=== PATIENT | female | born 1930 | race Caucasian/White ===

== ENCOUNTER → 2017-12-27 | Outpatient (CLI) | payer MEDICARE ==
--- NOTE | 2017-12-27 14:41 | BD ---
EXAMINATION TYPE: Axial Bone Density DATE OF EXAM: 12/27/2017 COMPARISON: NONE CLINICAL HISTORY: 87 YR OLD FEMALE.....ICD-10 CODE: N95.1 POST MENOPAUSAL STATE Height: 60 Weight: 156 FRAX RISK QUESTIONS: NOTHING TO NOTE HERE RISK FACTORS HISTORY OF: Postmenopausal woman: YES, IN HER 50'S Lost more than 2 inches in height since high school: YES Frequent falls: ELDERLY MEDICATIONS: Additional Medications: STATINS FOR CHOLESTEROL, REFLUX MEDS IN PAST ONLY Additional History: NOTHING ADDITIONAL TO NOTE HERE EXAM MEASUREMENTS: Bone mineral densitometry was performed using the [employer] System. Bone mineral density as measured about the Lumbar spine is: ----- L1-L4(G/cm2): 1.353 T Score Values are as follows: ----- L1: 1.6 ----- L2: 1.1 ----- L3: 1.2 ----- L4: 1.8 ----- L1-L4: 1.4 Bone mineral density has: Increased 0.2% since study of: 01.23.2009 Bone mineral density about the R hip (g/cm2): 0.904 Bone mineral density about the L hip (g/cm2): 0.874 T Score values are as follows: -----R Neck: -1.1 -----L Neck: -2.0 -----R Total: -0.8 -----L Total: -1.1 Bone mineral density has: Decreased -6.5% since study of: 01.23.2009 FRAX%s: THERE IS A 15.1% CHANCE FOR A MAJOR OSTEOPOROTIC FX AND A 4.6% FOR HIP FX....PROBABILITY O F FX IN 10 YRS TIME IMPRESSION: Osteopenia left proximal femur. NOTE: T-SCORE=SD OF THE YOUNG ADULT MEAN.
== END | disposition home or self-care (01) ==
LOC: RADBDWWP 13:08
PROVIDERS: ATTEND Internal Medicine
DX: M85.852 Other specified disorders of bone density and structure, left thigh (principal); N95.1 Menopausal and female climacteric states
CPT/HCPCS: 77080

== ENCOUNTER → 2018-03-08 | Outpatient (CLI) | payer MEDICARE | END | disposition home or self-care (01) | LOC: LABPAT 14:26 | PROVIDERS: ATTEND Orthopaedic Surgery | DX: Z01.812 Encounter for preprocedural laboratory examination (principal) | CPT/HCPCS: 87070 ==

== ENCOUNTER 2018-03-29 11:55 | Inpatient (IN) | payer MEDICARE ==
[~2018-03-29 11:55] MED LIST: ACETAMINOPHEN TAB 500 MG TAB PO ONE; LIDOCAINE 1% 20 ML VIAL (10MG/ML) FOR IV START INTRADERMA PRN; MELOXICAM 7.5 MG TAB PO ONE; MIDAZOLAM (PF) 2 MG/2 ML VIAL IV PRN; TRANEXAMIC ACID 1,000 MG in SODIUM CHLORIDE 0.9% 50 ML IVPB ONE; ceFAZolin IN SWFI 2 GM/20 ML SYRINGE IVP ONE; fentaNYL (PF) 50 MCG/ML 2 ML AMP IV PRN; fentaNYL (PF) 50 MCG/ML 20 ML VIAL IVP PRN
[2018-03-29] MEDS: LACTATED RINGERS 1,000 ML IV SCH ×2 (14:52→23:06)
[2018-03-29] MEDS ORDERED: ROPIVACAINE 1,100 MG, SODIUM CHLORIDE 0.9% 500 ML 330 ML MISCELLANE PRN ×2 (15:12)
--- NOTE | 2018-03-29 15:12 | P.ONQ ---
Anesthesiology Proc Note - PNB - Peripheral Nerve Block Performed Left Adductor Canal Infusion Time Out Performed: Yes (3409) Procedure Start Time: 14:53 Procedure Stop Time: 15:09 Indication: Acute Post-Operative Pain, Requested by physician (Lorrie) Sedation Type: Sedate with meaningful contact maintained Preparation: Sterile Dressing Position: Supine Catheter: Indwelling Needle Types: On-Q Needle Size: 100mm (4") Needle Gauge: 20 Technique: Ultrasound Injectate: 0.5% Ropivacaine (see comment for volume) (30 mls) Blood Aspirated: No Pain Paresthesia on Injection Noted: No Resistance on Injection: Normal Events: Uneventful and Well Tolerated
[2018-03-29] MEDS ORDERED: PROPOFOL 10 MG/ML 20 ML VIAL IV ONE (15:21)
[2018-03-29] MEDS ORDERED: fentaNYL (PF) 50 MCG/ML 2 ML AMP ONE (15:21)
[2018-03-29] MEDS ORDERED: MIDAZOLAM 2 MG/2 ML VIAL ONE (15:21)
[2018-03-29] MEDS ORDERED: ceFAZolin 3,000 MG in SODIUM CHLORIDE 0.9% IRRIGATIO 3,000 ML IRRIGATION ONE ×4 (15:28)
[2018-03-29] MEDS ORDERED: hydrOXYzine PAMOATE 25 MG CAP PO PRN (15:41)
[2018-03-29] MEDS ORDERED: ONDANSETRON 4 MG/2 ML VIAL IVP PRN (15:41)
[2018-03-29] MEDS ORDERED: MAGNESIUM HYDROXIDE 2,400 MG/10 ML CUP PO PRN (15:41)
[2018-03-29] MEDS ORDERED: BISACODYL 10 MG SUPP RECTAL PRN (15:41)
[2018-03-29] MEDS ORDERED: DIAZEPAM 5 MG TAB PO PRN (15:41)
[2018-03-29] MEDS ORDERED: NALOXONE 0.4 MG/ML 1 ML VIAL IV PRN (15:41)
[2018-03-29] MEDS ORDERED: NA PHOS,M-B/NA PHOS,DI-BA 133 ML ENEMA RECTAL PRN (15:41)
[2018-03-29] MEDS ORDERED: HYDROcodone/APAP 5-325MG 1 EACH TAB PO PRN ×2 (15:41)
[2018-03-29] MEDS ORDERED: HYDROmorphone 0.5 MG/0.5 ML SYRINGE IVP PRN ×3 (15:41)
[2018-03-29] MEDS: ROPIVACAINE 246.25 MG, EPINEPHrine 0.5 MG, KETOROLAC 30 MG, cloNIDine HCL/PF 80 MCG, WA... MISCELLANE ONE ×10 (16:10→16:26)
--- NOTE | 2018-03-29 16:51 | P.OP ---
Date of Procedure: 03/29/18 Preoperative Diagnosis: Severe osteoarthritis left knee Postoperative Diagnosis: Severe osteoarthritis left knee Procedure(s) Performed: Left total knee arthroplasty Implants: Odom and Nephew Journey II CR Oxinium cruciate retaining femoral component size 5, left Odom & Nephew Journey left nonporous tibial baseplate size 4 Odom & Nephew Journey II, XLPE Deep Dished articular insert, size 13 mm, Size 3 -4 left Odom & Nephew Journey BCS resurfacing oval patellar component, 32 mm All components were cemented using Palacos R bone cement.. The articulation is Oxinium on polyethylene. Anesthesia: spinal Surgeon: Constantin Andrew Cloth Bolt Bander #1: Kacie Chung Estimated Blood Loss (ml): 25 Pathology: other (Bone and cartilage) Condition: stable Disposition: PACU Indications for Procedure: After failure of conservative treatment we discussed the surgical and nonsurgical treatment options at length. Patient wishes to proceed with a total knee arthroplasty. Complications specific to this procedure were discussed at length, including but not limited to infection, bleeding, stiffness , and nerve injury. Patient is aware of all these complications and informed consent was obtained Operative Findings: The operative findings are consistent with severe osteoarthritis of the left knee Description of Procedure: Patient was seen in the preoperative area consent was reviewed and operative site was marked with a skin marker. An adductor canal pain catheter was placed by anesthesia in the preoperative area. Patient was then brought to the operating room and given preoperative antibiotics intravenously. A spinal anesthetic was administered by the anesthesia department. A tourniquet was placed on the upper thigh and the lower extremity was prepped and draped in usual sterile fashion. A gram of transexamic acid was given. A universal timeout was then performed which confirmed the patient's name, surgical site, ALLERGIES, and consent. The lower extremity was then exsanguinated and tourniquet was inflated to 250 mmHg. A standard and anterior midline approach to the knee was performed. The skin and subcutaneous tissue was dissected down to the patellar tendon. A medial parapatellar arthrotomy was then performed. The knee was then extended, the patellar was everted, and the knee was again flexed. Anterior horns of both menisci were excised, and a release was performed to the posterior medial aspect of the knee. On gross visual inspection, there was complete loss of articular cartilage in the medial and patellofemoral joint spaces. There was also significant cartilage damage in the lateral compartment. There were multiple periarticular osteophytes which were then removed with a Ronguer. The femoral canal was then opened with the appropriate drill, and the intramedullary femoral cutting guide was then placed and set for 5 of valgus. The distal femoral cutting block was then pinned in place, and the distal femur was then cut. The cutting block was then removed and the cut was checked for flatness. Next, the sizing guide was then placed and set for 3 external rotation based off of the epicondylar axis and Whitesides line. After the femur was sized, the appropriate 4-in-1 cutting block was then pinned in place. The anterior condyles were cut without notching. The posterior and chamfer cuts were performed while protecting the collateral ligaments. The cutting block was then removed, and the femoral canal was plugged with autologous bone. Attention was then directed to the tibia. The remaining ACL was removed with a Ronguer, and the tibia was then gently subluxed forward with a large bent knee retractor. Any remaining menisci was excised. The posterior lateral corner was cauterized in order to cauterize the lateral geniculate artery. The extra medullary tibial cutting guide was then placed, set for the appropriate rotation , slope, and depth of resection. The proximal tibia cutting guide was then pinned in place. Proximal tibia was then cut and sized. Next trials were then placed with the appropriate-sized insert. The knee was able to fully extend and flex to 130 and was stable throughout all range of motion. The knee was then extended, patella everted. Patella was then measured, and then using an osteotomy guide, the patella was cut at the appropriate level. The patella was then measured and drilled and the patella trial was then placed. The knee was then taken through range of motion with the patella trial and the patella tracked normally. The knee was then extended patella trial was then removed and the patella was everted. Knee was then flexed and lug holes were drilled through the femoral trial and the femoral trial was then removed. The tibial was then exposed, and the tibial broach guide was then pinned in place after it was set for the appropriate rotation to allow for the most coverage without overhang. The tibia was then reamed and broached. The cut surfaces of bone were then irrigated with pulsatile lavage. The posterior structures were injected with the ropivacaine solution. The knee was also irrigated with Irrisept solution. The components were then opened, the cement was mixed, and the components were then cemented in place. The cement was allowed to harden with the knee in full extension. While the cement was hardening, the remaining soft tissues were then injected with a ropivacaine solution, which consisted of 246.25 mg of ropivacaine, 0.5 mg of epinephrine, 30 mg of Toradol, 80 g of clonidine, and 48.45 mL of sterile water, for a total of 100 mL of fluid injected. After the cemented hardened. The tourniquet was released, and hemostasis was obtained. A second gram of transexamic acid was given. The knee was again irrigated. The knee was again taken through range of motion and found to be stable throughout all range of motion of 0-130 , and the patella tracked normally. The fascia was then closed with #2 strata fix suture. The subcutaneous tissue was closed with 3-0 Vicryl and 3-0 strata fix. Dermabond glue was used for the skin and placed with the knee in flexion. The patient was placed in a sterile silver dressing. Patient was then transferred to recovery room in stable condition. The assistant customer service manager JASIEL Sidhu was required due the complexity surgery and the need for a skilled blood and plasma laboratory assistant. She assisted in positioning, draping, retraction, and closure of the wound.
[2018-03-29] MEDS ORDERED: LACTATED RINGERS 1,000 ML IV ONE ×2 (17:45)
--- NOTE | 2018-03-29 19:27 | XR ---
PROCEDURE: XR knee limited LT - 2 views DATE AND TIME: 03/29/2018 5:49 PM CLINICAL INDICATION: PHH; Evaluation for Postop abnormality and alignment TECHNIQUE: AP and crosstable lateral views COMPARISON: None FINDINGS: TKR is in place, with anatomic positioning alignment. Postoperative changes are noted, but no unexpected findings. IMPRESSION: Postoperative left knee 2 views.
[2018-03-29 19:52] VITALS: BMI 30.1
[2018-03-29] MEDS ORDERED: ATORVASTATIN 20 MG TAB PO SCH (21:00)
[2018-03-29] MEDS ORDERED: OXYBUTYNIN XL 5 MG TAB.ER.24 PO SCH (21:00)
[2018-03-29] MEDS ORDERED: SENNOSIDES-DOCUSATE SODIUM 1 EACH TAB PO SCH (21:00)
[2018-03-29] MEDS: ASPIRIN 325 MG TAB PO SCH (21:29)
[2018-03-29] MEDS: ceFAZolin IN SWFI 2 GM/20 ML SYRINGE IVP SCH (22:09)
[2018-03-29] MEDS: SODIUM CHLORIDE 0.9% 1,000 ML IV SCH (23:07)
[2018-03-30] MEDS: ceFAZolin IN SWFI 2 GM/20 ML SYRINGE IVP SCH (04:19)
--- NOTE | 2018-03-30 07:17 | P.PN ---
Progress Note - Text Progress Note Date: 03/30/18 Postoperative day # 1 status post left total knee arthroplasty, under spinal anesthesia, and adductor canal catheter placed for postoperative analgesia, currently at ropivacaine 0.2% 8 mL per hour and continuous infusion, visual analogue scale is 3-4 /10, patient using oral pain medication for breakthrough pain. Assessment and plan= Acute postoperative pain, adductor canal catheter for pain control, pain is well controlled we'll continue the same management.
[2018-03-30 07:42] LABS: Basophils % (A) 0 %; Eosinophils # (A) 0.1 k/uL (0-0.7); Eosinophils % (A) 2 %; HGB 11.3 gm/dL (11.4-16.0); Lymphocytes # (A) 0.6 k/uL (1.0-4.8); Lymphocytes % (A) 8 %; MCH 30.2 pg (25.0-35.0); MCHC 33.1 g/dL (31.0-37.0); MCV 91.3 fL (80.0-100.0); Mean Platelet Volume 6.9; Monocytes # (A) 0.5 k/uL (0-1.0); Monocytes % (A) 7 %; Neutrophils # (A) 5.7 k/uL (1.3-7.7); Neutrophils % (A) 82 %; Platelet Count 184 k/uL (150-450); RBC 3.72 m/uL (3.80-5.40); RDW 13.9 % (11.5-15.5)
[2018-03-30] MEDS: SODIUM CHLORIDE 0.9% 1,000 ML IV SCH (08:13)
[2018-03-30] MEDS: LACTATED RINGERS 1,000 ML IV SCH (08:13)
[2018-03-30 08:18] VITALS: RESP 16
[2018-03-30] MEDS: ASPIRIN 325 MG TAB PO SCH (08:21)
[2018-03-30] MEDS ORDERED: MELOXICAM 7.5 MG TAB PO SCH (09:00)
--- NOTE | 2018-03-30 09:14 | P.DS ---
Providers Date of admission: 03/29/18 14:18 Expected date of discharge: 03/30/18 Attending physician: Constantin Andrew Consults: 03/29/18 15:41 Consult Physician Routine Consulting Provider: Gracie Fields Consult Reason/Comments: medical management Do you want consulting provider notified?: Yes Primary care physician: Gracie Fields - Discharge Diagnosis(es) (1) Osteoarthritis of left knee Current Visit: Yes Status: Acute (2) Status post total left knee replacement Current Visit: Yes Status: Acute Hospital Course: This is a 87-year-old female with known history of degenerative arthritis of the left knee. The patient presents for evaluation. After discussion and consideration patient elects to proceed with total knee arthroplasty. The patient is seen preoperatively by Dr. Andrew and medically cleared for surgery by their primary care physician. Patient is admitted to [facility] on 03/29/2018 for total knee arthroplasty. The procedures performed without complication or sequelae. The patient is doing well postoperatively. Labs and vital signs are stable on day of discharge. On day of discharge patient's knee incision is healing well. There is minimal erythema. There is no drainage noted at this time. There is minimal soft tissue swelling to the knee. Patient has full foot and ankle motion without difficulty or pain. Neurovascular status to the left lower extremity is intact. Patient is discharged home in good condition. Please see med rec for accurate list of home medications. Plan - Discharge Summary Discharge Rx Participant: No New Discharge Prescriptions: New Aspirin 325 mg PO BID #60 tab HYDROcodone/APAP 5-325MG [Luning 5-325] 1 - 2 tab PO Q6HR PRN #56 tab PRN Reason: Pain Sennosides [Senokot] 1 tab PO BID #60 tablet No Action Simvastatin [Zocor] 40 mg PO DAILY Multivitamins, Thera [Multivitamin] 1 tab PO DAILY Acetaminophen Tab [Tylenol] 325 mg PO Q6HR PRN PRN Reason: PAIN/FEVER Tolterodine Tartrate [Detrol] 2 mg PO DAILY Ciprofloxacin HCl [Cipro] 250 mg PO Q12HR Discharge Medication List Acetaminophen Tab [Tylenol] 325 mg PO Q6HR PRN 08/16/14 [History] Multivitamins, Thera [Multivitamin] 1 tab PO DAILY 08/16/14 [History] Simvastatin [Zocor] 40 mg PO DAILY 08/16/14 [History] Tolterodine Tartrate [Detrol] 2 mg PO DAILY 03/23/18 [History] Ciprofloxacin HCl [Cipro] 250 mg PO Q12HR 03/29/18 [History] Aspirin 325 mg PO BID #60 tab 03/30/18 [Rx] HYDROcodone/APAP 5-325MG [Luning 5-325] 1 - 2 tab PO Q6HR PRN #56 tab 03/30/18 [ Rx] Sennosides [Senokot] 1 tab PO BID #60 tablet 03/30/18 [Rx] Follow up Appointment(s)/Referral(s): Constantin Andrew DO [Doctor of Osteopathic Medicine] - 2 Weeks Ambulatory/Diagnostic Orders: Continuous Passive Motion (CPM) Machine [DME.AMB1] Time Frame: 3 Weeks, Location : None Selected Walker w/ Wheels [DME.AMB1] Time Frame: 3 Months, Location: None Selected Activity/Diet/Wound Care/Special Instructions: Weightbearing as tolerated with a walker. CPM 5-6h daily. Leave dressing intact. May be removed by home care nurse in 10 days. May shower with dressing on. Please follow up with [facility] and call with any questions or concerns, . Discharge Disposition: HOME WITH HOME HEALTH SERVICES
[2018-03-30 10:09] LABS: Albumin 3.3 g/dL (3.5-5.0); Calcium 8.5 mg/dL (8.4-10.2); Potassium 4.6 mmol/L (3.5-5.1); Total Bilirubin 0.7 mg/dL (0.2-1.3); Total Protein 5.6 g/dL (6.3-8.2)
--- NOTE | 2018-03-30 11:32 | P.CONS ---
History of Present Illness - Reason for Consult Consult date: 03/30/18 Medical Management Requesting physician: Constantin Andrew - History of Present Illness This 87-year-old female patient who presented to the hospital for an elective total left knee osteoplasty with Dr. Andrew on 03/29/2018. Patient is a known past medical history of severe osteophyte is to left knee, hyperlipidemia , bowel resection, overactive bladder and rotator cuff repair surgery. Patient also reports that she has recently completed treatment for urinary tract infection. At this time patient is currently postop day 1 resting comfortably in bed. Patient does reports she has been up ambulating through halls. Patient requesting we recheck UA to rule out UTI. At this time patient denies chest pain or shortness of breath. Patient denies nausea vomiting or diarrhea. Patient denies any urinary burning or frequency. Review of Systems please refer to HPI otherwise unremarkable Past Medical History Past Medical History: Hyperlipidemia, Osteoarthritis (OA) Additional Past Medical History / Comment(s): Other HX: BLADDER PROBLEMS, bowel perforation with sx., right knee replacement History of Any Multi-Drug Resistant Organisms: None Reported Past Surgical History: Bowel Resection, Hernia Repair, Hysterectomy, Orthopedic Surgery Additional Past Surgical History / Comment(s): 08/21/14 Acromioplasty excision distal clavicle, rotator cuff repair R shoulder. HX PERFORATED BOWEL, ELIE CATARACT SX, incisional hernia repair. Past Anesthesia/Blood Transfusion Reactions: Previous Problems w/ Anesthesia Additional Past Anesthesia/Blood Transfusion Reaction / Comm: STATES "TOOK A LONG TIME WAKING UP AFTER SURGERY" Past Psychological History: No Psychological Hx Reported Additional Psychological History / Comment(s): Pt lives with her . She is independent. She uses no assistive device or home care. She drives. Smoking Status: Never smoker Past Alcohol Use History: Occasional Past Drug Use History: None Reported - Past Family History Father Family Medical History: Cancer Additional Family Medical History / Comment(s): PROSTATE Mother Family Medical History: Chest Pain / Angina Medications and Allergies Home Medications Medication Instructions Recorded Confirmed Type Acetaminophen Tab [Tylenol] 325 mg PO Q6HR PRN 08/16/14 03/29/18 History Multivitamins, Thera [Multivitamin] 1 tab PO DAILY 08/16/14 03/29/18 History Simvastatin [Zocor] 40 mg PO DAILY 08/16/14 03/29/18 History Tolterodine Tartrate [Detrol] 2 mg PO DAILY 03/23/18 03/29/18 History Ciprofloxacin HCl [Cipro] 250 mg PO Q12HR 03/29/18 03/29/18 History Aspirin 325 mg PO BID #60 tab 03/30/18 Rx HYDROcodone/APAP 5-325MG [Walden 1 - 2 tab PO Q6HR PRN #56 tab 03/30/18 Rx 5-325] Sennosides [Senokot] 1 tab PO BID #60 tablet 03/30/18 Rx Allergies Allergy/AdvReac Type Severity Reaction Status Date / Time No Known Allergies Allergy Verified 03/29/18 18:15 Physical Exam Vitals: Vital Signs Temp Pulse Pulse Resp BP BP Pulse Ox 03/30/18 08:06 98.5 F 95 16 153/80 93 L 03/29/18 23:15 98.1 F 89 17 135/82 94 L 03/29/18 21:44 94 120/74 96 03/29/18 21:40 75 102/61 96 03/29/18 21:35 73 107/54 95 03/29/18 21:25 80 149/89 96 03/29/18 20:25 94 136/67 94 L 03/29/18 20:10 94 132/73 95 03/29/18 19:10 81 184/94 95 03/29/18 18:40 82 135/67 94 L 03/29/18 18:31 97.5 F L 72 18 150/78 97 03/29/18 18:10 80 16 142/71 94 L 03/29/18 17:55 79 16 146/72 95 03/29/18 17:40 80 16 142/77 99 03/29/18 17:25 97.4 F L 82 16 133/62 98 03/29/18 14:38 98.7 F 100 16 128/65 98 Intake and Output 03/29/18 03/30/18 03/30/18 22:59 06:59 14:59 Intake Total 981 650 Output Total 25 Balance 956 650 Intake: IV 851 Intake, IV Titration 130 650 Amount Sodium Chloride 0.9% 1, 130 650 000 ml @ 65 mls/hr IV . [id number] [facility] Rx#:[id number] Output: Estimated Blood Loss 25 Other: Voiding Method Toilet # Voids 1 2 Head normocephalic Neck supple Lungs clear to auscultation bilaterally no wheezing or crackles Heart regular rate and rhythm S1-S2, no rub or gallop Abdomen is soft nontender nondistended positive bowel sounds no hepatosplenomegaly Extremities no edema. Left knee clean dry and intact Neuro alert and orientated to 3 Results CBC & Chem 7: 03/30/18 06:43 03/30/18 06:43 Labs: Abnormal Lab Results - Last 24 Hours (Table) 03/30/18 03/30/18 Range/Units 06:43 06:43 RBC 3.72 L (3.80-5.40) m/uL Hgb 11.3 L (11.4-16.0) gm/dL Lymphocytes # 0.6 L (1.0-4.8) k/uL Chloride 110 H (98-107) mmol/L BUN 23 H (7-17) mg/dL Glucose 110 H (74-99) mg/dL Total Protein 5.6 L (6.3-8.2) g/dL Albumin 3.3 L (3.5-5.0) g/dL Assessment and Plan Assessment: 1. Status post total left knee arthroplasty with Dr. Andrew. Patient is currently postop day 1. She currently on aspirin 325 twice a day for DVT prophylactic 2. Recent UTI. Patient has completed treatment with Cipro. Urinary analysis has been ordered. 3. Osteoarthritis 4. Overactive bladder 5. History of rotator cuff repair 6. History of bowel resection 7. History of hyperlipidemia Time with Patient: Greater than 30 (Greater than 60% of the total time spent in counseling and coordination of care. I performed an examination of the patient and discussed their management with the Nurse Practitioner. I have reviewed the Nurse Practitioner's notes and agree with the documented findings and plan of care)
[2018-03-30 12:29] LABS: Appearance,Urine Clear (Clear); Bacteria,Urine Rare /hpf; Bilirubin,Urine Negative (Negative); Blood,Urine Negative (Negative); Color,Urine Yellow; Glucose,Urine (UA) Negative (Negative); Ketones,Urine Negative (Negative); Leukocyte Esterase,Urine Small (Negative); Mucus,Urine Rare /hpf; Nitrite,Urine Negative (Negative); PH, Urine 5.5 (5.0-8.0); Protein,Urine Negative (Negative); RBC,Urine 1 /hpf (0-5); Specific Gravity,Urine 1.011 (1.001-1.035); Squamous Epithelial Cell,Urine 1 /hpf (0-4); Urobilinogen,Urine <2.0 mg/dL (<2.0); WBC,Urine 9 /hpf (0-5)
[2018-03-30 16:12] VITALS: BP 105/66; PULSE 96; TEMP 98.1
== END 2018-03-30 16:35 | disposition home health service (06) | DRG 470 ==
LOC: 2ORMAIN 14:18 → 4SSUR 17:38
PROVIDERS: ADMIT Orthopaedic Surgery; ATTEND Orthopaedic Surgery
PROC: 0SRD069 Replacement of Left Knee Joint with Oxidized Zirconium on Polyethylene Synthetic Substitute, Cemented, Open Approach (ICD-10-PCS; principal; 2018-03-29 16:05)
DX: M17.12 Unilateral primary osteoarthritis, left knee (principal); E78.5 Hyperlipidemia, unspecified; G89.18 Other acute postprocedural pain; N32.81 Overactive bladder; M85.80 Other specified disorders of bone density and structure, unspecified site; R32 Unspecified urinary incontinence; M16.11 Unilateral primary osteoarthritis, right hip; Z79.82 Long term (current) use of aspirin; Z79.899 Other long term (current) drug therapy; Z90.49 Acquired absence of other specified parts of digestive tract; Z90.710 Acquired absence of both cervix and uterus; Z96.651 Presence of right artificial knee joint; Z87.440 Personal history of urinary (tract) infections; Z98.42 Cataract extraction status, left eye; Z98.41 Cataract extraction status, right eye; Z96.1 Presence of intraocular lens; Z80.42 Family history of malignant neoplasm of prostate
CPT/HCPCS: 80053; 81001; 85025; 88300

== ENCOUNTER → 2018-09-05 | Outpatient (CLI) | payer MEDICARE ==
[2018-09-05 15:24] LABS: HCT 40.6 % (34.0-46.0); HGB 13.6 gm/dL (11.4-16.0); MCH 30.2 pg (25.0-35.0); MCHC 33.5 g/dL (31.0-37.0); Platelet Count 201 k/uL (150-450); RBC 4.51 m/uL (3.80-5.40); RDW 14.4 % (11.5-15.5); WBC 7.4 k/uL (3.8-10.6)
[2018-09-05 15:30] LABS: Appearance,Urine Clear (Clear); Bacteria,Urine Rare /hpf; Bilirubin,Urine Negative (Negative); Blood,Urine Negative (Negative); Color,Urine Yellow; Glucose,Urine (UA) Negative (Negative); Ketones,Urine Negative (Negative); Leukocyte Esterase,Urine Moderate (Negative); Mucus,Urine Rare /hpf; Nitrite,Urine Negative (Negative); PH, Urine 5.5 (5.0-8.0); Protein,Urine Negative (Negative); RBC,Urine 1 /hpf (0-5); Specific Gravity,Urine 1.012 (1.001-1.035); Urobilinogen,Urine <2.0 mg/dL (<2.0); WBC,Urine 4 /hpf (0-5)
[2018-09-05 15:37] LABS: INR 0.9 (<1.2); Partial Thromboplastin Time 22.8 sec (22.0-30.0)
[2018-09-05 18:23] LABS: African American GFR (CKD) 77.4 (60.0-200.0); Albumin 4.2 g/dL (3.80-4.90); Albumin/Globulin Ratio 2.63 (1.60-3.17); Anion Gap 5.9 mmol/L (4.00-12.00); BUN/Creat Ratio 27.5 Ratio (12.00-20.00); Calcium 9.5 mg/dL (8.7-10.3); Carbon Dioxide 28.1 mmol/L (21.6-31.8); Globulin 1.6 g/dL (1.6-3.3); Total Bilirubin 0.5 mg/dL (0.2-1.2); Total Protein 5.8 g/dL (6.2-8.2)
== END | disposition home or self-care (01) ==
LOC: LABWHC1 14:20
PROVIDERS: ATTEND Orthopaedic Surgery
DX: Z01.812 Encounter for preprocedural laboratory examination (principal)
CPT/HCPCS: 36415; 80053; 81001; 85027; 85610; 85730; 87070

== ENCOUNTER 2019-09-26 15:50 | Inpatient (IN) | payer MEDICARE ==
[2019-09-26] MEDS ORDERED: ASPIRIN 81 MG PO STA (16:17)
--- NOTE | 2019-09-26 16:34 | ED ---
General Adult HPI - General Source: patient, RN notes reviewed Mode of arrival: ambulatory Limitations: no limitations <Constantin Garcia - Last Filed: 09/26/19 18:29> <Rasheed Dolan - Last Filed: 09/26/19 18:40> - General Chief complaint: Recheck/Abnormal Lab/Rx Stated complaint: Abdnormal EKG Time Seen by Provider: 09/26/19 16:05 - History of Present Illness Initial comments: 89-year-old female presents emergency Department with chief complaint of shortness breath, abnormal EKG. Patient states that she's been having on and off increasing shortness of breath the last month or so. Patient saw PCP who to ld her head and normal EKG and sounded congested. Patient denies any symptoms occur medication no prior pulmonary disease. Patient states that she's been having exertional dyspnea she states she has dyspnea with any minimal exertion. She denies any leg swelling, Pain no history DVT or PE. Patient takes myebrtiq and a statin. Patient denies any fevers or chills no cough cold like symptoms. (Constantin Garcia) - Related Data Home Medications Medication Instructions Recorded Confirmed Multivitamins, Thera [Multivitamin 1 tab PO DAILY 08/16/14 09/26/19 (formulary)] Simvastatin [Zocor] 40 mg PO HS 08/16/14 09/26/19 Mirabegron [Myrbetriq] 50 mg PO DAILY 09/08/18 09/26/19 Acetaminophen Tab [Tylenol] 500 mg PO ONCE PRN 09/26/19 09/26/19 Allergies Allergy/AdvReac Type Severity Reaction Status Date / Time No Known Allergies Allergy Verified 09/26/19 17:08 Review of Systems ROS Other: All systems not noted in ROS Statement are negative. <Constantin Garcia - Last Filed: 09/26/19 18:29> ROS Other: All systems not noted in ROS Statement are negative. <Rasheed Dolan - Last Filed: 09/26/19 18:40> ROS Statement: Those systems with pertinent positive or pertinent negative responses have been documented in the HPI. Past Medical History Past Medical History: Hyperlipidemia, Osteoarthritis (OA) Additional Past Medical History / Comment(s): Other HX: BLADDER PROBLEMS, bowel perforation with sx., right knee replacement History of Any Multi-Drug Resistant Organisms: None Reported Past Surgical History: Bowel Resection, Hernia Repair, Hysterectomy, Orthopedic Surgery Additional Past Surgical History / Comment(s): 08/21/14 Acromioplasty excision distal clavicle, rotator cuff repair R shoulder. HX PERFORATED BOWEL, ELIE CA TARACT SX, incisional hernia repair. Past Anesthesia/Blood Transfusion Reactions: Previous Problems w/ Anesthesia Additional Past Anesthesia/Blood Transfusion Reaction / Comment(s): STATES "TOOK A LONG TIME WAKING UP AFTER SURGERY" Past Psychological History: No Psychological Hx Reported Smoking Status: Never smoker Past Alcohol Use History: Occasional Past Drug Use History: None Reported - Past Family History Father Family Medical History: Cancer Additional Family Medical History / Comment(s): PROSTATE Mother Family Medical History: Chest Pain / Angina <Constantin Garcia - Last Filed: 09/26/19 18:29> General Exam Limitations: no limitations General appearance: alert, in no apparent distress Head exam: Present: atraumatic, normocephalic, normal inspection Eye exam: Present: normal appearance, PERRL, EOMI. Absent: scleral icterus, conjunctival injection, periorbital swelling ENT exam: Present: normal exam, normal oropharynx, mucous membranes moist, TM's normal bilaterally Neck exam: Present: normal inspection, full ROM. Absent: tenderness, meningismus, lymphadenopathy Respiratory exam: Present: rales, decreased breath sounds (Left). Absent: normal lung sounds bilaterally, respiratory distress, wheezes, rhonchi, stridor Cardiovascular Exam: Present: regular rate, normal rhythm, normal heart sounds. Absent: systolic murmur, diastolic murmur, rubs, gallop, clicks GI/Abdominal exam: Present: soft, normal bowel sounds. Absent: distended, tenderness, guarding, rebound, rigid Neurological exam: Present: alert, oriented X3 Skin exam: Present: warm, dry, intact, normal color. Absent: rash <Constantin Garcia - Last Filed: 09/26/19 18:29> Course Vital Signs 09/26/19 15:54 Temperature 98.0 F Pulse Rate 84 Respiratory 19 Rate Blood Pressure 154/71 O2 Sat by Pulse 95 Oximetry EKG Findings - EKG Comments: EKG Findings:: EKG performed at 16:19 sinus rhythm with PAC rate of 86 AK 166 QRS 86 QT/QTC 380/454 <Constantin Garcia - Last Filed: 09/26/19 18:29> Medical Decision Making - Lab Data Result diagrams: 09/26/19 16:30 09/26/19 16:30 <Constantin Garcia - Last Filed: 09/26/19 18:29> - Lab Data Result diagrams: 09/26/19 16:30 09/26/19 16:30 <Rasheed Dolan - Last Filed: 09/26/19 18:40> - Medical Decision Making 89-year-old female presented for exertional dyspnea. Patient is a large left- sided pleural effusion CT was performed secondary to elevated d-dimer no evidence of mass or PE. 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 Patient will be admitted for pulmonary consult, antibiotics. Dr. Sandoval was contacted by Dr. Dolan. (Constantin Garcia) 89 female with exertional dyspnea over the past one month. Sent in by her primary care physician Dr. Fields. She has a left-sided hydro-thorax, large pleural effusion. Case discussed both with Dr. Fields and with Dr. Sandoval. She will be admitted. (Rasheed Dolan) - Lab Data Lab Results 09/26/19 09/26/19 09/26/19 Range/Units 16:30 16:30 16:30 WBC 6.6 (3.8-10.6) k/uL RBC 4.92 (3.80-5.40) m/uL Hgb 14.1 (11.4-16.0) gm/dL Hct 44.1 (34.0-46.0) % MCV 89.5 (80.0-100.0) fL MCH 28.6 (25.0-35.0) pg MCHC 32.0 (31.0-37.0) g/dL RDW 13.8 (11.5-15.5) % Plt Count 220 (150-450) k/uL Neutrophils % 71 % Lymphocytes % 14 % Monocytes % 8 % Eosinophils % 4 % Basophils % 1 % Neutrophils # 4.7 (1.3-7.7) k/uL Lymphocytes # 0.9 L (1.0-4.8) k/uL Monocytes # 0.6 (0-1.0) k/uL Eosinophils # 0.3 (0-0.7) k/uL Basophils # 0.1 (0-0.2) k/uL PT 9.7 (9.0-12.0) sec INR 0.9 (<1.2) APTT 22.4 (22.0-30.0) sec D-Dimer 1.78 H (<0.60) mg/L FEU Sodium 139 (137-145) mmol/L Potassium 4.1 (3.5-5.1) mmol/L Chloride 107 (98-107) mmol/L Carbon Dioxide 25 (22-30) mmol/L Anion Gap 7 mmol/L BUN 21 H (7-17) mg/dL Creatinine 0.90 (0.52-1.04) mg/dL Est GFR (CKD-EPI)AfAm 67 (>60 ml/min/1.73 sqM) Est GFR (CKD-EPI)NonAf 58 (>60 ml/min/1.73 sqM) Glucose 123 H (74-99) mg/dL Calcium 9.3 (8.4-10.2) mg/dL Magnesium 2.4 H (1.6-2.3) mg/dL Total Bilirubin 0.5 (0.2-1.3) mg/dL AST 41 H (14-36) U/L ALT 16 (4-34) U/L Alkaline Phosphatase 75 (38-126) U/L Troponin I (0.000-0.034) ng/mL NT-Pro-B Natriuret Pep pg/mL Total Protein 6.5 (6.3-8.2) g/dL Albumin 4.0 (3.5-5.0) g/dL 09/26/19 09/26/19 Range/Units 16:30 16:30 WBC (3.8-10.6) k/uL RBC (3.80-5.40) m/uL Hgb (11.4-16.0) gm/dL Hct (34.0-46.0) % MCV (80.0-100.0) fL MCH (25.0-35.0) pg MCHC (31.0-37.0) g/dL RDW (11.5-15.5) % Plt Count (150-450) k/uL Neutrophils % % Lymphocytes % % Monocytes % % Eosinophils % % Basophils % % Neutrophils # (1.3-7.7) k/uL Lymphocytes # (1.0-4.8) k/uL Monocytes # (0-1.0) k/uL Eosinophils # (0-0.7) k/uL Basophils # (0-0.2) k/uL PT (9.0-12.0) sec INR (<1.2) APTT (22.0-30.0) sec D-Dimer (<0.60) mg/L FEU Sodium (137-145) mmol/L Potassium (3.5-5.1) mmol/L Chloride (98-107) mmol/L Carbon Dioxide (22-30) mmol/L Anion Gap mmol/L BUN (7-17) mg/dL Creatinine (0.52-1.04) mg/dL Est GFR (CKD-EPI)AfAm (>60 ml/min/1.73 sqM) Est GFR (CKD-EPI)NonAf (>60 ml/min/1.73 sqM) Glucose (74-99) mg/dL Calcium (8.4-10.2) mg/dL Magnesium (1.6-2.3) mg/dL Total Bilirubin (0.2-1.3) mg/dL AST (14-36) U/L ALT (4-34) U/L Alkaline Phosphatase (38-126) U/L Troponin I <0.012 (0.000-0.034) ng/mL NT-Pro-B Natriuret Pep 103 pg/mL Total Protein (6.3-8.2) g/dL Albumin (3.5-5.0) g/dL Disposition <Constantin Garcia M - Last Filed: 09/26/19 18:29> <Rasheed Dolan - Last Filed: 09/26/19 18:40> Clinical Impression: Pleural effusion, left, Exertional dyspnea, Chest pain Disposition: ADMITTED IP TO THIS [facility] Condition: Serious Referrals: Gracie Fields MD [Primary Care Provider] - 1-2 days
[2019-09-26 16:38] LABS: Basophils # (A) 0.1 k/uL (0-0.2); Basophils % (A) 1 %; Eosinophils # (A) 0.3 k/uL (0-0.7); Eosinophils % (A) 4 %; HCT 44.1 % (34.0-46.0); HGB 14.1 gm/dL (11.4-16.0); Lymphocytes # (A) 0.9 k/uL (1.0-4.8); Lymphocytes % (A) 14 %; MCH 28.6 pg (25.0-35.0); MCV 89.5 fL (80.0-100.0); Mean Platelet Volume 7.8; Monocytes # (A) 0.6 k/uL (0-1.0); Monocytes % (A) 8 %; Neutrophils # (A) 4.7 k/uL (1.3-7.7); Neutrophils % (A) 71 %; Platelet Count 220 k/uL (150-450); RBC 4.92 m/uL (3.80-5.40); RDW 13.8 % (11.5-15.5); WBC 6.6 k/uL (3.8-10.6)
[2019-09-26 16:51] LABS: Calcium 9.3 mg/dL (8.4-10.2); Magnesium 2.4 mg/dL (1.6-2.3); Potassium 4.1 mmol/L (3.5-5.1); Total Bilirubin 0.5 mg/dL (0.2-1.3); Total Protein 6.5 g/dL (6.3-8.2)
[2019-09-26 16:56] LABS: INR 0.9 (<1.2); Partial Thromboplastin Time 22.4 sec (22.0-30.0); Prothrombin Time 9.7 sec (9.0-12.0)
[2019-09-26 17:02] LABS: D-Dimer 1.78 mg/L FEU (<0.60)
--- NOTE | 2019-09-26 17:12 | XR ---
EXAMINATION TYPE: XR chest 2V DATE OF EXAM: 09/26/2019 COMPARISON: NONE HISTORY: Short of breath TECHNIQUE: 2 views FINDINGS: There is opacification of the left mid and lower lung field. Heart is probably enlarged. Tr achea is deviated slightly to the right side. There is no heart failure. There are chest leads. IMPRESSION: Large left pleural effusion and left lower lobe consolidation. No obvious heart failure.
--- NOTE | 2019-09-26 18:15 | CT ---
EXAMINATION TYPE: CT chest angio for PE DATE OF EXAM: 09/26/2019 COMPARISON: None HISTORY: Chest pain and shortness of breath. CT DLP: 336.9 mGycm Automated exposure control for dose reduction was used. CONTRAST: Performed with IV Contrast, patient injected with 70ml mL of Isovue 370. There are 3-D post processed images. There is very large left pleural effusion. There is significant consolidation and atelectasis of the left lung. I see no discrete pulmonary mass. The right lung is clear of consolidation. Heart is devia jesi slightly to the right side. There are bilateral bronchial lymph nodes that measure up to 1.5 cm. There is no pericardial effusion. Heart is top normal in size. Thoracic aorta is intact. 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 There is no dissection. I see no filling defects in the pulmonar y arteries. Thoracic vertebra have normal alignment. There is spurring of the endplates. Sternum is intact. The r ibs appear intact. IMPRESSION: There is a tension left side hydrothorax. Heart shifted slightly to the right side. Significant atele ctasis of the left lung. No underlying pulmonary mass seen. There are nonspecific bilateral bronchial lymph nodes. There appears to be compressive atelectasis of the left lower lobe and upper lobe inclu ding the bronchi. No evidence of pulmonary embolism. Thoracic aortic aneurysm.
[2019-09-26] MEDS ORDERED: NALOXONE 0.4 MG/ML 1 ML VIAL IV PRN (18:23)
[2019-09-26] MEDS ORDERED: ACETAMINOPHEN TAB 325 MG TAB PO PRN (18:23)
[2019-09-26] MEDS ORDERED: ONDANSETRON 4 MG/2 ML VIAL IVP PRN (18:23)
[2019-09-26] MEDS ORDERED: HYDROcodone/APAP 5-325MG 1 EACH TAB PO PRN (18:23)
[2019-09-26] MEDS ORDERED: AZITHROMYCIN 500 MG in SODIUM CHLORIDE 0.9% 250 ML IVPB STA (18:25)
[2019-09-26] MEDS ORDERED: cefTRIAXone IN SWFI 1,000 MG/10 ML SYRINGE IVP STA (18:25)
--- NOTE | 2019-09-27 10:44 | XR ---
EXAMINATION TYPE: XR chest 1V portable DATE OF EXAM: 09/27/2019 COMPARISON: 09/26/2019 INDICATION: Status post thoracentesis TECHNIQUE: Single frontal view of the chest is obtained. FINDINGS: The heart size is normal. The pulmonary vasculature is normal. There is a small left pleural effusion significantly diminished from prior study. No left-sided pneum othorax is evident. Degenerative changes bilateral shoulders. IMPRESSION: 1. No pneumothorax postthoracentesis. 2. Small residual left pleural fluid
[2019-09-27 14:30] LABS: Appearance,BF Hazy; Nucleated Cells, Body Fluid 825 /uL; RBC, Body Fluid 295 /uL
[2019-09-27 14:43] LABS: Mononuclear WBC,Body Fluid 95 %; Polynuclear WBC,Body Fluid 3 %; Total Cells Counted,Body Fluid 100
--- NOTE | 2019-09-27 14:50 | P.CNPUL ---
History of Present Illness Consult date: 09/27/19 Reason for consult: dyspnea History of present illness: 89-year-old female patient who presented to the emergency department yesterday because of progressive worsening shortness of breath over the past month or so. She denied having any fever or chills. She denies having any chest pain. No cough sputum production or chest tightness or wheezing. No hemoptysis. No previous history of malignancy. She is a lifetime nonsmoker. No trauma to her left chest area. No orthopnea. No leg swelling. No paroxysmal nocturnal dyspnea. Chest x-ray showed a large left-sided pleural effusion. CAT scan of the chest showed a large left-sided pleural effusion and there are some atelectatic changes in the left lung base. No underlying pulmonary mass was seen. There is some enlarged bilateral bronchial lymph nodes. There is compressive atelectasis of the left lower lobe and the upper lobe including the bronchi. No evidence of any pulmonary embolism. A thoracic aortic aneurysm was noted measuring 4.7 cm size at the level of the ascending aorta. No evidence of any dissection. The blood work is showing a normal CBC. Normal coagulation profile. Normal chemistry and electrolytes. I performed a bedside thoracentesis a total of 1.4 L of pleural fluid was aspirated. This subsequent chest x-ray showed no evidence of any pneumothorax. Noted the patient was in a sinus rhythm at the time of my evaluation and procedure. I was told earlier that she was in atrial fibrillation. I do not see any documentation on atrial fibrillation for now. Review of Systems Constitutional: Denies chills, Denies fever Eyes: denies as per HPI, denies blurred vision, denies bulging eye, denies decreased vision, denies diplopia, denies discharge, denies dry eye, denies irritation, denies itching, denies pain, denies photophobia, denies loss of peripheral vision, denies loss of vision, denies tunnel vision/blind spots Ears: deny: decreased hearing, ear discharge, earache, tinnitus Breasts: absent: as per HPI, change in shape, gynecomastia, masses, nipple discharge, pain, skin changes, swelling Cardiovascular: Reports decreased exercise tolerance Respiratory: Reports dyspnea Gastrointestinal: Reports as per HPI Genitourinary: Reports as per HPI Menstruation: Reports as per HPI Musculoskeletal: absent: ankle pain, ankle stiffness, ankle swelling Integumentary: Reports as per HPI Neurological: Reports as per HPI Psychiatric: Reports as per HPI Endocrine: Reports as per HPI Hematologic/Lymphatic: Reports as per HPI Allergic/Immunologic: Reports as per HPI Past Medical History Past Medical History: Cancer (skin cancer), Hyperlipidemia, Osteoarthritis (OA) Additional Past Medical History / Comment(s): Arthritis bilateral hands/lower back, overactive bladder, benign colon polyps, skin cancer removals, UTIs, bronchitis, veritgo at times. History of Any Multi-Drug Resistant Organisms: None Reported Past Surgical History: Bladder Surgery, Bowel Resection (post colonoscopy), Hernia Repair, Hysterectomy, Joint Replacement, Orthopedic Surgery Additional Past Surgical History / Comment(s): 08/21/14 Acromioplasty excision distal clavicle, rotator cuff repair R shoulder, total L knee arthroplasty, colonoscopies/polypectomies and had perforated bowel with colonoscopy-bowel resection, bladder suspension, vemtral incisional hernia repair, skin cancer removed from face, bilateral cataract removals/lens implants. Past Anesthesia/Blood Transfusion Reactions: Previous Problems w/ Anesthesia Additional Past Anesthesia/Blood Transfusion Reaction / Comment(s): STATES "TOOK A LONG TIME WAKING UP AFTER SURGERY" Smoking Status: Never smoker - Past Family History Father Family Medical History: Cancer, Dementia Additional Family Medical History / Comment(s): PROSTATE Mother Family Medical History: Chest Pain / Angina Medications and Allergies Home Medications Medication Instructions Recorded Confirmed Type Multivitamins, Thera [Multivitamin 1 tab PO DAILY 08/16/14 09/26/19 History (formulary)] Simvastatin [Zocor] 40 mg PO HS 08/16/14 09/26/19 History Mirabegron [Myrbetriq] 50 mg PO DAILY 09/08/18 09/26/19 History Acetaminophen Tab [Tylenol] 500 mg PO ONCE PRN 09/26/19 09/26/19 History Allergies Allergy/AdvReac Type Severity Reaction Status Date / Time No Known Allergies Allergy Verified 09/26/19 17:08 Physical Exam Vitals: Vital Signs Temp Pulse Pulse Resp BP BP Pulse Ox 09/27/19 09:00 81 16 124/79 94 L 09/27/19 06:00 98.0 F 88 18 124/79 96 09/27/19 02:00 58 L 18 135/89 96 09/26/19 20:30 87 22 139/76 09/26/19 20:00 90 23 94 L 09/26/19 19:30 85 19 154/84 95 09/26/19 19:00 80 21 92 L 09/26/19 18:00 83 20 153/92 93 L 09/26/19 17:30 80 19 148/107 92 L 09/26/19 17:00 80 22 149/81 91 L 09/26/19 16:30 87 22 139/78 94 L 09/26/19 15:54 98.0 F 84 19 154/71 95 Intake and Output 09/26/19 09/27/19 09/27/19 22:59 06:59 14:59 Other: Weight 70.76 kg 70.76 kg The patient appeared well nourished and normally developed. Vital signs as documented. Head exam is unremarkable. No scleral icterus or corneal arcus noted. Neck is without jugular venous distension, thyromegaly, or carotid bruits. Carotid upstrokes are brisk bilaterally. Lungs show marked diminished breath on the left lung base along with dullness to percussion consistent with underlying pleural effusion. Cardiac exam reveals the PMI to be normally sized and situated. Rhythm is regular. First and second heart sounds normal. No murmurs, rubs or gallops. Abdominal exam reveals normal bowel sounds, no masses, no organomegaly and no aortic enlargement. Extremities are nonedematous and both femoral and pedal pulses are normal.Examination of the skin revealed no evidence of significant rashes, suspicious appearing nevi or other concerning lesions.Neurologically, the patient is awake and alert and the patient does not have any focal neurological deficit. Cranial nerves are essentially intact. Results - Laboratory Findings CBC and BMP: 09/26/19 16:30 09/26/19 16:30 PT/INR, D-dimer PT 9.7 sec (9.0-12.0) 09/26/19 16:30 INR 0.9 (<1.2) 09/26/19 16:30 D-Dimer 1.78 mg/L FEU (<0.60) H 09/26/19 16:30 Abnormal lab findings: Abnormal Labs 09/26/19 09/26/19 09/26/19 16:30 16:30 16:30 Lymphocytes # 0.9 L D-Dimer 1.78 H BUN 21 H Glucose 123 H Magnesium 2.4 H AST 41 H - Diagnostic Findings Chest x-ray: image reviewed Assessment and Plan Plan: 1 large left-sided pleural effusion, will need diagnostic and therapeutic thoracentesis. CAT scan of the chest was noted and the patient was found to have some compressive atelectasis of the left lower lobe and the left upper lobe in addition to some nonspecific peribronchial lymph nodes. 2 shortness of breath secondary to above 3 hyperlipidemia 4 osteoarthritis 5 history of skin cancer 6 history of perforated bowel post colonoscopy and the patient hasn't required a colonic resection. Plan We'll proceed with a diagnostic and therapeutic thoracentesis. This was done at the bedside at a total of 1.45 L of fluid was aspirated without any complications and the patient would have the blood chemistry checked in addition to fluid cytology. Differential diagnoses will narrow down once we identified the fluid is a print manager and exudate and further accommodations are to follow. Postthoracentesis chest x-ray showed no evidence of any pneumothorax and there was a small residual left-sided pleural effusion still present.
--- NOTE | 2019-09-27 14:51 | P.PCN ---
Date of Procedure: 09/27/19 Preoperative Diagnosis: Left-sided pleural effusion Postoperative Diagnosis: Left-sided pleural effusion Procedure(s) Performed: Thoracentesis Anesthesia: local Surgeon: Kelton Sandoval Estimated Blood Loss (ml): 0 Pathology: other Condition: stable Disposition: floor Indications for Procedure: Shortness of breath Operative Findings: A time out was performed and the chest x-ray was reviewed, the appropriate side was confirmed and marked. My hands were washed immediately prior to the procedure. I wore a surgical cap, mask with protective eyewear, sterile gown and sterile gloves throughout the procedure. The patient was prepped and draped in a sterile manner using chlorhexidine scrub after the appropriate level was percussed and confirmed by ultrasound. 1% lidocaine was used to anesthesize the skin, subcutaneous tissue, superior aspect of the rib periosteum and parietal pleura. A finder needle was then introduced over the superior aspect of the rib to locate the pleural fluid; 2colored fluid was aspirated at a depth of approximately 2 cm. A 10-blade scalpel was used to marcelino the skin at the insertion site. The [id number] needle was then introduced through the skin incision into the pleural space using negative aspiration pressure and the red colometric indicator to confirm appropriate positioning of the needle. The thoracentesis catheter was then threaded without difficulty 1450 ml of turbid colored fluid was removed without difficulty. The catheter was then removed. No immediate complications were noted during the procedure. A post-procedure chest x-ray is pending at the time of this note. The fluid will be sent for studies. Estimated blood loss is 0cc
[2019-09-27] MEDS ORDERED: ACETAMINOPHEN TAB 500 MG TAB PO PRN (17:43)
--- NOTE | 2019-09-27 18:03 | P.HPIM ---
History of Present Illness H&P Date: 09/27/19 Elva Gallagher, is an 89-year-old female who presented to our office on 09/26/2019 with a chief complaint of worsening shortness of breath patient was evaluated in the office and was sent to [facility] emergency room, patient was seen again at [facility] emergency room in the evening on 09/26/2019 evaluation revealed evidence of large left sided pleural effusion patient was counseled that she needs to be admitted to the hospital she was very reluctant but eventually she accepted she was admitted to telemetry floor pulmonary consultation was requested. Patient name complaint is shortness of breath that has been progressive for about 1 month, otherwise she denies any other complaints there was no fever or chills no cough no chest pain and no hemoptysis. Patient has known history of hypertension, hyperlipidemia, osteoarthritis, and history of perforated bowel post colonoscopy without any need for colon resection, patient has history of skin cancer otherwise no history of cancer per patient. Chest x-ray in the emergency room revealed large left sided pleural effusion computed tomography scan of the chest revealed evidence of left sided pleural effusion and enlarged bilateral bronchial lymph nodes no lung mass, there was also evidence of aortic aneurysm without any evidence of dissection. Past Medical History Past Medical History: Cancer, Hyperlipidemia, Osteoarthritis (OA) Additional Past Medical History / Comment(s): Arthritis bilateral hands/lower back, overactive bladder, benign colon polyps, skin cancer removals, UTIs, bronchitis, veritgo at times. History of Any Multi-Drug Resistant Organisms: None Reported Past Surgical History: Bladder Surgery, Bowel Resection, Hernia Repair, Hysterectomy, Joint Replacement, Orthopedic Surgery Additional Past Surgical History / Comment(s): 08/21/14 Acromioplasty excision distal clavicle, rotator cuff repair R shoulder, total L knee arthroplasty, colonoscopies/polypectomies and had perforated bowel with colonoscopy-bowel resection, bladder suspension, vemtral incisional hernia repair, skin cancer removed from face, bilateral cataract removals/lens implants. Past Anesthesia/Blood Transfusion Reactions: Previous Problems w/ Anesthesia Additional Past Anesthesia/Blood Transfusion Reaction / Comment(s): STATES "TOOK A LONG TIME WAKING UP AFTER SURGERY" Smoking Status: Never smoker - Past Family History Father Family Medical History: Cancer, Dementia Additional Family Medical History / Comment(s): PROSTATE Mother Family Medical History: Chest Pain / Angina Medications and Allergies Home Medications Medication Instructions Recorded Confirmed Type Multivitamins, Thera [Multivitamin 1 tab PO DAILY 08/16/14 09/26/19 History (formulary)] Simvastatin [Zocor] 40 mg PO HS 08/16/14 09/26/19 History Mirabegron [Myrbetriq] 50 mg PO DAILY 09/08/18 09/26/19 History Acetaminophen Tab [Tylenol] 500 mg PO ONCE PRN 09/26/19 09/26/19 History Allergies Allergy/AdvReac Type Severity Reaction Status Date / Time No Known Allergies Allergy Verified 09/26/19 17:08 Physical Exam Vitals: Vital Signs Temp Pulse Pulse Resp BP BP Pulse Ox 09/27/19 09:00 81 16 124/79 94 L 09/27/19 06:00 98.0 F 88 18 124/79 96 09/27/19 02:00 58 L 18 135/89 96 09/26/19 20:30 87 22 139/76 09/26/19 20:00 90 23 94 L 09/26/19 19:30 85 19 154/84 95 09/26/19 19:00 80 21 92 L 09/26/19 18:00 83 20 153/92 93 L 09/26/19 17:30 80 19 148/107 92 L 09/26/19 17:00 80 22 149/81 91 L 09/26/19 16:30 87 22 139/78 94 L 09/26/19 15:54 98.0 F 84 19 154/71 95 Intake and Output 09/26/19 09/27/19 09/27/19 22:59 06:59 14:59 Other: Weight 70.76 kg 70.76 kg In general patient is alert and oriented 3 in no apparent distress HEENT head normocephalic and atraumatic Neck is supple no JVD no goiter no lymphadenopathy no carotid bruit Chest exam reveals a few scattered rhonchi no wheezing Cardiac exam reveals regular heart sounds no murmurs Abdomen is soft nontender no organomegaly Extremity exam reveals no edema no cyanosis or clubbing Results CBC & Chem 7: 09/26/19 16:30 09/26/19 16:30 Labs: Abnormal Lab Results - Last 24 Hours (Table) 09/26/19 09/26/19 09/26/19 Range/Units 16:30 16:30 16:30 Lymphocytes # 0.9 L (1.0-4.8) k/uL D-Dimer 1.78 H (<0.60) mg/L FEU BUN 21 H (7-17) mg/dL Glucose 123 H (74-99) mg/dL Magnesium 2.4 H (1.6-2.3) mg/dL AST 41 H (14-36) U/L Thrombosis Risk Factor Assmnt - Choose All That Apply Any of the Below Risk Factors Present?: Yes Each Factor Represents 1 point: Obesity (BMI >25), Serious lung disease incl. pneumonia (< 1month) Other Risk Factors: Yes Each Risk Factor Represents 2 Points: Malignancy Each Risk Factor Represents 3 Points: Age 75 years or older Other congenital or acquired thrombophilia - If yes, enter type in comment: No Thrombosis Risk Factor Assessment Total Risk Factor Score: 7 Thrombosis Risk Factor Assessment Level: High Risk Assessment and Plan Plan: 1. Large left sided pleural effusion, with worsening shortness of breath , patient is admitted to telemetry floor and pulmonary consultation was requested 2. Enlarged peribronchial bilateral lymph nodes 3. Aortic aneurysm without evidence of dissection 4. Underlying history of hyperlipidemia 5. Underlying history of osteoarthritis At this time pulmonary consultation was requested awaiting thoracentesis Postprocedure will start Lovenox for DVT prophylaxis for GI prophylaxis Will use Protonix Will follow during this admission for medical management
[2019-09-27] MEDS: ENOXAPARIN 40 MG/0.4 ML SYRINGE SQ SCH (19:07)
[2019-09-27] MEDS: PANTOPRAZOLE 40 MG TABLET PO SCH (19:07)
[2019-09-27] MEDS: ATORVASTATIN 20 MG TAB PO SCH (19:58)
[2019-09-27 20:25] LABS: Glucose, BF Source Pleural Fluid; Glucose, Body Fluid 114 mg/dL; LDH, Body Fluid Source Pleural Fluid; Total Protein, Body Fluid 4300 mg/dL
[2019-09-28] MEDS: PANTOPRAZOLE 40 MG TABLET PO SCH (06:08)
[2019-09-28 07:42] LABS: Basophils # (A) 0.1 k/uL (0-0.2); Basophils % (A) 1 %; Eosinophils # (A) 0.3 k/uL (0-0.7); Eosinophils % (A) 4 %; HCT 47.1 % (34.0-46.0); HGB 15.3 gm/dL (11.4-16.0); Lymphocytes # (A) 0.9 k/uL (1.0-4.8); Lymphocytes % (A) 12 %; MCH 29.5 pg (25.0-35.0); MCHC 32.6 g/dL (31.0-37.0); MCV 90.6 fL (80.0-100.0); Mean Platelet Volume 7.9; Monocytes # (A) 0.5 k/uL (0-1.0); Monocytes % (A) 7 %; Neutrophils # (A) 5.4 k/uL (1.3-7.7); Neutrophils % (A) 75 %; Platelet Count 232 k/uL (150-450); RBC 5.19 m/uL (3.80-5.40); RDW 13.7 % (11.5-15.5); WBC 7.3 k/uL (3.8-10.6)
[2019-09-28 07:58] LABS: Albumin 3.9 g/dL (3.5-5.0); Calcium 9.2 mg/dL (8.4-10.2); Potassium 4.2 mmol/L (3.5-5.1); Total Protein 6.6 g/dL (6.3-8.2)
[2019-09-28] MEDS ORDERED: NON FORMULARY DRUG (Mirabegron [Myrbetriq] 50 MG) PO SCH (09:00)
[2019-09-28] MEDS: ENOXAPARIN 40 MG/0.4 ML SYRINGE SQ SCH (09:29)
[2019-09-28] MEDS: MULTIVITAMINS, THERA 1 EACH TAB PO SCH (09:29)
--- NOTE | 2019-09-28 10:46 | XR ---
EXAMINATION TYPE: XR chest 2V DATE OF EXAM: 09/28/2019 COMPARISON: Chest x-ray from yesterday. CT chest from 2 days ago. HISTORY: Left-sided thoracentesis. TECHNIQUE: Frontal and lateral views of the chest are obtained. FINDINGS: There is persistent but improved left-sided pleural effusion after thoracentesis. No pneum othorax noted. Right lung remains clear. The cardiac silhouette size is stable and upper limits of n ormal with atherosclerotic and slightly ectatic thoracic aorta. Advanced degenerative change bilatera l glenohumeral joints redemonstrated.. IMPRESSION: Small left pleural effusion with associated left basilar atelectasis and/or infiltrate i mproved after thoracentesis. No pneumothorax. Persistent mild underlying interstitial edema.
--- NOTE | 2019-09-28 13:11 | P.PN ---
Subjective Progress Note Date: 09/28/19 Principal diagnosis: Large left-sided pleural effusion, status post left thoracentesis 89-year-old female patient who presented to the emergency department yesterday because of progressive worsening shortness of breath over the past month or so. She denied having any fever or chills. She denies having any chest pain. No cough sputum production or chest tightness or wheezing. No hemoptysis. No previous history of malignancy. She is a lifetime nonsmoker. No trauma to her left chest area. No orthopnea. No leg swelling. No paroxysmal nocturnal dyspnea. Chest x-ray showed a large left-sided pleural effusion. CAT scan of the chest showed a large left-sided pleural effusion and there are some atelectatic changes in the left lung base. No underlying pulmonary mass was seen. There is some enlarged bilateral bronchial lymph nodes. There is compressive atelectasis of the left lower lobe and the upper lobe including the bronchi. No evidence of any pulmonary embolism. A thoracic aortic aneurysm was noted measuring 4.7 cm size at the level of the ascending aorta. No evidence of any dissection. The blood work is showing a normal CBC. Normal coagulation p rofile. Normal chemistry and electrolytes. I performed a bedside thoracentesis a total of 1.4 L of pleural fluid was aspirated. This subsequent chest x-ray showed no evidence of any pneumothorax. Noted the patient was in a sinus rhythm at the time of my evaluation and procedure. I was told earlier that she was in atrial fibrillation. I do not see any documentation on atrial fibrillation for now. On 09/28/2019 patient seen in follow-up on selective care unit, she is calm and comfortable, on room air, her pulse ox is 94%, her breathing has significantly improved since her left-sided thoracentesis done yesterday, pleural fluid analysis reveals exudative fluid with fluid total protein of 4.3 g. Pleural fluid cultures revealed no organisms, cytology is pending, patient has had no fever or chills, vital signs have been stable, no cough or congestion, no cough was of chest pain or hemoptysis, today's lab work has been reviewed, showing white blood cell, 7.3, hemoglobin of 15.3, electrolytes were unremarkable, BUN is 18 creatinine 0.71. Follow-up chest x-ray shows small left pleural effusion with associated left basilar atelectasis and/or infiltrate improved after thoracentesis, no evidence of pneumothorax, persistent mild underlying interstitial edema. Apparently patient has been in and out of atrial fibrillation, she is currently in sinus rhythm with frequent PACs, TSH was ordered and is within normal limits, she denies palpitations, cardiology has been consulted, echocardiogram is pending Objective - Vital Signs Vital signs: Vital Signs Temp 98.1 F 09/28/19 04:00 Pulse 73 09/28/19 04:00 Resp 18 09/28/19 04:00 BP 113/68 09/28/19 04:00 Pulse Ox 94 L 09/28/19 04:00 Intake & Output 09/27/19 09/28/19 09/28/19 18:59 06:59 18:59 Intake Total 236 240 Output Total 1450 Balance -1214 240 Weight 70.76 kg 67.7 kg Intake: Oral 236 240 Output: Drainage 1450 Left Chest 1450 Other: Voiding Method Toilet # Voids 1 1 - Exam GENERAL EXAM: Alert, very pleasant, 89-year-old white female on room air, with a pulse ox of 94% comfortable in no apparent distress. HEAD: Normocephalic/atraumatic. EYES: Normal reaction of pupils, equal size. Conjunctiva pink, sclera white. NOSE: Clear with pink turbinates. THROAT: No erythema or exudates. NECK: No masses, no JVD, no thyroid enlargement, no adenopathy. CHEST: No chest wall deformity. Symmetrical expansion. LUNGS: Equal air entry with no crackles, wheeze, rhonchi or dullness. CVS: Irregular rate and rhythm, normal S1 and S2, no gallops, no murmurs, no rubs ABDOMEN: Soft, nontender. No hepatosplenomegaly, normal bowel sounds, no guardi ng or rigidity. EXTREMITIES: No clubbing, no edema, no cyanosis, 2+ pulses and upper and lower extremities. MUSCULOSKELETAL: Muscle strength and tone normal. SPINE: No scoliosis or deformity SKIN: No rashes CENTRAL NERVOUS SYSTEM: Alert and oriented -3. No focal deficits, tone is normal in all 4 extremities. PSYCHIATRIC: Alert and oriented -3. Appropriate affect. Intact judgment and insight. - Labs CBC & Chem 7: 09/28/19 07:19 09/28/19 07:19 Labs: Abnormal Lab Results - Last 24 Hours (Table) 09/28/19 09/28/19 Range/Units 07:19 07:19 Hct 47.1 H (34.0-46.0) % Lymphocytes # 0.9 L (1.0-4.8) k/uL BUN 18 H (7-17) mg/dL Glucose 103 H (74-99) mg/dL AST 44 H (14-36) U/L Microbiology - Last 24 Hours (Table) 09/27/19 10:20 Fungal Culture - Preliminary Pleural Fluid 09/27/19 10:20 Gram Stain - Preliminary Pleural Fluid Body Fluid Culture - Preliminary 09/27/19 10:20 Acid Fast Bacilli Smear - Final Pleural Fluid Acid Fast Bacilli Culture - Preliminary 09/26/19 19:01 Blood Culture - Preliminary Blood No Growth after 24 hours Assessment and Plan Plan: Assessment: 1 large left-sided pleural effusion, will need diagnostic and therapeutic thoracentesis with removal of 1450 ML of turbid colored fluid, which was found to be exudative in nature. CAT scan of the chest was noted and the patient was found to have some compressive atelectasis of the left lower lobe and the left upper lobe in addition to some nonspecific peribronchial lymph nodes. 2 shortness of breath secondary to above 3 hyperlipidemia 4 osteoarthritis 5 history of skin cancer 6 history of perforated bowel post colonoscopy and the patient hasn't required a colonic resection. 7 new-onset paroxysmal atrial fibrillation Plan: Awaiting results of the pleural fluid cytology, pleural fluid cultures have shown no growth thus far, final cultures pending, from pulmonary perspective she could be considered for discharge home however she is having runs of atrial fibrillation, and cardiology consultation is pending, echocardiogram has been ordered, repeat chest x-ray today has been reviewed showing small left pleural effusion with associated basilar atelectasis and/or infiltrate improved after thoracentesis, no evidence of pneumothorax. I performed a history & physical examination of the patient and discussed their management with my nurse practitioner, Elicia Chester. I reviewed the nurse practitioner's note and agree with the documented findings and plan of care. Lung sounds are positive for diminished breath sounds. The findings and the impression was discussed with the patient. I attest to the documentation by the nurse practitioner. Time with Patient: Less than 30
--- NOTE | 2019-09-28 14:55 | P.CRDCN ---
History of Present Illness Consult date: 09/28/19 Chief complaint: Shortness of breath History of present illness: This is a pleasant 89-year-old female patient with no significant past medical h istory who was admitted to the hospital with progressive dyspnea. The patient was in her usual state of health until about 4 weeks ago when she started experiencing dyspnea. She describes only exertional dyspnea without orthopnea and without PND. No fever or chills. No cough or sputum production. No symptoms of chest pain or chest discomfort. She underwent a CTA of the chest which revealed large left pleural effusion and subsequently she underwent pleurocentesis by the pulmonary team. The CTA also revealed thoracic aortic aneurysm at 4.7 cm. We consulted to see the patient for further evaluation of atrial fibrillation. Further looking at the EKG it did show what it seems to be sinus rhythm with PACs only. The patient is not aware of any prior cardiac history. She never seen a global commodity manager in the past. No history of coronary artery disease or congestive heart failure or cardiac arrhythmia. She underwent earlier today 1.4 L removal from the left chest via thoracocentesis. Overall she is feeling better. Currently she is asymptomatic. An echocardiogram was performed and we'll follow-up on that. Past Medical History Past Medical History: Cancer, Hyperlipidemia, Osteoarthritis (OA) Additional Past Medical History / Comment(s): Arthritis bilateral hands/lower back, overactive bladder, benign colon polyps, skin cancer removals, UTIs, bronchitis, veritgo at times. History of Any Multi-Drug Resistant Organisms: None Reported Past Surgical History: Bladder Surgery, Bowel Resection, Hernia Repair, Hysterectomy, Joint Replacement, Orthopedic Surgery Additional Past Surgical History / Comment(s): 08/21/14 Acromioplasty excision distal clavicle, rotator cuff repair R shoulder, total L knee arthroplasty, colonoscopies/polypectomies and had perforated bowel with colonoscopy-bowel resection, bladder suspension, vemtral incisional hernia repair, skin cancer removed from face, bilateral cataract removals/lens implants. Past Anesthesia/Blood Transfusion Reactions: Previous Problems w/ Anesthesia Additional Past Anesthesia/Blood Transfusion Reaction / Comment(s): STATES "TOOK A LONG TIME WAKING UP AFTER SURGERY" Smoking Status: Never smoker - Past Family History Father Family Medical History: Cancer, Dementia Additional Family Medical History / Comment(s): PROSTATE Mother Family Medical History: Chest Pain / Angina Medications and Allergies Home Medications Medication Instructions Recorded Confirmed Type Multivitamins, Thera [Multivitamin 1 tab PO DAILY 08/16/14 09/26/19 History (formulary)] Simvastatin [Zocor] 40 mg PO HS 08/16/14 09/26/19 History Mirabegron [Myrbetriq] 50 mg PO DAILY 09/08/18 09/26/19 History Acetaminophen Tab [Tylenol] 500 mg PO ONCE PRN 09/26/19 09/26/19 History Allergies Allergy/AdvReac Type Severity Reaction Status Date / Time No Known Allergies Allergy Verified 09/26/19 17:08 Physical Exam Vitals: Vital Signs Temp Pulse Resp BP Pulse Ox 09/28/19 04:00 98.1 F 73 18 113/68 94 L 09/28/19 03:52 18 09/28/19 00:00 98.0 F 81 18 145/76 93 L 09/27/19 20:00 98.0 F 74 18 130/83 95 09/27/19 15:40 98.0 F 67 18 122/69 96 Intake and Output 09/27/19 09/28/19 09/28/19 22:59 06:59 14:59 Intake Total 236 240 Balance 236 240 Intake: Oral 236 240 Other: Voiding Method Toilet # Voids 1 2 Weight 67.7 kg - Constitutional General appearance: no acute distress - Respiratory Respiratory: bilateral: rales - Cardiovascular Rhythm: irregularly irregular Heart sounds: normal: S1, S2 Results 09/28/19 07:19 09/28/19 07:19 Cardiac Enzymes 09/28/19 Range/Units 07:19 AST 44 H (14-36) U/L CBC 09/28/19 Range/Units 07:19 WBC 7.3 (3.8-10.6) k/uL RBC 5.19 (3.80-5.40) m/uL Hgb 15.3 (11.4-16.0) gm/dL Hct 47.1 H (34.0-46.0) % Plt Count 232 (150-450) k/uL Comprehensive Metabolic Panel 09/28/19 Range/Units 07:19 Sodium 138 (137-145) mmol/L Potassium 4.2 (3.5-5.1) mmol/L Chloride 107 (98-107) mmol/L Carbon Dioxide 23 (22-30) mmol/L BUN 18 H (7-17) mg/dL Creatinine 0.71 (0.52-1.04) mg/dL Glucose 103 H (74-99) mg/dL Calcium 9.2 (8.4-10.2) mg/dL AST 44 H (14-36) U/L ALT 14 (4-34) U/L Alkaline Phosphatase 81 (38-126) U/L Total Protein 6.6 (6.3-8.2) g/dL Albumin 3.9 (3.5-5.0) g/dL Current Medications Generic Name Dose Route Start Last Admin Trade Name Freq PRN Reason Stop Dose Admin Acetaminophen 650 mg 09/26/19 18:23 Tylenol Tab PO Q6HR PRN Mild Pain or Fever > 100.5 Hydrocodone Bitart/Acetaminophen 1 each 09/26/19 18:23 [place] 5-325 PO Q4HR PRN Moderate Pain Atorvastatin Calcium 20 mg 09/27/19 21:00 09/27/19 19:58 Lipitor PO 20 mg HS JONATHAN Administration Enoxaparin Sodium 40 mg 09/27/19 18:00 09/28/19 09:29 Lovenox SQ 40 mg DAILY JONATHAN Administration Metoprolol Tartrate 12.5 mg 09/28/19 21:00 Lopressor PO BID [facility] Multivitamins 1 each 09/28/19 09:00 09/28/19 09:29 Theragran PO 1 each DAILY [facility] Administration Naloxone HCl 0.2 mg 09/26/19 18:23 Narcan IV Q2M PRN Opioid Reversal Myrbetriq ( 50 mg 09/28/19 14:00 Mirabegron) 50 Mg PO Tablet DAILY [facility] Ondansetron HCl 4 mg 09/26/19 18:23 Zofran IVP Q8HR PRN Nausea And Vomiting Pantoprazole Sodium 40 mg 09/27/19 18:00 09/28/19 06:08 Protonix PO 40 mg [id number] JONATHAN Administration Intake and Output 09/27/19 09/28/19 09/28/19 22:59 06:59 14:59 Intake Total 236 240 Balance 236 240 Intake: Oral 236 240 Other: Voiding Method Toilet # Voids 1 2 Weight 67.7 kg 09/28/19 07:19 09/28/19 07:19 Assessment and Plan Assessment: Assessment #1 large left pleural effusion and status post thoracocentesis. #2 shortness of breath secondary to pleural effusion #3 cardiac arrhythmia Plan #1 I did review the EKG and that showed sinus rhythm with PACs #2 I am going to start the patient on small dose of metoprolol at 12.5 mg by mouth twice a day #3 follow-up on the echocardiogram #4 follow-up with the patient Thank you for allowing us participate in the patient's care
--- NOTE | 2019-09-28 18:57 | P.PN ---
Subjective Progress Note Date: 09/28/19 Elva Gallagher, is an 89-year-old female who presented to our office on 09/26/2019 with a chief complaint of worsening shortness of breath patient was evaluated in the office and was sent to [facility] emergency room, patient was seen again at [facility] emergency room in the evening on 09/26/2019 evaluation revealed evidence of large left sided pleural effusion patient was counseled that she needs to be admitted to the hospital she was very reluctant but eventually she accepted she was admitted to telemetry floor pulmonary consultation was requested. Patient name complaint is shortness of breath that has been progressive for about 1 month, otherwise she denies any other complaints there was no fever or chills no cough no chest pain and no hemoptysis. Patient has known history of hypertension, hyperlipidemia, osteoarthritis, and history of perforated bowel post colonoscopy without any need for colon resection, patient has history of skin cancer otherwise no history of cancer per patient. Chest x-ray in the emergency room revealed large left sided pleural effusion co mputed tomography scan of the chest revealed evidence of left sided pleural effusion and enlarged bilateral bronchial lymph nodes no lung mass, there was also evidence of aortic aneurysm without any evidence of dissection.. On 09/28/2019 patient was seen and examined on the medical floor she is alert and oriented 3 in no apparent distress there is no fever or chills no headache or dizziness no chest pain no shortness of breath no cough no nausea or vomiting no abdominal pain no diarrhea no blood in the stools no burning with urination no frequency or urgency no hematuria. Shortness of breath improved significantly after thoracentesis, so far fluid testing results are still pending, patient had possible runs of atrial fibrillation this morning cardiology consultation was requested in that regard. If stable patient can be discharged tomorrow she can be followed as outpatient by pulmonary, cause of the large pleural effusion remains unclear at this time. Objective - Vital Signs Vital signs: Vital Signs Temp 99.1 F 09/28/19 16:00 Pulse 88 09/28/19 16:00 Resp 18 09/28/19 16:00 BP 134/87 09/28/19 16:00 Pulse Ox 97 09/28/19 16:00 Intake & Output 09/27/19 09/28/19 09/28/19 18:59 06:59 18:59 Intake Total 236 600 Output Total 1450 Balance -1214 600 Weight 70.76 kg 67.7 kg Intake: Oral 236 600 Output: Drainage 1450 Left Chest 1450 Other: Voiding Method Toilet Toilet # Voids 1 2 - Exam In general patient is alert and oriented 3 in no apparent distress HEENT head normocephalic and atraumatic Neck is supple no JVD no goiter no lymphadenopathy no carotid bruit Chest exam reveals a few scattered rhonchi no wheezing Cardiac exam reveals regular heart sounds no murmurs Abdomen is soft nontender no organomegaly Extremity exam reveals no edema no cyanosis or clubbing - Labs CBC & Chem 7: 09/28/19 07:19 09/28/19 07:19 Labs: Abnormal Lab Results - Last 24 Hours (Table) 09/28/19 09/28/19 Range/Units 07:19 07:19 Hct 47.1 H (34.0-46.0) % Lymphocytes # 0.9 L (1.0-4.8) k/uL BUN 18 H (7-17) mg/dL Glucose 103 H (74-99) mg/dL AST 44 H (14-36) U/L Microbiology - Last 24 Hours (Table) 09/27/19 10:20 Fungal Culture - Preliminary Pleural Fluid 09/27/19 10:20 Gram Stain - Preliminary Pleural Fluid Body Fluid Culture - Preliminary 09/27/19 10:20 Acid Fast Bacilli Smear - Final Pleural Fluid Acid Fast Bacilli Culture - Preliminary 09/26/19 19:01 Blood Culture - Preliminary Blood No Growth after 24 hours Assessment and Plan Plan: 1. Large left sided pleural effusion, with worsening shortness of breath , patient is admitted to telemetry floor and pulmonary consultation was requested 2. Enlarged peribronchial bilateral lymph nodes 3. Aortic aneurysm without evidence of dissection 4. Underlying history of hyperlipidemia 5. Underlying history of osteoarthritis At this time pulmonary consultation was requested awaiting thoracentesis Postprocedure will start Lovenox for DVT prophylaxis for GI prophylaxis Will use Protonix Will follow during this admission for medical management
--- NOTE | 2019-09-28 20:24 | ECHOF ---
Referral Reason:new onset afib MEASUREMENTS -------- HEIGHT: 154.9 cm WEIGHT: 67.6 kg BP: 113/68 IVSd: 1.1 cm (0.6 - 1.1) LVIDd: 4.4 cm (3.9 - 5.3) LVPWd: 1.2 cm (0.6 - 1.1) IVSs: 1.7 cm LVIDs: 3.0 cm LVPWs: 1.7 cm LA Diam: 2.7 cm (2.7 - 3.8) RVIDd: 2.7 cm (< 3.3) LAESV Index (A-L): 18.28 ml/m Ao Diam: 3.4 cm (2.0 - 3.7) AV Cusp: 1.6 cm (1.5 - 2.6) MV E To: 0.67 m/s MV DecT: 365 ms MV A To: 0.89 m/s MV E/A Ratio: 0.75 AV maxP.06 mmHg AV meanP.84 mmHg AR PHT: 645 ms RAP: 5.00 mmHg RVSP: 29.24 mmHg FINDINGS -------- Sinus rhythm. This was a technically adequate study. The left ventricular size is normal. There is borderline concentric left ventricular hypertrophy. Overall left ventricular systolic function is normal with, an EF between 55 - 60 %. The right ventricle is normal in size. Normal LA size by volume 22+/-6 ml/m2. The right atrium is normal in size. Interatrial and interventricular septum intact. There is mild aortic valve sclerosis. There is mild aortic regurgitation. The mitral valve leaflets are mildly thickened. Mild mitral annular calcification present. There is trace mitral regurgitation. Trace tricuspid regurgitation present. Right ventricular systolic pressure is normal at < 35 mmHg. Trace/mild (physiologic) pulmonic regurgitation. The aortic root size is normal. Normal inferior vena cava with normal inspiratory collapse consistent with estimated right atrial pre ssure of 5 mmHg. There is no pericardial effusion. CONCLUSIONS -------- 1. The left ventricular size is normal. 2. There is borderline concentric left ventricular hypertrophy. 3. Overall left ventricular systolic function is normal with, an EF between 55 - 60 %. 4. There is mild aortic valve sclerosis. 5. There is mild aortic regurgitation. 6. The mitral valve leaflets are mildly thickened. 7. Mild mitral annular calcification present. 8. There is trace mitral regurgitation. 9. Trace tricuspid regurgitation present. 10. Trace/mild (physiologic) pulmonic regurgitation. 11. There is no pericardial effusion. INSTRUMENT REPAIR SPECIALIST: Eileen Yao RDCS
[2019-09-28] MEDS: METOPROLOL TARTRATE 12.5 MG TAB PO SCH (20:25)
[2019-09-28] MEDS: ATORVASTATIN 20 MG TAB PO SCH (20:26)
[2019-09-29] MEDS: PANTOPRAZOLE 40 MG TABLET PO SCH (06:10)
[2019-09-29 06:22] LABS: Basophils % (A) 1 %; Eosinophils % (A) 5 %; HCT 42.7 % (34.0-46.0); HGB 13.8 gm/dL (11.4-16.0); Lymphocytes % (A) 13 %; MCH 28.9 pg (25.0-35.0); MCHC 32.2 g/dL (31.0-37.0); MCV 89.7 fL (80.0-100.0); Mean Platelet Volume 7.9; Monocytes % (A) 9 %; Neutrophils % (A) 70 %; Platelet Count 206 k/uL (150-450); RBC 4.76 m/uL (3.80-5.40); RDW 13.6 % (11.5-15.5)
[2019-09-29 06:23] LABS: Eosinophils # (A) 0.3 k/uL (0-0.7); Lymphocytes # (A) 0.8 k/uL (1.0-4.8); Monocytes # (A) 0.6 k/uL (0-1.0); Neutrophils # (A) 4.2 k/uL (1.3-7.7)
[2019-09-29 06:33] LABS: Albumin 3.3 g/dL (3.5-5.0); Calcium 8.6 mg/dL (8.4-10.2); Potassium 4.3 mmol/L (3.5-5.1); Total Bilirubin 0.8 mg/dL (0.2-1.3); Total Protein 5.6 g/dL (6.3-8.2)
[2019-09-29] MEDS: METOPROLOL TARTRATE 12.5 MG TAB PO SCH (09:09)
[2019-09-29] MEDS: MULTIVITAMINS, THERA 1 EACH TAB PO SCH (09:09)
[2019-09-29] MEDS: ENOXAPARIN 40 MG/0.4 ML SYRINGE SQ SCH (09:09)
--- NOTE | 2019-09-29 13:12 | P.PN ---
Subjective Progress Note Date: 09/29/19 Principal diagnosis: Large left-sided pleural effusion, status post thoracentesis 89-year-old female patient who presented to the emergency department yesterday because of progressive worsening shortness of breath over the past month or so. She denied having any fever or chills. She denies having any chest pain. No cough sputum production or chest tightness or wheezing. No hemoptysis. No previous history of malignancy. She is a lifetime nonsmoker. No trauma to her left chest area. No orthopnea. No leg swelling. No paroxysmal nocturnal dyspnea. Chest x-ray showed a large left-sided pleural effusion. CAT scan of the chest showed a large left-sided pleural effusion and there are some atelectatic changes in the left lung base. No underlying pulmonary mass was seen. There is some enlarged bilateral bronchial lymph nodes. There is compressive atelectasis of the left lower lobe and the upper lobe including the bronchi. No evidence of any pulmonary embolism. A thoracic aortic aneurysm was noted measuring 4.7 cm size at the level of the ascending aorta. No evidence of any dissection. The blood work is showing a normal CBC. Normal coagulation profile. Normal chemistry and electrolytes. I performed a bedside thoracentesis a total of 1.4 L of pleural fluid was aspirated. This subsequent chest x-ray showed no evidence of any pneumothorax. Noted the patient was in a sinus rhythm at the time of my evaluation and procedure. I was told earlier t hat she was in atrial fibrillation. I do not see any documentation on atrial fibrillation for now. On 09/28/2019 patient seen in follow-up on selective care unit, she is calm and comfortable, on room air, her pulse ox is 94%, her breathing has significantly improved since her left-sided thoracentesis done yesterday, pleural fluid analysis reveals exudative fluid with fluid total protein of 4.3 g. Pleural fluid cultures revealed no organisms, cytology is pending, patient has had no fever or chills, vital signs have been stable, no cough or congestion, no cough was of chest pain or hemoptysis, today's lab work has been reviewed, showing white blood cell, 7.3, hemoglobin of 15.3, electrolytes were unremarkable, BUN is 18 creatinine 0.71. Follow-up chest x-ray shows small left pleural effusion with associated left basilar atelectasis and/or infiltrate improved after thoracentesis, no evidence of pneumothorax, persistent mild underlying interstitial edema. Apparently patient has been in and out of atrial fibrillation, she is currently in sinus rhythm with frequent PACs, TSH was order ed and is within normal limits, she denies palpitations, cardiology has been consulted, echocardiogram is pending The patient is seen today 09/29/2019 in follow-up on the selective care unit. She is awake and alert in no acute distress. Maintaining good O2 saturations in the 90s on room air. She's afebrile. Hemodynamically stable. Pleural fluid cultures reveal no growth. Pathology pending. White count 6.0. Hemoglobin 13.8. Sodium 137. Potassium 4.3. Creatinine 0.73. Echocardiogram revealed preserved left ventricular systolic function with ejection fraction 55-60%. Currently in sinus rhythm with PACs. Objective - Vital Signs Vital signs: Vital Signs Temp 98.3 F 09/29/19 08:00 Pulse 86 09/29/19 08:00 Resp 18 09/29/19 08:00 BP 124/78 09/29/19 08:00 Pulse Ox 94 L 09/29/19 08:00 Intake & Output 09/28/19 09/29/19 09/29/19 18:59 06:59 18:59 Intake Total 600 Balance 600 Weight 67.585 kg Intake: Oral 600 Other: Voiding Method Toilet Toilet # Voids 2 - Exam GENERAL EXAM: Alert, very pleasant, 89-year-old female patient on room air, with a pulse ox of 94% comfortable in no apparent distress. HEAD: Normocephalic/atraumatic. EYES: Normal reaction of pupils, equal size. Conjunctiva pink, sclera white. NOSE: Clear with pink turbinates. THROAT: No erythema or exudates. NECK: No masses, no JVD, no thyroid enlargement, no adenopathy. CHEST: No chest wall deformity. Symmetrical expansion. LUNGS: Equal air entry with crackles in the left base. CVS: Irregular rate and rhythm, normal S1 and S2, no gallops, no murmurs, no rubs ABDOMEN: Soft, nontender. No hepatosplenomegaly, normal bowel sounds, no guarding or rigidity. EXTREMITIES: No clubbing, no edema, no cyanosis, 2+ pulses and upper and lower extremities. MUSCULOSKELETAL: Muscle strength and tone normal. SPINE: No scoliosis or deformity SKIN: No rashes CENTRAL NERVOUS SYSTEM: No focal deficits, tone is normal in all 4 extremities. PSYCHIATRIC: Alert and oriented -3. Appropriate affect. Intact judgment and insight. - Labs CBC & Chem 7: 09/29/19 05:49 09/29/19 05:49 Labs: Abnormal Lab Results - Last 24 Hours (Table) 09/29/19 09/29/19 Range/Units 05:49 05:49 Lymphocytes # 0.8 L (1.0-4.8) k/uL Chloride 108 H (98-107) mmol/L Total Protein 5.6 L (6.3-8.2) g/dL Albumin 3.3 L (3.5-5.0) g/dL Microbiology - Last 24 Hours (Table) 09/26/19 19:01 Blood Culture - Preliminary Blood No Growth after 48 hours 09/27/19 10:20 Fungal Culture - Preliminary Pleural Fluid 09/27/19 10:20 Gram Stain - Preliminary Pleural Fluid Body Fluid Culture - Preliminary Assessment and Plan Assessment: 1 large left-sided pleural effusion, will need diagnostic and therapeutic thoracentesis with removal of 1450 ML of turbid colored fluid, which was found to be exudative in nature. CAT scan of the chest was noted and the patient was found to have some compressive atelectasis of the left lower lobe and the left upper lobe in addition to some nonspecific peribronchial lymph nodes. 2 shortness of breath secondary to above 3 hyperlipidemia 4 osteoarthritis 5 history of skin cancer 6 history of perforated bowel post colonoscopy and the patient hasn't required a colonic resection. 7 new-onset paroxysmal atrial fibrillation Plan: The patient was seen and evaluated by Dr. Sandoval She is cleared for discharge from the pulmonary standpoint Follow-up in our office next week for pleural fluid pathology results I, the cosigning physician, performed a history & physical examination of the patient. Lungs sounds with crackles in the left base. Maintaining good O2 saturations in the 90s on room air. I discussed the assessment and plan of care with my nurse practitioner, Charmaine Salvador. I attest to the above note as dictated by her.
[2019-09-29 13:32] VITALS: BP 130/85; PULSE 70; RESP 16; TEMP 97.9
--- NOTE | 2019-09-29 13:40 | P.DS ---
Providers Date of admission: 09/26/19 18:43 Expected date of discharge: 09/29/19 Attending physician: Gracie Fields Consults: 09/26/19 18:23 Consult Physician Urgent Consulting Provider: Kelton Sandoval Consult Reason/Comments: Pleural effusion, exertional dyspnea Do you want consulting provider notified?: Already Contacted 09/28/19 09:59 Consult Physician Routine Consulting Provider: Prasanna Perez Consult Reason/Comments: new onset Afib Do you want consulting provider notified?: Yes Primary care physician: Gracie Fields [facility] Course: Diagnoses on discharge: 1. Large left sided pleural effusion, with worsening shortness of breath , patient is admitted to telemetry floor and pulmonary consultation was requested 2. Enlarged peribronchial bilateral lymph nodes 3. Aortic aneurysm without evidence of dissection 4. Underlying history of hyperlipidemia 5. Underlying history of osteoarthritis Hospital Course: Elva Gallagher, is an 89-year-old female who presented to our office on 09/26/2019 with a chief complaint of worsening shortness of breath patient was evaluated in the office and was sent to [facility] emergency room, patient was seen again at [facility] emergency room in the evening on 09/26/2019 evaluation revealed evidence of large left sided pleural effusion patient was counseled that she needs to be admitted to the hospital she was very reluctant but eventually she accepted she was admitted to telemetry floor pulmonary consultation was requested. Patient name complaint is shortness of breath that has been progressive for about 1 month, otherwise she denies any other complaints there was no fever or chills no cough no chest pain and no hemoptysis. Patient has known history of hypertension, hyperlipidemia, osteoarthritis, and history of perforated bowel post colonoscopy without any need for colon resection, patient has history of skin cancer otherwise no history of cancer per patient. Chest x-ray in the emergency room revealed large left sided pleural effusion computed tomography scan of the chest revealed evidence of left sided pleural effusion and enlarged bilateral bronchial lymph nodes no lung mass, there was also evidence of aortic aneurysm without any evidence of dissection.. On 09/28/2019 patient was seen and examined on the medical floor she is alert and oriented 3 in no apparent distress there is no fever or chills no headache or dizziness no chest pain no shortness of breath no cough no nausea or vomiting no abdominal pain no diarrhea no blood in the stools no burning with urination no frequency or urgency no hematuria. Shortness of breath improved significantly after thoracentesis, so far fluid testing results are still pending, patient had possible runs of atrial fibrillation this morning cardiology consultation was requested in that regard. If stable patient can be discharged tomorrow she can be followed as outpatient by pulmonary, cause of the large pleural effusion remains unclear at this time. On 09/29/2019 patient was seen and examined on the medical floor she is alert and oriented in no apparent distress she denies any symptoms at this time her shortness of breath has improved significantly, there is no fever or chills no headache or dizziness no chest pain no shortness of breath no cough no nausea or vomiting no abdominal pain no diarrhea no burning with urination no frequency or urgency and no hematuria, pathology and culture results on the pleural fluid is still pending, case was discussed with Dr. Sandoval over the phone, patient can be discharged home today, she will follow-up with Dr. Sandoval in the next 2 weeks for further evaluation and treatment. Patient Condition at Discharge: Serious Plan - Discharge Summary Discharge Rx Participant: No New Discharge Prescriptions: New Metoprolol Tartrate [Lopressor] 12.5 mg PO BID tab Continue Simvastatin [Zocor] 40 mg PO HS Multivitamins, Thera [Multivitamin (formulary)] 1 tab PO DAILY Mirabegron [Myrbetriq] 50 mg PO DAILY Acetaminophen Tab [Tylenol] 500 mg PO ONCE PRN PRN Reason: Pain Discharge Medication List Multivitamins, Thera [Multivitamin (formulary)] 1 tab PO DAILY 08/16/14 [History] Simvastatin [Zocor] 40 mg PO HS 08/16/14 [History] Mirabegron [Myrbetriq] 50 mg PO DAILY 09/08/18 [History] Acetaminophen Tab [Tylenol] 500 mg PO ONCE PRN 09/26/19 [History] Metoprolol Tartrate [Lopressor] 12.5 mg PO BID tab 09/29/19 [Rx] Follow up Appointment(s)/Referral(s): Gracie Fields MD [Primary Care Provider] - 1-2 days Patient Instructions/Handouts: Pleural Effusion (DC), Premature Atrial Contractions (GEN)
--- NOTE | 2019-09-29 13:40 | P.PN ---
Subjective Progress Note Date: 09/29/19 CHIEF COMPLAINT: Shortness of breath HISTORY OF PRESENT ILLNESS: Patient examined this morning at the bedside. She states her breathing has significantly improved after her thoracentesis. She denies chest pain or palpitations. Echocardiogram completed yesterday reveals ejection fraction of 55-60%. Patient's vital signs are stable. PHYSICAL EXAM: VITAL SIGNS: Reviewed. GENERAL: Well-developed in no acute distress. NECK: Supple. No JVD or thyromegaly LUNGS: Respirations even and unlabored. Lungs essentially clear to auscultation bilaterally. HEART: Regular rate and rhythm. S1 and S2 heard. EXTREMITIES: Normal range of motion. No clubbing or cyanosis. Peripheral pulses intact. No lower extremity edema ASSESSMENT: #1 large left pleural effusion and status post thoracocentesis. #2 shortness of breath secondary to pleural effusion #3 cardiac arrhythmia PLAN: -Continue low dose beta allyn -Stable for discharge today from a cardiology standpoint Nurse practitioner note has been reviewed by physician. Signing provider agrees with the documented findings, assessment, and plan of care. Objective - Vital Signs Vital signs: Vital Signs Temp 98.1 F 09/28/19 20:00 Pulse 64 09/29/19 04:00 Resp 18 09/29/19 04:00 BP 107/60 09/29/19 04:00 Pulse Ox 93 L 09/29/19 04:00 Intake & Output 09/28/19 09/29/19 09/29/19 18:59 06:59 18:59 Intake Total 600 Balance 600 Weight 67.585 kg Intake: Oral 600 Other: Voiding Method Toilet # Voids 2 - Labs CBC & Chem 7: 09/29/19 05:49 09/29/19 05:49 Labs: Abnormal Lab Results - Last 24 Hours (Table) 09/29/19 09/29/19 Range/Units 05:49 05:49 Lymphocytes # 0.8 L (1.0-4.8) k/uL Chloride 108 H (98-107) mmol/L Total Protein 5.6 L (6.3-8.2) g/dL Albumin 3.3 L (3.5-5.0) g/dL Microbiology - Last 24 Hours (Table) 09/26/19 19:01 Blood Culture - Preliminary Blood No Growth after 48 hours 09/27/19 10:20 Fungal Culture - Preliminary Pleural Fluid 09/27/19 10:20 Gram Stain - Preliminary Pleural Fluid Body Fluid Culture - Preliminary
== END 2019-09-29 14:38 | disposition home or self-care (01) | DRG 187 ==
LOC: EC 15:50 → 3NCARDOBS 18:39 → UNDOADMOB 18:42 → 3NCARDOBS 18:42 → OBSVTOIN 18:43 → INTOOBSV 18:43 → 3SCARD 20:38 → 3NCARDOBS 20:38 → 3SCARD 09-27 11:02
PROVIDERS: ADMIT Internal Medicine; ATTEND Internal Medicine
PROC: 0W9B3ZZ Drainage of Left Pleural Cavity, Percutaneous Approach (ICD-10-PCS; principal; 2019-09-27)
DX: J90 Pleural effusion, not elsewhere classified (principal); J98.11 Atelectasis; E78.5 Hyperlipidemia, unspecified; I10 Essential (primary) hypertension; Z96.1 Presence of intraocular lens; I48.0 Paroxysmal atrial fibrillation; I71.2 Thoracic aortic aneurysm, without rupture; M19.042 Primary osteoarthritis, left hand; R59.0 Localized enlarged lymph nodes; M19.90 Unspecified osteoarthritis, unspecified site; Z96.653 Presence of artificial knee joint, bilateral; M19.041 Primary osteoarthritis, right hand; Z90.710 Acquired absence of both cervix and uterus; Z11.59 Encounter for screening for other viral diseases; Z79.899 Other long term (current) drug therapy; Z90.49 Acquired absence of other specified parts of digestive tract; Z98.890 Other specified postprocedural states; Z98.42 Cataract extraction status, left eye; Z98.41 Cataract extraction status, right eye; Z80.42 Family history of malignant neoplasm of prostate; Z82.49 Family history of ischemic heart disease and other diseases of the circulatory system; Z81.8 Family history of other mental and behavioral disorders; Z87.19 Personal history of other diseases of the digestive system; Z87.440 Personal history of urinary (tract) infections; Z86.010 Personal history of colon polyps
CPT/HCPCS: 36415; 71045; 71046; 71275; 80053; 82945; 83615; 83735; 83880; 84157; 84443; 84484; 85025; 85379; 85610; 85730; 87040; 87070; 87102; 87116; 87205; 87206; 87252; 87496; 87498; 87502; 87529; 87634; 87798; 88108; 88305; 89050; 93005; 93306; 96365; 96375; 99285

== ENCOUNTER → 2019-10-13 | Outpatient (CLI) | payer MEDICARE ==
[2019-10-13 19:59] LABS: Cancer Antigen 19-9 1.9 U/mL (0.0-34.9)
[2019-10-13 20:21] LABS: Carcinoembryonic Antigen <0.5 ng/mL (0.0-4.9)
== END | disposition home or self-care (01) ==
LOC: LABWHC1 10:53
PROVIDERS: ATTEND Internal Medicine Critical Care Medicine
DX: J90 Pleural effusion, not elsewhere classified (principal)
CPT/HCPCS: 36415; 82378; 86301; 86304

== ENCOUNTER → 2019-10-25 | Outpatient (CLI) | payer MEDICARE ==
--- NOTE | 2019-10-25 17:09 | CT ---
EXAMINATION TYPE: CT soft tissue neck w con DATE OF EXAM: 10/25/2019 3:27 PM COMPARISON: CT chest 09/26/2019 HISTORY: Enlarged lymph nodes. Pt c/o breathing issues. CT DLP: 408.10 mGycm Automated exposure control for dose reduction was used. CONTRAST: CT scan of the neck is performed following with IV Contrast, patient injected with 80 mL of Isovue 30 0. Axial images are obtained, coronal and sagittal reformatted images are reviewed. FINDINGS: Within the middle cranial fossa there is low attenuation present measuring approximately 5. 2 x 3.3 x 2.7 cm anteriorly in its visualized portions, right middle cerebral artery appears to cours e through this region Airway: No gross abnormality seen. No evident supraclavicular or cervical adenopathy. Parotid/submandibular glands: No gross abnormality seen. Carotid/Vascular Structures: Patent, no evident dissection or aneurysm. Osseous Structures: Degenerative disc changes, facet arthropathy and the visualized cervical spine. Other: Left pleural effusion is again noted. Questionable nodularity right upper lobe medially on axi al image #1, left upper lobe axial image 4 IMPRESSION: Left pleural effusion, questionable nodularity in the upper lobes anteriorly. Indetermin ate abnormality in the middle cranial fossa on the right is incompletely evaluated, possible arachnoi d cyst. Degenerative disc disease and facet arthropathy. Patent airway.
== END | disposition home or self-care (01) ==
LOC: RADCTMAIN 14:16
PROVIDERS: ATTEND Internal Medicine Critical Care Medicine
DX: J90 Pleural effusion, not elsewhere classified (principal); R59.0 Localized enlarged lymph nodes
CPT/HCPCS: 82565; 84520; 70491; 36415; Q9967

== ENCOUNTER → 2019-10-26 | Outpatient (CLI) | payer MEDICARE ==
[2019-10-26 16:20] LABS: Basophils # (A) 0.1 k/uL (0-0.2); Basophils % (A) 1 %; Eosinophils # (A) 0.2 k/uL (0-0.7); Eosinophils % (A) 3 %; HCT 44.3 % (34.0-46.0); HGB 14.5 gm/dL (11.4-16.0); Lymphocytes % (A) 15 %; MCHC 32.7 g/dL (31.0-37.0); MCV 88.8 fL (80.0-100.0); Mean Platelet Volume 8.2; Monocytes # (A) 0.5 k/uL (0-1.0); Monocytes % (A) 8 %; Neutrophils # (A) 4.8 k/uL (1.3-7.7); Neutrophils % (A) 72 %; Platelet Count 223 k/uL (150-450); RBC 4.99 m/uL (3.80-5.40); RDW 13.4 % (11.5-15.5); WBC 6.7 k/uL (3.8-10.6)
[2019-10-26 16:28] LABS: INR 0.9 (<1.2); Partial Thromboplastin Time 22.9 sec (22.0-30.0); Prothrombin Time 9.5 sec (9.0-12.0)
[2019-10-26 16:29] LABS: Potassium 4.7 mmol/L (3.5-5.1)
== END | disposition home or self-care (01) ==
LOC: LABPAT 15:16
PROVIDERS: ATTEND Thoracic Surgery (Cardiothoracic Vascular Surgery)
DX: Z01.818 Encounter for other preprocedural examination (principal); J90 Pleural effusion, not elsewhere classified
CPT/HCPCS: 80051; 82565; 82947; 84520; 85025; 85610; 85730

== ENCOUNTER 2019-11-02 10:09 | Day surgery (SDC) | payer MEDICARE ==
[~2019-11-02 10:09] MED LIST changes: -ACETAMINOPHEN TAB 500 MG TAB PO ONE; +HYDROmorphone 0.5 MG/0.5 ML SYRINGE IVP PRN; +LACTATED RINGERS 1,000 ML IV SCH; -LIDOCAINE 1% 20 ML VIAL (10MG/ML) FOR IV START INTRADERMA PRN; -MELOXICAM 7.5 MG TAB PO ONE; -MIDAZOLAM (PF) 2 MG/2 ML VIAL IV PRN; +ONDANSETRON 4 MG/2 ML VIAL IVP ONE; +Pre Op ABX Message 1 EACH MISC MISCELLANE ONE; -TRANEXAMIC ACID 1,000 MG in SODIUM CHLORIDE 0.9% 50 ML IVPB ONE; -ceFAZolin IN SWFI 2 GM/20 ML SYRINGE IVP ONE; -fentaNYL (PF) 50 MCG/ML 2 ML AMP IV PRN; -fentaNYL (PF) 50 MCG/ML 20 ML VIAL IVP PRN
[2019-11-02 10:24] VITALS: RESP 16; TEMP 97.6
[2019-11-02] MEDS ORDERED: LIDOCAINE 1% (10MG/ML) FOR IV START INTRADERMA ONE (10:27)
[2019-11-02] MEDS ORDERED: KETAMINE 10 MG/ML 20 ML VIAL ONE (11:05)
[2019-11-02] MEDS ORDERED: MIDAZOLAM 2 MG/2 ML VIAL ONE (11:05)
[2019-11-02] MEDS ORDERED: fentaNYL (PF) 50 MCG/ML 2 ML AMP ONE (11:05)
[2019-11-02] MEDS ORDERED: PROPOFOL 10 MG/ML 20 ML VIAL IV ONE (11:05)
[2019-11-02] MEDS ORDERED: LIDOCAINE 1% INJ 10MG/ML (20 ML MDV) SQ ONE ×2 (11:26)
--- NOTE | 2019-11-02 11:48 | P.OP ---
Date of Procedure: 11/02/19 Preoperative Diagnosis: Recurrent malignant left pleural effusion Postoperative Diagnosis: Same Procedure(s) Performed: Left Pleurx catheter placement with fluoroscopy Implants: Pleurx catheter Anesthesia: MAC Surgeon: Odell Coelho Estimated Blood Loss (ml): 2 IV fluids (ml): 200 Pathology: none sent Condition: stable Disposition: PACU Indications for Procedure: 89-year-old female with recurrent left malignant pleural effusion. Pleural effusion is been troubled drained twice in the last month. Recurs rapidly. Purse catheter was indicated for palliation of shortness of breath. Operative Findings: 1600 mL of serous pleural fluid was drained. Fluoroscopy demonstrated reasonable reexpansion of the lower lobe although some residual atelectasis was still present. Description of Procedure: The patient was brought to the operating room and placed supine on the operating table. The left arm was placed out on an arm board and the right arm tucked at the side. The left chest and upper abdomen were sterilely prepped and draped. 1% lidocaine was used to anesthetize the skin overlying the sixth interspace in the midaxillary line. Pleural space was punctured here with an 18-gauge needle and we're serous fluid was obtained. Guidewire was threaded into the thorax under fluoroscopic guidance and noted to be in good position in the inferior portion of the left pleural space. This site was enlarged to just over a centimeter. Counterincision was made in the left upper quadrant with lidocaine anesthesia just under a centimeter. Pleurx catheter was tunneled from the counterincision into the initial incision and the cuff secured just under the skin of the counterincision. Introducer and dilator were placed over the guidewire and advanced into the chest under fluoroscopic guidance. Dilator and guidewire were removed and the Pleurx catheter was introduced through the introducer sheath which was then removed. First catheter was noted to lie in good his edition on fluoroscopy. Catheter was connected to suction. While suctioning out the left chest the entry incision was closed with 4-0 Vicryl subcuticular stitch followed by skin glue. Catheter was secured at the exit site with 2-0 silk. Once the fluid completely drained the catheter was disconnected and capped. It was placed in a standard Pleurx dressing. Drapes were removed and the patient was transferred to the recovery area. Final fluoroscopy demonstrated good expansion of the lung with minimal residual fluid and some residual atelectasis of the left lower lobe. Plan - Discharge Summary Discharge Rx Participant: No New Discharge Prescriptions: Continue Simvastatin [Zocor] 40 mg PO HS Multivitamins, Thera [Multivitamin (formulary)] 1 tab PO DAILY Mirabegron [Myrbetriq] 50 mg PO QAM Acetaminophen Tab [Tylenol] 500 mg PO ONCE PRN PRN Reason: Pain Metoprolol Tartrate [Lopressor] 12.5 mg PO BID tab Discharge Medication List Multivitamins, Thera [Multivitamin (formulary)] 1 tab PO DAILY 08/16/14 [History] Simvastatin [Zocor] 40 mg PO HS 08/16/14 [History] Mirabegron [Myrbetriq] 50 mg PO QAM 09/08/18 [History] Acetaminophen Tab [Tylenol] 500 mg PO ONCE PRN 09/26/19 [History] Metoprolol Tartrate [Lopressor] 12.5 mg PO BID tab 09/29/19 [Rx] Follow up Appointment(s)/Referral(s): Odell Coelho MD [STAFF PHYSICIAN] - As Needed (Please call office to schedule appointment once drainage amounts are less than 50 cc three times in a row) Gracie Fields MD [Primary Care Provider] - As Needed Kelton Sandoval MD [STAFF PHYSICIAN] - As Needed Activity/Diet/Wound Care/Special Instructions: 1. Home Care is ordered, they will obtain new bottles. 2. May shower after 24 hours, no tub baths/hot tubs. 3. Do not drain more than 1 liter or 1000 mL in 24 hours. 4. New drainage bottle needed with each drainage. 5. Drainage frequency dictated by patient symptoms, may be every day, every other day, weekly, or however often the patient is symptomatic. 6. Please notify HEAD OF PHYSICS or office if temperature >101F, excessive pain at insertion site, drainage consistency changes to cloudy or smells bad, catheter falls out, or anything else that concerns you. 7. Contact surgery office with weekly drainage amounts. May fax the amounts. 8. Once drainage is less than 50 mL three times in a row, notify the surgery office for possible removal. Surgery office: , fax HEAD OF PHYSICS: Idania , Alen Discharge Disposition: HOME WITH HOME HEALTH SERVICES
--- NOTE | 2019-11-02 11:57 | FL ---
EXAMINATION TYPE: FL fluoroscopy <1hr DATE OF EXAM: 11/02/2019 CLINICAL HISTORY: PLEUREX CATH INSERT FL 0.14MINS TECHNIQUE: Fluoroscopy. COMPARISON: None. FINDINGS: Dr. Coelho inserted a left side pleurex cath. fl 0.14mins IMPRESSION: As Above.
--- NOTE | 2019-11-02 12:23 | XR ---
EXAMINATION TYPE: XR chest 1V portable DATE OF EXAM: 11/02/2019 COMPARISON: 10/19/2019 HISTORY: Pleural catheter TECHNIQUE: Single frontal view of the chest is obtained. FINDINGS: Left-sided chest tube with small effusion and bilateral areas of subsegmental consolidatio n. No overt failure or pneumothorax biapical pleural thickening. Severe bilateral shoulder arthropath y. Heart size stable. IMPRESSION: 1. No sizable pneumothorax with left-sided catheter noted overlying the chest. There is a stable smal l left pleural effusion and basilar consolidation.
[2019-11-02] MEDS ORDERED: KETOROLAC 15 MG/ML 1 ML VIAL ONE (12:49)
[2019-11-02] MEDS ORDERED: KETOROLAC 15 MG/ML 1 ML VIAL IVP ONE (12:59)
[2019-11-02 13:46] VITALS: BP 105/64; PULSE 70
== END 2019-11-02 13:47 | disposition home health service (06) ==
LOC: OR 10:09
PROVIDERS: ATTEND Thoracic Surgery (Cardiothoracic Vascular Surgery)
DX: C80.1 Malignant (primary) neoplasm, unspecified (principal); J91.0 Malignant pleural effusion; J98.11 Atelectasis; R32 Unspecified urinary incontinence; M17.11 Unilateral primary osteoarthritis, right knee; E78.5 Hyperlipidemia, unspecified; I49.1 Atrial premature depolarization; I71.9 Aortic aneurysm of unspecified site, without rupture; Z98.890 Other specified postprocedural states; Z87.19 Personal history of other diseases of the digestive system; Z90.710 Acquired absence of both cervix and uterus; Z96.659 Presence of unspecified artificial knee joint; Z79.899 Other long term (current) drug therapy; Z82.49 Family history of ischemic heart disease and other diseases of the circulatory system; Z82.0 Family history of epilepsy and other diseases of the nervous system
CPT/HCPCS: 76000; 71045; 32550; J2250; J0690; J2405; J2001; J3010; J1885; J2704

== ENCOUNTER 2019-11-24 11:57 | Day surgery (SDC) | payer MEDICARE ==
[2019-11-22 14:40] VITALS: BMI 28.9
[~2019-11-24 11:57] MED LIST changes: -HYDROmorphone 0.5 MG/0.5 ML SYRINGE IVP PRN; +LIDOCAINE 1% (10MG/ML) FOR IV START INTRADERMA PRN; -ONDANSETRON 4 MG/2 ML VIAL IVP ONE; -Pre Op ABX Message 1 EACH MISC MISCELLANE ONE
[2019-11-24 12:45] VITALS: TEMP 98.3
[2019-11-24] MEDS ORDERED: PROPOFOL 10 MG/ML 20 ML VIAL IV ONE (13:39)
[2019-11-24] MEDS ORDERED: LIDOCAINE 1% INJ 10MG/ML (20 ML MDV) ONE (13:39)
--- NOTE | 2019-11-24 14:24 | P.PCN ---
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 She denies any GI symptoms. Physical for an upper endoscopy as well as colonoscopy to evaluate further Procedure performed: Esophagogastroduodenoscopy with the biopsy Colonoscopy snare polypectomy and Endo Clip placement Preoperative diagnosis: Metastatic adenocarcinoma of unknown primary diagnosed from pleural effusion 3 weeks ago Anesthesia: MAC Procedure: After informed consent was obtained from the patient was brought into the endoscopy unit and IV sedation was administered by anesthesia under continuous monitoring. Initially upper endoscopy was done. The Olympus GF 160 video endoscope was inserted inserted into the mouth and esophagus intubated without any difficulty and was gradually advanced into the stomach and duodenum and carefully examined. The bulb and second part of the duodenum appeared normal. The scope was then withdrawn into the stomach adequately insufflated with air and upon careful examination the antrum and body, cardia and fundus appeared normal. The scope was then withdrawn into the esophagus. The GE junction was located at 40 cm to the incisors. It appeared regular with no erythema erosions or ulcerations. Rest of the esophagus appeared normal. Patient tolerated the procedure well. At this time the patient continued to remain sedation. Initial digital rectal examination was normal. Olympus CF 160 video colonoscope was then inserted into the rectum and gradually advanced to the cecum without any difficulty. Careful examination was performed as the scope was gradually being withdrawn. The prep was excellent. The cecum, appeared normal. In the ascending colon there was a 3 cm broad-based polyp removed by snare polypectomy followed by Endo Clip placement. Complete polypectomy accomplished. In the transverse colon there was a 5 mm polyp removed by snare polypectomy Rest of the ascending colon, transverse colon, descending colon, sigmoid colon and rectum appeared normal. scattered sigmoidal diverticulosis seen. Retroflexion was performed in the rectum and no lesions were noted. Patient tolerated the procedure well. Impression: 1. Upper endoscopy revealed 3 cm broad-based duodenal polyp in the second part of the duodenum status post multiple biopsies to rule out neoplasm 2. Colonoscopy revealed 3 cm descending colon polyp status post snare polypectomy followed by Endo Clip placement and 5 mm transverse colon polyp status post polypectomy Recommendations: Findings of this examination were discussed with the patient as well as her family. She was advised to follow with the biopsy results. She'll be seen in office in 1 week
[2019-11-24 14:44] VITALS: BP 125/73; PULSE 71; RESP 20
== END 2019-11-24 14:56 | disposition home or self-care (01) ==
LOC: ORWHC2ENDO 11:57
PROVIDERS: ATTEND Internal Medicine Gastroenterology
DX: Z12.11 Encounter for screening for malignant neoplasm of colon (principal); D12.2 Benign neoplasm of ascending colon; D12.3 Benign neoplasm of transverse colon; D13.2 Benign neoplasm of duodenum; K57.30 Diverticulosis of large intestine without perforation or abscess without bleeding; C80.1 Malignant (primary) neoplasm, unspecified; I10 Essential (primary) hypertension; E78.5 Hyperlipidemia, unspecified; Z79.899 Other long term (current) drug therapy; Z90.710 Acquired absence of both cervix and uterus; Z90.49 Acquired absence of other specified parts of digestive tract; Z96.652 Presence of left artificial knee joint; Z98.890 Other specified postprocedural states
CPT/HCPCS: 88305; 45385; 43239; J2001; J2704

== ENCOUNTER 2019-12-25 18:25 | Inpatient (IN) | payer MEDICARE ==
[2019-12-25] MEDS ORDERED: HEPARIN SODIUM,PORCINE 10,000 UNIT/ML 1 ML VIAL IV ONE (19:27)
[2019-12-25] MEDS ORDERED: HEPARIN SODIUM,PORCINE 5,000 UNIT/ML 1 ML VIAL IV PRN (19:27)
--- NOTE | 2019-12-25 19:57 | ED ---
General Adult HPI - General Chief complaint: Shortness of Breath Stated complaint: SOB, from CT Time Seen by Provider: 12/25/19 19:21 Source: patient Mode of arrival: wheelchair Limitations: no limitations - History of Present Illness Initial comments: Dictation was produced using [employer] dictation software. please excuse any grammatical, word or spelling errors. This patient was cared for during a federal and state declared state of emergency secondary to Covid 19 Chief Complaint: 89-year-old female past medical history of pleural effusion, Pleurx catheter presents with abnormal CT History of Present Illness: 89-year-old female she was recently admitted for pleural effusions. She is diagnosed with cancer however she still undergoing workup for the primary site. Patient has been short of breath for last 24-48 hours patient went to her pin inserter office who ordered a CT angios the chest. She was found to have bilateral PEs. Patient denies any chest pain. She feels short of breath especially with exertion. She is scheduled to start chemotherapy soon. She is accompanied by her . Denies any nausea. Denies any palpitations. The ROS documented in this emergency department record has been reviewed and co nfirmed by me. Those systems with pertinent positive or negative responses have been documented in the HPI. All other systems are other negative and/or noncontributory. PHYSICAL EXAM: General Impression: Alert and oriented x3, mildly dyspneic, smiling HEENT: Normocephalic atraumatic, extra-ocular movements intact, pupils equal and reactive to light bilaterally, mucous membranes moist. Cardiovascular: Heart regular rate and rhythm Chest: Able to complete full sentences, no retractions, no tachypnea Abdomen: abdomen soft, non-tender, non-distended, no organomegaly Musculoskeletal: Pulses present and equal in all extremities, no peripheral edema Motor: no focal deficits noted Neurological: CN II-XII grossly intact, no focal motor or sensory deficits noted Skin: Intact with no visualized rashes Psych: Normal affect and mood ED course: 89-year-old female with acute pulmonary embolism. Vital Signs upon arrival are within acceptable limits. Chart review was performed. Patient had a CT angios the chest that was performed today showing bilateral pulmonary emboli. There appears to be a large filling defect within the interlobar artery with extension to the segmental branches. Also right upper lobe filling defect. Consider patient CT she surprisingly looks very well. Venous duplex ultrasound bilateral lower extremities do not show any evidence of DVT. CBC unremarkable. Coag panel is negative. Metabolic panel is negative. Troponin 0.138. Patient's blood pressures trended with stable signs. She did appear to have some hypoxic episodes. Patient requiring supplemental oxygen. She is reevaluated bedside and found to be stable medical condition. She continues to be small and not dyspneic appearing. Heparin was initiated. Case is discussed with Dr. Daniel who agrees that patient is not a candidate for intensive care unit given how well-appearing she is at bedside. She'll be admitted to telemetry. Patient be admitted to Dr. Fields's service. EKG interpretation: Ventricular rate 82, sinus rhythm,. Interval 150, QRS 72, QTc 435. No GA prolongation, no QTC prolongation, no ST or T-wave changes noted. EKG compared to 09/26/2019 showing no changes. Overall, this EKG is unremarkable - Related Data Home Medications Medication Instructions Recorded Confirmed Multivitamins, Thera [Multivitamin 1 tab PO DAILY 08/16/14 11/22/19 (formulary)] Simvastatin [Zocor] 40 mg PO HS 08/16/14 11/22/19 Mirabegron [Myrbetriq] 50 mg PO QAM 09/08/18 11/22/19 Acetaminophen Tab [Tylenol] 500 mg PO ONCE PRN 09/26/19 11/22/19 Previous Rx's Medication Instructions Recorded Metoprolol Tartrate [Lopressor] 12.5 mg PO BID tab 09/29/19 Allergies Allergy/AdvReac Type Severity Reaction Status Date / Time No Known Allergies Allergy Verified 12/25/19 18:54 Review of Systems ROS Statement: Those systems with pertinent positive or pertinent negative responses have been documented in the HPI. ROS Other: All systems not noted in ROS Statement are negative. Past Medical History Past Medical History: Cancer, Hyperlipidemia, Hypertension, Osteoarthritis (OA) Additional Past Medical History / Comment(s): Arthritis bilateral hands/lower back, overactive bladder, benign colon polyps, skin cancer removals, UTIs, b ronchitis, veritgo at times. Pleual effusions. History of Any Multi-Drug Resistant Organisms: None Reported Past Surgical History: Bladder Surgery, Bowel Resection, Hernia Repair, Hysterectomy, Joint Replacement, Orthopedic Surgery Additional Past Surgical History / Comment(s): 08/21/14 Acromioplasty excision distal clavicle, rotator cuff repair R shoulder, total L knee arthroplasty, colonoscopies/polypectomies and had perforated bowel with colonoscopy-bowel resection, bladder suspension, vemtral incisional hernia repair, skin cancer removed from face, bilateral cataract removals/lens implants. Pleual catheter placement 11/02/19. Past Anesthesia/Blood Transfusion Reactions: Previous Problems w/ Anesthesia Additional Past Anesthesia/Blood Transfusion Reaction / Comment(s): STATES "TOOK A LONG TIME WAKING UP AFTER SURGERY" Past Psychological History: No Psychological Hx Reported Smoking Status: Never smoker Past Alcohol Use History: Occasional Past Drug Use History: None Reported - Past Family History Father Family Medical History: Cancer, Dementia Additional Family Medical History / Comment(s): PROSTATE Mother Family Medical History: Chest Pain / Angina General Exam Limitations: no limitations Course Vital Signs 12/25/19 12/25/19 12/25/19 18:49 19:38 20:00 Temperature 98.9 F Pulse Rate 87 82 Respiratory 22 18 14 Rate Blood Pressure 152/81 132/70 O2 Sat by Pulse 93 L 90 L Oximetry Medical Decision Making - Lab Data Result diagrams: 12/25/19 19:52 12/25/19 19:52 Lab Results 12/25/19 12/25/19 12/25/19 Range/Units 19:52 19:52 19:52 WBC 9.0 (3.8-10.6) k/uL RBC 4.82 (3.80-5.40) m/uL Hgb 14.6 (11.4-16.0) gm/dL Hct 43.9 (34.0-46.0) % MCV 91.1 (80.0-100.0) fL MCH 30.4 (25.0-35.0) pg MCHC 33.4 (31.0-37.0) g/dL RDW 13.6 (11.5-15.5) % Plt Count 240 (150-450) k/uL Neutrophils % 78 % Lymphocytes % 10 % Monocytes % 7 % Eosinophils % 3 % Basophils % 1 % Neutrophils # 7.0 (1.3-7.7) k/uL Lymphocytes # 0.9 L (1.0-4.8) k/uL Monocytes # 0.7 (0-1.0) k/uL Eosinophils # 0.2 (0-0.7) k/uL Basophils # 0.1 (0-0.2) k/uL PT 9.5 (9.0-12.0) sec INR 0.9 (<1.2) APTT 20.7 L (22.0-30.0) sec Sodium 134 L (137-145) mmol/L Potassium 4.5 (3.5-5.1) mmol/L Chloride 103 (98-107) mmol/L Carbon Dioxide 24 (22-30) mmol/L Anion Gap 7 mmol/L BUN 18 H (7-17) mg/dL Creatinine 0.75 (0.52-1.04) mg/dL Est GFR (CKD-EPI)AfAm 83 (>60 ml/min/1.73 sqM) Est GFR (CKD-EPI)NonAf 72 (>60 ml/min/1.73 sqM) Glucose 115 H (74-99) mg/dL Plasma Lactic Acid Chidi (0.7-2.0) mmol/L Calcium 9.2 (8.4-10.2) mg/dL Magnesium 2.3 (1.6-2.3) mg/dL Total Bilirubin 0.8 (0.2-1.3) mg/dL AST 46 H (14-36) U/L ALT 19 (4-34) U/L Alkaline Phosphatase 107 (38-126) U/L Troponin I (0.000-0.034) ng/mL Total Protein 6.8 (6.3-8.2) g/dL Albumin 3.9 (3.5-5.0) g/dL Blood Type Blood Type Recheck Bld Type Recheck Status Antibody Screen Spec Expiration Date 12/25/19 12/25/19 12/25/19 Range/Units 19:52 19:52 19:52 WBC (3.8-10.6) k/uL RBC (3.80-5.40) m/uL Hgb (11.4-16.0) gm/dL Hct (34.0-46.0) % MCV (80.0-100.0) fL MCH (25.0-35.0) pg MCHC (31.0-37.0) g/dL RDW (11.5-15.5) % Plt Count (150-450) k/uL Neutrophils % % Lymphocytes % % Monocytes % % Eosinophils % % Basophils % % Neutrophils # (1.3-7.7) k/uL Lymphocytes # (1.0-4.8) k/uL Monocytes # (0-1.0) k/uL Eosinophils # (0-0.7) k/uL Basophils # (0-0.2) k/uL PT (9.0-12.0) sec INR (<1.2) APTT (22.0-30.0) sec Sodium (137-145) mmol/L Potassium (3.5-5.1) mmol/L Chloride (98-107) mmol/L Carbon Dioxide (22-30) mmol/L Anion Gap mmol/L BUN (7-17) mg/dL Creatinine (0.52-1.04) mg/dL Est GFR (CKD-EPI)AfAm (>60 ml/min/1.73 sqM) Est GFR (CKD-EPI)NonAf (>60 ml/min/1.73 sqM) Glucose (74-99) mg/dL Plasma Lactic Acid Chidi 1.3 (0.7-2.0) mmol/L Calcium (8.4-10.2) mg/dL Magnesium (1.6-2.3) mg/dL Total Bilirubin (0.2-1.3) mg/dL AST (14-36) U/L ALT (4-34) U/L Alkaline Phosphatase (38-126) U/L Troponin I 0.138 H* (0.000-0.034) ng/mL Total Protein (6.3-8.2) g/dL Albumin (3.5-5.0) g/dL Blood Type A Positive Blood Type Recheck A Pos Bld Type Recheck Status No Antibody Screen NEGATIVE Spec Expiration Date 12/28/2019 - 235 Critical Care Time Critical Care Time: Yes Total Critical Care Time: 34 Disposition Clinical Impression: Pulmonary embolism Disposition: ADMITTED IP TO THIS [facility] Condition: Critical Referrals: Gracie Fields MD [Primary Care Provider] - 1-2 days Decision Time: 21:12
[2019-12-25] MEDS: HEPARIN SOD,PORK IN 0.45% NACL 25,000 UNIT in 0.45% NACL 1 250ML.BAG IV SCH (19:59)
[2019-12-25 20:09] LABS: Basophils # (A) 0.1 k/uL (0-0.2); Basophils % (A) 1 %; Eosinophils # (A) 0.2 k/uL (0-0.7); Eosinophils % (A) 3 %; HCT 43.9 % (34.0-46.0); HGB 14.6 gm/dL (11.4-16.0); Lymphocytes # (A) 0.9 k/uL (1.0-4.8); Lymphocytes % (A) 10 %; MCH 30.4 pg (25.0-35.0); MCHC 33.4 g/dL (31.0-37.0); MCV 91.1 fL (80.0-100.0); Mean Platelet Volume 7.5; Monocytes # (A) 0.7 k/uL (0-1.0); Monocytes % (A) 7 %; Neutrophils % (A) 78 %; Platelet Count 240 k/uL (150-450); RBC 4.82 m/uL (3.80-5.40); RDW 13.6 % (11.5-15.5)
[2019-12-25 20:19] LABS: Albumin 3.9 g/dL (3.5-5.0); Calcium 9.2 mg/dL (8.4-10.2); Magnesium 2.3 mg/dL (1.6-2.3); Potassium 4.5 mmol/L (3.5-5.1); Total Bilirubin 0.8 mg/dL (0.2-1.3); Total Protein 6.8 g/dL (6.3-8.2)
[2019-12-25 20:29] LABS: INR 0.9 (<1.2); Prothrombin Time 9.5 sec (9.0-12.0)
[2019-12-25 20:56] LABS: Partial Thromboplastin Time 20.7 sec (22.0-30.0)
--- NOTE | 2019-12-25 20:58 | US ---
EXAMINATION TYPE: US venous doppler duplex LE DATE OF EXAM: 12/25/2019 7:28 PM COMPARISON: NONE CLINICAL HISTORY: PE. PE SIDE PERFORMED: Bilateral TECHNIQUE: The lower extremity deep venous system is examined utilizing real time linear array sonog david with graded compression, doppler sonography and color-flow sonography. VESSELS IMAGED: External Iliac Vein (EIV) Common Femoral Vein Deep Femoral Vein Greater Saphenous Vein * Femoral Vein Popliteal Vein Small Saphenous Vein * Proximal Calf Veins (* superficial vessels) Left and right common femoral, superficial femoral, popliteal veins all compress normally and show no abnormal luminal echoes. Venous waveforms are normal. There is normal color flow. Right Leg: No evidence of DVT in veins imaged at this time from prox calf veins to EIV. Left Leg: No evidence of DVT in veins imaged at this time from prox calf veins to EIV. IMPRESSION: No evident deep venous thrombosis at or central to the knees.
[2019-12-25] MEDS ORDERED: NALOXONE 0.4 MG/ML 1 ML VIAL IV PRN (21:11)
--- NOTE | 2019-12-26 12:03 | P.CRDCN ---
History of Present Illness Consult date: 12/26/19 History of present illness: CHIEF COMPLAINT: Elevated troponin HISTORY OF PRESENT ILLNESS: This is a 89-year old female with a past medical history significant for recurrent pleural effusions with Pleurx catheter insertion, recent diagnosis of cancer with unknown primary site, osteoarthritis, and hyperlipidemia. Patient does not follow with a records management engineer. We have been asked to see the patient in consultation for elevated troponin. Patient examined at the bedside. Patient was hospitalized in September 2019 secondary to p leural effusions. Patient underwent thoracentesis. She eventually had a Pleurx catheter placed in October 2019. Patient states she has been diagnosed with cancer but they are unsure of the primary site. She is supposed to start an oral chemotherapy agent tomorrow. She states she has been feeling short of breath for the past 2-3 days. She saw her nondestructive tester yesterday who ordered a computed tomography scan. Patient was found to have pulmonary emboli and was admitted to the hospital. Patient denies any chest pain or pressure. She states she is still short of breath at rest. Patient was mildly hypoxic in the emergency room and required supplemental oxygen. She has been started on a heparin drip. DIAGNOSTICS: EKG reveals sinus rhythm without signs of acute ischemia Chest CTA: Large filling defect present within the interlobar artery, extension of the clot into segmental branches, abnormal filling defect also noted in the right upper lobe pulmonary artery segmental branches. There is a pericardial effusion. Small right pleural effusion. Venous Doppler: Negative for DVT of bilateral lower extremities Laboratory data: WBC 9.0. Hemoglobin 14.6. Platelet count 240. Sodium 134. Potassium 4.5. BUN 18. Creatinine 0.75. Lactic acid 1.3. Magnesium 2.3. Troponin 0.138. Current home cardiac medications include Lopressor 12.5 mg twice a day and Zocor 40 mg daily Echocardiogram completed in September 2019 reveals ejection fraction 55-60%, trace tricuspid regurgitation and trace mitral regurgitation REVIEW OF SYSTEMS: At the time of my exam: CONSTITUTIONAL: Denies fever or chills. HEENT: Denies blurred vision, vision changes, or eye pain. Denies hemoptysis CARDIOVASCULAR: Denies chest pain, orthopnea, PND or palpitations RESPIRATORY: Reports shortness of breath. GASTROINTESTINAL: Denies abdominal pain. Denies nausea or vomiting. HEMATOLOGIC: Denies bleeding disorders. GENITOURINARY: Denies any blood in urine. SKIN: Denies pruitis. Denies rash. PHYSICAL EXAM: VITAL SIGNS: Reviewed. GENERAL: Well-developed in no acute distress. HEENT: Head is normocephalic. Pupils are equal, round. Sclerae anicteric. Mucous membranes of the mouth are moist. Neck supple. No JVD or thyromegaly LUNGS: Respirations even and unlabored. Lungs diminished. Left Pleurx catheter noted. HEART: Regular rate and rhythm. S1 and S2 heard. ABDOMEN: Soft. Nondistended. Nontender. EXTREMITIES: Normal range of motion. No clubbing or cyanosis. Peripheral pulses intact. No lower extremity edema NEUROLOGIC: Awake and alert. Oriented x 3. ASSESSMENT: Acute pulmonary emboli Shortness of breath, secondary to above Abnormal troponins, likely type II event due to oxygen supply and demand mis match Recent diagnosis of cancer, unknown primary site per patient Recurrent pleural effusions with history of thoracentesis and left Pleurx catheter insertion PLAN: Resume home cardiac medications Continue IV heparin drip Continue to trend troponins Pulmonary consulted for evaluation. Await recommendations Repeat 2-D echocardiogram Further recommendations pending patient's course Nurse practitioner note has been reviewed by physician. Signing provider agrees with the documented findings, assessment, and plan of care. Past Medical History Past Medical History: Cancer, Hyperlipidemia, Hypertension, Osteoarthritis (OA) Additional Past Medical History / Comment(s): Arthritis bilateral hands/lower back, overactive bladder, benign colon polyps, skin cancer removals, UTIs, bronchitis, veritgo at times. Pleual effusions. History of Any Multi-Drug Resistant Organisms: None Reported Past Surgical History: Bladder Surgery, Bowel Resection, Hernia Repair, Hysterectomy, Joint Replacement, Orthopedic Surgery Additional Past Surgical History / Comment(s): 08/21/14 Acromioplasty excision distal clavicle, rotator cuff repair R shoulder, total L knee arthroplasty, colonoscopies/polypectomies and had perforated bowel with colonoscopy-bowel resection, bladder suspension, vemtral incisional hernia repair, skin cancer removed from face, bilateral cataract removals/lens implants. Pleual catheter placement 11/02/19. Past Anesthesia/Blood Transfusion Reactions: Previous Problems w/ Anesthesia Additional Past Anesthesia/Blood Transfusion Reaction / Comment(s): STATES "TOOK A LONG TIME WAKING UP AFTER SURGERY" Past Psychological History: No Psychological Hx Reported Additional Psychological History / Comment(s): Pt lives with her in a 3 level home. She is independent. She uses no assistive device or home care. She drives. Smoking Status: Never smoker Past Alcohol Use History: Occasional Past Drug Use History: None Reported - Past Family History Father Family Medical History: Cancer, Dementia Additional Family Medical History / Comment(s): PROSTATE Mother Family Medical History: Chest Pain / Angina Medications and Allergies Home Medications Medication Instructions Recorded Confirmed Type Multivitamins, Thera [Multivitamin 1 tab PO DAILY 08/16/14 12/25/19 History (formulary)] Simvastatin [Zocor] 40 mg PO HS 08/16/14 12/25/19 History Mirabegron [Myrbetriq] 50 mg PO QAM 09/08/18 12/25/19 History Acetaminophen Tab [Tylenol] 500 mg PO DAILY PRN 09/26/19 12/25/19 History Metoprolol Tartrate [Lopressor] 12.5 mg PO BID 12/25/19 12/25/19 History Allergies Allergy/AdvReac Type Severity Reaction Status Date / Time No Known Allergies Allergy Verified 12/25/19 22:54 Physical Exam Vitals: Vital Signs Temp Pulse Pulse Resp BP BP Pulse Ox 12/26/19 08:59 98.4 F 88 18 136/66 94 L 12/26/19 04:00 98.1 F 98 18 131/83 92 L 12/26/19 00:00 98.2 F 77 17 151/76 95 12/25/19 22:32 78 12 110/61 95 12/25/19 22:01 98.2 F 77 18 151/76 95 12/25/19 21:00 82 14 95 12/25/19 20:00 82 14 132/70 90 L 12/25/19 19:38 18 12/25/19 18:49 98.9 F 87 22 152/81 93 L Intake and Output 12/25/19 12/26/19 12/26/19 22:59 06:59 14:59 Intake Total 191.24 314.388 Balance 191.24 314.388 Intake: Intake, IV Titration 91.24 74.388 Amount Heparin Sod,Pork in 0.45% 91.24 74.388 NaCl 25,000 unit In 0.45 % NaCl 1 250ml.bag @ 18 UNITS/KG/HR 12.247 mls/hr IV .[id number] [facility] Rx#: [id number] Oral 100 240 Other: Weight 68.039 kg 70.5 kg Results 12/25/19 19:52 12/25/19 19:52 Cardiac Enzymes 12/25/19 12/25/19 Range/Units 19:52 19:52 AST 46 H (14-36) U/L Troponin I 0.138 H* (0.000-0.034) ng/mL Coagulation 12/25/19 12/26/19 12/26/19 Range/Units 19:52 01:28 09:14 PT 9.5 (9.0-12.0) sec APTT 20.7 L 86.1 H 69.7 H (22.0-30.0) sec CBC 12/25/19 Range/Units 19:52 WBC 9.0 (3.8-10.6) k/uL RBC 4.82 (3.80-5.40) m/uL Hgb 14.6 (11.4-16.0) gm/dL Hct 43.9 (34.0-46.0) % Plt Count 240 (150-450) k/uL Comprehensive Metabolic Panel 12/25/19 Range/Units 19:52 Sodium 134 L (137-145) mmol/L Potassium 4.5 (3.5-5.1) mmol/L Chloride 103 (98-107) mmol/L Carbon Dioxide 24 (22-30) mmol/L BUN 18 H (7-17) mg/dL Creatinine 0.75 (0.52-1.04) mg/dL Glucose 115 H (74-99) mg/dL Calcium 9.2 (8.4-10.2) mg/dL AST 46 H (14-36) U/L ALT 19 (4-34) U/L Alkaline Phosphatase 107 (38-126) U/L Total Protein 6.8 (6.3-8.2) g/dL Albumin 3.9 (3.5-5.0) g/dL Current Medications Generic Name Dose Route Start Last Admin Trade Name Freq PRN Reason Stop Dose Admin Atorvastatin Calcium 20 mg 12/26/19 21:00 Atorvastatin 20 Mg Tab PO HS [facility] Heparin Sodium (Porcine) 0 unit 12/25/19 19:27 Heparin Sodium,Porcine 5,000 Unit/Ml 1 Ml Vial IV PER PROTOCOL PRN Low PTT Protocol Heparin Sodium/Sodium Chloride 250 mls @ 12.247 mls/hr 12/25/19 19:30 12/26/19 10:16 25,000 unit/ Sodium Chloride IV 14 units/kg/hr .[id number] JONATHAN 9.525 mls/hr Titration Protocol 18 UNITS/KG/HR Metoprolol Tartrate 12.5 mg 12/26/19 21:00 Metoprolol Tartrate 12.5 Mg Tab PO BID [facility] Naloxone HCl 0.2 mg 12/25/19 21:11 Naloxone 0.4 Mg/Ml 1 Ml Vial IV Q2M PRN Opioid Reversal Intake and Output 12/25/19 12/26/19 12/26/19 22:59 06:59 14:59 Intake Total 191.24 314.388 Balance 191.24 314.388 Intake: Intake, IV Titration 91.24 74.388 Amount Heparin Sod,Pork in 0.45% 91.24 74.388 NaCl 25,000 unit In 0.45 % NaCl 1 250ml.bag @ 18 UNITS/KG/HR 12.247 mls/hr IV .[id number] [facility] Rx#: [id number] Oral 100 240 Other: Weight 68.039 kg 70.5 kg 12/25/19 19:52 12/25/19 19:52
--- NOTE | 2019-12-26 14:08 | P.CONS ---
History of Present Illness - Reason for Consult Consult date: 12/26/19 Malignant Pleural Effusion and New Pulmonary Embolism. 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 She had R thoracentesis done with negative cytology. The patient stated feeling Ok, C/O mild exertional dyspnea, no chest pain, denies anorexia or weight loss and remains fully active & independent. She is a lifetime non smoker, was exposed to 2nd hand smoking X 25 years (30 years ago). Denies any known exposure to asbestos. The patient father had prostate Ca in his 80s, a maternal aunt had Leukemia. She stated having annual mammograms, had Colonoscopy 6 yeras ago. The patient had a PET Scan, which revealed L Pleural increased uptake, as well as, mild uptake in ascending colon of ? etiology. She C/O mild dysphagia in last 4-6 months. She had L chest pleurex cath placed and is getting pleural fluid drainage 3 times weekly Further testing on pleural fluid performed Lif[facility] [employer]: no actionable mutations. ER/MT (QNS)/[id number]/PD-L1 negative She underwent colonscopy, PET scan, and EGD without primary denitively proven. [place] to be Breast or GI or Lung origin. She was seen in the office for follow-up with complaints of increased SOB, She was sent to Hospital for a Stat CTA and was found to have PE. Therefore referred to emergency for further testing. Review of Systems All systems: negative Constitutional: Reports as per HPI Past Medical History Past Medical History: Cancer, Hyperlipidemia, Hypertension, Osteoarthritis (OA) Additional Past Medical History / Comment(s): Arthritis bilateral hands/lower back, overactive bladder, benign colon polyps, skin cancer removals, UTIs, bronchitis, veritgo at times. Pleual effusions. History of Any Multi-Drug Resistant Organisms: None Reported Past Surgical History: Bladder Surgery, Bowel Resection, Hernia Repair, Hysterectomy, Joint Replacement, Orthopedic Surgery Additional Past Surgical History / Comment(s): 08/21/14 Acromioplasty excision distal clavicle, rotator cuff repair R shoulder, total L knee arthroplasty, colonoscopies/polypectomies and had perforated bowel with colonoscopy-bowel resection, bladder suspension, vemtral incisional hernia repair, skin cancer removed from face, bilateral cataract removals/lens implants. Pleual catheter placement 11/02/19. Past Anesthesia/Blood Transfusion Reactions: Previous Problems w/ Anesthesia Additional Past Anesthesia/Blood Transfusion Reaction / Comm: STATES "TOOK A LONG TIME WAKING UP AFTER SURGERY" Past Psychological History: No Psychological Hx Reported Additional Psychological History / Comment(s): Pt lives with her in a 3 level home. She is independent. She uses no assistive device or home care. She drives. Smoking Status: Never smoker Past Alcohol Use History: Occasional Past Drug Use History: None Reported - Past Family History Father Family Medical History: Cancer, Dementia Additional Family Medical History / Comment(s): PROSTATE Mother Family Medical History: Chest Pain / Angina Medications and Allergies Home Medications Medication Instructions Recorded Confirmed Type Multivitamins, Thera [Multivitamin 1 tab PO DAILY 08/16/14 12/25/19 History (formulary)] Simvastatin [Zocor] 40 mg PO HS 08/16/14 12/25/19 History Mirabegron [Myrbetriq] 50 mg PO QAM 09/08/18 12/25/19 History Acetaminophen Tab [Tylenol] 500 mg PO DAILY PRN 09/26/19 12/25/19 History Metoprolol Tartrate [Lopressor] 12.5 mg PO BID 12/25/19 12/25/19 History Allergies Allergy/AdvReac Type Severity Reaction Status Date / Time No Known Allergies Allergy Verified 12/25/19 22:54 Physical Exam Vitals: Vital Signs Temp Pulse Pulse Resp BP BP Pulse Ox 12/26/19 11:40 69 16 124/57 93 L 12/26/19 09:00 69 16 12/26/19 08:59 98.4 F 88 18 136/66 94 L 12/26/19 04:00 98.1 F 98 18 131/83 92 L 12/26/19 00:00 98.2 F 77 17 151/76 95 12/25/19 22:32 78 12 110/61 95 12/25/19 22:01 98.2 F 77 18 151/76 95 12/25/19 21:00 82 14 95 12/25/19 20:00 82 14 132/70 90 L 12/25/19 19:38 18 12/25/19 18:49 98.9 F 87 22 152/81 93 L Intake and Output 12/25/19 12/26/19 12/26/19 22:59 06:59 14:59 Intake Total 191.24 554.388 Balance 191.24 554.388 Intake: Intake, IV Titration 91.24 74.388 Amount Heparin Sod,Pork in 0.45% 91.24 74.388 NaCl 25,000 unit In 0.45 % NaCl 1 250ml.bag @ 18 UNITS/KG/HR 12.247 mls/hr IV .[id number] [facility] Rx#: [id number] Oral 100 480 Other: Weight 68.039 kg 70.5 kg - Constitutional General appearance: cooperative, mild distress, no acute distress - EENT Eyes: EOMI, PERRLA, dentition normal ENT: hard of hearing, NA/AT - Neck Neck: normal ROM - Respiratory Respiratory: left: diminished - Cardiovascular Rhythm: regularly irregular - Gastrointestinal General gastrointestinal: normal bowel sounds, soft - Integumentary Integumentary: pale - Neurologic Neurologic: CNII-XII intact - Musculoskeletal Musculoskeletal: generalized weakness, strength equal bilaterally - Psychiatric Psychiatric: A&O x's 3, appropriate affect, intact judgment & insight Results CBC & Chem 7: 12/25/19 19:52 12/25/19 19:52 Labs: Abnormal Lab Results - Last 24 Hours (Table) 12/25/19 12/25/19 12/25/19 Range/Units 19:52 19:52 19:52 Lymphocytes # 0.9 L (1.0-4.8) k/uL APTT 20.7 L (22.0-30.0) sec Sodium 134 L (137-145) mmol/L BUN 18 H (7-17) mg/dL Glucose 115 H (74-99) mg/dL AST 46 H (14-36) U/L Troponin I (0.000-0.034) ng/mL 12/25/19 12/26/19 12/26/19 Range/Units 19:52 01:28 09:14 Lymphocytes # (1.0-4.8) k/uL APTT 86.1 H 69.7 H (22.0-30.0) sec Sodium (137-145) mmol/L BUN (7-17) mg/dL Glucose (74-99) mg/dL AST (14-36) U/L Troponin I 0.138 H* (0.000-0.034) ng/mL 12/26/19 Range/Units 10:38 Lymphocytes # (1.0-4.8) k/uL APTT (22.0-30.0) sec Sodium (137-145) mmol/L BUN (7-17) mg/dL Glucose (74-99) mg/dL AST (14-36) U/L Troponin I 0.035 H* (0.000-0.034) ng/mL CT scan - chest: report reviewed Venous US: report reviewed Assessment and Plan (1) Malignant pleural effusion Current Visit: Yes Status: Acute Code(s): J91.0 - MALIGNANT PLEURAL EFFUSION SNOMED Code(s): 316004508 (2) Adenocarcinoma of unknown primary Current Visit: Yes Status: Acute Code(s): C80.1 - MALIGNANT (PRIMARY) NEOPLASM, UNSPECIFIED SNOMED Code(s): 416535879 (3) Pulmonary embolism Current Visit: Yes Status: Acute Code(s): I26.99 - OTHER PULMONARY EMBOLISM WITHOUT ACUTE COR PULMONALE SNOMED Code(s): 02254615 Plan: Venous Doppler negative for DVTs. Agree with heparin drip for now and convert to DOAC for ongoing management She is waiting on receiving Xeloda pills for treatment of her cancer, she will be following closely with us after starting this prescription. Will check tumor markers as primary unknown and was planned for in hospital. CEA and Ca19-9 not increased.
[2019-12-26] MEDS: HEPARIN SOD,PORK IN 0.45% NACL 25,000 UNIT in 0.45% NACL 1 250ML.BAG IV SCH (17:06)
[2019-12-26] MEDS ORDERED: ACETAMINOPHEN TAB 500 MG TAB PO PRN (17:07)
--- NOTE | 2019-12-26 17:26 | P.CNPUL ---
History of Present Illness Consult date: 12/26/19 Requesting physician: Gracie Fields Reason for consult: dyspnea, chest pain Chief complaint: Dyspnea, chest discomfort History of present illness: This is a 89-year-old white female patient with history of metastatic adenocarcinoma of undetermined primary, there was diagnosed in September 2019 via d iagnostic thoracentesis of the left pleural effusion. Patient had a Pleurx catheter placed for malignant left sided pleural effusion. In the origin of the tumor was not clear. Her PET scan showed no active focus to indicate origin of the cancer. Patient had tumor markers, and a CEA 125 level came back elevated, the rest of the markers were negative, patient underwent EGD and colonoscopy and she was found to have polyps and again there was no evidence of malignancy, the pleural fluid drainage from the Pleurx catheter has been steadily decreasing, last time she had drained it was last Wednesday on 12/22/2019 with minimal amount and she described it as foamy in nature with a scant amount of approximately 5 mL. Yesterday on 12/25/[address] patient was seen by Dr. Sandoval in the office, and she was having feelings of discomfort in the chest area and some fullness across the chest and abdominal area with associated shortness of breath. Patient had a chest x-ray in the office which showed a left-sided pleural effusion which is stable and unchanged, it did show a new opacity and volume loss in the left suprahilar area that needed to be further investigated. Patient had a recent trip to [place] and during her trip she did feel some increased shortness of breath. She's had no previous history of DVT or pulmonary embolism, and she reported no swelling in her lower extremity, patient was sent in to the emergency department for further evaluation. In the EC, lower extremity Dopplers were negative for DVT. CTA chest was completed showing pulmonary embolism within the interlobar artery, extending of the clot into the segmental branches, and abnormal filling defect in the right upper lobe pulmonary artery segmental branches. There was a pericardial effusion, and a small right pleural effusion. Patient was started on heparin infusion. She is a 2 L of oxygen pulse ox of 95%, hemodynamically she stable, she denies any hemoptysis, she has been afebrile. Of note patient follows with Dr. Hollingsworth, and she was supposed to start on oral chemotherapy agent tomorrow. Review of Systems All systems: negative Constitutional: Denies chills, Denies fever Eyes: denies blurred vision, denies pain Ears, nose, mouth and throat: Denies headache, Denies sore throat Cardiovascular: Reports chest pain, Reports dyspnea on exertion, Denies shortness of breath Respiratory: Denies cough Gastrointestinal: Denies abdominal pain, Denies diarrhea, Denies nausea, Denies vomiting Genitourinary: Denies dysuria, Denies hematuria Musculoskeletal: Denies myalgias Integumentary: Denies pruritus, Denies rash Neurological: Denies numbness, Denies weakness Psychiatric: Denies anxiety, Denies depression Endocrine: Denies fatigue, Denies weight change Past Medical History Past Medical History: Cancer, Hyperlipidemia, Hypertension, Osteoarthritis (OA) Additional Past Medical History / Comment(s): Arthritis bilateral hands/lower back, overactive bladder, benign colon polyps, skin cancer removals, UTIs, bronchitis, veritgo at times. Pleual effusions. History of Any Multi-Drug Resistant Organisms: None Reported Past Surgical History: Bladder Surgery, Bowel Resection, Hernia Repair, Hysterectomy, Joint Replacement, Orthopedic Surgery Additional Past Surgical History / Comment(s): 08/21/14 Acromioplasty excision distal clavicle, rotator cuff repair R shoulder, total L knee arthroplasty, colonoscopies/polypectomies and had perforated bowel with colonoscopy-bowel resection, bladder suspension, vemtral incisional hernia repair, skin cancer removed from face, bilateral cataract removals/lens implants. Pleual catheter placement 11/02/19. Past Anesthesia/Blood Transfusion Reactions: Previous Problems w/ Anesthesia Additional Past Anesthesia/Blood Transfusion Reaction / Comment(s): STATES "TOOK A LONG TIME WAKING UP AFTER SURGERY" Past Psychological History: No Psychological Hx Reported Additional Psychological History / Comment(s): Pt lives with her in a 3 level home. She is independent. She uses no assistive device or home care. She drives. Smoking Status: Never smoker Past Alcohol Use History: Occasional Past Drug Use History: None Reported - Past Family History Father Family Medical History: Cancer, Dementia Additional Family Medical History / Comment(s): PROSTATE Mother Family Medical History: Chest Pain / Angina Medications and Allergies Home Medications Medication Instructions Recorded Confirmed Type Multivitamins, Thera [Multivitamin 1 tab PO DAILY 08/16/14 12/25/19 History (formulary)] Simvastatin [Zocor] 40 mg PO HS 08/16/14 12/25/19 History Mirabegron [Myrbetriq] 50 mg PO QAM 09/08/18 12/25/19 History Acetaminophen Tab [Tylenol] 500 mg PO DAILY PRN 09/26/19 12/25/19 History Metoprolol Tartrate [Lopressor] 12.5 mg PO BID 12/25/19 12/25/19 History Allergies Allergy/AdvReac Type Severity Reaction Status Date / Time No Known Allergies Allergy Verified 12/25/19 22:54 Physical Exam Vitals: Vital Signs Temp Pulse Pulse Resp BP BP Pulse Ox 12/26/19 16:56 97.7 F 75 16 133/63 95 12/26/19 11:40 69 16 124/57 93 L 12/26/19 09:00 69 16 12/26/19 08:59 98.4 F 88 18 136/66 94 L 12/26/19 04:00 98.1 F 98 18 131/83 92 L 12/26/19 00:00 98.2 F 77 17 151/76 95 12/25/19 22:32 78 12 110/61 95 12/25/19 22:01 98.2 F 77 18 151/76 95 12/25/19 21:00 82 14 95 12/25/19 20:00 82 14 132/70 90 L 12/25/19 19:38 18 12/25/19 18:49 98.9 F 87 22 152/81 93 L Intake and Output 12/26/19 12/26/19 12/26/19 06:59 14:59 22:59 Intake Total 191.24 554.388 Balance 191.24 554.388 Intake: Intake, IV Titration 91.24 74.388 Amount Heparin Sod,Pork in 0.45% 91.24 74.388 NaCl 25,000 unit In 0.45 % NaCl 1 250ml.bag @ 18 UNITS/KG/HR 12.247 mls/hr IV .[id number] [facility] Rx#: [id number] Oral 100 480 Other: # Voids 1 # Bowel Movements 1 Weight 70.5 kg GENERAL EXAM: Alert, very pleasant, 89-year-old white female, today's of oxygen pulse ox 95% comfortable in no apparent distress. HEAD: Normocephalic/atraumatic. EYES: Normal reaction of pupils, equal size. Conjunctiva pink, sclera white. NOSE: Clear with pink turbinates. THROAT: No erythema or exudates. NECK: No masses, no JVD, no thyroid enlargement, no adenopathy. CHEST: No chest wall deformity. Symmetrical expansion. LUNGS: Equal air entry with no crackles, wheeze, rhonchi or dullness. CVS: Regular rate and rhythm, normal S1 and S2, no gallops, no murmurs, no rubs ABDOMEN: Soft, nontender. No hepatosplenomegaly, normal bowel sounds, no guarding or rigidity. EXTREMITIES: No clubbing, no edema, no cyanosis, 2+ pulses and upper and lower extremities. MUSCULOSKELETAL: Muscle strength and tone normal. SPINE: No scoliosis or deformity SKIN: No rashes CENTRAL NERVOUS SYSTEM: Alert and oriented -3. No focal deficits, tone is normal in all 4 extremities. PSYCHIATRIC: Alert and oriented -3. Appropriate affect. Intact judgment and insight. Results - Laboratory Findings CBC and BMP: 12/25/19 19:52 12/25/19 19:52 PT/INR, D-dimer PT 9.5 sec (9.0-12.0) 12/25/19 19:52 INR 0.9 (<1.2) 12/25/19 19:52 Abnormal lab findings: Abnormal Labs 12/25/19 12/25/19 12/25/19 19:52 19:52 19:52 Lymphocytes # 0.9 L APTT 20.7 L Sodium 134 L BUN 18 H Glucose 115 H AST 46 H Troponin I 12/25/19 12/26/19 12/26/19 19:52 01:28 09:14 Lymphocytes # APTT 86.1 H 69.7 H Sodium BUN Glucose AST Troponin I 0.138 H* 12/26/19 12/26/19 10:38 11:59 Lymphocytes # APTT Sodium BUN Glucose AST Troponin I 0.035 H* 0.037 H* - Diagnostic Findings Chest x-ray: report reviewed, image reviewed CT scan - chest: report reviewed, image reviewed Assessment and Plan Plan: Assessment: #1. Acute dyspnea and chest pain related to acute pulmonary embolism, with CTA chest showing large filling defect in the interlobar artery with extension of the clot into the segmental branches, and filling defect in the right upper lobe pulmonary artery segmental branches. No evidence of DVT on lower extremity Dopplers #2. History of malignant left Pleural effusion with placement of Pleurx catheter, and patient has had a decreasing amount of pleural fluid drainage, last time drained on 12/22/2019 with only 5 mL of pleural fluid #3. History of metastatic adenocarcinoma with undetermined primary, patient is supposed to start on oral chemotherapy #4. Elevated troponin related to acute hypoxic rest or a failure, and acute pu lmonary embolism #5. Hyperlipidemia #6. Osteoarthritis #7. Hypertension #8. Lifetime nonsmoker Plan: Consult medical oncology for a recommendation for anticoagulation for the patient to go home on, hemodynamically patient remains stable, no worsening dyspnea, no hemoptysis or chest discomfort, CTA chest has been reviewed, alert, Dopplers were negative for any evidence of DVT, echocardiogram pending. If remains stable patient may be considered for discharge home in the next 24 hours on oral anticoagulation of oncology recommendations. I performed a history & physical examination of the patient and discussed their management with my nurse practitioner, Elicia Chester. I reviewed the nurse practitioner's note and agree with the documented findings and plan of care. Lung sounds are positive for diminished breath sounds. The findings and the impression was discussed with the patient. I attest to the documentation by the nurse practitioner. Time with Patient: Greater than 30
--- NOTE | 2019-12-26 17:56 | P.HPIM ---
History of Present Illness H&P Date: 12/26/19 Elva Gallagher, is an 89-year-old female who presented to the pulmonary office with a chief complaint of worsening shortness of breath she was seen by Dr. Sandoval and was sent to emergency room she underwent CTA of the chest which revealed evidence of pulmonary embolism and a small pericardial effusion and a right pleural effusion she was started on insulin drip and was admitted to telemetry floor. 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 In the emergency room patient was evaluated her vital examination on presentation revealed a temperature of 98.9 pulse 87 respiration 22 blood pressure 152/81 pulse ox 93% on room air, her white blood count was 9 hemoglobin 14.6 platelet count 240 sodium 134 potassium 4.5 troponin level was slightly elevated at 0.138. Patient was admitted to telemetry floor pulmonary consultation cardiology consultation and oncology consultation were requested Past Medical History Past Medical History: Cancer, Hyperlipidemia, Hypertension, Osteoarthritis (OA) Additional Past Medical History / Comment(s): Arthritis bilateral hands/lower back, overactive bladder, benign colon polyps, skin cancer removals, UTIs, bronchitis, veritgo at times. Pleual effusions. History of Any Multi-Drug Resistant Organisms: None Reported Past Surgical History: Bladder Surgery, Bowel Resection, Hernia Repair, Hysterectomy, Joint Replacement, Orthopedic Surgery Additional Past Surgical History / Comment(s): 08/21/14 Acromioplasty excision distal clavicle, rotator cuff repair R shoulder, total L knee arthroplasty, colonoscopies/polypectomies and had perforated bowel with colonoscopy-bowel r esection, bladder suspension, vemtral incisional hernia repair, skin cancer removed from face, bilateral cataract removals/lens implants. Pleual catheter placement 11/02/19. Past Anesthesia/Blood Transfusion Reactions: Previous Problems w/ Anesthesia Additional Past Anesthesia/Blood Transfusion Reaction / Comment(s): STATES "TOOK A LONG TIME WAKING UP AFTER SURGERY" Past Psychological History: No Psychological Hx Reported Additional Psychological History / Comment(s): Pt lives with her in a 3 level home. She is independent. She uses no assistive device or home care. She drives. Smoking Status: Never smoker Past Alcohol Use History: Occasional Past Drug Use History: None Reported - Past Family History Father Family Medical History: Cancer, Dementia Additional Family Medical History / Comment(s): PROSTATE Mother Family Medical History: Chest Pain / Angina Medications and Allergies Home Medications Medication Instructions Recorded Confirmed Type Multivitamins, Thera [Multivitamin 1 tab PO DAILY 08/16/14 12/25/19 History (formulary)] Simvastatin [Zocor] 40 mg PO HS 08/16/14 12/25/19 History Mirabegron [Myrbetriq] 50 mg PO QAM 09/08/18 12/25/19 History Acetaminophen Tab [Tylenol] 500 mg PO DAILY PRN 09/26/19 12/25/19 History Metoprolol Tartrate [Lopressor] 12.5 mg PO BID 12/25/19 12/25/19 History Allergies Allergy/AdvReac Type Severity Reaction Status Date / Time No Known Allergies Allergy Verified 12/25/19 22:54 Physical Exam Vitals: Vital Signs Temp Pulse Pulse Resp BP BP Pulse Ox 12/26/19 16:56 97.7 F 75 16 133/63 95 12/26/19 11:40 69 16 124/57 93 L 12/26/19 09:00 69 16 12/26/19 08:59 98.4 F 88 18 136/66 94 L 12/26/19 04:00 98.1 F 98 18 131/83 92 L 12/26/19 00:00 98.2 F 77 17 151/76 95 12/25/19 22:32 78 12 110/61 95 12/25/19 22:01 98.2 F 77 18 151/76 95 12/25/19 21:00 82 14 95 12/25/19 20:00 82 14 132/70 90 L 12/25/19 19:38 18 12/25/19 18:49 98.9 F 87 22 152/81 93 L Intake and Output 12/26/19 12/26/19 12/26/19 06:59 14:59 22:59 Intake Total 191.24 554.388 Balance 191.24 554.388 Intake: Intake, IV Titration 91.24 74.388 Amount Heparin Sod,Pork in 0.45% 91.24 74.388 NaCl 25,000 unit In 0.45 % NaCl 1 250ml.bag @ 18 UNITS/KG/HR 12.247 mls/hr IV .[id number] [facility] Rx#: [id number] Oral 100 480 Other: # Voids 1 # Bowel Movements 1 Weight 70.5 kg In general patient is alert and oriented 3 in no apparent distress she is answering questions appropriately and seems to understand her condition HEENT head normocephalic and atraumatic Neck is supple no JVD no goiter no lymphadenopathy Chest exam reveals a few scattered crackles no wheezing Cardiac exam reveals regular heart sounds no gallops no murmurs Abdomen is soft nontender no organomegaly with normal bowel sounds Extremity exam reveals no edema no cyanosis or clubbing Results CBC & Chem 7: 12/25/19 19:52 12/25/19 19:52 Labs: Abnormal Lab Results - Last 24 Hours (Table) 12/25/19 12/25/19 12/25/19 Range/Units 19:52 19:52 19:52 Lymphocytes # 0.9 L (1.0-4.8) k/uL APTT 20.7 L (22.0-30.0) sec Sodium 134 L (137-145) mmol/L BUN 18 H (7-17) mg/dL Glucose 115 H (74-99) mg/dL AST 46 H (14-36) U/L Troponin I (0.000-0.034) ng/mL 12/25/19 12/26/19 12/26/19 Range/Units 19:52 01:28 09:14 Lymphocytes # (1.0-4.8) k/uL APTT 86.1 H 69.7 H (22.0-30.0) sec Sodium (137-145) mmol/L BUN (7-17) mg/dL Glucose (74-99) mg/dL AST (14-36) U/L Troponin I 0.138 H* (0.000-0.034) ng/mL 12/26/19 12/26/19 Range/Units 10:38 11:59 Lymphocytes # (1.0-4.8) k/uL APTT (22.0-30.0) sec Sodium (137-145) mmol/L BUN (7-17) mg/dL Glucose (74-99) mg/dL AST (14-36) U/L Troponin I 0.035 H* 0.037 H* (0.000-0.034) ng/mL Thrombosis Risk Factor Assmnt - Choose All That Apply Any of the Below Risk Factors Present?: Yes Each Factor Represents 1 point: Medical pt on bed rest Other Risk Factors: Yes Each Risk Factor Represents 3 Points: Age 75 years or older Other congenital or acquired thrombophilia - If yes, enter type in comment: No Thrombosis Risk Factor Assessment Total Risk Factor Score: 4 Thrombosis Risk Factor Assessment Level: Moderate Risk Assessment and Plan Plan: 1. Acute pulmonary embolism maintained on IV heparin pulmonary and oncology following 2. History of left malignant pleural effusion with thoracentesis in September 2019, and Pleurx catheter placement 3. Metastatic adenocarcinoma of unknown primary 4. Elevated troponin level cardiology consultation requested Underlying history of hypertension Underlying history of hyperlipidemia Underlying history of osteoarthritis At this time patient is admitted to telemetry floor she is hemodynamically stable she is maintained on IV heparin Shortness of breath has been improving since admission Bilateral lower extremity Doppler were negative for DVT Will follow closely
[2019-12-26] MEDS: METOPROLOL TARTRATE 12.5 MG TAB PO SCH (20:45)
[2019-12-26] MEDS: ATORVASTATIN 20 MG TAB PO SCH (20:46)
[2019-12-27 03:09] LABS: Cancer Antigen 125 31.6 U/mL (0.0-30.1)
[2019-12-27 07:33] LABS: Basophils # (A) 0.1 k/uL (0-0.2); Basophils % (A) 1 %; Eosinophils # (A) 0.2 k/uL (0-0.7); Eosinophils % (A) 3 %; HCT 43.1 % (34.0-46.0); Lymphocytes # (A) 0.7 k/uL (1.0-4.8); Lymphocytes % (A) 11 %; MCH 30.1 pg (25.0-35.0); MCHC 32.5 g/dL (31.0-37.0); MCV 92.6 fL (80.0-100.0); Mean Platelet Volume 7.5; Monocytes # (A) 0.6 k/uL (0-1.0); Monocytes % (A) 9 %; Neutrophils # (A) 5.1 k/uL (1.3-7.7); Neutrophils % (A) 75 %; Platelet Count 223 k/uL (150-450); RBC 4.66 m/uL (3.80-5.40); RDW 13.6 % (11.5-15.5); WBC 6.7 k/uL (3.8-10.6)
[2019-12-27 07:41] LABS: Albumin 3.8 g/dL (3.5-5.0); Potassium 4.8 mmol/L (3.5-5.1); Total Bilirubin 0.7 mg/dL (0.2-1.3)
[2019-12-27] MEDS: MULTIVITAMINS, THERA 1 EACH TAB PO SCH (08:33)
[2019-12-27] MEDS: METOPROLOL TARTRATE 12.5 MG TAB PO SCH ×2 (08:33→20:25)
[2019-12-27] MEDS: PATIENT'S OWN (Mirabegron [Myrbetriq] 50 MG Tab.Er.24h) PO SCH (09:13)
--- NOTE | 2019-12-27 11:21 | P.PN ---
Subjective Progress Note Date: 12/27/19 Elva Gallagher, is an 89-year-old female who presented to the pulmonary office with a chief complaint of worsening shortness of breath she was seen by Dr. Sandoval and was sent to emergency room she underwent CTA of the chest which revealed evidence of pulmonary embolism and a small pericardial effusion and a right pleural effusion she was started on insulin drip and was admitted to telemetry floor. 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 In the emergency room patient was evaluated her vital examination on presentation revealed a temperature of 98.9 pulse 87 respiration 22 blood pressure 152/81 pulse ox 93% on room air, her white blood count was 9 hemoglobin 14.6 platelet count 240 sodium 134 potassium 4.5 troponin level was slightly elevated at 0.138. Patient was admitted to telemetry floor pulmonary consultation cardiology consultation and oncology consultation were requested On 12/27/2019 patient was seen and examined on the telemetry floor, she is alert and oriented 3 in no apparent distress. patient remains on heparin drip. Does report some shortness of breath with slight improvement. Cardiology pulmonary and oncology service is following. she denies chest pain. Patient denies nausea vomiting or diarrhea. Patient denies any urinary burning or frequency. Awaiting oncology regulation for anticoagulation Objective - Vital Signs Vital signs: Vital Signs Temp 98.1 F 12/27/19 08:36 Pulse 85 12/27/19 08:36 Resp 18 12/27/19 08:36 BP 114/59 12/27/19 08:36 Pulse Ox 94 L 12/27/19 08:36 Intake & Output 12/26/19 12/27/19 12/27/19 18:59 06:59 18:59 Intake Total 1366.301 67.786 240 Output Total 400 50 Balance 966.301 17.786 240 Weight 67.8 kg Intake: Intake, IV Titration 146.301 67.786 Amount Heparin Sod,Pork in 0.45% 146.301 67.786 NaCl 25,000 unit In 0.45 % NaCl 1 250ml.bag @ 18 UNITS/KG/HR 12.247 mls/hr IV .[id number] [facility] Rx#: [id number] Oral 1220 240 Output: Urine 400 50 Other: # Voids 1 3 1 # Bowel Movements 1 - Exam In general patient is alert and oriented 3 in no apparent distress HEENT head normocephalic and atraumatic Neck is supple no JVD no goiter no lymphadenopathy Chest exam reveals a few scattered crackles no wheezing Cardiac exam reveals regular heart sounds no gallops no murmurs Abdomen is soft nontender no organomegaly with normal bowel sounds Extremity exam reveals no edema no cyanosis or clubbing Neurological examination reveals no gross focal deficit - Labs CBC & Chem 7: 12/27/19 07:17 12/27/19 07:17 Labs: Abnormal Lab Results - Last 24 Hours (Table) 12/26/19 12/26/19 12/26/19 Range/Units 09:14 10:38 11:59 Lymphocytes # (1.0-4.8) k/uL APTT 69.7 H (22.0-30.0) sec BUN (7-17) mg/dL Glucose (74-99) mg/dL AST (14-36) U/L Troponin I 0.035 H* 0.037 H* (0.000-0.034) ng/mL CA 125 Antigen (0.0-30.1) U/mL 12/26/19 12/26/19 12/27/19 Range/Units 16:42 23:58 07:17 Lymphocytes # 0.7 L (1.0-4.8) k/uL APTT 42.0 H (22.0-30.0) sec BUN (7-17) mg/dL Glucose (74-99) mg/dL AST (14-36) U/L Troponin I (0.000-0.034) ng/mL CA 125 Antigen 31.6 H (0.0-30.1) U/mL 12/27/19 12/27/19 Range/Units 07:17 07:17 Lymphocytes # (1.0-4.8) k/uL APTT 54.6 H (22.0-30.0) sec BUN 18 H (7-17) mg/dL Glucose 118 H (74-99) mg/dL AST 43 H (14-36) U/L Troponin I (0.000-0.034) ng/mL CA 125 Antigen (0.0-30.1) U/mL Assessment and Plan Plan: 1. Acute pulmonary embolism maintained on IV heparin pulmonary and oncology following 2. History of left malignant pleural effusion with thoracentesis in September 2019, and Pleurx catheter placement 3. Metastatic adenocarcinoma of unknown primary 4. Elevated troponin level cardiology consultation requested 5. Underlying history of hypertension 6. Underlying history of hyperlipidemia 7. Underlying history of osteoarthritis At this time patient is admitted to telemetry floor she is hemodynamically stable she is maintained on IV heparin Shortness of breath has been improving since admission Bilateral lower extremity Doppler were negative for DVT Will follow closely awaiting oncology recommendation for anticoagulation dVT prophylaxis heparin, GI prophylaxis Pepcid
--- NOTE | 2019-12-27 11:32 | P.PN ---
Subjective Progress Note Date: 12/27/19 CHIEF COMPLAINT: Elevated troponin HISTORY OF PRESENT ILLNESS: Patient examined this morning at the bedside. She denies chest pain or pressure. She continues to report shortness of breath but states it is slightly improved from yesterday. She complains of a frequent cough. She remains on IV heparin. She is being followed by pulmonary and oncology. Troponin 0.138. 0.035. 0.037. 0.030. Echocardiogram is pending. PHYSICAL EXAM: VITAL SIGNS: Reviewed. GENERAL: Well-developed in no acute distress. HEENT: Head is normocephalic. Pupils are equal, round. Sclerae anicteric. Mucous membranes of the mouth are moist. Neck supple. No JVD or thyromegaly LUNGS: Respirations even and unlabored. Lungs diminished. Left Pleurx catheter noted. HEART: Regular rate and rhythm. S1 and S2 heard. ABDOMEN: Soft. Nondistended. Nontender. EXTREMITIES: Normal range of motion. No clubbing or cyanosis. Peripheral pulses intact. No lower extremity edema NEUROLOGIC: Awake and alert. Oriented x 3. ASSESSMENT: Acute pulmonary emboli Shortness of breath, secondary to above Abnormal troponins, likely type II OH due to oxygen supply and demand mismatch Recent diagnosis of cancer, unknown primary site per patient Recurrent pleural effusions with history of thoracentesis and left Pleurx catheter insertion PLAN: Echocardiogram ordered. Await results. Will discuss with oncology regarding recommendations for anticoagulation. Continue IV heparin in the meantime. Nurse practitioner note has been reviewed by physician. Signing provider agrees with the documented findings, assessment, and plan of care. Objective - Vital Signs Vital signs: Vital Signs Temp 98.1 F 12/27/19 08:36 Pulse 85 12/27/19 08:36 Resp 18 12/27/19 08:36 BP 114/59 12/27/19 08:36 Pulse Ox 94 L 12/27/19 08:36 Intake & Output 12/26/19 12/27/19 12/27/19 18:59 06:59 18:59 Intake Total 1366.301 67.786 240 Output Total 400 50 Balance 966.301 17.786 240 Weight 67.8 kg Intake: Intake, IV Titration 146.301 67.786 Amount Heparin Sod,Pork in 0.45% 146.301 67.786 NaCl 25,000 unit In 0.45 % NaCl 1 250ml.bag @ 18 UNITS/KG/HR 12.247 mls/hr IV .[id number] [facility] Rx#: [id number] Oral 1220 240 Output: Urine 400 50 Other: # Voids 1 3 1 # Bowel Movements 1 1 - Labs CBC & Chem 7: 12/27/19 07:17 12/27/19 07:17 Labs: Abnormal Lab Results - Last 24 Hours (Table) 12/26/19 12/26/19 12/26/19 Range/Units 10:38 11:59 16:42 Lymphocytes # (1.0-4.8) k/uL APTT (22.0-30.0) sec BUN (7-17) mg/dL Glucose (74-99) mg/dL AST (14-36) U/L Troponin I 0.035 H* 0.037 H* (0.000-0.034) ng/mL CA 125 Antigen 31.6 H (0.0-30.1) U/mL 12/26/19 12/27/19 12/27/19 Range/Units 23:58 07:17 07:17 Lymphocytes # 0.7 L (1.0-4.8) k/uL APTT 42.0 H (22.0-30.0) sec BUN 18 H (7-17) mg/dL Glucose 118 H (74-99) mg/dL AST 43 H (14-36) U/L Troponin I (0.000-0.034) ng/mL CA 125 Antigen (0.0-30.1) U/mL 12/27/19 Range/Units 07:17 Lymphocytes # (1.0-4.8) k/uL APTT 54.6 H (22.0-30.0) sec BUN (7-17) mg/dL Glucose (74-99) mg/dL AST (14-36) U/L Troponin I (0.000-0.034) ng/mL CA 125 Antigen (0.0-30.1) U/mL
--- NOTE | 2019-12-27 12:06 | P.PN ---
Subjective Progress Note Date: 12/27/19 Principal diagnosis: Pulmonary Embolism Complaints of increased coughing, dry and GERD symptoms but otherwise feels ok. Objective - Vital Signs Vital signs: Vital Signs Temp 98.1 F 12/27/19 08:36 Pulse 85 12/27/19 08:36 Resp 18 12/27/19 08:36 BP 114/59 12/27/19 08:36 Pulse Ox 94 L 12/27/19 08:36 Intake & Output 12/26/19 12/27/19 12/27/19 18:59 06:59 18:59 Intake Total 1366.301 67.786 240 Output Total 400 50 Balance 966.301 17.786 240 Weight 67.8 kg Intake: Intake, IV Titration 146.301 67.786 Amount Heparin Sod,Pork in 0.45% 146.301 67.786 NaCl 25,000 unit In 0.45 % NaCl 1 250ml.bag @ 18 UNITS/KG/HR 12.247 mls/hr IV .[id number] [facility] Rx#: [id number] Oral 1220 240 Output: Urine 400 50 Other: # Voids 1 3 1 # Bowel Movements 1 1 - Exam - Constitutional General appearance: cooperative, mild distress, no acute distress - EENT Eyes: EOMI, PERRLA, dentition normal ENT: hard of hearing, NA/AT - Neck Neck: normal ROM - Respiratory Respiratory: left: diminished - Cardiovascular Rhythm: regularly irregular - Gastrointestinal General gastrointestinal: normal bowel sounds, soft - Integumentary Integumentary: pale - Neurologic Neurologic: CNII-XII intact - Musculoskeletal Musculoskeletal: generalized weakness, strength equal bilaterally - Psychiatric Psychiatric: A&O x's 3, appropriate affect, intact judgment & insight - Labs CBC & Chem 7: 12/27/19 07:17 12/27/19 07:17 Labs: Abnormal Lab Results - Last 24 Hours (Table) 12/26/19 12/26/19 12/26/19 Range/Units 10:38 11:59 16:42 Lymphocytes # (1.0-4.8) k/uL APTT (22.0-30.0) sec BUN (7-17) mg/dL Glucose (74-99) mg/dL AST (14-36) U/L Troponin I 0.035 H* 0.037 H* (0.000-0.034) ng/mL CA 125 Antigen 31.6 H (0.0-30.1) U/mL 12/26/19 12/27/19 12/27/19 Range/Units 23:58 07:17 07:17 Lymphocytes # 0.7 L (1.0-4.8) k/uL APTT 42.0 H (22.0-30.0) sec BUN 18 H (7-17) mg/dL Glucose 118 H (74-99) mg/dL AST 43 H (14-36) U/L Troponin I (0.000-0.034) ng/mL CA 125 Antigen (0.0-30.1) U/mL 12/27/19 Range/Units 07:17 Lymphocytes # (1.0-4.8) k/uL APTT 54.6 H (22.0-30.0) sec BUN (7-17) mg/dL Glucose (74-99) mg/dL AST (14-36) U/L Troponin I (0.000-0.034) ng/mL CA 125 Antigen (0.0-30.1) U/mL Assessment and Plan (1) Malignant pleural effusion Current Visit: Yes Status: Acute Code(s): J91.0 - MALIGNANT PLEURAL EFFUSION SNOMED Code(s): 890712778 (2) Adenocarcinoma of unknown primary Current Visit: Yes Status: Acute Code(s): C80.1 - MALIGNANT (PRIMARY) NEOPLASM, UNSPECIFIED SNOMED Code(s): 568019308 (3) Pulmonary embolism Current Visit: Yes Status: Acute Code(s): I26.99 - OTHER PULMONARY EMBOLISM WITHOUT ACUTE COR PULMONALE SNOMED Code(s): 58078521 Plan: Venous Doppler negative for DVTs. Agree with heparin drip for now and convert to DOAC for ongoing management She is waiting on receiving Xeloda pills for treatment of her cancer, she will be following closely with us after starting this prescription. Will check tumor markers as primary unknown and was planned for in hospital. CEA and Ca19-9 not increased. Initiating Xarelto today, stopping Heparin drip Dry COugh and GERD - Start Omeprazole RN to therapeutically drain pleurex. She will begin Xeloda on Wednesday and follow-up in office next week.
[2019-12-27] MEDS: PANTOPRAZOLE 40 MG TABLET PO SCH (12:39)
--- NOTE | 2019-12-27 14:29 | P.PN ---
Subjective Progress Note Date: 12/27/19 Principal diagnosis: Chest pain, shortness of breath secondary to pulmonary embolism This is a 89-year-old white female patient with history of metastatic adenocarcinoma of undetermined primary, there was diagnosed in September 2019 via diagnostic thoracentesis of the left pleural effusion. Patient had a Pleurx catheter placed for malignant left sided pleural effusion. In the origin of the tumor was not clear. Her PET scan showed no active focus to indicate origin of the cancer. Patient had tumor markers, and a CEA 125 level came back elevated, the rest of the markers were negative, patient underwent EGD and colonoscopy and she was found to have polyps and again there was no evidence of malignancy, the pleural fluid drainage from the Pleurx catheter has been steadily decreasing, last time she had drained it was last Wednesday on 12/22/2019 with minimal amount and she described it as foamy in nature with a scant amount of approximately 5 mL. Yesterday on 12/25/2019 patient was seen by Dr. Sandoval in the office, and she was having feelings of discomfort in the chest area and some fullness across the chest and abdominal area with associated shortness of breath. Patient had a chest x-ray in the office which showed a left-sided pleural effusion which is stable and unchanged, it did show a new opacity and volume loss in the left suprahilar area that needed to be further investigated. Patient had a recent trip to [place] and during her trip she did feel some increased shortness of breath. She's had no previous history of DVT or pulmonary embolism, and she rep orted no swelling in her lower extremity, patient was sent in to the emergency department for further evaluation. In the EC, lower extremity Dopplers were negative for DVT. CTA chest was completed showing pulmonary embolism within the interlobar artery, extending of the clot into the segmental branches, and abnormal filling defect in the right upper lobe pulmonary artery segmental branches. There was a pericardial effusion, and a small right pleural effusion. Patient was started on heparin infusion. She is a 2 L of oxygen pulse ox of 95%, hemodynamically she stable, she denies any hemoptysis, she has been afebrile. Of note patient follows with Dr. Hollingsworth, and she was supposed to start on oral chemotherapy agent tomorrow. The patient is seen today 12/27/2019 in follow-up on the selective care unit. She is awake and alert in no acute distress. Currently sitting up in bed. Denies any worsening shortness of breath, cough or congestion. No further chest pain. No hemoptysis. Maintaining O2 saturations in the mid 90s on 2 L/m per nasal cannula. She's afebrile. Hemodynamically stable. White count 6.7. Hemoglobin 14.0. Sodium 139. Potassium 4.8. Creatinine 0.80. Currently on a heparin drip. Left-sided Pleurx catheter remains in place. The plan is to transition to Xarelto. Objective - Vital Signs Vital signs: Vital Signs Temp 98.0 F 12/27/19 11:51 Pulse 82 12/27/19 11:51 Resp 18 12/27/19 11:51 BP 138/70 12/27/19 11:51 Pulse Ox 96 12/27/19 11:51 Intake & Output 12/26/19 12/27/19 12/27/19 18:59 06:59 18:59 Intake Total 1366.301 67.786 480 Output Total 400 50 Balance 966.301 17.786 480 Weight 67.8 kg Intake: Intake, IV Titration 146.301 67.786 Amount Heparin Sod,Pork in 0.45% 146.301 67.786 NaCl 25,000 unit In 0.45 % NaCl 1 250ml.bag @ 18 UNITS/KG/HR 12.247 mls/hr IV .[id number] [facility] Rx#: [id number] Oral 1220 480 Output: Urine 400 50 Other: Voiding Method Toilet # Voids 1 3 1 # Bowel Movements 1 1 - Exam GENERAL EXAM: Alert, very pleasant, 89-year-old female patient, on 2 L nasal cannula, O2 saturation 96%, comfortable in no apparent distress. HEAD: Normocephalic/atraumatic. EYES: Normal reaction of pupils, equal size. Conjunctiva pink, sclera white. NOSE: Clear with pink turbinates. THROAT: No erythema or exudates. NECK: No masses, no JVD, no thyroid enlargement, no adenopathy. CHEST: No chest wall deformity. Symmetrical expansion. LUNGS: Equal air entry with no crackles, wheeze, rhonchi or dullness. CVS: Regular rate and rhythm, normal S1 and S2, no gallops, no murmurs, no rubs ABDOMEN: Soft, nontender. No hepatosplenomegaly, normal bowel sounds, no guarding or rigidity. EXTREMITIES: No clubbing, no edema, no cyanosis, 2+ pulses and upper and lower extremities. MUSCULOSKELETAL: Muscle strength and tone normal. SPINE: No scoliosis or deformity SKIN: No rashes CENTRAL NERVOUS SYSTEM: No focal deficits, tone is normal in all 4 extremities. PSYCHIATRIC: Alert and oriented -3. Appropriate affect. Intact judgment and insight. - Labs CBC & Chem 7: 12/27/19 07:17 12/27/19 07:17 Labs: Abnormal Lab Results - Last 24 Hours (Table) 12/26/19 12/26/19 12/26/19 Range/Units 11:59 16:42 23:58 Lymphocytes # (1.0-4.8) k/uL APTT 42.0 H (22.0-30.0) sec BUN (7-17) mg/dL Glucose (74-99) mg/dL AST (14-36) U/L Troponin I 0.037 H* (0.000-0.034) ng/mL CA 125 Antigen 31.6 H (0.0-30.1) U/mL 12/27/19 12/27/19 12/27/19 Range/Units 07:17 07:17 07:17 Lymphocytes # 0.7 L (1.0-4.8) k/uL APTT 54.6 H (22.0-30.0) sec BUN 18 H (7-17) mg/dL Glucose 118 H (74-99) mg/dL AST 43 H (14-36) U/L Troponin I (0.000-0.034) ng/mL CA 125 Antigen (0.0-30.1) U/mL Assessment and Plan Assessment: 1 Acute dyspnea and chest pain related to acute pulmonary embolism, with CTA chest showing large filling defect in the interlobar artery with extension of the clot into the segmental branches, and filling defect in the right upper lobe pulmonary artery segmental branches. No evidence of DVT on lower extremity Dopplers 2 History of malignant left Pleural effusion with placement of Pleurx catheter, and patient has had a decreasing amount of pleural fluid drainage, last time drained on 12/22/2019 with only 5 mL of pleural fluid 3 History of metastatic adenocarcinoma with undetermined primary, patient is supposed to start on oral chemotherapy 4 Elevated troponin related to acute hypoxic rest or a failure, and acute pulmonary embolism 5 Hyperlipidemia 6 Osteoarthritis 7 Hypertension 8 Lifetime nonsmoker Plan: The patient was seen and evaluated by Dr. Daniel Plan is to transition to oral anticoagulant in the form of Xarelto Stable from the pulmonary standpoint We will continue to follow I, the cosigning physician, performed a history & physical examination of the patient. Lungs sounds are clear. Maintaining good O2 saturations in the 90s on 2 L/m per nasal cannula. I discussed the assessment and plan of care with my nurse practitioner, Charmaine Salvador. I attest to the above note as dictated by her.
[2019-12-27] MEDS: RIVAROXABAN 15 MG TAB PO SCH (16:21)
[2019-12-27] MEDS: ATORVASTATIN 20 MG TAB PO SCH (20:25)
[2019-12-28] MEDS: RIVAROXABAN 15 MG TAB PO SCH ×2 (06:04→16:10)
[2019-12-28] MEDS: PANTOPRAZOLE 40 MG TABLET PO SCH (06:04)
[2019-12-28] MEDS: METOPROLOL TARTRATE 12.5 MG TAB PO SCH (08:39)
[2019-12-28] MEDS: MULTIVITAMINS, THERA 1 EACH TAB PO SCH (08:39)
[2019-12-28] MEDS: PATIENT'S OWN (Mirabegron [Myrbetriq] 50 MG Tab.Er.24h) PO SCH (08:42)
[2019-12-28 08:43] VITALS: RESP 17
[2019-12-28 08:58] LABS: Basophils # (A) 0.1 k/uL (0-0.2); Basophils % (A) 1 %; Eosinophils # (A) 0.2 k/uL (0-0.7); Eosinophils % (A) 3 %; HGB 14.4 gm/dL (11.4-16.0); Hypochromasia Marked; Lymphocytes # (A) 0.6 k/uL (1.0-4.8); Lymphocytes % (A) 10 %; MCH 30.6 pg (25.0-35.0); MCHC 31.3 g/dL (31.0-37.0); Mean Platelet Volume 8.3; Monocytes # (A) 0.5 k/uL (0-1.0); Monocytes % (A) 8 %; Neutrophils # (A) 4.7 k/uL (1.3-7.7); Neutrophils % (A) 76 %; Platelet Count 236 k/uL (150-450); RDW 13.7 % (11.5-15.5); WBC 6.2 k/uL (3.8-10.6)
[2019-12-28] MEDS ORDERED: FAMOTIDINE 20 MG TAB PO SCH (09:00)
[2019-12-28 09:03] LABS: MCV 97.8 fL (80.0-100.0)
[2019-12-28 09:13] LABS: Albumin 3.6 g/dL (3.5-5.0); Calcium 8.9 mg/dL (8.4-10.2); Total Protein 6.5 g/dL (6.3-8.2)
[2019-12-28 09:22] LABS: Potassium 5.5 mmol/L (3.5-5.1)
--- NOTE | 2019-12-28 11:11 | P.PN ---
Subjective Progress Note Date: 12/28/19 This is a pleasant 89-year-old female with history of metastatic adenocarcinoma of undetermined primary, who prior to this admission did have a recent trip to [place], and during that trip she did notice some increased shortness of breath. Because of this the patient came to the emergency room for further evaluation and treatment. Her lower extremity Dopplers were negative for DVT, CT of the chest was completed which revealed pulmonary embolism within the inter-lobar artery extending into the segmental branches and abnormal filling defect in the right upper lobe pulmonary artery and segmental branches. There is also a pericardial effusion and a small right-sided pleural effusion. Patient has been initiated on Xarelto for anticoagulation. Her echocardiogram with Doppler study has been performed but is yet pending. I pressure today 106/50 with a heart rate in the 70s, 93% on room air. White blood cell count 6.2, hemoglobin 14.4, platelet count 236. Sodium 138, potassium 5.5, BUN 20, creatinine 0.7. Objective - Vital Signs Vital signs: Vital Signs Temp 97.5 F L 12/28/19 08:00 Pulse 75 12/28/19 08:00 Resp 17 12/28/19 08:00 BP 106/53 12/28/19 08:00 Pulse Ox 93 L 12/28/19 08:00 Intake & Output 12/27/19 12/28/19 12/28/19 18:59 06:59 18:59 Intake Total 1160 120 600 Balance 1160 120 600 Weight 66.3 kg Intake: IV 200 0.9 200 Oral 960 120 600 Other: Voiding Method Toilet Toilet # Voids 1 1 1 # Bowel Movements 1 - Exam GENERAL EXAM: Alert, very pleasant, 89-year-old female patient, on 2 L nasal c annula, O2 saturation 96%, comfortable in no apparent distress. HEAD: Normocephalic/atraumatic. EYES: Normal reaction of pupils, equal size. Conjunctiva pink, sclera white. NOSE: Clear with pink turbinates. THROAT: No erythema or exudates. NECK: No masses, no JVD, no thyroid enlargement, no adenopathy. CHEST: No chest wall deformity. Symmetrical expansion. LUNGS: Equal air entry with no crackles, wheeze, rhonchi or dullness. CVS: Regular rate and rhythm, normal S1 and S2, no gallops, no murmurs, no rubs ABDOMEN: Soft, nontender. No hepatosplenomegaly, normal bowel sounds, no guarding or rigidity. EXTREMITIES: No clubbing, no edema, no cyanosis, 2+ pulses and upper and lower extremities. MUSCULOSKELETAL: Muscle strength and tone normal. SPINE: No scoliosis or deformity SKIN: No rashes CENTRAL NERVOUS SYSTEM: No focal deficits, tone is normal in all 4 extremities. PSYCHIATRIC: Alert and oriented -3. Appropriate affect. Intact judgment and insight. - Labs CBC & Chem 7: 12/28/19 07:43 12/28/19 07:43 Labs: Abnormal Lab Results - Last 24 Hours (Table) 12/28/19 12/28/19 12/28/19 Range/Units 07:43 07:43 07:43 Lymphocytes # 0.6 L (1.0-4.8) k/uL APTT 32.7 H (22.0-30.0) sec Potassium 5.5 H (3.5-5.1) mmol/L Chloride 108 H (98-107) mmol/L Carbon Dioxide 21 L (22-30) mmol/L BUN 20 H (7-17) mg/dL Glucose 147 H (74-99) mg/dL AST 64 H (14-36) U/L Assessment and Plan Plan: Assessment and plan #1 acute dyspnea and chest pain secondary to acute pulmonary embolism, patient is on Xarelto for anticoagulation. No evidence of DVT on lower extremity Dopplers. Echocardiogram with Doppler was performed, revealed an ejection fraction of 50-55%, right ventricle is in normal size no evidence of right ventricular strain pattern. #2 history of malignant left pleural effusion with placement of Pleurx catheter #3 history of metastatic adenocarcinoma of unknown primary, was supposed to be initiated on oral chemotherapy #4 elevated troponin, likely secondary to acute PE #5 hyperlipidemia #6 hypertension Plan From cardiology's perspective, we would recommend to continue this patient on her current medications. Follow-up appointment in the office post discharge. DNP note has been reviewed, I agree with a documented findings and plan of care. Patient was seen and examined.
--- NOTE | 2019-12-28 13:00 | P.DS ---
Providers Date of admission: 12/25/19 21:11 Expected date of discharge: 12/28/19 Attending physician: Gracie Fields Consults: 12/25/19 21:10 Consult Physician Routine Consulting Provider: Liana Daniel Consult Reason/Comments: PE Do you want consulting provider notified?: Already Contacted 12/26/19 09:56 Consult Physician Routine Consulting Provider: Clari Paz Consult Reason/Comments: elevated troponin Do you want consulting provider notified?: Yes 12/26/19 10:29 Consult Physician Routine Consulting Provider: Al Hollingsworth Consult Reason/Comments: Known to pt/PE Do you want consulting provider notified?: Yes Primary care physician: Gracierudy Fields [facility] Course: Diagnoses on discharge: 1. Acute pulmonary embolism maintained on IV heparin pulmonary and oncology following 2. History of left malignant pleural effusion with thoracentesis in September 2019, and Pleurx catheter placement 3. Metastatic adenocarcinoma of unknown primary 4. Elevated troponin level cardiology consultation requested 5. Underlying history of hypertension 6. Underlying history of hyperlipidemia 7. Underlying history of osteoarthritis Hospital course: Elva Gallagher, is an 89-year-old female who presented to the pulmonary office with a chief complaint of worsening shortness of breath she was seen by Dr. Sandoval and was sent to emergency room she underwent CTA of the chest which revealed evidence of pulmonary embolism and a small pericardial effusion and a right pleural effusion she was started on insulin drip and was admitted to telemetry floor. 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 In the emergency room patient was evaluated her vital examination on presentation revealed a temperature of 98.9 pulse 87 respiration 22 blood pressure 152/81 pulse ox 93% on room air, her white blood count was 9 hemoglobin 14.6 platelet count 240 sodium 134 potassium 4.5 troponin level was slightly elevated at 0.138. Patient was admitted to telemetry floor pulmonary consultation cardiology consultation and oncology consultation were requested On 12/27/2019 patient was seen and examined on the telemetry floor, she is alert and oriented 3 in no apparent distress. patient remains on heparin drip. Does report some shortness of breath with slight improvement. Cardiology pulmonary and oncology service is following. she denies chest pain. Patient denies nausea vomiting or diarrhea. Patient denies any urinary burning or frequency. Awaiting oncology regulation for anticoagulation On 12/28/2019 patient was seen and examined on the telemetry floor she is alert and oriented 3 in no apparent distress her shortness of breath improved significantly she denies any chest pain there is no fever or chills no cough no nausea or vomiting no abdominal pain no diarrhea no blood in the stools no burning with urination no frequency or urgency and no hematuria. Patient was switched from IV heparin to oral Xarelto, she is tolerating well, she was evaluated by cardiology and was cleared for discharge, patient will be discharged home today, she will follow-up as outpatient with cardiology and oncology, she will also be followed in our office within 1 week. Patient Condition at Discharge: Critical Plan - Discharge Summary Discharge Rx Participant: No New Discharge Prescriptions: New Pantoprazole [Protonix] 40 mg PO AC-BRKFST #30 tablet. Rivaroxaban [Xarelto] 15 mg PO BID-W/MEALS 21 Days #42 tab Continue Simvastatin [Zocor] 40 mg PO HS Multivitamins, Thera [Multivitamin (formulary)] 1 tab PO DAILY Mirabegron [Myrbetriq] 50 mg PO QAM Acetaminophen Tab [Tylenol] 500 mg PO DAILY PRN PRN Reason: Pain Metoprolol Tartrate [Lopressor] 12.5 mg PO BID Discharge Medication List Multivitamins, Thera [Multivitamin (formulary)] 1 tab PO DAILY 08/16/14 [History] Simvastatin [Zocor] 40 mg PO HS 08/16/14 [History] Mirabegron [Myrbetriq] 50 mg PO QAM 09/08/18 [History] Acetaminophen Tab [Tylenol] 500 mg PO DAILY PRN 09/26/19 [History] Metoprolol Tartrate [Lopressor] 12.5 mg PO BID 12/25/19 [History] Pantoprazole [Protonix] 40 mg PO AC-BRKFST #30 tablet. 12/27/19 [Rx] Rivaroxaban [Xarelto] 15 mg PO BID-W/MEALS 21 Days #42 tab 12/27/19 [Rx] Follow up Appointment(s)/Referral(s): [facility], [NON-STAFF] - Gracie Fields MD [Primary Care Provider] - 1-2 days Cheko Horowitz MD [STAFF PHYSICIAN] - 2 Weeks Activity/Diet/Wound Care/Special Instructions: Use free 30 day coupon for Xarelto prescription Fill out application for patient assistance program that was given to you
[2019-12-28 16:12] VITALS: BP 136/76; PULSE 73; TEMP 98.5
--- NOTE | 2019-12-28 20:52 | P.PN ---
Subjective Progress Note Date: 12/28/19 Principal diagnosis: Pulmonary Embolism Order placed to drain pleurex on 12/26 - Spoke to nursing today and she states "nursing felt she did not need it as she did not have shortness of breath" although speaking with patient she states any exertion SOB and on assessment lung is diminished. PPI also assisting in cough. Objective - Vital Signs Vital signs: Vital Signs Temp 97.9 F 12/28/19 12:00 Pulse 75 12/28/19 12:00 Resp 17 12/28/19 12:00 BP 116/59 12/28/19 12:00 Pulse Ox 93 L 12/28/19 12:00 Intake & Output 12/27/19 12/28/19 12/28/19 18:59 06:59 18:59 Intake Total 1160 120 600 Balance 1160 120 600 Weight 66.3 kg Intake: IV 200 0.9 200 Oral 960 120 600 Other: Voiding Method Toilet Toilet # Voids 1 1 1 # Bowel Movements 1 - Exam - Constitutional General appearance: cooperative, mild distress, no acute distress - EENT Eyes: EOMI, PERRLA, dentition normal ENT: hard of hearing, NA/AT - Neck Neck: normal ROM - Respiratory Respiratory: left: diminished in compaison to right left crackles lower lung - Cardiovascular Rhythm: regularly irregular - Gastrointestinal General gastrointestinal: normal bowel sounds, soft - Integumentary Integumentary: pale - Neurologic Neurologic: CNII-XII intact - Musculoskeletal Musculoskeletal: generalized weakness, strength equal bilaterally - Psychiatric Psychiatric: A&O x's 3, appropriate affect, intact judgment & insight - Labs CBC & Chem 7: 12/28/19 07:43 12/28/19 07:43 Labs: Abnormal Lab Results - Last 24 Hours (Table) 12/28/19 12/28/19 12/28/19 Range/Units 07:43 07:43 07:43 Lymphocytes # 0.6 L (1.0-4.8) k/uL APTT 32.7 H (22.0-30.0) sec Potassium 5.5 H (3.5-5.1) mmol/L Chloride 108 H (98-107) mmol/L Carbon Dioxide 21 L (22-30) mmol/L BUN 20 H (7-17) mg/dL Glucose 147 H (74-99) mg/dL AST 64 H (14-36) U/L Assessment and Plan (1) Malignant pleural effusion Status: Acute Code(s): J91.0 - MALIGNANT PLEURAL EFFUSION SNOMED Code(s): 861756341 (2) Adenocarcinoma of unknown primary Status: Acute Code(s): C80.1 - MALIGNANT (PRIMARY) NEOPLASM, UNSPECIFIED SNOMED Code(s): 550470725 (3) Pulmonary embolism Status: Acute Code(s): I26.99 - OTHER PULMONARY EMBOLISM WITHOUT ACUTE COR PULMONALE SNOMED Code(s): 89260747 Plan: Venous Doppler negative for DVTs. Agree with heparin drip for now and convert to DOAC for ongoing management She is waiting on receiving Xeloda pills for treatment of her cancer, she will be following closely with us after starting this prescription. Will check tumor markers as primary unknown and was planned for in hospital. CEA and Ca19-9 not increased. Xarelto continue at discharge, prescription written, stopping Heparin drip Dry COugh and GERD - Continue Omeprazole RN to therapeutically drain pleurex. She will begin Xeloda on Wednesday and follow-up in office next week. Discussed with nursing to attempt pleurex drainage prior to discharge.
--- NOTE | 2019-12-29 15:37 | ECHOF ---
Referral Reason:+PE, compare to echo in september MEASUREMENTS -------- HEIGHT: 152.4 cm WEIGHT: 70.3 kg BP: RVIDd: 2.8 cm (< 3.3) IVSd: 1.3 cm (0.6 - 1.1) LVIDd: 3.9 cm (3.9 - 5.3) LVPWd: 1.1 cm (0.6 - 1.1) IVSs: 1.5 cm LVIDs: 3.5 cm LVPWs: 1.5 cm LA Diam: 3.9 cm (2.7 - 3.8) Ao Diam: 3.1 cm (2.0 - 3.7) AV Cusp: 1.7 cm (1.5 - 2.6) MV EXCURSION: 10.759 mm (> 18.000) MV EF SLOPE: 57 mm/s (70 - 150) EPSS: 1.5 cm MV E To: 0.53 m/s MV DecT: 238 ms MV A To: 0.86 m/s MV E/A Ratio: 0.62 RAP: 5.00 mmHg RVSP: 39.20 mmHg FINDINGS -------- Sinus rhythm. This was a technically adequate study. The left ventricular size is normal. There is mild concentric left ventricular hypertrophy. Overa ll left ventricular systolic function is low-normal with, an EF between 50 - 55 %. The right ventricle is normal in size. The left atrial size is normal. The right atrial size is normal. The aortic valve is trileaflet, and appears structurally normal. No aortic stenosis or regurgitation. Mild mitral regurgitation is present. Mild tricuspid regurgitation present. There is mild pulmonary hypertension. The aortic root size is normal. There is no pericardial effusion. CONCLUSIONS -------- 1. The left ventricular size is normal. 2. There is mild concentric left ventricular hypertrophy. 3. Overall left ventricular systolic function is low-normal with, an EF between 50 - 55 %. 4. The right ventricle is normal in size. 5. The left atrial size is normal. 6. The right atrial size is normal. 7. Mild mitral regurgitation is present. 8. Mild tricuspid regurgitation present. 9. There is mild pulmonary hypertension. 10. The aortic root size is normal. 11. There is no pericardial effusion. [employer]: Carina Stark RDCS
== END 2019-12-28 16:13 | disposition home or self-care (01) | DRG 175 ==
LOC: EC 18:25 → 3SCARD 21:11
PROVIDERS: ADMIT Internal Medicine; ATTEND Internal Medicine
DX: I26.99 Other pulmonary embolism without acute cor pulmonale (principal); I21.A1 Myocardial infarction type 2; J96.01 Acute respiratory failure with hypoxia; I31.3 Pericardial effusion (noninflammatory); J91.0 Malignant pleural effusion; C80.1 Malignant (primary) neoplasm, unspecified; E78.5 Hyperlipidemia, unspecified; I10 Essential (primary) hypertension; M19.041 Primary osteoarthritis, right hand; M19.042 Primary osteoarthritis, left hand; M47.9 Spondylosis, unspecified; N32.81 Overactive bladder; R13.10 Dysphagia, unspecified; I08.1 Rheumatic disorders of both mitral and tricuspid valves; H91.90 Unspecified hearing loss, unspecified ear; K21.9 Gastro-esophageal reflux disease without esophagitis; Z77.22 Contact with and (suspected) exposure to environmental tobacco smoke (acute) (chronic); Z79.899 Other long term (current) drug therapy; Z85.828 Personal history of other malignant neoplasm of skin; Z87.19 Personal history of other diseases of the digestive system; Z90.49 Acquired absence of other specified parts of digestive tract; Z98.890 Other specified postprocedural states; Z87.448 Personal history of other diseases of urinary system; Z90.710 Acquired absence of both cervix and uterus; Z96.652 Presence of left artificial knee joint; Z87.39 Personal history of other diseases of the musculoskeletal system and connective tissue; Z86.010 Personal history of colon polyps; Z98.42 Cataract extraction status, left eye; Z98.41 Cataract extraction status, right eye; Z96.1 Presence of intraocular lens; Z80.42 Family history of malignant neoplasm of prostate; Z80.6 Family history of leukemia; Z82.0 Family history of epilepsy and other diseases of the nervous system; Z82.49 Family history of ischemic heart disease and other diseases of the circulatory system
CPT/HCPCS: 36415; 80053; 83605; 83735; 84484; 85025; 85610; 85730; 86300; 86304; 86850; 86900; 86901; 93005; 93306; 93970; 99291

== ENCOUNTER → 2019-12-25 | Outpatient (CLI) | payer MEDICARE ==
--- NOTE | 2019-12-25 18:20 | CT ---
EXAMINATION TYPE: CT angio chest DATE OF EXAM: 12/25/2019 COMPARISON: Chest x-ray 12/25/2019 HISTORY: Dyspnea. CT DLP: 234.6 mGycm Automated exposure control for dose reduction was used. CONTRAST: CTA scan of the thorax is performed with IV Contrast, patient injected with 80ml mL of Isovue 370, pu lmonary embolism protocol. MIP images are created and reviewed. 3D reconstructed images are created on an independent workstation and reviewed. FINDINGS: LUNGS: There is a pleural catheter on the left. There is a loculated left pleural effusion. Abnormal soft tissue present adjacent to the mediastinum is noted bilaterally greater on the left. AORTA: No additional significant abnormality is seen. MEDIASTINUM: Large filling defect present within the interlobar artery, extension of the clot into th e segmental branches, abnormal filling defect also noted in the right upper lobe pulmonary artery seg mental branches. There is a pericardial effusion. Small right effusion. OTHER: No additional significant abnormality is seen. IMPRESSION: PULMONARY EMBOLISM DESCRIBED. REPORT RELAYED TO DR. ALEGRE AT THE TIME OF INTERPRETATION OF THE EXAM.
== END | disposition home or self-care (01) ==
LOC: RADCTMAIN 16:31
PROVIDERS: ATTEND Internal Medicine Critical Care Medicine
DX: I26.99 Other pulmonary embolism without acute cor pulmonale (principal)
CPT/HCPCS: 82565; 84520; 71275; 36415; Q9967

== ENCOUNTER → 2020-04-02 | Outpatient (CLI) | payer MEDICARE ==
--- NOTE | 2020-04-02 13:46 | CT ---
EXAMINATION TYPE: CT chest w con DATE OF EXAM: 04/02/2020 COMPARISON: CT chest 12/25/2019 HISTORY: malignant pleural effusion CT DLP: 290.3 mGycm Automated exposure control for dose reduction was used. CONTRAST: CT scan of the chest is performed with IV Contrast, patient injected with 100 mL of Isovue 300. FINDINGS: LUNGS: The left-sided malignant effusion shows rim enhancement, loculation is present along the later al wall and extends to the apex, there is some abnormal soft tissue noted at the medial aspect of the left hemithorax along the mediastinum which may represent atelectatic lung or scarring, similar to p rior exam, there are parenchymal bands also present within the left lung, the left effusion has decre ased in size as compared to prior exam and there is volume loss in the left hemithorax. Pleurx cathet er has been removed. MEDIASTINUM: There are no greater than 1 cm hilar or mediastinal lymph nodes. There is pericardial ef fusion seen. AORTA: No ascending aorta is aneurysmal at 4.1 cm. OTHER: Arthropathy noted in the shoulders and sternoclavicular joints. Sclerotic foci in the visuali zed skeleton suggest metastatic disease that is developed in the interval IMPRESSION: Some interval reduction of patient's malignant effusion, Pleurx catheter has been remove d. Bony metastatic disease. There is pericardial effusion, aortic aneurysm.
== END | disposition home or self-care (01) ==
LOC: RADCTMAIN 10:15
PROVIDERS: ATTEND Internal Medicine Critical Care Medicine
DX: C79.51 Secondary malignant neoplasm of bone (principal); I31.3 Pericardial effusion (noninflammatory); I71.9 Aortic aneurysm of unspecified site, without rupture; J91.0 Malignant pleural effusion
CPT/HCPCS: 82565; 84520; 71260; 36415; Q9967

== ENCOUNTER → 2020-05-10 | Outpatient (CLI) | payer MEDICARE ==
--- NOTE | 2020-05-10 15:58 | NM ---
EXAMINATION TYPE: NM bone scan whole body DATE OF EXAM: 05/10/2020 COMPARISON: Chest CT April 02, 2020. PET/CT October 27, 2019 HISTORY: Malignant left pleural effusion. Elevated cancer CA 125. Delayed whole-body scanning was performed following the injection of 23.5 mCi Tc 99m MDP. Images acq uired 3 hours post injection. Whole body images in anterior and posterior projection along with addit ional projections of the adnexal thorax abdomen and pelvis are acquired. FINDINGS: Underlying dextroconvex scoliosis centered thoracal lumbar junction are redemonstrated. There are 2 areas of radiotracer uptake in the calvarium on current study. Increased suspicious radiotracer uptake near right sternoclavicular joint on current study. Increased multifocal uptake in right anterolateral lower ribs. Increased multifocal uptake in the thoracolumbar spine, suspicious sclerotic lesion noted left T12 le godwin on most recent chest CT. Multifocal areas of increased uptake right acetabulum and focus lesser trochanter right hip. Additional areas of increased uptake bilateral shoulders and right knee presumed degenerative change, slightly more prominent uptake left shoulder than typical noted. Cannot exclude osseous involvement at this level. Lucency from prosthesis left knee. Focal increased uptake left hindfoot laterally. IMPRESSION: Suspect osseous metastatic disease with multifocal areas of suspicious uptake noted.
== END ==
LOC: RADNMMAIN 11:27
PROVIDERS: ATTEND Internal Medicine Critical Care Medicine
DX: J91.0 Malignant pleural effusion (principal); R97.1 Elevated cancer antigen 125 [CA 125]
CPT/HCPCS: 78306; A9503

== ENCOUNTER → 2020-07-23 | Outpatient (CLI) | payer MEDICARE ==
--- NOTE | 2020-07-23 10:13 | XR ---
EXAMINATION TYPE: XR chest 2V DATE OF EXAM: 07/23/2020 COMPARISON: 11/02/2019 HISTORY: Pleural effusion, history of breast and pancreatic cancer TECHNIQUE: Frontal and lateral views of the chest are obtained. FINDINGS: Heart size is within normal limits. Atherosclerotic aorta. There is a moderate left pleura l effusion with adjacent airspace opacity similar to prior exam from 11/02/2019. There are slightly in creased interstitial markings at the left upper lobe. The right lung is relatively clear. No pneumoth orax. Degenerative changes of the thoracic spine. Widening of the right acromioclavicular joint space . IMPRESSION: 1. Stable moderate left pleural effusion with adjacent airspace opacity which may represent atelectas is, infection or scarring. Mildly increased interstitial airspace opacity in the left lung since 11/01 remote prior exam.
== END | disposition home or self-care (01) ==
LOC: RADXRMAIN 09:49
PROVIDERS: ATTEND Internal Medicine Hematology & Oncology
DX: J90 Pleural effusion, not elsewhere classified (principal); R91.8 Other nonspecific abnormal finding of lung field
CPT/HCPCS: 71046

== ENCOUNTER → 2020-10-07 | Outpatient (CLI) | payer MEDICARE ==
--- NOTE | 2020-10-07 12:35 | CT ---
EXAMINATION TYPE: CT ChestAbdPelvis w con DATE OF EXAM: 10/07/2020 COMPARISON: April 02, 2020 HISTORY: Observation for Mets CT DLP: 835.6 mGycm CONTRAST: CT scan of the chest, abdomen and pelvis is performed with Oral Contrast and with IV Contrast, patien t injected with 80 mL of Isovue 300. CT Chest: LUNGS: Medial left upper lobe enhancing mass persists and currently measures 5 x 2.3 cm versus 5 x 2. 4 cm previously. There is associated anterior pleural thickening. Loculated left lower lobe pleural e ffusion is noted. Patchy density right upper lobe anteriorly is unchanged. No new nodules or masses s een. MEDIASTINUM: Thoracic aorta is of normal caliber. The heart is enlarged. No evidence for mediastin al mass or adenopathy. HILAR STRUCTURES: No evidence for mass. No hilar adenopathy is appreciated. OTHER: No significant abnormality. CONTRAST CT ABDOMEN AND PELVIS FINDINGS: LIVER/GB: No calcified gallstones. No space occupying hepatic lesion. Biliary tree is of normal ca liber. PANCREAS: No inflammation. No distinct mass. SPLEEN: No splenic enlargement. No lesion seen. ADRENALS: No nodule. No thickening. KIDNEYS/BLADDER: No hydronephrosis. No nephrolithiasis. No disctinct renal mass. BOWEL: Normal appendix. Normal bowel caliber. No inflammation. GENITAL ORGANS: No gross abnormality. LYMPH NODES: No greater than 1cm abdominal or pelvic lymph nodes are appreciated. AORTA: No significant abnormality. OSSEOUS STRUCTURES: Diffuse sclerotic bony metastases appear to have increased since previous examina tion. OTHER: No significant additional abnormality is seen. IMPRESSION: 1. Medial left upper lobe enhancing mass persists and currently measures 5 x 2.3 cm versus 5 x 2.4 cm previously. There is associated anterior pleural thickening. Loculated left lower lobe pleural effus ion is noted. 2.Diffuse sclerotic bony metastases appear to have increased since previous examination.
== END | disposition home or self-care (01) ==
LOC: RADCTMAIN 08:54
PROVIDERS: ATTEND Internal Medicine Hematology & Oncology
DX: Z03.89 Encounter for observation for other suspected diseases and conditions ruled out (principal); R91.8 Other nonspecific abnormal finding of lung field; J90 Pleural effusion, not elsewhere classified
CPT/HCPCS: 82565; 84520; 74177; 71260; 36415; Q9967 ×2

== ENCOUNTER → 2021-02-04 | Outpatient (CLI) | payer MEDICARE ==
--- NOTE | 2021-02-04 14:13 | CT ---
EXAMINATION TYPE: CT ChestAbdPelvis w con DATE OF EXAM: 02/04/2021 COMPARISON: 10/07/2020 HISTORY: Suspected mets, primary source of cancer unable to identify per patient. CT DLP: 881.9 mGycm Automated exposure control for dose reduction was used. CONTRAST: CT scan of the chest, abdomen and pelvis is performed with Oral Contrast and with IV Contrast, patien t injected with 80ml mL of Isovue 300. FINDINGS: LUNGS: Medial left upper lobe enhancing mass persists and currently measures 5.3 x 2.3 cm versus 5 x 2.4 cm previously. A pleural thickening small effusion stable.. Loculated left lower lobe pleural eff usion is noted. Patchy density right upper lobe anteriorly is unchanged. No new nodules or masses see n. Small right pleural effusion. Subsegmental areas of atelectasis noted. MEDIASTINUM: Heart size stable. Coronary artery calcification noted. Shotty adenopathy in the right h ilum. There is a mediastinal short axis I.1 cm lymph node stable from prior exam posterior to the rig ht atrium. Small amount of pericardial fluid noted. OTHER: Shotty areas of lymphadenopathy in the axilla bilaterally with the largest lymph node measuri ng a short axis of 6 mm stable from prior exam. 6 mm left breast nodule LIVER/GB: No significant abnormality is appreciated. PANCREAS: No significant abnormality is seen. SPLEEN: No significant abnormality is seen. ADRENALS: Stable mild thickening to the left adrenal gland KIDNEYS: Simple and parapelvic renal cysts are stable. BOWEL: No significant abnormality is seen. REPRODUCTIVE ORGANS: No gross abnormality seen. LYMPH NODES: No greater than 1 cm abdominal or pelvic lymph nodes are appreciated. Multiple small sub centimeter shotty lymph nodes in the iliac chain stable. OSSEOUS STRUCTURES: Multilevel hypertrophic and degenerative change of the spine with hypertrophic sp urring. There again is noted multiple sclerotic lesions involving the visualized osseous structures c ompatible with metastases. Arthropathy of the hips. OTHER: Aorta of normal caliber. 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 A post hysterectomy noted. 1. Severe soft tissue nodule left adnexa likely related to residual ovary and stable from prior exam with internal calcification. IMPRESSION: 1. Left upper lobe lung mass measures 5.3 x 2.3 cm and previously measured 5 x 2.4 cm. 2. Relatively stable. Diffuse osseous metastases. 3. 6 mm left breast nodule consider follow-up mammogram.
== END | disposition home or self-care (01) ==
LOC: RADCTMAIN 11:33
PROVIDERS: ATTEND Internal Medicine Hematology & Oncology
DX: C25.9 Malignant neoplasm of pancreas, unspecified (principal)
CPT/HCPCS: 82565; 84520; 71260; 74177; 36415; Q9967

== ENCOUNTER → 2021-05-09 | Outpatient (CLI) | payer MEDICARE ==
--- NOTE | 2021-05-12 10:38 | PE ---
EXAMINATION TYPE: PET CT fusion skull to thigh DATE OF EXAM: 05/09/2021 COMPARISON: Most recent CT February 04, 2021 and older CTs. Prior PET/CT October 27, 2019 HISTORY: Solitary pulmonary nodule, abnormal CT TECHNIQUE: Following the intravenous administration of 9.98 mCi of F-18 FDG, whole body images are p erformed from the skull base to the midthigh. Images are reviewed on the computer in the coronal, ax ial, and sagittal planes. Reconstructed rotating images are created on independent workstation and r eviewed on the computer. A localization and attenuation correction CT is performed in conjunction w ith the PET scan. Blood glucose level equals 100. SCAN: Initial Scan FINDINGS: SKULL BASE AND NECK: Diminished hypermetabolic uptake anterior right temporal lobe corresponds to an area of old infarct or large arachnoid cyst with mass effect unchanged from prior PET/CT. No new are as of abnormal hypermetabolic uptake. CHEST, MEDIASTINUM, AND HILAR REGION: Persistent small to moderate size bilateral pleural effusions a re increased in size from most recent CT. Persistent masslike consolidation with mild hypermetabolic uptake along the medial left upper to midlung axial image 72 measuring approximately 8.0 x 2.9 cm is not significant change from most recent CT, max SUV is not 3.3 significantly changed from prior. Exte nsion of atelectatic change and/or chronic consolidation in the left lung base is redemonstrated. No new areas of abnormal hypermetabolic uptake. Possible 6 mm left breast lesion axial Image 98 is ameta bolic and stable or smaller in size from prior studies ABDOMEN AND PELVIS: Normal excretion redemonstrated. No new areas of abnormal hypermetabolic uptake. Prior visualized enlarged and slightly hypermetabolic retroperitoneal lymph nodes are not appreciated OSSEOUS STRUCTURES: New hypermetabolic sclerotic foci involving multiple levels of the pelvis and lio ateral hips along with multiple levels of the spine and correlate best with most recent CT. OTHER CT: Persistent cardiomegaly with enlarged pulmonary artery suggesting underlying pulmonary janell ry hypertension. Small pericardial effusion redemonstrated. Small size hiatal hernia again seen. Few scattered colonic diverticula. Facet arthropathy lower lumbar levels. Underlying scoliosis redemo nstrated. Advanced degenerative change bilateral glenohumeral joints again seen. IMPRESSION: Known diffuse osseous metastatic disease redemonstrated. Stable mildly hypermetabolic lef t medial masslike consolidation. No new areas of abnormal hypermetabolic uptake noted.
== END | disposition home or self-care (01) ==
LOC: RADPETMAIN 14:12
PROVIDERS: ATTEND Internal Medicine Critical Care Medicine
DX: R91.8 Other nonspecific abnormal finding of lung field (principal)
CPT/HCPCS: 78815; A9552

== ENCOUNTER 2021-06-11 15:41 | Inpatient (IN) | payer MEDICARE ==
[2021-06-11] MEDS ORDERED: DILTIAZEM DRIP BOLUS FROM BAG 1 MG SOLN IV ONE (16:08)
--- NOTE | 2021-06-11 16:21 | ED ---
General Adult HPI - General Chief complaint: Shortness of Breath Stated complaint: Difficulty Breathing Time Seen by Provider: 06/11/21 15:49 Source: patient Mode of arrival: wheelchair Limitations: physical limitation - History of Present Illness Initial comments: Dictation was produced using [employer] dictation software. please excuse any grammatical, word or spelling errors. Chief Complaint: 89-year-old female presents emergency department for shortness of breath History of Present Illness: Is an 89-year-old female she presents emergency department for shortness of breath. Patient stated her symptoms began 4-5 days ago. Patient has extensive history of multiple pleural effusions. Patient concerned that this could be recurrent pleural effusion. Patient states she is undergone treatment with oral chemotherapy. She denies any chest pain at this time. Patient is on anticoagulation for blood clots. Denies any fever, chills or night sweats. Sates that her pleural effusions are usually in the left lung. Patient states that she had malignant cells on pleural fluid sample but no obvious masses in the past. She wears 2 L home O2. The ROS documented in this emergency department record has been reviewed and confirmed by me. Those systems with pertinent positive or negative responses have been documented in the HPI. All other systems are other negative and/or noncontributory. PHYSICAL EXAM: General Impression: Alert and oriented x3, dyspneic HEENT: Normocephalic atraumatic, extra-ocular movements intact, pupils equal and reactive to light bilaterally, mucous membranes moist. Cardiovascular: Heart regular rate and rhythm Chest: 3 word sentences increase lung sounds on the left compared to the right Abdomen: abdomen soft, non-tender, non-distended, no organomegaly Musculoskeletal: Pulses present and equal in all extremities, no peripheral edema Motor: no focal deficits noted Neurological: CN II-XII grossly intact, no focal motor or sensory deficits noted Skin: Intact with no visualized rashes Psych: Anxious ED course: 89-year-old female presents to the emergency room per for shortness of breath. Patient has extensive history of malignant pleural effusion. Vital signs upon arrival shows respiratory rate of 30, oxygen saturation 85% on 2 L nasal cannula. After evaluation obtained. CBC unremarkable. Coag panel is negative. Metabolic panel shows findings within acceptable limits. Lactic acid slightly elevated at 2.4. Troponin is 0.019. Patient's troponin has been historically elevated and today appears to be at her baseline. Brain natruretic peptide is 1910. 4 panel PCR is negative. Chest x-ray shows bilateral pleural effusions and redemonstration of lung carcinoma. Patient started on Cardizem. She is given supplemental oxygen. Patient observed in emergency department for approximately 2 hours. She'll be admitted with consultation to pulmonology cardiology. After several minutes of Cardizem and supplemental oxygen she does appear to be more improved at the bedside at 5:30 PM. Her heart rates improved to average between 101 15. Her oxygen levels are normal. Spoke with Dr. Finney covering for patient's armorer technician, Dr. Sandoval who will happily consult with the patient. Discussed Dr. Finney the patient will likely benefit from urgent thoracentesis. EKG interpretation: Ventricular rate 151, A. fib with RVR, QS 83, QTC 362. no QTC prolongation, no ST or T-wave changes noted. EKG compared to 12/25/2019 showing no changes. Overall, this EKG is unremarkable - Related Data Home Medications Medication Instructions Recorded Confirmed Multivitamins, Thera [Multivitamin 1 tab PO DAILY 08/16/14 06/11/21 (formulary)] Simvastatin [Zocor] 40 mg PO HS 08/16/14 06/11/21 Metoprolol Tartrate [Lopressor] 12.5 mg PO BID 12/25/19 06/11/21 Albuterol Inhaler [Ventolin Hfa 2 puff INHALATION RT-Q4H PRN 06/11/21 06/11/21 Inhaler] Capecitabine [Xeloda] 1,000 mg PO DIRECTED 06/11/21 06/11/21 Rivaroxaban [Xarelto] 20 mg PO W/SUPPER 06/11/21 06/11/21 predniSONE 10 mg PO DAILY 06/11/21 06/11/21 Previous Rx's Medication Instructions Recorded Pantoprazole [Protonix] 40 mg PO AC-BRKFST #30 tablet. 12/27/19 Allergies Allergy/AdvReac Type Severity Reaction Status Date / Time No Known Allergies Allergy Verified 06/11/21 16:44 Review of Systems ROS Statement: Those systems with pertinent positive or pertinent negative responses have been documented in the HPI. ROS Other: All systems not noted in ROS Statement are negative. Past Medical History Past Medical History: Cancer, Hyperlipidemia, Hypertension, Osteoarthritis (OA) Additional Past Medical History / Comment(s): Arthritis bilateral hands/lower back, overactive bladder, benign colon polyps, skin cancer removals, UTIs, bronchitis, veritgo at times. Pleual effusions. History of Any Multi-Drug Resistant Organisms: None Reported Past Surgical History: Bladder Surgery, Bowel Resection, Hernia Repair, Hysterectomy, Joint Replacement, Orthopedic Surgery Additional Past Surgical History / Comment(s): 08/21/14 Acromioplasty excision distal clavicle, rotator cuff repair R shoulder, total L knee arthroplasty, colonoscopies/polypectomies and had perforated bowel with colonoscopy-bowel resection, bladder suspension, vemtral incisional hernia repair, skin cancer removed from face, bilateral cataract removals/lens implants. Pleual catheter placement 11/02/19. Past Anesthesia/Blood Transfusion Reactions: Previous Problems w/ Anesthesia Additional Past Anesthesia/Blood Transfusion Reaction / Comment(s): STATES "TOOK A LONG TIME WAKING UP AFTER SURGERY" Past Psychological History: No Psychological Hx Reported Smoking Status: Never smoker Past Alcohol Use History: Occasional Past Drug Use History: None Reported - Past Family History Father Family Medical History: Cancer, Dementia Additional Family Medical History / Comment(s): PROSTATE Mother Family Medical History: Chest Pain / Angina General Exam Limitations: physical limitation Course Vital Signs 06/11/21 06/11/21 15:43 17:40 Temperature 97 F L Pulse Rate 87 106 H Respiratory 30 H 22 Rate Blood Pressure 120/65 101/74 O2 Sat by Pulse 85 L 95 Oximetry Medical Decision Making - Lab Data Result diagrams: 06/11/21 16:40 06/11/21 16:40 Lab Results 06/11/21 06/11/21 06/11/21 Range/Units 16:35 16:40 16:40 WBC 7.0 (3.8-10.6) k/uL RBC 4.47 (3.80-5.40) m/uL Hgb 14.6 (11.4-16.0) gm/dL Hct 44.6 (34.0-46.0) % MCV 99.7 (80.0-100.0) fL MCH 32.7 (25.0-35.0) pg MCHC 32.8 (31.0-37.0) g/dL RDW 15.2 (11.5-15.5) % Plt Count 196 (150-450) k/uL MPV 7.7 Neutrophils % 79 % Lymphocytes % 7 % Monocytes % 8 % Eosinophils % 3 % Basophils % 1 % Neutrophils # 5.5 (1.3-7.7) k/uL Lymphocytes # 0.5 L (1.0-4.8) k/uL Monocytes # 0.6 (0-1.0) k/uL Eosinophils # 0.2 (0-0.7) k/uL Basophils # 0.1 (0-0.2) k/uL Macrocytosis Slight PT 10.5 (9.0-12.0) sec INR 1.0 (<1.2) APTT 22.4 (22.0-30.0) sec Sodium (137-145) mmol/L Potassium (3.5-5.1) mmol/L Chloride (98-107) mmol/L Carbon Dioxide (22-30) mmol/L Anion Gap mmol/L BUN (7-17) mg/dL Creatinine (0.52-1.04) mg/dL Est GFR (CKD-EPI)AfAm (>60 ml/min/1.73 sqM) Est GFR (CKD-EPI)NonAf (>60 ml/min/1.73 sqM) Glucose (74-99) mg/dL Plasma Lactic Acid Chidi 2.4 H* (0.7-2.0) mmol/L Calcium (8.4-10.2) mg/dL Total Bilirubin (0.2-1.3) mg/dL AST (14-36) U/L ALT (4-34) U/L Alkaline Phosphatase (38-126) U/L Troponin I (0.000-0.034) ng/mL NT-Pro-B Natriuret Pep pg/mL Total Protein (6.3-8.2) g/dL Albumin (3.5-5.0) g/dL Influenza Type A (PCR) (Not Detectd) Influenza Type B (PCR) (Not Detectd) RSV (PCR) (Not Detectd) SARS-CoV-2 (PCR) (Not Detectd) 06/11/21 06/11/21 06/11/21 Range/Units 16:40 16:40 16:40 WBC (3.8-10.6) k/uL RBC (3.80-5.40) m/uL Hgb (11.4-16.0) gm/dL Hct (34.0-46.0) % MCV (80.0-100.0) fL MCH (25.0-35.0) pg MCHC (31.0-37.0) g/dL RDW (11.5-15.5) % Plt Count (150-450) k/uL MPV Neutrophils % % Lymphocytes % % Monocytes % % Eosinophils % % Basophils % % Neutrophils # (1.3-7.7) k/uL Lymphocytes # (1.0-4.8) k/uL Monocytes # (0-1.0) k/uL Eosinophils # (0-0.7) k/uL Basophils # (0-0.2) k/uL Macrocytosis PT (9.0-12.0) sec INR (<1.2) APTT (22.0-30.0) sec Sodium 138 (137-145) mmol/L Potassium 4.1 (3.5-5.1) mmol/L Chloride 109 H (98-107) mmol/L Carbon Dioxide 24 (22-30) mmol/L Anion Gap 5 mmol/L BUN 21 H (7-17) mg/dL Creatinine 0.93 (0.52-1.04) mg/dL Est GFR (CKD-EPI)AfAm 64 (>60 ml/min/1.73 sqM) Est GFR (CKD-EPI)NonAf 55 (>60 ml/min/1.73 sqM) Glucose 144 H (74-99) mg/dL Plasma Lactic Acid Chidi (0.7-2.0) mmol/L Calcium 8.5 (8.4-10.2) mg/dL Total Bilirubin 0.8 (0.2-1.3) mg/dL AST 62 H (14-36) U/L ALT 32 (4-34) U/L Alkaline Phosphatase 98 (38-126) U/L Troponin I 0.019 (0.000-0.034) ng/mL NT-Pro-B Natriuret Pep pg/mL Total Protein 5.7 L (6.3-8.2) g/dL Albumin 3.2 L (3.5-5.0) g/dL Influenza Type A (PCR) Not Detected (Not Detectd) Influenza Type B (PCR) Not Detected (Not Detectd) RSV (PCR) Not Detected (Not Detectd) SARS-CoV-2 (PCR) Not Detected (Not Detectd) 06/11/21 Range/Units 16:40 WBC (3.8-10.6) k/uL RBC (3.80-5.40) m/uL Hgb (11.4-16.0) gm/dL Hct (34.0-46.0) % MCV (80.0-100.0) fL MCH (25.0-35.0) pg MCHC (31.0-37.0) g/dL RDW (11.5-15.5) % Plt Count (150-450) k/uL MPV Neutrophils % % Lymphocytes % % Monocytes % % Eosinophils % % Basophils % % Neutrophils # (1.3-7.7) k/uL Lymphocytes # (1.0-4.8) k/uL Monocytes # (0-1.0) k/uL Eosinophils # (0-0.7) k/uL Basophils # (0-0.2) k/uL Macrocytosis PT (9.0-12.0) sec INR (<1.2) APTT (22.0-30.0) sec Sodium (137-145) mmol/L Potassium (3.5-5.1) mmol/L Chloride (98-107) mmol/L Carbon Dioxide (22-30) mmol/L Anion Gap mmol/L BUN (7-17) mg/dL Creatinine (0.52-1.04) mg/dL Est GFR (CKD-EPI)AfAm (>60 ml/min/1.73 sqM) Est GFR (CKD-EPI)NonAf (>60 ml/min/1.73 sqM) Glucose (74-99) mg/dL Plasma Lactic Acid Chidi (0.7-2.0) mmol/L Calcium (8.4-10.2) mg/dL Total Bilirubin (0.2-1.3) mg/dL AST (14-36) U/L ALT (4-34) U/L Alkaline Phosphatase (38-126) U/L Troponin I (0.000-0.034) ng/mL NT-Pro-B Natriuret Pep 1910 pg/mL Total Protein (6.3-8.2) g/dL Albumin (3.5-5.0) g/dL Influenza Type A (PCR) (Not Detectd) Influenza Type B (PCR) (Not Detectd) RSV (PCR) (Not Detectd) SARS-CoV-2 (PCR) (Not Detectd) Critical Care Time Critical Care Time: Yes Total Critical Care Time: 33 Disposition Clinical Impression: Atrial fibrillation with RVR, Malignant pleural effusion, Respiratory failure Disposition: ADMITTED IP TO THIS [facility] Condition: Serious Referrals: Gracie Fields MD [Primary Care Provider] - 1-2 days Decision Time: 17:48
[2021-06-11] MEDS: DILTIAZEM 125 MG in SODIUM CHLORIDE 0.9% 100 ML IV SCH ×2 (16:24→22:48)
--- NOTE | 2021-06-11 16:24 | XR ---
EXAMINATION TYPE: XR chest 1V portable DATE OF EXAM: 06/11/2021 COMPARISON: Chest x-ray 05/01/2021, PET/CT 05/09/2021 HISTORY: Dyspnea, lung cancer TECHNIQUE: Single frontal view of the chest is obtained. FINDINGS: Abnormal thickening of the pleura is again noted, patient is rotated. Interstitium is incr eased. Lung volumes are low. Heart is obscured. No evident pneumothorax. Difficult to exclude effusio n. Marked arthropathy noted in the shoulders. IMPRESSION: Findings consistent with patient's history of lung carcinoma, difficult to exclude pneum onia, bilateral effusion
[2021-06-11 16:45] LABS: Basophils # (A) 0.1 k/uL (0-0.2); Basophils % (A) 1 %; Eosinophils # (A) 0.2 k/uL (0-0.7); Eosinophils % (A) 3 %; HCT 44.6 % (34.0-46.0); HGB 14.6 gm/dL (11.4-16.0); Lymphocytes # (A) 0.5 k/uL (1.0-4.8); Lymphocytes % (A) 7 %; MCH 32.7 pg (25.0-35.0); MCHC 32.8 g/dL (31.0-37.0); MCV 99.7 fL (80.0-100.0); Macrocytosis Slight; Mean Platelet Volume 7.7; Monocytes # (A) 0.6 k/uL (0-1.0); Monocytes % (A) 8 %; Neutrophils # (A) 5.5 k/uL (1.3-7.7); Neutrophils % (A) 79 %; Platelet Count 196 k/uL (150-450); RBC 4.47 m/uL (3.80-5.40); RDW 15.2 % (11.5-15.5)
[2021-06-11 16:54] LABS: Partial Thromboplastin Time 22.4 sec (22.0-30.0); Prothrombin Time 10.5 sec (9.0-12.0)
[2021-06-11 16:58] LABS: Albumin 3.2 g/dL (3.5-5.0); Calcium 8.5 mg/dL (8.4-10.2); Potassium 4.1 mmol/L (3.5-5.1); Total Bilirubin 0.8 mg/dL (0.2-1.3); Total Protein 5.7 g/dL (6.3-8.2)
[2021-06-11] MEDS ORDERED: ACETAMINOPHEN TAB 325 MG TAB PO PRN (17:31)
[2021-06-11] MEDS ORDERED: NALOXONE 0.4 MG/ML 1 ML VIAL IV PRN (17:31)
[2021-06-11] MEDS ORDERED: ONDANSETRON 4 MG/2 ML VIAL IVP PRN (17:31)
[2021-06-11] MEDS: ATORVASTATIN 40 MG TAB PO SCH (22:16)
[2021-06-11] MEDS: HEPARIN SOD,PORK IN 0.45% NACL 25,000 UNIT in 0.45% NACL 1 250ML.BAG IV SCH (22:45)
[2021-06-11] MEDS: METOPROLOL TARTRATE 12.5 MG TAB PO SCH (22:45)
[2021-06-11] MEDS: SODIUM CHLORIDE 0.9% 1,000 ML IV SCH (22:49)
[2021-06-11 22:56] LABS: Appearance,Urine Clear (Clear); Bacteria,Urine Many /hpf; Bilirubin,Urine Negative (Negative); Blood,Urine Negative (Negative); Calcium Oxalate Crystals,Urine Many /hpf; Color,Urine Yellow; Glucose,Urine (UA) Negative (Negative); Hyaline Casts,Urine 2 /lpf (0-2); Ketones,Urine Negative (Negative); Leukocyte Esterase,Urine Negative (Negative); Mucus,Urine Occasional /hpf; Nitrite,Urine Positive (Negative); Protein,Urine Negative (Negative); Specific Gravity,Urine 1.022 (1.001-1.035); Squamous Epithelial Cell,Urine <1 /hpf (0-4); Urobilinogen,Urine <2.0 mg/dL (<2.0); WBC,Urine 13 /hpf (0-5)
[2021-06-11 23:08] LABS: Basophils % (A) 1 %; Eosinophils # (A) 0.2 k/uL (0-0.7); Eosinophils % (A) 3 %; HCT 42.8 % (34.0-46.0); HGB 14.1 gm/dL (11.4-16.0); Lymphocytes # (A) 0.5 k/uL (1.0-4.8); Lymphocytes % (A) 8 %; MCH 33.1 pg (25.0-35.0); MCV 100.4 fL (80.0-100.0); Macrocytosis Slight; Mean Platelet Volume 7.8; Monocytes # (A) 0.4 k/uL (0-1.0); Monocytes % (A) 7 %; Neutrophils # (A) 4.7 k/uL (1.3-7.7); Neutrophils % (A) 79 %; Platelet Count 218 k/uL (150-450); RBC 4.27 m/uL (3.80-5.40); WBC 5.9 k/uL (3.8-10.6)
[2021-06-11 23:27] LABS: INR 0.9 (<1.2)
[2021-06-12] MEDS ORDERED: PIPERACILLIN-TAZOBACTAM 3.375 GM in SODIUM CHLORIDE 0.9% 100 ML IVPB STA (00:46)
[2021-06-12] MEDS: IPRATROPIUM-ALBUTEROL 3 ML NEB INHALATION PRN ×5 (01:48→20:38)
[2021-06-12 07:37] LABS: Basophils % (A) 1 %; Eosinophils # (A) 0.2 k/uL (0-0.7); Eosinophils % (A) 3 %; HCT 42.5 % (34.0-46.0); HGB 13.9 gm/dL (11.4-16.0); Lymphocytes # (A) 0.5 k/uL (1.0-4.8); Lymphocytes % (A) 8 %; MCH 32.7 pg (25.0-35.0); MCHC 32.6 g/dL (31.0-37.0); MCV 100.2 fL (80.0-100.0); Macrocytosis Slight; Mean Platelet Volume 7.8; Monocytes # (A) 0.5 k/uL (0-1.0); Monocytes % (A) 9 %; Neutrophils # (A) 4.7 k/uL (1.3-7.7); Neutrophils % (A) 78 %; Platelet Count 196 k/uL (150-450); RBC 4.24 m/uL (3.80-5.40); RDW 15.2 % (11.5-15.5); WBC 6.1 k/uL (3.8-10.6)
[2021-06-12 08:43] LABS: INR 0.9 (<1.2); Prothrombin Time 10.3 sec (9.0-12.0)
[2021-06-12] MEDS: METOPROLOL TARTRATE 12.5 MG TAB PO SCH (08:48)
[2021-06-12 08:59] LABS: Albumin 3.1 g/dL (3.5-5.0); Magnesium 2.1 mg/dL (1.6-2.3); Potassium 3.8 mmol/L (3.5-5.1); Total Bilirubin 1.2 mg/dL (0.2-1.3); Total Protein 5.5 g/dL (6.3-8.2)
[2021-06-12] MEDS: HEPARIN SODIUM 1,000 UN/ML (10ML VL) IV PRN (09:04)
[2021-06-12] MEDS ORDERED: METOPROLOL TARTRATE 12.5 MG TAB PO ONE (09:15)
[2021-06-12] MEDS: FUROSEMIDE 40 MG TAB PO SCH (09:42)
--- NOTE | 2021-06-12 09:46 | US ---
EXAMINATION TYPE: US chest DATE OF EXAM: 06/12/2021 COMPARISON: XR dated 06/11/2021 CLINICAL HISTORY: pleural effusion, possible thoracentesis . Possible thoracentesis. TECHNIQUE: Targeted ultrasound of the posterior lower bilateral hemithoraces posteriorly EXAM MEASUREMENTS: Right Pleural Effusion pocket size: 10.3 cm Right skin surface to fluid distance: 2.8 cm Lung appears to be seen anteriorly within the pocket at 3.9 cm from skin to lung. Left Pleural Effusion pocket size: 7.7 cm Left skin surface to fluid distance: 3.2 cm Fluid appears to be significant for low level echoes, possible debris. Right side Not marked for possible thoracentesis outside the dept. Left side Not marked for possible thoracentesis outside the dept. Pulmonologists are able to review the images in the patient?s EMR. IMPRESSIONS: Bilateral pleural effusions
--- NOTE | 2021-06-12 10:04 | P.HPIM ---
History of Present Illness This is a pleasant 89 years old female with past medical history of Hyperlipidemia, Hypertension, Osteoarthritis, history of cancer on chemotherapy, Arthritis bilateral hands/lower back, overactive bladder, benign colon polyps, skin cancer removals, UTIs, bronchitis, veritgo at times. Pleual effusions. lung CA. Pleual catheter placement 11/02/19. Patient presents because of worsening dyspnea since last Wednesday, yesterday night she hardly could breathe so she decided to come to the emergency room. For 2 weeks she's been complaining of from cough and some clear white phlegm. But no significant chest pain. She is on 2 L of oxygen at home, she has good appetite, walking with no difficulty at baseline. Bowel movement daily with no issues. Denies any urinary symptoms. No dysuria or urgency. No suprapubic pain or tenderness. She denies abdominal pain or vomiting or diarrhea. No dysuria or urgency. No headache or weakness or numbness or dizziness. She denies smoking, alcohol or illicit drugs. She's been on oral chemotherapeutic agent for about a year. Patient was mildly tachycardic and tachypneic on admission but febrile. He was hypoxic at 85% on 2 L oxygen, later on her saturation improved, currently around 92-94% on 4 L oxygen via nasal cannula. Blood pressure is borderline Labs reviewed showing unremarkable CBC. INR 0.9. BMP and liver enzymes not significantly elevated. Troponin is -ve @ 0.019. ProBNP slightly elevated at 1910. EKG showing atrial fibrillation's with RVR at 151. QTC 362. Chest x-ray: Findings consistent with patient history of lung carcinoma, difficult to exclude pneumonia, bilateral pleural effusion Echocardiogram from 12/2019 on ejection fraction 50-55% In the emergency room patient was started on Cardizem drip, switched her Xarelto until heparin drip, if patient is going to need procedure. Also because patient is hypotensive. 1 dose of antibiotic is given Review of Systems CONSTITUTIONAL: No fever, no malaise, no fatigue. HEENT: No recent visual problems or hearing problems. Denied any sore throat. CARDIOVASCULAR: No orthopnea, PND, no palpitations, no syncope. PULMONARY: No chest wall tenderness, no hemoptysis. GASTROINTESTINAL: No diarrhea, no nausea, no vomiting, no abdominal pain. Normoactive bowel sounds. NEUROLOGICAL: No headaches, no weakness, no numbness. HEMATOLOGICAL: Denies any bleeding or petechiae. GENITOURINARY: Denies any burning micturition, frequency, or urgency. MUSCULOSKELETAL/RHEUMATOLOGICAL: Denies any joint pain, swelling, or any muscle pain. ENDOCRINE: Denies any polyuria or polydipsia. Past Medical History Past Medical History: Cancer, Hyperlipidemia, Hypertension, Osteoarthritis (OA) Additional Past Medical History / Comment(s): Arthritis bilateral hands/lower back, overactive bladder, benign colon polyps, skin cancer removals, UTIs, bronchitis, veritgo at times. Pleual effusions. lung CA History of Any Multi-Drug Resistant Organisms: None Reported Past Surgical History: Bladder Surgery, Bowel Resection, Hernia Repair, Hysterectomy, Joint Replacement, Orthopedic Surgery Additional Past Surgical History / Comment(s): 08/21/14 Acromioplasty excision distal clavicle, rotator cuff repair R shoulder, total L knee arthroplasty, colonoscopies/polypectomies and had perforated bowel with colonoscopy-bowel resection, bladder suspension, vemtral incisional hernia repair, skin cancer removed from face, bilateral cataract removals/lens implants. Pleual catheter placement 11/02/19. Past Anesthesia/Blood Transfusion Reactions: Previous Problems w/ Anesthesia Additional Past Anesthesia/Blood Transfusion Reaction / Comment(s): STATES "TOOK A LONG TIME WAKING UP AFTER SURGERY" Past Psychological History: No Psychological Hx Reported Additional Psychological History / Comment(s): Pt lives with her in a 3 level home. She is independent. She uses no assistive device or home care. She drives. Smoking Status: Never smoker Past Alcohol Use History: Occasional Past Drug Use History: None Reported - Past Family History Father Family Medical History: Cancer, Dementia Additional Family Medical History / Comment(s): PROSTATE Mother Family Medical History: Chest Pain / Angina Medications and Allergies Home Medications Medication Instructions Recorded Confirmed Type Multivitamins, Thera [Multivitamin 1 tab PO DAILY 08/16/14 06/11/21 History (formulary)] Simvastatin [Zocor] 40 mg PO HS 08/16/14 06/11/21 History Metoprolol Tartrate [Lopressor] 12.5 mg PO BID 12/25/19 06/11/21 History Pantoprazole [Protonix] 40 mg PO -THOMASKFST #30 tablet. 12/27/19 06/11/21 Rx Albuterol Inhaler [Ventolin Hfa 2 puff INHALATION RT-Q4H PRN 06/11/21 06/11/21 History Inhaler] Capecitabine [Xeloda] 1,000 mg PO DIRECTED 06/11/21 06/11/21 History Rivaroxaban [Xarelto] 20 mg PO W/SUPPER 06/11/21 06/11/21 History predniSONE 10 mg PO DAILY 06/11/21 06/11/21 History Allergies Allergy/AdvReac Type Severity Reaction Status Date / Time No Known Allergies Allergy Verified 06/11/21 16:44 Physical Exam Vitals: Vital Signs Temp Pulse Pulse Resp BP BP Pulse Ox 06/12/21 08:00 97.4 F L 116 H 32 H 106/56 94 L 06/12/21 06:34 95 06/12/21 06:24 93 06/12/21 04:00 98.1 F 87 20 111/64 92 L 06/12/21 02:00 86 96 22 06/12/21 01:48 96 06/12/21 01:26 96 22 102/56 94 L 06/11/21 23:47 97.3 F L 96 20 95/53 92 L 06/11/21 21:58 97.4 F L 109 H 22 99/63 93 L 06/11/21 21:45 109 H 22 06/11/21 21:00 110 H 22 110/65 95 06/11/21 20:00 107 H 23 112/77 94 L 06/11/21 19:00 101 H 18 101/65 92 L 06/11/21 18:36 112 H 20 101/65 06/11/21 17:40 106 H 22 101/74 95 06/11/21 15:43 97 F L 87 30 H 120/65 85 L Intake and Output 06/11/21 06/12/21 06/12/21 22:59 06:59 14:59 Intake Total 64 280.333 197.676 Balance 64 280.333 197.676 Intake: Intake, IV Titration 64 280.333 77.676 Amount Diltiazem 125 mg In 64 20.333 Sodium Chloride 0.9% 100 ml @ 10 MG/HR 10 mls/hr IV .[id number] [facility] Rx#: [id number] Heparin Sod,Pork in 0.45% 77.676 NaCl 25,000 unit In 0.45 % NaCl 1 250ml.bag @ 12 UNITS/KG/HR 7.729 mls/hr IV .Q24H [facility] Rx#: [id number] Piperacillin-Tazobactam 3 100 .375 gm In Sodium Chloride 0.9% 100 ml @ 200 mls/hr IVPB ONCE STA Rx#:[id number] Sodium Chloride 0.9% 1, 160 000 ml @ 20 mls/hr IV . Q24H [facility] Rx#:[id number] Oral 120 Other: Voiding Method Toilet Toilet # Voids 1 1 1 # Bowel Movements 1 Weight 64.41 kg GENERAL: The patient is alert and oriented x3, she is in acute respiratory distress. Well developed, well nourished. HEENT: Pupils are round and equally reacting to light. EOMI. No scleral icterus. No conjunctival pallor. Normocephalic, atraumatic. No pharyngeal erythema. No thyromegaly. CARDIOVASCULAR: S1 and S2 present. No murmurs, rubs, or gallops. -PULMONARY: Chest is clear to auscultation, no wheezing . Bilateral crepitation and patient is tachypneic with decreased air entry on both lung bases ABDOMEN: Soft, nontender, nondistended, normoactive bowel sounds. No palpable organomegaly. MUSCULOSKELETAL: No joint swelling or deformity. EXTREMITIES: No cyanosis, clubbing, or pedal edema. NEUROLOGICAL: Gross neurological examination did not reveal any focal deficits. SKIN: No rashes. No petechiae Results CBC & Chem 7: 06/12/21 07:23 06/12/21 07:23 Labs: Abnormal Lab Results - Last 24 Hours (Table) 06/11/21 06/11/21 06/11/21 Range/Units 16:35 16:40 16:40 MCV (80.0-100.0) fL RDW (11.5-15.5) % Lymphocytes # 0.5 L (1.0-4.8) k/uL APTT (22.0-30.0) sec Chloride 109 H (98-107) mmol/L BUN 21 H (7-17) mg/dL Glucose 144 H (74-99) mg/dL Plasma Lactic Acid Chidi 2.4 H* (0.7-2.0) mmol/L Calcium (8.4-10.2) mg/dL AST 62 H (14-36) U/L Total Protein 5.7 L (6.3-8.2) g/dL Albumin 3.2 L (3.5-5.0) g/dL Urine Nitrite (Negative) Urine WBC (0-5) /hpf Calcium Oxalate Crystal (None) /hpf Urine Bacteria (None) /hpf Urine Mucus (None) /hpf 06/11/21 06/11/21 06/11/21 Range/Units 19:26 22:11 22:15 MCV 100.4 H (80.0-100.0) fL RDW 16.0 H (11.5-15.5) % Lymphocytes # 0.5 L (1.0-4.8) k/uL APTT (22.0-30.0) sec Chloride (98-107) mmol/L BUN (7-17) mg/dL Glucose (74-99) mg/dL Plasma Lactic Acid Chidi 2.3 H* (0.7-2.0) mmol/L Calcium (8.4-10.2) mg/dL AST (14-36) U/L Total Protein (6.3-8.2) g/dL Albumin (3.5-5.0) g/dL Urine Nitrite Positive H (Negative) Urine WBC 13 H (0-5) /hpf Calcium Oxalate Crystal Many H (None) /hpf Urine Bacteria Many H (None) /hpf Urine Mucus Occasional H (None) /hpf 06/12/21 06/12/21 06/12/21 Range/Units 07:23 07:23 07:23 MCV 100.2 H (80.0-100.0) fL RDW (11.5-15.5) % Lymphocytes # 0.5 L (1.0-4.8) k/uL APTT 34.6 H (22.0-30.0) sec Chloride 110 H (98-107) mmol/L BUN (7-17) mg/dL Glucose 107 H (74-99) mg/dL Plasma Lactic Acid Chidi (0.7-2.0) mmol/L Calcium 8.0 L (8.4-10.2) mg/dL AST 65 H (14-36) U/L Total Protein 5.5 L (6.3-8.2) g/dL Albumin 3.1 L (3.5-5.0) g/dL Urine Nitrite (Negative) Urine WBC (0-5) /hpf Calcium Oxalate Crystal (None) /hpf Urine Bacteria (None) /hpf Urine Mucus (None) /hpf Microbiology - Last 24 Hours (Table) 06/11/21 22:11 Urine Culture - Preliminary Urine,Voided Thrombosis Risk Factor Assmnt - Choose All That Apply Any of the Below Risk Factors Present?: No Other Risk Factors: Yes Each Risk Factor Represents 3 Points: Age 75 years or older Other congenital or acquired thrombophilia - If yes, enter type in comment: No Thrombosis Risk Factor Assessment Total Risk Factor Score: 3 Thrombosis Risk Factor Assessment Level: Moderate Risk Assessment and Plan Assessment: Lung cancer with bilateral pleural effusion A. fib with RVR, present on admission Mostly asymptomatic bacteriuria, follow-up urine culture Hyperlipidemia History of hypertension History of vertigo Plan: This is a pleasant 89 years old female presents with lung cancer, bilateral pleural effusion, A. fib and RVR Continue with Cardizem drip Continue with heparin drip Continue with oxygen as needed and bronchodilator Continue with low dose of metoprolol. Pulmonary and cardiology team were consulted Labs and medication were reviewed.. Continue same treatment. Continue with symptomatic treatment. Resume home medication. Monitor lytes and vitals. DVT and GI prophylaxis. Further recommendations as per clinical course of the patient DVT prophylaxis: heparin GI Prophylaxis: Pepcid PT/OT: Pending Prognosis is guarded
--- NOTE | 2021-06-12 12:12 | P.CRDCN ---
History of Present Illness Consult date: 06/12/21 History of present illness: HISTORY OF PRESENT ILLNESS: This is a 89-year-old female with a past medical history significant for atrial fibrillation, hypertension, hyperlipidemia, and lung cancer. Patient does not follow with a sand technologist. We have been asked to see the patient in consultation for A. fib with RVR. Patient examined at the bedside. Patient presented to the hospital with a chief complaint of shortness of breath. She denies any chest pain or pressure. She denies any palpitations. The patient was found to be in A. fib with RVR. Patient was started on a Cardizem drip which is infusing at 5 mg an hour. The patient was also found to have bilateral pleural effusions. Patient was switched from her Xarelto to an IV heparin infusion pending pulmonary evaluation. * EKG reveals A. fib with RVR * Chest xray findings consistent with patient's history of lung carcinoma, difficult to exclude pneumonia, bilateral effusions * Laboratory data: WBC 6.1. Hemoglobin 13.9. Platelet count 196. Sodium 139. Potassium 3.8. BUN 17. Creatinine 0.8. * Current home cardiac medications include simvastatin 40 mg at night, Xarelto 20 mg daily, and metoprolol titrate Toprol 0.5 mg twice a day * Most recent echocardiogram obtained in December 2019 revealed ejection fraction 50-55%, mild MR, mild TR, mild pulmonary hypertension REVIEW OF SYSTEMS: At the time of my exam: CONSTITUTIONAL: Denies fever or chills. HEENT: Denies blurred vision, vision changes, or eye pain. Denies hemoptysis CARDIOVASCULAR: Denies chest pain. Denies orthopnea. Denies PND. Denies palpitations RESPIRATORY: + shortness of breath. GASTROINTESTINAL: Denies abdominal pain. Denies nausea or vomiting. HEMATOLOGIC: Denies bleeding disorders. GENITOURINARY: Denies any blood in urine. SKIN: Denies pruitis. Denies rash. PHYSICAL EXAM: VITAL SIGNS: Reviewed. GENERAL: Well-developed in no acute distress. HEENT: Head is normocephalic. Pupils are equal, round. Sclerae anicteric. Mucous membranes of the mouth are moist. Neck supple. No JVD or thyromegaly LUNGS: Respirations even and unlabored. Lungs diminished bilaterally. HEART: Irregular rate and rhythm. S1 and S2 heard. ABDOMEN: Soft. Nondistended. Nontender. EXTREMITIES: Normal range of motion. No clubbing or cyanosis. Peripheral pulses intact. Trace lower extremity edema NEUROLOGIC: Awake and alert. Oriented x 3. ASSESSMENT: Shortness of breath History of Lung CA Bilateral pleural effusions Paroxysmal atrial fibrillation with RVR Hypertension Hyperlipidemia PLAN: Continue IV heparin. If no plans for any procedures from pulmonary standpoint, resume Xarelto and DC heparin Increase metoprolol to 25mg BID Continue IV Cardizem. Wean off if heart rate will tolerate Continue telemetry monitoring Further recommendations pending patient course Nurse practitioner note has been reviewed by physician. Signing provider agrees with the documented findings, assessment, and plan of care. Past Medical History Past Medical History: Cancer, Hyperlipidemia, Hypertension, Osteoarthritis (OA) Additional Past Medical History / Comment(s): Arthritis bilateral hands/lower back, overactive bladder, benign colon polyps, skin cancer removals, UTIs, bronchitis, veritgo at times. Pleual effusions. lung CA History of Any Multi-Drug Resistant Organisms: None Reported Past Surgical History: Bladder Surgery, Bowel Resection, Hernia Repair, Hysterectomy, Joint Replacement, Orthopedic Surgery Additional Past Surgical History / Comment(s): 08/21/14 Acromioplasty excision distal clavicle, rotator cuff repair R shoulder, total L knee arthroplasty, colonoscopies/polypectomies and had perforated bowel with colonoscopy-bowel resection, bladder suspension, vemtral incisional hernia repair, skin cancer removed from face, bilateral cataract removals/lens implants. Pleual catheter placement 11/02/19. Past Anesthesia/Blood Transfusion Reactions: Previous Problems w/ Anesthesia Additional Past Anesthesia/Blood Transfusion Reaction / Comment(s): STATES "TOOK A LONG TIME WAKING UP AFTER SURGERY" Past Psychological History: No Psychological Hx Reported Additional Psychological History / Comment(s): Pt lives with her in a 3 level home. She is independent. She uses no assistive device or home care. She drives. Smoking Status: Never smoker Past Alcohol Use History: Occasional Past Drug Use History: None Reported - Past Family History Father Family Medical History: Cancer, Dementia Additional Family Medical History / Comment(s): PROSTATE Mother Family Medical History: Chest Pain / Angina Medications and Allergies Home Medications Medication Instructions Recorded Confirmed Type Multivitamins, Thera [Multivitamin 1 tab PO DAILY 08/16/14 06/11/21 History (formulary)] Simvastatin [Zocor] 40 mg PO HS 08/16/14 06/11/21 History Metoprolol Tartrate [Lopressor] 12.5 mg PO BID 12/25/19 06/11/21 History Pantoprazole [Protonix] 40 mg PO PATY-BRKFST #30 tablet. 12/27/19 06/11/21 Rx Albuterol Inhaler [Ventolin Hfa 2 puff INHALATION RT-Q4H PRN 06/11/21 06/11/21 History Inhaler] Capecitabine [Xeloda] 1,000 mg PO DIRECTED 06/11/21 06/11/21 History Rivaroxaban [Xarelto] 20 mg PO W/SUPPER 06/11/21 06/11/21 History predniSONE 10 mg PO DAILY 06/11/21 06/11/21 History Allergies Allergy/AdvReac Type Severity Reaction Status Date / Time No Known Allergies Allergy Verified 06/11/21 16:44 Physical Exam Vitals: Vital Signs Temp Pulse Pulse Resp BP BP Pulse Ox 06/12/21 11:56 94 06/12/21 11:50 97.6 F 91 32 H 102/64 93 L 06/12/21 08:00 97.4 F L 116 H 32 H 106/56 94 L 06/12/21 06:34 95 06/12/21 06:24 93 06/12/21 04:00 98.1 F 87 20 111/64 92 L 06/12/21 02:00 86 96 22 06/12/21 01:48 96 06/12/21 01:26 96 22 102/56 94 L 06/11/21 23:47 97.3 F L 96 20 95/53 92 L 06/11/21 21:58 97.4 F L 109 H 22 99/63 93 L 06/11/21 21:45 109 H 22 06/11/21 21:00 110 H 22 110/65 95 06/11/21 20:00 107 H 23 112/77 94 L 06/11/21 19:00 101 H 18 101/65 92 L 06/11/21 18:36 112 H 20 101/65 06/11/21 17:40 106 H 22 101/74 95 06/11/21 15:43 97 F L 87 30 H 120/65 85 L Intake and Output 06/11/21 06/12/21 06/12/21 22:59 06:59 14:59 Intake Total 64 280.333 197.676 Balance 64 280.333 197.676 Intake: Intake, IV Titration 64 280.333 77.676 Amount Diltiazem 125 mg In 64 20.333 Sodium Chloride 0.9% 100 ml @ 10 MG/HR 10 mls/hr IV .[id number] [facility] Rx#: [id number] Heparin Sod,Pork in 0.45% 77.676 NaCl 25,000 unit In 0.45 % NaCl 1 250ml.bag @ 12 UNITS/KG/HR 7.729 mls/hr IV .Q24H [facility] Rx#: [id number] Piperacillin-Tazobactam 3 100 .375 gm In Sodium Chloride 0.9% 100 ml @ 200 mls/hr IVPB ONCE [facility] Rx#:[id number] Sodium Chloride 0.9% 1, 160 000 ml @ 20 mls/hr IV . Q24H [facility] Rx#:[id number] Oral 120 Other: Voiding Method Toilet Toilet # Voids 1 1 1 # Bowel Movements 1 Weight 64.41 kg Results 06/12/21 07:23 06/12/21 07:23 Cardiac Enzymes 06/11/21 06/11/21 06/12/21 Range/Units 16:40 16:40 07:23 AST 62 H 65 H (14-36) U/L Troponin I 0.019 (0.000-0.034) ng/mL Coagulation 06/11/21 06/11/21 06/12/21 Range/Units 16:40 22:15 07:23 PT 10.5 10.0 10.3 (9.0-12.0) sec APTT 22.4 22.0 (22.0-30.0) sec 06/12/21 Range/Units 07:23 PT (9.0-12.0) sec APTT 34.6 H (22.0-30.0) sec CBC 06/11/21 06/11/21 06/12/21 Range/Units 16:40 22:15 07:23 WBC 7.0 5.9 6.1 (3.8-10.6) k/uL RBC 4.47 4.27 4.24 (3.80-5.40) m/uL Hgb 14.6 14.1 13.9 (11.4-16.0) gm/dL Hct 44.6 42.8 42.5 (34.0-46.0) % Plt Count 196 218 196 (150-450) k/uL Comprehensive Metabolic Panel 06/11/21 06/12/21 Range/Units 16:40 07:23 Sodium 138 139 (137-145) mmol/L Potassium 4.1 3.8 (3.5-5.1) mmol/L Chloride 109 H 110 H (98-107) mmol/L Carbon Dioxide 24 23 (22-30) mmol/L BUN 21 H 17 (7-17) mg/dL Creatinine 0.93 0.88 (0.52-1.04) mg/dL Glucose 144 H 107 H (74-99) mg/dL Calcium 8.5 8.0 L (8.4-10.2) mg/dL AST 62 H 65 H (14-36) U/L ALT 32 31 (4-34) U/L Alkaline Phosphatase 98 111 (38-126) U/L Total Protein 5.7 L 5.5 L (6.3-8.2) g/dL Albumin 3.2 L 3.1 L (3.5-5.0) g/dL Current Medications Generic Name Dose Route Start Last Admin Trade Name Freq PRN Reason Stop Dose Admin Acetaminophen 650 mg 06/11/21 17:31 Acetaminophen Tab 325 Mg Tab PO Q6HR PRN Mild Pain or Fever > 100.5 Albuterol/Ipratropium 3 ml 06/12/21 01:18 06/12/21 11:56 Ipratropium-Albuterol 3 Ml Neb INHALATION 3 ml RT-QID PRN Administration Shortness Of Breath Or Wheezing Atorvastatin Calcium 40 mg 06/11/21 22:00 06/11/21 22:16 Atorvastatin 40 Mg Tab PO Not Given HS [facility] Furosemide 40 mg 06/12/21 09:15 06/12/21 09:42 Furosemide 40 Mg Tab PO 40 mg DAILY [facility] Administration Heparin Sodium (Porcine) 0 unit 06/11/21 21:55 06/12/21 09:04 Heparin Sodium 1,000 Un/Ml (10ml Vl) IV 3,220 unit PER PROTOCOL PRN Administration Low PTT Protocol Diltiazem HCl 125 mg/ Sodium 125 mls @ 10 mls/hr 06/11/21 16:15 06/12/21 00:50 Chloride IV 5 mg/hr .[id number] [facility] 5 mls/hr Infusion 10 MG/HR Sodium Chloride 1,000 mls @ 20 mls/hr 06/11/21 17:45 06/11/21 22:49 Saline 0.9% IV 20 mls/hr .Q24H [facility] Administration Heparin Sodium/Sodium Chloride 250 mls @ 7.729 mls/hr 06/11/21 22:00 06/12/21 08:48 25,000 unit/ Sodium Chloride IV 15 units/kg/hr .Q24H [facility] 9.662 mls/hr Titration Protocol 12 UNITS/KG/HR Metoprolol Tartrate 25 mg 06/12/21 21:00 Metoprolol Tartrate 25 Mg Tab PO BID [facility] Naloxone HCl 0.2 mg 06/11/21 17:31 Naloxone 0.4 Mg/Ml 1 Ml Vial IV Q2M PRN Opioid Reversal Ondansetron HCl 4 mg 06/11/21 17:31 Ondansetron 4 Mg/2 Ml Vial IVP Q8HR PRN Nausea And Vomiting Intake and Output 06/11/21 06/12/21 06/12/21 22:59 06:59 14:59 Intake Total 64 280.333 197.676 Balance 64 280.333 197.676 Intake: Intake, IV Titration 64 280.333 77.676 Amount Diltiazem 125 mg In 64 20.333 Sodium Chloride 0.9% 100 ml @ 10 MG/HR 10 mls/hr IV .[id number] [facility] Rx#: [id number] Heparin Sod,Pork in 0.45% 77.676 NaCl 25,000 unit In 0.45 % NaCl 1 250ml.bag @ 12 UNITS/KG/HR 7.729 mls/hr IV .Q24H [facility] Rx#: [id number] Piperacillin-Tazobactam 3 100 .375 gm In Sodium Chloride 0.9% 100 ml @ 200 mls/hr IVPB ONCE [facility] Rx#:[id number] Sodium Chloride 0.9% 1, 160 000 ml @ 20 mls/hr IV . Q24H [facility] Rx#:[id number] Oral 120 Other: Voiding Method Toilet Toilet # Voids 1 1 1 # Bowel Movements 1 Weight 64.41 kg 06/12/21 07:23 06/12/21 07:23
--- NOTE | 2021-06-12 12:35 | P.CNPUL ---
History of Present Illness Consult date: 06/12/21 Requesting physician: Paras Flores Reason for consult: dyspnea, hypoxemia, pleural effusion, lung mass, abnormal CXR/CT Chief complaint: Shortness of breath. History of present illness: Pulmonary consult dated 06/12/2021. 89-year-old female, who presented to the emergency department on June 11, complaining of shortness of breath. The patient was evaluated in the emergency department, and admitted to the hospital. The patient was found to have atrial fibrillation with RVR. She also has chronic bilateral pleural effusions. Back in 2019, the patient had a thoracentesis, which revealed adenocarcinoma, and the primary at that point was not known. She tells me today that her medical o ncologist thinks that her primary cancer site is from the breast. Anyway, the patient's major issue is shortness of breath. She has been seen by cardiology and the primary service. The ultrasound of the chest does show bilateral effusions, but it appears that it might be safer for interventional radiology to do the procedure given the findings on ultrasound. She is currently on IV heparin and Cardizem at 10 mg an hour. She's also on nasal O2. She is quite short of breath with activity. White count 6.1, hemoglobin 13.9, hematocrit 42.5, and platelet count 196,000. PTT is 34.6. Sodium 139, potassium 3.8, chlorides 110, CO2 23, within normal BUN and creatinine. Pro-calcitonin level is 0.10. Chest x-ray shows abnormal thickening of the pleura, with low lung volumes, and pleural effusions bilaterally. Chest ultrasound shows a right- sided pocket size of 10.3 cm, and a left pleural effusion pocket size of 7.7 cm. On the right, there is lung which appears within the pocket. On the left side, there are low-level echoes, and possible debris. Review of Systems REVIEW OF SYSTEMS: CONSTITUTIONAL: [Negative.] NEUROLOGIC: [ Negative.] HEENT: [ Negative.] CARDIAC: Rapid heartbeat. PULMONARY: Shortness of breath. GI: [Negative.] : [Negative.] RHEUMATOLOGIC: [ Negative.] IMMUNOLOGIC: [ Negative.] ENDOCRINE: [Negative. ] DERMATOLOGIC: [Negative.] Past Medical History Past Medical History: Cancer, Hyperlipidemia, Hypertension, Osteoarthritis (OA) Additional Past Medical History / Comment(s): Arthritis bilateral hands/lower back, overactive bladder, benign colon polyps, skin cancer removals, UTIs, bronchitis, veritgo at times. Pleual effusions. lung CA History of Any Multi-Drug Resistant Organisms: None Reported Past Surgical History: Bladder Surgery, Bowel Resection, Hernia Repair, Hysterectomy, Joint Replacement, Orthopedic Surgery Additional Past Surgical History / Comment(s): 08/21/14 Acromioplasty excision distal clavicle, rotator cuff repair R shoulder, total L knee arthroplasty, colonoscopies/polypectomies and had perforated bowel with colonoscopy-bowel resection, bladder suspension, vemtral incisional hernia repair, skin cancer removed from face, bilateral cataract removals/lens implants. Pleual catheter placement 11/02/19. Past Anesthesia/Blood Transfusion Reactions: Previous Problems w/ Anesthesia Additional Past Anesthesia/Blood Transfusion Reaction / Comment(s): STATES "TOOK A LONG TIME WAKING UP AFTER SURGERY" Past Psychological History: No Psychological Hx Reported Additional Psychological History / Comment(s): Pt lives with her in a 3 level home. She is independent. She uses no assistive device or home care. She drives. Smoking Status: Never smoker Past Alcohol Use History: Occasional Past Drug Use History: None Reported - Past Family History Father Family Medical History: Cancer, Dementia Additional Family Medical History / Comment(s): PROSTATE Mother Family Medical History: Chest Pain / Angina Medications and Allergies Home Medications Medication Instructions Recorded Confirmed Type Multivitamins, Thera [Multivitamin 1 tab PO DAILY 08/16/14 06/11/21 History (formulary)] Simvastatin [Zocor] 40 mg PO HS 08/16/14 06/11/21 History Metoprolol Tartrate [Lopressor] 12.5 mg PO BID 12/25/19 06/11/21 History Pantoprazole [Protonix] 40 mg PO AC-BRKFST #30 tablet. 12/27/19 06/11/21 Rx Albuterol Inhaler [Ventolin Hfa 2 puff INHALATION RT-Q4H PRN 06/11/21 06/11/21 History Inhaler] Capecitabine [Xeloda] 1,000 mg PO DIRECTED 06/11/21 06/11/21 History Rivaroxaban [Xarelto] 20 mg PO W/SUPPER 06/11/21 06/11/21 History predniSONE 10 mg PO DAILY 06/11/21 06/11/21 History Allergies Allergy/AdvReac Type Severity Reaction Status Date / Time No Known Allergies Allergy Verified 06/11/21 16:44 Physical Exam Osteopathic Statement: *. No significant issues noted on an osteopathic structural exam other than those noted in the History and Physical/Consult. Vitals: Vital Signs Temp Pulse Pulse Resp BP BP Pulse Ox 06/12/21 11:56 94 06/12/21 11:50 97.6 F 91 32 H 102/64 93 L 06/12/21 08:00 97.4 F L 116 H 32 H 106/56 94 L 06/12/21 06:34 95 06/12/21 06:24 93 06/12/21 04:00 98.1 F 87 20 111/64 92 L 06/12/21 02:00 86 96 22 06/12/21 01:48 96 06/12/21 01:26 96 22 102/56 94 L 06/11/21 23:47 97.3 F L 96 20 95/53 92 L 06/11/21 21:58 97.4 F L 109 H 22 99/63 93 L 06/11/21 21:45 109 H 22 06/11/21 21:00 110 H 22 110/65 95 06/11/21 20:00 107 H 23 112/77 94 L 06/11/21 19:00 101 H 18 101/65 92 L 06/11/21 18:36 112 H 20 101/65 06/11/21 17:40 106 H 22 101/74 95 06/11/21 15:43 97 F L 87 30 H 120/65 85 L Intake and Output 06/11/21 06/12/21 06/12/21 22:59 06:59 14:59 Intake Total 64 280.333 197.676 Balance 64 280.333 197.676 Intake: Intake, IV Titration 64 280.333 77.676 Amount Diltiazem 125 mg In 64 20.333 Sodium Chloride 0.9% 100 ml @ 10 MG/HR 10 mls/hr IV .[id number] [facility] Rx#: [id number] Heparin Sod,Pork in 0.45% 77.676 NaCl 25,000 unit In 0.45 % NaCl 1 250ml.bag @ 12 UNITS/KG/HR 7.729 mls/hr IV .Q24H [facility] Rx#: [id number] Piperacillin-Tazobactam 3 100 .375 gm In Sodium Chloride 0.9% 100 ml @ 200 mls/hr IVPB ONCE [facility] Rx#:[id number] Sodium Chloride 0.9% 1, 160 000 ml @ 20 mls/hr IV . Q24H [facility] Rx#:[id number] Oral 120 Other: Voiding Method Toilet Toilet # Voids 1 1 1 # Bowel Movements 1 Weight 64.41 kg No acute distress, oriented 3. Very short of breath. 4 L saturation is 93%. HEENT examination is grossly unremarkable. Neck supple. Full range of motion. No adenopathy thyromegaly or neck vein distention. Cardiovascular examination reveals an irregular rhythm rate. S1-S2 normal. No S3 or S4. No discernible murmur noted. Heart rate 94 bpm. Lungs reveal diminished bilateral breath sounds, right greater than left. Scattered rhonchi are noted. No crackles. Abdomen soft bowel sounds are heard. No masses or tenderness. Extremities are intact. No cyanosis clubbing or edema. Skin is without rash or lesion. Neurologic examination is brief but nonfocal. Results - Laboratory Findings CBC and BMP: 06/12/21 07:23 06/12/21 07:23 PT/INR, D-dimer PT 10.3 sec (9.0-12.0) 06/12/21 07:23 INR 0.9 (<1.2) 06/12/21 07:23 Abnormal lab findings: Abnormal Labs 06/11/21 06/11/21 06/11/21 16:35 16:40 16:40 MCV RDW Lymphocytes # 0.5 L APTT Chloride 109 H BUN 21 H Glucose 144 H Plasma Lactic Acid Chidi 2.4 H* Calcium AST 62 H Total Protein 5.7 L Albumin 3.2 L Procalcitonin Urine Nitrite Urine WBC Calcium Oxalate Crystal Urine Bacteria Urine Mucus 06/11/21 06/11/21 06/11/21 19:26 22:11 22:15 MCV 100.4 H RDW 16.0 H Lymphocytes # 0.5 L APTT Chloride BUN Glucose Plasma Lactic Acid Chidi 2.3 H* Calcium AST Total Protein Albumin Procalcitonin Urine Nitrite Positive H Urine WBC 13 H Calcium Oxalate Crystal Many H Urine Bacteria Many H Urine Mucus Occasional H 06/12/21 06/12/21 06/12/21 07:23 07:23 07:23 MCV 100.2 H RDW Lymphocytes # 0.5 L APTT 34.6 H Chloride BUN Glucose Plasma Lactic Acid Chidi Calcium AST Total Protein Albumin Procalcitonin 0.10 H Urine Nitrite Urine WBC Calcium Oxalate Crystal Urine Bacteria Urine Mucus 06/12/21 07:23 MCV RDW Lymphocytes # APTT Chloride 110 H BUN Glucose 107 H Plasma Lactic Acid Chidi Calcium 8.0 L AST 65 H Total Protein 5.5 L Albumin 3.1 L Procalcitonin Urine Nitrite Urine WBC Calcium Oxalate Crystal Urine Bacteria Urine Mucus - Diagnostic Findings Chest x-ray: image reviewed Assessment and Plan Assessment: Acute shortness of breath, multifactorial, in part related to atrial fibr illation with RVR, but also bilateral malignant pleural effusions. 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 History of hyperlipidemia. History of hypertension. History of osteoarthritis. History of skin cancer. History of cataracts. Plan: Plan dated 06/12/2021. We will ask interventional radiology to consider doing a thoracentesis on this patient, given the findings on the ultrasound. The patient has been seen by cardiology. Currently she is on IV heparin and Cardizem at 10 mg an hour. Additional recommendations and suggestions are forthcoming. Prognosis is certainly guarded. The patient is currently on Xeloda for her cancer. She does see a primary care physician, as well as a medical oncologist. We will cont inue to follow make recommendations where appropriate. Time with Patient: Greater than 30
[2021-06-12] MEDS: ATORVASTATIN 40 MG TAB PO SCH (20:04)
[2021-06-12] MEDS: METOPROLOL TARTRATE 25 MG TAB PO SCH (20:13)
[2021-06-12] MEDS: SODIUM CHLORIDE 0.9% 1,000 ML IV SCH (20:20)
[2021-06-12] MEDS ORDERED: FLUTICASONE 50MCG/SPRAY NASAL 16GM EA NOSTRIL PRN ×2 (20:29→21:15)
[2021-06-12] MEDS: HEPARIN SOD,PORK IN 0.45% NACL 25,000 UNIT in 0.45% NACL 1 250ML.BAG IV SCH (20:41)
[2021-06-12] MEDS: DILTIAZEM 125 MG in SODIUM CHLORIDE 0.9% 100 ML IV SCH (21:41)
[2021-06-13] MEDS ORDERED: ALPRAZolam 0.25 MG TAB PO STA (00:46)
[2021-06-13] MEDS: HEPARIN SOD,PORK IN 0.45% NACL 25,000 UNIT in 0.45% NACL 1 250ML.BAG IV SCH (01:32)
[2021-06-13] MEDS: DILTIAZEM 125 MG in SODIUM CHLORIDE 0.9% 100 ML IV SCH (06:03)
[2021-06-13] MEDS: FUROSEMIDE 40 MG TAB PO SCH (07:44)
[2021-06-13] MEDS: METOPROLOL TARTRATE 25 MG TAB PO SCH (07:44)
[2021-06-13] MEDS: IPRATROPIUM-ALBUTEROL 3 ML NEB INHALATION PRN (08:24)
[2021-06-13 09:41] LABS: Basophils % (A) 1 %; Eosinophils # (A) 0.1 k/uL (0-0.7); Eosinophils % (A) 3 %; HCT 41.6 % (34.0-46.0); HGB 13.6 gm/dL (11.4-16.0); Lymphocytes # (A) 0.4 k/uL (1.0-4.8); Lymphocytes % (A) 7 %; MCH 33.2 pg (25.0-35.0); MCHC 32.8 g/dL (31.0-37.0); MCV 101.3 fL (80.0-100.0); Macrocytosis Slight; Mean Platelet Volume 8.1; Monocytes # (A) 0.5 k/uL (0-1.0); Monocytes % (A) 8 %; Neutrophils # (A) 4.6 k/uL (1.3-7.7); Neutrophils % (A) 80 %; Platelet Count 219 k/uL (150-450); WBC 5.8 k/uL (3.8-10.6)
[2021-06-13 10:12] LABS: Calcium 8.1 mg/dL (8.4-10.2); Potassium 3.8 mmol/L (3.5-5.1)
[2021-06-13] MEDS: SODIUM CHLORIDE 0.9% 1,000 ML IV SCH (10:32)
--- NOTE | 2021-06-13 11:14 | CDI ---
Documentation Clarification Form Date: 06/13/2021 10:57:50 AM From: Heena Huerta RN CCDS Admit Date: 06/11/2021 05:31:00 PM Patient Name: Elva Gallagher Visit Number: [id number] Discharge Date: ATTENTION: The Clinical Documentation Specialists (CDI) and [facility] Coding Staff appreciate your assistance in clarifying documentation. Please respond to the clarification below the line at the bottom and electronically sign. The CDI & [facility] Coding staff will review the response and follow-up if needed. Please note: Queries are made part of the Legal Health Record. If you have any questions, please contact the author of this message via ITS. Dr. Crain E Sheet The patient is on 2L of oxygen at home, 06/12, H&P. Based on this information and the findings below, is there an additional diagnosis that is clinically appropriate for this patient? History/Risk Factors: 89-year-old female presents to the ED with a cough, white phlegm and hard to breath. Medical history: Lung Cancer, HTN and Bronchitis. 06/12, H&P. Home oxygen: 2L Clinical Indicators: 06/11, H&P: She wears 2L home O2. Vital signs: 06/11 15:43 B/P 120/65; HR 87; Temp 97F Oral; RR 30; SpO2 85% 2L nasal cannula Lung/Breathing assessment: 06/12, H&P Chest is clear to auscultation, no wheezing. Bilateral crepitation and patient is tachypneic with decreased air entry on both lung bases. Treatment: Breathing Tx: 06/12 current Duoneb 0.5mg 3mg/ 3 Ml soln QID PRN; Oxygen 2L 5L nasal cannula Is there an additional diagnosis that is clinically appropriate for this patient? [ ] Acute Hypoxic Respiratory Failure (pO2 <60 mm Hg or SpO2 <91% on room air) [ ] Acute on Chronic Hypoxic Respiratory Failure [ ] Chronic Respiratory Failure [ ] Other Diagnosis, please specify [ ] Unable to determine (Template Last Revised: April 2020) Acute Hypoxic Respiratory Failure MTDD
--- NOTE | 2021-06-13 13:10 | XR ---
EXAMINATION TYPE: XR chest 1V portable DATE OF EXAM: 06/13/2021 COMPARISON: 06/11/2021 INDICATION: Post right thoracentesis TECHNIQUE: Single frontal view of the chest is obtained. FINDINGS: The heart size is normal. The pulmonary vasculature is somewhat prominent. Previous right pleural effusion is largely resolved. Small left pleural effusion may be present. Ther e is diffuse increased lung markings present. There is thickening at the right apex could be a locula jesi effusion the apex. Advanced degenerative changes are at the bilateral shoulders. IMPRESSION: 1. No pneumothorax postthoracentesis. 2. Left apical thickening or loculated effusion. 3. Left lung infiltrate stable from comparison.
--- NOTE | 2021-06-13 13:16 | P.PN ---
Subjective Progress Note Date: 06/13/21 HISTORY OF PRESENT ILLNESS: This is a 89-year-old female with a past medical history significant for atrial fibrillation, hypertension, hyperlipidemia, and lung cancer. 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 We have been asked to see the patient in consultation for A. fib with RVR. Patient examined at the bedside. Patient presented to the hospital with a chief complaint of shortness of breath. She denies any chest pain or pressure. She denies any palpitations. The patient was found to be in A. fib with RVR. Patient was started on a Cardizem drip which is infusing at 5 mg an hour. The patient was also found to have bilateral pleural effusions. Patient was switched from her Xarelto to an IV heparin infusion pending pulmonary evaluation. * EKG reveals A. fib with RVR * Chest xray findings consistent with patient's history of lung carcinoma, difficult to exclude pneumonia, bilateral effusions * Laboratory data: WBC 6.1. Hemoglobin 13.9. Platelet count 196. Sodium 139. Potassium 3.8. BUN 17. Creatinine 0.8. * Current home cardiac medications include simvastatin 40 mg at night, Xarelto 20 mg daily, and metoprolol titrate Toprol 0.5 mg twice a day * Most recent echocardiogram obtained in December 2019 revealed ejection fraction 50-55%, mild MR, mild TR, mild pulmonary hypertension 06/13/2021 Patient examined this morning at the bedside. Patient denies chest pain or pressure. She reports shortness of breath. No ventral radiology has been consulted for thoracentesis. Telemetry reveals atrial fibrillation with a heart rate in the 80s. PHYSICAL EXAM: VITAL SIGNS: Reviewed. GENERAL: Well-developed in no acute distress. HEENT: Head is normocephalic. Pupils are equal, round. Sclerae anicteric. Mucous membranes of the mouth are moist. Neck supple. No JVD or thyromegaly LUNGS: Respirations even and unlabored. Lungs diminished bilaterally. HEART: Irregular rate and rhythm. S1 and S2 heard. ABDOMEN: Soft. Nondistended. Nontender. EXTREMITIES: Normal range of motion. No clubbing or cyanosis. Peripheral pulses intact. Trace lower extremity edema NEUROLOGIC: Awake and alert. Oriented x 3. ASSESSMENT: Shortness of breath History of Lung CA Bilateral pleural effusions Paroxysmal atrial fibrillation with RVR Hypertension Hyperlipidemia PLAN: Continue IV heparin. Resume Xarelto post thoracentesis. Discontinue IV Cardizem Increase metoprolol to 50 mg twice a day Continue telemetry monitoring Further recommendations pending patient course Nurse practitioner note has been reviewed by physician. Signing provider agrees with the documented findings, assessment, and plan of care. Objective - Vital Signs Vital signs: Vital Signs Temp 97.6 F 06/13/21 07:40 Pulse 96 06/13/21 12:30 Resp 20 06/13/21 12:50 BP 98/61 06/13/21 12:50 Pulse Ox 96 06/13/21 12:50 Intake & Output 06/12/21 06/13/21 06/13/21 18:59 06:59 18:59 Intake Total 653.956 465.927 303.93 Output Total 1000 Balance 653.956 -534.073 303.93 Intake: IV 117.28 40 Diltiazem 125 mg In 40 40 Sodium Chloride 0.9% 100 ml @ 10 MG/HR 10 mls/hr IV .[id number] [facility] Rx#: [id number] Heparin Sod,Pork in 0.45% 77.28 NaCl 25,000 unit In 0.45 % NaCl 1 250ml.bag @ 12 UNITS/KG/HR 7.729 mls/hr IV .Q24H [facility] Rx#: [id number] Intake, IV Titration 77.676 425.927 63.93 Amount Diltiazem 125 mg In 104.25 Sodium Chloride 0.9% 100 ml @ 10 MG/HR 10 mls/hr IV .[id number] [facility] Rx#: [id number] Heparin Sod,Pork in 0.45% 77.676 161.677 63.93 NaCl 25,000 unit In 0.45 % NaCl 1 250ml.bag @ 12 UNITS/KG/HR 7.729 mls/hr IV .Q24H [facility] Rx#: [id number] Sodium Chloride 0.9% 1, 160 000 ml @ 20 mls/hr IV . Q24H [facility] Rx#:[id number] Oral [id number] Output: Urine 1000 Other: Voiding Method Bedside Commode Bedside Commode # Voids 3 1 1 # Bowel Movements 1 1 - Labs CBC & Chem 7: 06/13/21 08:44 06/13/21 08:44 Labs: Abnormal Lab Results - Last 24 Hours (Table) 06/12/21 06/13/21 06/13/21 Range/Units 15:06 08:44 08:44 MCV 101.3 H (80.0-100.0) fL RDW 16.0 H (11.5-15.5) % Lymphocytes # 0.4 L (1.0-4.8) k/uL APTT 55.6 H (22.0-30.0) sec Glucose 113 H (74-99) mg/dL Calcium 8.1 L (8.4-10.2) mg/dL 06/13/21 Range/Units 08:44 MCV (80.0-100.0) fL RDW (11.5-15.5) % Lymphocytes # (1.0-4.8) k/uL APTT 55.1 H (22.0-30.0) sec Glucose (74-99) mg/dL Calcium (8.4-10.2) mg/dL
--- NOTE | 2021-06-13 13:35 | P.PN ---
Subjective Progress Note Date: 06/13/21 Principal diagnosis: Shortness of breath. Pulmonary consult dated 06/12/2021. 89-year-old female, who presented to the emergency department on June 11, complaining of shortness of breath. The patient was evaluated in the emergency department, and admitted to the hospital. The patient was found to have atrial fibrillation with RVR. She also has chronic bilateral pleural effusions. Back in 2019, the patient had a thoracentesis, which revealed adenocarcinoma, and the primary at that point was not known. She tells me today that her medical oncologist thinks that her primary cancer site is from the breast. Anyway, the patient's major issue is shortness of breath. She has been seen by cardiology and the primary service. The ultrasound of the chest does show bilateral effusions, but it appears that it might be safer for interventional radiology to do the procedure given the findings on ultrasound. She is currently on IV heparin and Cardizem at 10 mg an hour. She's also on nasal O2. She is quite short of breath with activity. White count 6.1, hemoglobin 13.9, hematocrit 42.5, and platelet count 196,000. PTT is 34.6. Sodium 139, potassium 3.8, chlorides 110, CO2 23, within normal BUN and creatinine. Pro-calcitonin level is 0.10. Chest x-ray shows abnormal thickening of the pleura, with low lung volumes, and pleural effusions bilaterally. Chest ultrasound shows a right- sided pocket size of 10.3 cm, and a left pleural effusion pocket size of 7.7 cm. On the right, there is lung which appears within the pocket. On the left side, there are low-level echoes, and possible debris. Progress note dated 06/13/2021. The patient will be having a thoracentesis performed by interventional radiology today. Her heparin is on hold. She is on Cardizem at 5 mg an hour for atrial fibrillation. She's getting 5 L nasal cannula. She's also on saline at 20 mL an hour. Clinically, she looks much less short of breath today than she did yesterday. White count is 5.8, hemoglobin 13.6, hematocrit 41.6, and platelet count 219,000. Sodium 138, potassium 3.8, chlorides 106, CO2 27, within normal BUN and creatinine. Pro-calcitonin level is 0.10. The patient did have a thoracentesis today performed by interventional radiology. The actual procedure on the chart as yet. there was no pneumothorax after thoracentesis. Objective - Vital Signs Vital signs: Vital Signs Temp 97.6 F 06/13/21 07:40 Pulse 96 06/13/21 12:30 Resp 20 06/13/21 12:50 BP 98/61 06/13/21 12:50 Pulse Ox 96 06/13/21 12:50 Intake & Output 06/12/21 06/13/21 06/13/21 18:59 06:59 18:59 Intake Total 653.956 465.927 303.93 Output Total 1000 Balance 653.956 -534.073 303.93 Intake: IV 117.28 40 Diltiazem 125 mg In 40 40 Sodium Chloride 0.9% 100 ml @ 10 MG/HR 10 mls/hr IV .[id number] [facility] Rx#: [id number] Heparin Sod,Pork in 0.45% 77.28 NaCl 25,000 unit In 0.45 % NaCl 1 250ml.bag @ 12 UNITS/KG/HR 7.729 mls/hr IV .Q24H [facility] Rx#: [id number] Intake, IV Titration 77.676 425.927 63.93 Amount Diltiazem 125 mg In 104.25 Sodium Chloride 0.9% 100 ml @ 10 MG/HR 10 mls/hr IV .[id number] [facility] Rx#: [id number] Heparin Sod,Pork in 0.45% 77.676 161.677 63.93 NaCl 25,000 unit In 0.45 % NaCl 1 250ml.bag @ 12 UNITS/KG/HR 7.729 mls/hr IV .Q24H [facility] Rx#: [id number] Sodium Chloride 0.9% 1, 160 000 ml @ 20 mls/hr IV . Q24H [facility] Rx#:[id number] Oral [id number] Output: Urine 1000 Other: Voiding Method Bedside Commode Bedside Commode # Voids 3 1 1 # Bowel Movements 1 1 - Exam No acute distress, oriented 3. Very short of breath. 5 L saturation is 96 %. HEENT examination is grossly unremarkable. Neck supple. Full range of motion. No adenopathy thyromegaly or neck vein distention. Cardiovascular examination reveals an irregular rhythm rate. S1-S2 normal. No S3 or S4. No discernible murmur noted. Heart rate 96 bpm. Lungs reveal diminished bilateral breath sounds, right greater than left. Scattered rhonchi are noted. No crackles. Abdomen soft bowel sounds are heard. No masses or tenderness. Extremities are intact. No cyanosis clubbing or edema. Skin is without rash or lesion. Neurologic examination is brief but nonfocal. - Labs CBC & Chem 7: 06/13/21 08:44 06/13/21 08:44 Labs: Abnormal Lab Results - Last 24 Hours (Table) 06/12/21 06/13/21 06/13/21 Range/Units 15:06 08:44 08:44 MCV 101.3 H (80.0-100.0) fL RDW 16.0 H (11.5-15.5) % Lymphocytes # 0.4 L (1.0-4.8) k/uL APTT 55.6 H (22.0-30.0) sec Glucose 113 H (74-99) mg/dL Calcium 8.1 L (8.4-10.2) mg/dL 06/13/21 Range/Units 08:44 MCV (80.0-100.0) fL RDW (11.5-15.5) % Lymphocytes # (1.0-4.8) k/uL APTT 55.1 H (22.0-30.0) sec Glucose (74-99) mg/dL Calcium (8.4-10.2) mg/dL Assessment and Plan Assessment: Acute shortness of breath, multifactorial, in part related to atrial fibrillation with RVR, but also bilateral malignant pleural effusions. 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 History of hyperlipidemia. History of hypertension. History of osteoarthritis. History of skin cancer. History of cataracts. Plan: Plan dated 06/12/2021. We will ask interventional radiology to consider doing a thoracentesis on this patient, given the findings on the ultrasound. The patient has been seen by cardiology. Currently she is on IV heparin and Cardizem at 10 mg an hour. Additional recommendations and suggestions are forthcoming. Prognosis is certainly guarded. The patient is currently on Xeloda for her cancer. She does see a primary care physician, as well as a medical oncologist. We will continue to follow make recommendations where appropriate. Plan dated 06/13/2021. The patient did have a thoracentesis performed by interventional radiology today. The procedure note is not currently back on the chart as yet. The patient is on Cardizem at 5 mg an hour. Heparin was on hold for the procedure. She's receiving O2 at 5 L. She appears much less short of breath today than she did yesterday. We will continue to follow and make recommendations where appropriate. Labs, x-rays, and medications are all reviewed. Prognosis is certainly guarded. Time with Patient: Less than 30
[2021-06-13] MEDS ORDERED: HYDROcodone/APAP 5-325MG 1 EACH TAB PO PRN (14:26)
--- NOTE | 2021-06-13 14:31 | US ---
Ultrasound-guided therapeutic and diagnostic thoracentesis DATE OF EXAM: 06/13/2021 CLINICAL HISTORY: Right pleural effusion The procedure was discussed with the patient. The risks, complications, benefits, and alternatives we re discussed and any questions were answered. Informed consent was obtained. The patient was placed supine on the ultrasound table and prepped and draped in the usual sterile fas hion. All elements of maximal barrier and sterile technique were utilized. Under ultrasound guidance, access into the pleural space was obtained, via the thoracentesis catheter system and direct ultrasound guidance. Ap proximately 0.71 liters of straw-colored fluid was removed. The patient was stable throughout the procedure and remained stable upon discharge from Department of Radiology. IMPRESSION: 1. Successful therapeutic and diagnostic thoracentesis under ultrasound guidance.
--- NOTE | 2021-06-13 16:28 | P.PN ---
Subjective This is a pleasant 89 years old female with past medical history of Hyperlipidemia, Hypertension, Osteoarthritis, history of cancer on chemotherapy, Arthritis bilateral hands/lower back, overactive bladder, benign colon polyps, skin cancer removals, UTIs, bronchitis, veritgo at times. Pleual effusions. lung CA. Pleual catheter placement 11/02/19. Patient presents because of worsening dyspnea since last Wednesday, yesterday night she hardly could breathe so she decided to come to the emergency room. For 2 weeks she's been complaining of from cough and some clear white phlegm. But no significant chest pain. She is on 2 L of oxygen at home, she has good appetite, walking with no difficulty at baseline. Bowel movement daily with no issues. Denies any urinary symptoms. No dysuria or urgency. No suprapubic pain or tenderness. She denies abdominal pain or vomiting or diarrhea. No dysuria or urgency. No headache or weakness or numbness or dizziness. She denies smoking, alcohol or illicit drugs. She's been on oral chemotherapeutic agent for about a year. Patient was mildly tachycardic and tachypneic on admission but febrile. He was hypoxic at 85% on 2 L oxygen, later on her saturation improved, currently around 92-94% on 4 L oxygen via nasal cannula. Blood pressure is borderline Labs reviewed showing unremarkable CBC. INR 0.9. BMP and liver enzymes not significantly elevated. Troponin is -ve @ 0.019. ProBNP slightly elevated at 1910. EKG showing atrial fibrillation's with RVR at 151. QTC 362. Chest x-ray: Findings consistent with patient history of lung carcinoma, difficult to exclude pneumonia, bilateral pleural effusion Echocardiogram from 12/2019 on ejection fraction 50-55% In the emergency room patient was started on Cardizem drip, switched her Xarelto until heparin drip, if patient is going to need procedure. Also because patient is hypotensive. 1 dose of antibiotic is given 06/13/2021 Patient is status post right thoracocentesis today with 0.71 L of fluid taken out. Patient reports improvement in her breathing although she still mildly tachypneic, breathing rate down to 20 significantly improved from more than 50 yesterday. Tachycardia is improved after increasing her metoprolol to 50 mg twice a day and that drove her blood pressure on the lower side, currently 96/61 but patient is asymptomatic. Patient kept on metoprolol, heparin drip which can be switched to Xarelto tomorrow. Also her urine culture this coming back positive for gram-negative bacilli and patient is a started on ceftriaxone pending final culture results. Also she sees one-time dose of Zosyn 2 days ago on admission. Objective - Vital Signs Vital signs: Vital Signs Temp 97.6 F 06/13/21 07:40 Pulse 93 06/13/21 14:00 Resp 20 06/13/21 13:49 BP 96/61 06/13/21 13:49 Pulse Ox 93 L 06/13/21 13:49 Intake & Output 06/12/21 06/13/21 06/13/21 18:59 06:59 18:59 Intake Total 653.956 465.927 483.93 Output Total 1000 Balance 653.956 -534.073 483.93 Intake: IV 117.28 40 Diltiazem 125 mg In 40 40 Sodium Chloride 0.9% 100 ml @ 10 MG/HR 10 mls/hr IV .[id number] [facility] Rx#: [id number] Heparin Sod,Pork in 0.45% 77.28 NaCl 25,000 unit In 0.45 % NaCl 1 250ml.bag @ 12 UNITS/KG/HR 7.729 mls/hr IV .Q24H [facility] Rx#: [id number] Intake, IV Titration 77.676 425.927 63.93 Amount Diltiazem 125 mg In 104.25 Sodium Chloride 0.9% 100 ml @ 10 MG/HR 10 mls/hr IV .[id number] [facility] Rx#: [id number] Heparin Sod,Pork in 0.45% 77.676 161.677 63.93 NaCl 25,000 unit In 0.45 % NaCl 1 250ml.bag @ 12 UNITS/KG/HR 7.729 mls/hr IV .Q24H [facility] Rx#: [id number] Sodium Chloride 0.9% 1, 160 000 ml @ 20 mls/hr IV . Q24H [facility] Rx#:[id number] Oral [id number] Output: Urine 1000 Other: Voiding Method Bedside Commode Toilet Bedside Commode # Voids 3 1 1 # Bowel Movements 1 1 - Exam GENERAL: The patient is alert and oriented x3, not in any acute distress. Well developed, well nourished. HEENT: Pupils are round and equally reacting to light. EOMI. No scleral icterus. No conjunctival pallor. Normocephalic, atraumatic. No pharyngeal erythema. No thyromegaly. CARDIOVASCULAR: S1 and S2 present. No murmurs, rubs, or gallops. -PULMONARY: Chest is clear to auscultation, no wheezing . Tachypnea, Mild crepitation ABDOMEN: Soft, nontender, nondistended, normoactive bowel sounds. No palpable organomegaly. MUSCULOSKELETAL: No joint swelling or deformity. EXTREMITIES: No cyanosis, clubbing, or pedal edema. NEUROLOGICAL: Gross neurological examination did not reveal any focal deficits. SKIN: No rashes. no petechiae. - Labs CBC & Chem 7: 06/13/21 08:44 06/13/21 08:44 Labs: Abnormal Lab Results - Last 24 Hours (Table) 06/13/21 06/13/21 06/13/21 Range/Units 08:44 08:44 08:44 MCV 101.3 H (80.0-100.0) fL RDW 16.0 H (11.5-15.5) % Lymphocytes # 0.4 L (1.0-4.8) k/uL APTT 55.1 H (22.0-30.0) sec Glucose 113 H (74-99) mg/dL Calcium 8.1 L (8.4-10.2) mg/dL Microbiology - Last 24 Hours (Table) 06/11/21 22:11 Urine Culture - Preliminary Urine,Voided Gram Neg Bacilli Assessment and Plan Assessment: Lung cancer with bilateral pleural effusion, status post right thoracocentesis on 06/13 with 0.7 L taken out Possible acute urinary tract infection with gram-negative bacilli A. fib with RVR, present on admission Mostly asymptomatic bacteriuria, follow-up urine culture Hyperlipidemia History of hypertension History of vertigo Plan: This is a pleasant 89 years old female presents with lung cancer, bilateral pleural effusion, A. fib and RVR Continue with metoprolol. Cardizem drip is off Continue with heparin drip which can be switched to Xarelto home dose of 20 mg tomorrow Continue with oxygen as needed and bronchodilator Start ceftriaxone and follow-up urine culture final results Pulmonary and cardiology team were consulted Labs and medication were reviewed.. Continue same treatment. Continue with symptomatic treatment. Resume home medication. Monitor lytes and vitals. DVT and GI prophylaxis. Further recommendations as per clinical course of the patient DVT prophylaxis: heparin GI Prophylaxis: Pepcid PT/OT: Pending Prognosis is guarded
[2021-06-13] MEDS: METOPROLOL TARTRATE 50 MG TAB PO SCH (18:01)
[2021-06-13] MEDS ORDERED: METOPROLOL TARTRATE 50 MG TAB PO STA (18:07)
[2021-06-13] MEDS: ATORVASTATIN 40 MG TAB PO SCH (20:19)
[2021-06-13] MEDS: HEPARIN SODIUM 1,000 UN/ML (10ML VL) IV PRN (21:06)
[2021-06-14 00:38] LABS: Appearance,BF Clear
[2021-06-14 02:25] LABS: Glucose, BF Source Pleural Fluid; Glucose, Body Fluid 126 mg/dL; LDH, Body Fluid Source Pleural Fluid; T. Protein, Body Fluid Source Pleural Fluid; Total Protein, Body Fluid 2400 mg/dL
[2021-06-14 03:12] LABS: Basophils % (A) 0 %; Eosinophils # (A) 0.2 k/uL (0-0.7); Eosinophils % (A) 3 %; HCT 37.2 % (34.0-46.0); HGB 12.5 gm/dL (11.4-16.0); Lymphocytes # (A) 0.5 k/uL (1.0-4.8); Lymphocytes % (A) 7 %; MCH 33.6 pg (25.0-35.0); MCHC 33.6 g/dL (31.0-37.0); MCV 99.8 fL (80.0-100.0); Macrocytosis Slight; Mean Platelet Volume 7.8; Monocytes # (A) 0.5 k/uL (0-1.0); Monocytes % (A) 9 %; Neutrophils % (A) 80 %; Platelet Count 189 k/uL (150-450); RBC 3.72 m/uL (3.80-5.40); RDW 15.8 % (11.5-15.5); WBC 6.2 k/uL (3.8-10.6)
[2021-06-14 03:40] LABS: Calcium 7.7 mg/dL (8.4-10.2); Magnesium 2.2 mg/dL (1.6-2.3)
[2021-06-14] MEDS: HEPARIN SOD,PORK IN 0.45% NACL 25,000 UNIT in 0.45% NACL 1 250ML.BAG IV SCH (03:49)
[2021-06-14] MEDS: METOPROLOL TARTRATE 50 MG TAB PO SCH (08:38)
[2021-06-14] MEDS: IPRATROPIUM-ALBUTEROL 3 ML NEB INHALATION PRN (08:59)
[2021-06-14] MEDS: FUROSEMIDE 40 MG TAB PO SCH (12:11)
--- NOTE | 2021-06-14 12:24 | XR ---
EXAMINATION TYPE: XR chest 1V portable DATE OF EXAM: 06/14/2021 COMPARISON: Chest x-ray dated 06/13/2021 HISTORY: Pleural effusion TECHNIQUE: Single frontal view of the chest is obtained. FINDINGS: Findings are similar to prior exam. IMPRESSION: Findings not significantly changed, consistent with patient's underlying lung carcinoma
--- NOTE | 2021-06-14 13:29 | P.PN ---
Subjective Progress Note Date: 06/14/21 This is Marcial garcia NP, I'm dictating on behalf of Dr. White's H&P and A&P. Patient was interviewed and examined. Patient is a pleasant 89-year-old female who initially presented to the hospital with Martha martin with RVR, respiratory failure. Patient reports that she is not breathing as well today, feels that she's breathing more shallowly. She also states that she's got a productive cough. Patient did have a thoracentesis completed by interventional radiology yesterday at the recommendation of pul monology. Patient also just had a breathing treatment completed. She's otherwise denying chest pain, heart palpitations, dizziness, syncope. GENERAL: Well-appearing, well-nourished and in no acute distress. NECK: Supple without JVD or thyromegaly. LUNGS: Respiratory wheezing noted throughout all lung so. Respiration equal and unlabored. No rales or rhonchi. HEART: Regular rate and irregularly irregular rhythm without murmurs, rubs or gallops. S1 and S2 heard. EXTREMITIES: Normal range of motion, no edema. No clubbing or cyanosis. Peripheral pulses intact and strong. VITALS: Temp 98.5, pulse 113, respirations 24, blood pressure 90/52, O2 saturation 97% on 3 L by nasal cannula TELEMETRY: Atrial fibrillation with controlled ventricular rate LABS: White count 6.2, hemoglobin 12.5, platelets 189, APTT 67.2, sodium 134, potassium 4.0, B1 18, creatinine 0.89, magnesium 2.2 IMPRESSION/PLAN: 1. Shortness of breath-patient is status post thoracentesis. Recommend discontinuing IV heparin, and resuming Xarelto, if no other interventions are being planned. Please refer this to pulmonology. 2. Atrial fibrillation-after rounding we were paged with report that the patient had a significant drop in her blood pressure after both Lasix and her metoprolol. We'll decrease her metoprolol to 25 mg 3 times a day, and add digoxin 0.125 mg daily. Further recommendations to follow pending patient's clinical course. Objective - Vital Signs Vital signs: Vital Signs Temp 98.5 F 06/14/21 12:14 Pulse 113 H 06/14/21 12:14 Resp 24 06/14/21 12:14 BP 90/52 06/14/21 12:14 Pulse Ox 97 06/14/21 12:14 Intake & Output 06/13/21 06/14/21 06/14/21 18:59 06:59 18:59 Intake Total 483.93 143.736 128 Balance 483.93 143.736 128 Intake: IV 10 Invasive Line 1 10 Intake, IV Titration 63.93 143.736 Amount Heparin Sod,Pork in 0.45% 63.93 143.736 NaCl 25,000 unit In 0.45 % NaCl 1 250ml.bag @ 12 UNITS/KG/HR 7.729 mls/hr IV .Q24H [facility] Rx#: [id number] Oral [id number] Other: Voiding Method Toilet Toilet Bedside Commode Bedside Commode # Voids 1 1 1 # Bowel Movements 1 1 - Labs CBC & Chem 7: 06/14/21 02:23 06/14/21 02:23 Labs: Abnormal Lab Results - Last 24 Hours (Table) 06/13/21 06/14/21 06/14/21 Range/Units 20:20 02:23 02:23 RBC 3.72 L (3.80-5.40) m/uL RDW 15.8 H (11.5-15.5) % Lymphocytes # 0.5 L (1.0-4.8) k/uL APTT 37.1 H (22.0-30.0) sec Sodium 134 L (137-145) mmol/L BUN 18 H (7-17) mg/dL Glucose 113 H (74-99) mg/dL Calcium 7.7 L (8.4-10.2) mg/dL 06/14/21 06/14/21 Range/Units 02:23 09:19 RBC (3.80-5.40) m/uL RDW (11.5-15.5) % Lymphocytes # (1.0-4.8) k/uL APTT 67.2 H 60.2 H (22.0-30.0) sec Sodium (137-145) mmol/L BUN (7-17) mg/dL Glucose (74-99) mg/dL Calcium (8.4-10.2) mg/dL Microbiology - Last 24 Hours (Table) 06/11/21 22:11 Urine Culture - Final Urine,Voided Escherichia coli 06/13/21 13:05 Gram Stain - Preliminary Pleural Fluid Body Fluid Culture - Preliminary 06/13/21 13:05 Anaerobic Culture - Preliminary Pleural Fluid
[2021-06-14] MEDS: DIGOXIN 125 MCG TAB PO SCH (13:53)
[2021-06-14] MEDS ORDERED: CAPECITABINE 500 MG PO SCH (15:00)
--- NOTE | 2021-06-14 15:10 | P.PN ---
Subjective Progress Note Date: 06/14/21 Principal diagnosis: Shortness of breath. Pulmonary consult dated 06/12/2021. 89-year-old female, who presented to the emergency department on June 11, complaining of shortness of breath. The patient was evaluated in the emergency department, and admitted to the hospital. The patient was found to have atrial fibrillation with RVR. She also has chronic bilateral pleural effusions. Back in 2019, the patient had a thoracentesis, which revealed adenocarcinoma, and the primary at that point was not known. She tells me today that her medical oncologist thinks that her primary cancer site is from the breast. Anyway, the patient's major issue is shortness of breath. She has been seen by cardiology and the primary service. The ultrasound of the chest does show bilateral effusions, but it appears that it might be safer for interventional radiology to do the procedure given the findings on ultrasound. She is currently on IV heparin and Cardizem at 10 mg an hour. She's also on nasal O2. She is quite short of breath with activity. White count 6.1, hemoglobin 13.9, hematocrit 42.5, and platelet count 196,000. PTT is 34.6. Sodium 139, potassium 3.8, chlorides 110, CO2 23, within normal BUN and creatinine. Pro-calcitonin level is 0.10. Chest x-ray shows abnormal thickening of the pleura, with low lung volumes, and pleural effusions bilaterally. Chest ultrasound shows a right- sided pocket size of 10.3 cm, and a left pleural effusion pocket size of 7.7 cm. On the right, there is lung which appears within the pocket. On the left side, there are low-level echoes, and possible debris. Progress note dated 06/13/2021. The patient will be having a thoracentesis performed by interventional radiology today. Her heparin is on hold. She is on Cardizem at 5 mg an hour for atrial fibrillation. She's getting 5 L nasal cannula. She's also on saline at 20 mL an hour. Clinically, she looks much less short of breath today than she did yesterday. White count is 5.8, hemoglobin 13.6, hematocrit 41.6, and platelet count 219,000. Sodium 138, potassium 3.8, chlorides 106, CO2 27, within normal BUN and creatinine. Pro-calcitonin level is 0.10. The patient did have a thoracentesis today performed by interventional radiology. The actual procedure on the chart as yet. There was no pneumothorax after thoracentesis. Progress note dated 06/14/2021. This is an 89-year-old female that was seen in room 374. The patient is a no code patient. The patient had a thoracentesis performed by interventional radiology yesterday. The patient had a right-sided thoracentesis, and 710 mL was removed. Currently, the patient's back on IV heparin which can be alerted to a factor X a inhibitor, and she is receiving between 2-3 L by nasal cannula. The patient appears relatively comfortable. A family member confronts us in the hallway, and aspirin number of questions, all of which we answer. Laboratory data today includes a white count of 6.2, hemoglobin 12.5, hematocrit 37.2, and platelet count 189,000. PTT was 60.2. Sodium 134, potassium 4, chlorides 106, CO2 28, BUN 18, and creatinine 0.89. The pleural fluid LDH was low at 144. The protein was 2.4 g. Glucose 126. This is a transudate. Repeat chest x-ray today did not show anything different or acute compared to the prior x-ray done on June 13, which was the x-ray that was done after thoracentesis. Objective - Vital Signs Vital signs: Vital Signs Temp 98.5 F 06/14/21 12:14 Pulse 113 H 06/14/21 12:14 Resp 24 06/14/21 12:14 BP 90/52 06/14/21 12:14 Pulse Ox 97 06/14/21 12:14 Intake & Output 06/13/21 06/14/21 06/14/21 18:59 06:59 18:59 Intake Total 483.93 143.736 347.29 Balance 483.93 143.736 347.29 Intake: IV 10 Invasive Line 1 10 Intake, IV Titration 63.93 143.736 101.29 Amount Heparin Sod,Pork in 0.45% 63.93 143.736 101.29 NaCl 25,000 unit In 0.45 % NaCl 1 250ml.bag @ 12 UNITS/KG/HR 7.729 mls/hr IV .Q[facility]H [facility] Rx#: [id number] Oral [id number] Other: Voiding Method Toilet Toilet Bedside Commode Bedside Commode # Voids 1 1 1 # Bowel Movements 1 1 - Exam No acute distress, oriented 3. Very short of breath. 3 L saturation is 97 %. HEENT examination is grossly unremarkable. Neck supple. Full range of motion. No adenopathy thyromegaly or neck vein distention. Cardiovascular examination reveals an irregular rhythm rate. S1-S2 normal. No S3 or S4. No discernible murmur noted. Heart rate 84 bpm. Lungs reveal diminished bilateral breath sounds, right greater than left. Scattered rhonchi are noted. No crackles. Abdomen soft bowel sounds are heard. No masses or tenderness. Extremities are intact. No cyanosis clubbing or edema. Skin is without rash or lesion. Neurologic examination is brief but nonfocal. - Labs CBC & Chem 7: 06/14/21 02:06/14/21 02:23 Labs: Abnormal Lab Results - Last 24 Hours (Table) 06/13/21 06/14/21 06/14/21 Range/Units 20:20 02: 02:23 RBC 3.72 L (3.80-5.40) m/uL RDW 15.8 H (11.5-15.5) % Lymphocytes # 0.5 L (1.0-4.8) k/uL APTT 37.1 H (22.0-30.0) sec Sodium 134 L (137-145) mmol/L BUN 18 H (7-17) mg/dL Glucose 113 H (74-99) mg/dL Calcium 7.7 L (8.4-10.2) mg/dL 06/14/21 06/14/21 Range/Units 02:23 09:19 RBC (3.80-5.40) m/uL RDW (11.5-15.5) % Lymphocytes # (1.0-4.8) k/uL APTT 67.2 H 60.2 H (22.0-30.0) sec Sodium (137-145) mmol/L BUN (7-17) mg/dL Glucose (74-99) mg/dL Calcium (8.4-10.2) mg/dL Microbiology - Last 24 Hours (Table) 06/11/21 22:11 Urine Culture - Final Urine,Voided Escherichia coli 06/13/21 13:05 Gram Stain - Preliminary Pleural Fluid Body Fluid Culture - Preliminary 06/13/21 13:05 Anaerobic Culture - Preliminary Pleural Fluid Assessment and Plan Assessment: Acute shortness of breath, multifactorial, in part related to atrial fibrillati on with RVR, but also bilateral malignant pleural effusions. Status post right thoracentesis, 06/13/2021, with 710 mL removed. 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 History of hyperlipidemia. History of hypertension. History of osteoarthritis. History of skin cancer. History of cataracts. Plan: Plan dated 06/12/2021. We will ask interventional radiology to consider doing a thoracentesis on this patient, given the findings on the ultrasound. The patient has been seen by cardiology. Currently she is on IV heparin and Cardizem at 10 mg an hour. Additional recommendations and suggestions are forthcoming. Prognosis is certainly guarded. The patient is currently on Xeloda for her cancer. She does see a primary care physician, as well as a medical oncologist. We will continue to follow make recommendations where appropriate. Plan dated 06/13/2021. The patient did have a thoracentesis performed by interventional radiology today. The procedure note is not currently back on the chart as yet. The patient is on Cardizem at 5 mg an hour. Heparin was on hold for the procedure. She's receiving O2 at 5 L. She appears much less short of breath today than she did yesterday. We will continue to follow and make recommendations where appropriate. Labs, x-rays, and medications are all reviewed. Prognosis is certainly guarded. Plan dated 06/14/2021. The patient had a thoracentesis performed yesterday by interventional radiology. 710 mL of fluid was removed. It was a transudate. Cytology is currently pending. She's been weaned down to 3 L nasal cannula. Saturations are 97%. A family member has a number of questions for us. We answered them all. I believe her shortness of breath was primarily related to atrial fibrillation with RVR, and the chronic changes in her chest. Additional recommendations and suggestions are forthcoming. Prognosis is certainly guarded. We will continue to follow make recommendations where appropriate. Time with Patient: Less than 30
[2021-06-14] MEDS: METOPROLOL TARTRATE 25 MG TAB PO SCH ×2 (17:18→23:51)
[2021-06-14] MEDS: RIVAROXABAN 20 MG TAB PO SCH (17:18)
[2021-06-14] MEDS: ATORVASTATIN 40 MG TAB PO SCH (21:35)
[2021-06-14] MEDS: Capecitabine [Xeloda] 500 MG Tablet PO SCH (21:37)
[2021-06-14] MEDS ORDERED: SODIUM CHLORIDE 0.9% 500 ML 250 ML IV ONE (21:59)
[2021-06-15 08:11] LABS: Potassium 3.9 mmol/L (3.5-5.1)
[2021-06-15] MEDS: DIGOXIN 125 MCG TAB PO SCH (09:12)
[2021-06-15] MEDS: Capecitabine [Xeloda] 500 MG Tablet PO SCH ×2 (09:19→21:25)
[2021-06-15] MEDS: FUROSEMIDE 40 MG TAB PO SCH (10:25)
[2021-06-15] MEDS: METOPROLOL TARTRATE 25 MG TAB PO SCH ×3 (12:29→21:25)
--- NOTE | 2021-06-15 12:33 | P.PN ---
Subjective Progress Note Date: 06/15/21 The patient is an 89-year-old female who initially presented to the emergency room with new onset of A. fib with RVR and respiratory failure. The patient was also found to have a right-sided pleural effusion, where 700 mL of straw colored fluid was removed via thoracentesis on 06/13/2021. Despite improvement in breathing, the patient developed hypotension and tachycardia on 06/14/2021. Fluid bolus was given and she was started on digoxin. The patient was interviewed and examined sitting up in the recliner chair. She states she is feeling much better and is eager to go home. She denies any chest pain or chest pressure. She states she is breathing well. She states she cannot feel her atrial fibrillation in terms of palpitations. She became very upset and tearful when she was told that her heart rate remained elevated in the 120 range and that she could not be discharged today. Dr. White spoke to the patient's daughter and explained that with her pulmonary history amiodarone is not recommended and she has not responded to the digoxin. He recommends keeping the patient overnight and having the patient undergo echocardiogram in the morning. Should she have normal LV function, he would recommend starting multaq and discontinuing her digoxin. GENERAL: Well-appearing, well-nourished and in no acute distress. NECK: Supple without JVD or thyromegaly. LUNGS: Breath sounds clear on the left. Diminished sounds in the right lower lobe. Respiration equal and unlabored. No wheezes, rales or rhonchi. HEART: Irregular rate and rhythm. Tachycardic. Unable to appreciate murmurs, rubs or gallops. S1 and S2 heard. EXTREMITIES: Normal range of motion. Mild edema. No clubbing or cyanosis. Peripheral pulses intact and strong. VITALS: Blood pressure 91/52, pulse 128, temp 97.4F, respiratory rate 18, SpO2 93% on 2 L nasal cannula TELEMETRY: A. fib with RVR. Average heart rates in the 90s to 120s. LABS: Sodium 138, potassium 3.9, BUN 17, creatinine 0.93 IMPRESSION: Shortness of breath, secondary to pleural effusion and new onset of atrial fibrillation Pleural effusion, status post thoracentesis A. fib with RVR, not responding to digoxin, consider Multaq if LV function is normal PLAN: 2-D echocardiogram and Doppler study to be done Wednesday morning If LV function is normal, discontinue digoxin and start Multaq 400mg BID Further recommendations will be based upon clinical course I am dictating on behalf of Dr Rivera White's history/physical and assessment/plan. Objective - Vital Signs Vital signs: Vital Signs Temp 97.8 F 06/15/21 12:20 Pulse 122 H 06/15/21 12:20 Resp 18 06/15/21 12:20 BP 108/74 06/15/21 12:20 Pulse Ox 96 06/15/21 12:20 Intake & Output 06/14/21 06/15/21 06/15/21 18:59 06:59 18:59 Intake Total 366.614 370 Balance 366.614 370 Weight 63.5 kg Intake: IV 10 10 Invasive Line 1 10 10 Intake, IV Titration 120.614 Amount Heparin Sod,Pork in 0.45% 120.614 NaCl 25,000 unit In 0.45 % NaCl 1 250ml.bag @ 12 UNITS/KG/HR 7.729 mls/hr IV .Q24H [facility] Rx#: [id number] Oral [id number] Other: Voiding Method Toilet Toilet Bedside Commode Bedside Commode # Voids 4 1 2 # Bowel Movements 1 1 - Labs CBC & Chem 7: 06/14/21 02:23 06/15/21 07:46 Labs: Abnormal Lab Results - Last 24 Hours (Table) 06/15/21 Range/Units 07:46 Calcium 8.0 L (8.4-10.2) mg/dL Microbiology - Last 24 Hours (Table) 06/13/21 13:05 Gram Stain - Preliminary Pleural Fluid Body Fluid Culture - Preliminary 06/11/21 22:11 Urine Culture - Final Urine,Voided Escherichia coli
--- NOTE | 2021-06-15 15:20 | P.PN ---
Subjective Progress Note Date: 06/15/21 Principal diagnosis: Shortness of breath. Pulmonary consult dated 06/12/2021. 89-year-old female, who presented to the emergency department on June 11, complaining of shortness of breath. The patient was evaluated in the emergency department, and admitted to the hospital. The patient was found to have atrial fibrillation with RVR. She also has chronic bilateral pleural effusions. Back in 2019, the patient had a thoracentesis, which revealed adenocarcinoma, and the primary at that point was not known. She tells me today that her medical oncologist thinks that her primary cancer site is from the breast. Anyway, the patient's major issue is shortness of breath. She has been seen by cardiology and the primary service. The ultrasound of the chest does show bilateral effusions, but it appears that it might be safer for interventional radiology to do the procedure given the findings on ultrasound. She is currently on IV heparin and Cardizem at 10 mg an hour. She's also on nasal O2. She is quite short of breath with activity. White count 6.1, hemoglobin 13.9, hematocrit 42.5, and platelet count 196,000. PTT is 34.6. Sodium 139, potassium 3.8, chlorides 110, CO2 23, within normal BUN and creatinine. Pro-calcitonin level is 0.10. Chest x-ray shows abnormal thickening of the pleura, with low lung volumes, and pleural effusions bilaterally. Chest ultrasound shows a right- sided pocket size of 10.3 cm, and a left pleural effusion pocket size of 7.7 cm. On the right, there is lung which appears within the pocket. On the left side, there are low-level echoes, and possible debris. Progress note dated 06/13/2021. The patient will be having a thoracentesis performed by interventional radiology today. Her heparin is on hold. She is on Cardizem at 5 mg an hour for atrial fibrillation. She's getting 5 L nasal cannula. She's also on saline at 20 mL an hour. Clinically, she looks much less short of breath today than she did yesterday. White count is 5.8, hemoglobin 13.6, hematocrit 41.6, and platelet count 219,000. Sodium 138, potassium 3.8, chlorides 106, CO2 27, within normal BUN and creatinine. Pro-calcitonin level is 0.10. The patient did have a thoracentesis today performed by interventional radiology. The actual procedure on the chart as yet. There was no pneumothorax after thoracentesis. Progress note dated 06/14/2021. This is an 89-year-old female that was seen in room 374. The patient is a no code patient. The patient had a thoracentesis performed by interventional radiology yesterday. The patient had a right-sided thoracentesis, and 710 mL was removed. Currently, the patient's back on IV heparin which can be alerted to a factor X a inhibitor, and she is receiving between 2-3 L by nasal cannula. The patient appears relatively comfortable. A family member confronts us in the hallway, and aspirin number of questions, all of which we answer. Laboratory data today includes a white count of 6.2, hemoglobin 12.5, hematocrit 37.2, and platelet count 189,000. PTT was 60.2. Sodium 134, potassium 4, chlorides 106, CO2 28, BUN 18, and creatinine 0.89. The pleural fluid LDH was low at 144. The protein was 2.4 g. Glucose 126. This is a transudate. Repeat chest x-ray today did not show anything different or acute compared to the prior x-ray done on June 13, which was the x-ray that was done after thoracentesis. Progress note dated 06/15/2021. 89-year-old female seen again in room 374. She sitting there with her and her daughter. The patient is a DO NOT RESUSCITATE patient. The patient did have a thoracentesis performed by and eventual radiology 2 days ago. 710 ML's of fluid was removed. Based on the LDH and protein, the fluid was a transudate. Cytology is currently pending. The patient's on 3 L nasal cannula. She's not receiving any IV fluids. She was discovered to have a E. coli urinary tract infection, and was placed on ceftriaxone. Her daughter has a number of q uestions today and I answered them all. Laboratory data today includes a sodium 138, potassium 3.9, chlorides 107, CO2 28, BUN 17, and creatinine 0.93. The patient is not on any IV fluids at this time. Objective - Vital Signs Vital signs: Vital Signs Temp 97.8 F 06/15/21 12:20 Pulse 122 H 06/15/21 12:20 Resp 18 06/15/21 12:20 BP 108/74 06/15/21 12:20 Pulse Ox 96 06/15/21 12:20 Intake & Output 06/14/21 06/15/21 06/15/21 18:59 06:59 18:59 Intake Total 366.614 488 Balance 366.614 488 Weight 63.5 kg Intake: IV 10 10 Invasive Line 1 10 10 Intake, IV Titration 120.614 Amount Heparin Sod,Pork in 0.45% 120.614 NaCl 25,000 unit In 0.45 % NaCl 1 250ml.bag @ 12 UNITS/KG/HR 7.729 mls/hr IV .Q24H [facility] Rx#: [id number] Oral [id number] Other: Voiding Method Toilet Toilet Bedside Commode Bedside Commode # Voids 4 1 2 # Bowel Movements 1 1 - Exam No acute distress, oriented 3. Much less short of breath. Currently on 3 L with a saturation of 96%. HEENT examination is grossly unremarkable. Neck supple. Full range of motion. No adenopathy thyromegaly or neck vein distention. Cardiovascular examination reveals an irregular rhythm rate. S1-S2 normal. No S3 or S4. No discernible murmur noted. Heart rate 117 bpm. Lungs reveal diminished bilateral breath sounds, right greater than left. Scattered rhonchi are noted. No crackles. Abdomen soft bowel sounds are heard. No masses or tenderness. Extremities are intact. No cyanosis clubbing or edema. Skin is without rash or lesion. Neurologic examination is brief but nonfocal. - Labs CBC & Chem 7: 06/14/21 02:23 06/15/21 07:46 Labs: Abnormal Lab Results - Last 24 Hours (Table) 06/15/21 Range/Units 07:46 Calcium 8.0 L (8.4-10.2) mg/dL Microbiology - Last 24 Hours (Table) 06/13/21 13:05 Gram Stain - Preliminary Pleural Fluid Body Fluid Culture - Preliminary Assessment and Plan Assessment: Acute shortness of breath, multifactorial, in part related to atrial fibrillation with RVR, but also bilateral malignant pleural effusions. Status post right thoracentesis, 06/13/2021, with 710 mL removed. 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 History of hyperlipidemia. History of hypertension. History of osteoarthritis. History of skin cancer. History of cataracts. Plan: Plan dated 06/12/2021. We will ask interventional radiology to consider doing a thoracentesis on this patient, given the findings on the ultrasound. The patient has been seen by cardiology. Currently she is on IV heparin and Cardizem at 10 mg an hour. Additional recommendations and suggestions are forthcoming. Prognosis is certainly guarded. The patient is currently on Xeloda for her cancer. She does see a primary care physician, as well as a medical oncologist. We will continue to follow make recommendations where appropriate. Plan dated 06/13/2021. The patient did have a thoracentesis performed by interventional radiology today. The procedure note is not currently back on the chart as yet. The patient is on Cardizem at 5 mg an hour. Heparin was on hold for the procedure. She's receiving O2 at 5 L. She appears much less short of breath today than she did yesterday. We will continue to follow and make recommendations where appropriate. Labs, x-rays, and medications are all reviewed. Prognosis is certainly guarded. Plan dated 06/14/2021. The patient had a thoracentesis performed yesterday by interventional radiology. 710 mL of fluid was removed. It was a transudate. Cytology is currently pending. She's been weaned down to 3 L nasal cannula. Saturations are 97%. A family member has a number of questions for us. We answered them all. I believe her shortness of breath was primarily related to atrial fibrillation with RVR, and the chronic changes in her chest. Additional recommendations and suggestions are forthcoming. Prognosis is certainly guarded. We will continue to follow make recommendations where appropriate. Plan dated 06/15/2021. The patient appears to be doing a bit better. She appears less short of breath. She remains on 3 L. Cardiology is still working on her atrial fibrillation/RVR. The cytology on the pleural fluid is currently pending. The fluid was a transudate based on her LDH and protein. Additional recommendations and suggestions are forthcoming. All questions are answered. We will continue to follow the patient and make recommendations where appropriate. Labs, x-rays, and medications are all reviewed. Time with Patient: Less than 30
[2021-06-15] MEDS: RIVAROXABAN 20 MG TAB PO SCH (16:57)
[2021-06-15] MEDS: ATORVASTATIN 40 MG TAB PO SCH (20:45)
--- NOTE | 2021-06-15 23:04 | P.PN ---
Subjective Progress Note Date: 06/15/21 This is a pleasant 89 years old female with past medical history of Hyperlipidemia, Hypertension, Osteoarthritis, history of cancer on chemotherapy, Arthritis bilateral hands/lower back, overactive bladder, benign colon polyps, skin cancer removals, UTIs, bronchitis, veritgo at times. Pleual effusions. lung CA. Pleual catheter placement 11/02/19. Patient presents because of worsening dyspnea since last Wednesday, yesterday night she hardly could breathe so she decided to come to the emergency room. For 2 weeks she's been complaining of from cough and some clear white phlegm. But no significant chest pain. She is on 2 L of oxygen at home, she has good appetite, walking with no difficulty at baseline. Bowel movement daily with no issues. Denies any urinary symptoms. No dysuria or urgency. No suprapubic pain or tenderness. She denies abdominal pain or vomiting or diarrhea. No dysuria or urgency. No headache or weakness or numbness or dizziness. She denies smoking, alcohol or illicit drugs. She's been on oral chemotherapeutic agent for about a year. Patient was mildly tachycardic and tachypneic on admission but febrile. He was hypoxic at 85% on 2 L oxygen, later on her saturation improved, currently around 92-94% on 4 L oxygen via nasal cannula. Blood pressure is borderline Labs reviewed showing unremarkable CBC. INR 0.9. BMP and liver enzymes not significantly elevated. Troponin is -ve @ 0.019. ProBNP slightly elevated at 1910. EKG showing atrial fibrillation's with RVR at 151. QTC 362. Chest x-ray: Findings consistent with patient history of lung carcinoma, difficult to exclude pneumonia, bilateral pleural effusion Echocardiogram from 12/2019 on ejection fraction 50-55% In the emergency room patient was started on Cardizem drip, switched her Xarelto until heparin drip, if patient is going to need procedure. Also because patient is hypotensive. 1 dose of antibiotic is given 06/13/2021 Patient is status post right thoracocentesis today with 0.71 L of fluid taken out. Patient reports improvement in her breathing although she still mildly tachypneic, breathing rate down to 20 significantly improved from more than 50 yesterday. Tachycardia is improved after increasing her metoprolol to 50 mg twice a day and that drove her blood pressure on the lower side, currently 96/61 but patient is asymptomatic. Patient kept on metoprolol, heparin drip which can be switched to Xarelto tomorrow. Also her urine culture this coming back positive for gram-negative bacilli and patient is a started on ceftriaxone pending final culture results. Also she sees one-time dose of Zosyn 2 days ago on admission. 06/14/2021 Patient is status post thoracentesis yesterday with some terminal fluid removal. Currently on heparin due to atrial fibrillation. Denies any complaints of chest pain or worsening shortness of breath. Patient has been afebrile. Denies any complaints of dizziness lightheadedness. No palpitations. Patient was started on digoxin 0.125 mg daily. Was started back on Xarelto. IV heparin is discontinued. Laboratory data showed WBC 6.2 hemoglobin 12.5 and platelets 189 sodium 134 potassium 4.0 chloride 106 BUN 18 and creatinine 0.89 and calcium 7.7. Patient is being continued on antibiotics for home ceftriaxone for E. coli urinary tract infection. 06/15/2021 Patient was admitted to hospital with complaints of shortness of breath and A. fib with RVR. And status post thoracentesis with 17 mm fluid removal. Fluid is transudative. Cytology is pending. Otherwise patient is being current on antibiotics on ceftriaxone for E. coli urinary tract infection. Heart rate is controlled. Patient was started back on Xarelto. Patient denied any complaints of chest pain or worsening shortness of breath. No headache or dizziness lightheadedness. To be febrile. No nausea vomiting or diarrhea. Laboratory data showed sodium 138 potassium 3.9 chloride 107 BUN 17 and creatinine 0.93. Current medications reviewed. Objective - Vital Signs Vital signs: Vital Signs Temp 97.8 F 06/15/21 12:20 Pulse 122 H 06/15/21 12:20 Resp 18 06/15/21 12:20 BP 108/74 06/15/21 12:20 Pulse Ox 96 06/15/21 12:20 Intake & Output 06/14/21 06/15/21 06/15/21 18:59 06:59 18:59 Intake Total 366.614 488 Balance 366.614 488 Weight 63.5 kg Intake: IV 10 10 Invasive Line 1 10 10 Intake, IV Titration 120.614 Amount Heparin Sod,Pork in 0.45% 120.614 NaCl 25,000 unit In 0.45 % NaCl 1 250ml.bag @ 12 UNITS/KG/HR 7.729 mls/hr IV .Q24H [facility] Rx#: [id number] Oral 236 478 Other: Voiding Method Toilet Toilet Bedside Commode Bedside Commode # Voids 4 1 2 # Bowel Movements 1 1 - Exam - Exam GENERAL: The patient is alert and oriented x3, not in any acute distress. Well developed, well nourished. HEENT: Pupils are round and equally reacting to light. EOMI. No scleral icterus. No conjunctival pallor. Normocephalic, atraumatic. No pharyngeal erythema. No thyromegaly. CARDIOVASCULAR: S1 and S2 present. No murmurs, rubs, or gallops. -PULMONARY: Chest is clear to auscultation, no wheezing . Tachypnea, Mild crepitation ABDOMEN: Soft, nontender, nondistended, normoactive bowel sounds. No palpable organomegaly. MUSCULOSKELETAL: No joint swelling or deformity. EXTREMITIES: No cyanosis, clubbing, or pedal edema. NEUROLOGICAL: Gross neurological examination did not reveal any focal deficits. SKIN: No rashes. no petechiae. - Labs CBC & Chem 7: 06/14/21 02:23 06/15/21 07:46 Labs: Abnormal Lab Results - Last 24 Hours (Table) 06/15/21 Range/Units 07:46 Calcium 8.0 L (8.4-10.2) mg/dL Microbiology - Last 24 Hours (Table) 06/13/21 13:05 Gram Stain - Preliminary Pleural Fluid Body Fluid Culture - Preliminary Assessment and Plan Assessment: Lung cancer with bilateral pleural effusion, status post right thoracocentesis on 06/13 with 0.7 L taken out acute urinary tract infection with gram-negative bacilli A. fib with RVR, present on admission Hyperlipidemia History of hypertension History of vertigo Plan: This is a pleasant 89 years old female presents with lung cancer, bilateral pleural effusion, A. fib and RVR Continue with metoprolol. Cardizem drip is off Continue with heparin drip which has been switched to Xarelto home dose of 20 mg Continue with oxygen as needed and bronchodilator c/w ceftriaxone Pulmonary and cardiology team were consulted Labs and medication were reviewed..Monitor lytes and vitals. DVT and GI prophylaxis. Further recommendations as per clinical course of the patient DVT prophylaxis: heparin GI Prophylaxis: Pepcid PT/OT: Pending Prognosis is guarded Time with Patient: Greater than 30
[2021-06-16] MEDS ORDERED: DIGOXIN 125 MCG TAB ONE (08:25)
[2021-06-16] MEDS ORDERED: METOPROLOL TARTRATE 25 MG TAB ONE (08:25)
[2021-06-16 10:41] LABS: Calcium 8.6 mg/dL (8.4-10.2); Potassium 5.3 mmol/L (3.5-5.1)
--- NOTE | 2021-06-16 10:42 | CA ---
Transthoracic Echo Report Name: Elva Gallagher Age: 89 Gender: F : 1930 Exam Date: 06/16/2021 08:01 Exam Location: [place] [facility] Ht (in): 50 Wt (lb): 139 Ordering Physician: Sommer Odom Attending/Referring Phys: Tattooer Carina Stark RDCS Procedure CPT: Indications: atrial fibrillation Cardiac Hx: AFIB Technical Quality: Fair Contrast 1: Total Dose (mL): Contrast 2: Total Dose (mL): MEASUREMENTS (Male / Female) Normal Values 2D ECHO LV Diastolic Diameter PLAX 4.1 cm 4.2 - 5.9 / 3.9 - 5.3 cm LV Systolic Diameter PLAX 3.3 cm IVS Diastolic Thickness 1.4 cm 0.6 - 1.0 / 0.6 - 0.9 cm LVPW Diastolic Thickness 1.5 cm 0.6 - 1.0 / 0.6 - 0.9 cm LV Relative Wall Thickness 0.7 LA Volume 63.9 cm 18 - 58 / 22 - 52 cm M-MODE Aortic Root Diameter MM 2.9 cm LA Systolic Diameter MM 3.2 cm LA Ao Ratio MM 1.1 MV E Point Septal Separation 0.6 cm AV Cusp Separation MM 1.0 cm DOPPLER MV E' Velocity 9.6 cm/s TR Peak Velocity 163.8 cm/s TR Peak Gradient 10.7 mmHg Right Ventricular Systolic Press 15.7 mmHg FINDINGS Left Ventricle EF 55-60% Right Ventricle Normal right ventricular size and function. Right Atrium Normal right atrial size. Left Atrium Moderately increased left atrial volume. Mitral Valve MILD mitral regurgitation. Aortic Valve Aortic valve not well visualized. Trace aortic regurgitation. Tricuspid Valve Mild tricuspid regurgitation. Pulmonic Valve Pulmonic valve not well visualized. Pericardium mild pericardial effusion Aorta Aortic root CONCLUSIONS Preserved LV systolic Fx. Suboptimal Doppler and no Significant Abn. Possible small Pericardial effusion or more likely a fat pad. Previewed by: Dr. Glenn Lincoln MD (Electronically Signed) Final Date: 16 June 2021 10:36
[2021-06-16 11:10] LABS: Basophils % (A) 1 %; Eosinophils # (A) 0.1 k/uL (0-0.7); Eosinophils % (A) 2 %; HGB 14.2 gm/dL (11.4-16.0); Lymphocytes # (A) 0.5 k/uL (1.0-4.8); Lymphocytes % (A) 10 %; MCH 33.6 pg (25.0-35.0); MCHC 33.1 g/dL (31.0-37.0); MCV 101.5 fL (80.0-100.0); Macrocytosis Slight; Mean Platelet Volume 8.7; Monocytes # (A) 0.4 k/uL (0-1.0); Monocytes % (A) 9 %; Neutrophils # (A) 3.6 k/uL (1.3-7.7); Neutrophils % (A) 76 %; Platelet Count 219 k/uL (150-450); RBC 4.23 m/uL (3.80-5.40); RDW 15.8 % (11.5-15.5); WBC 4.8 k/uL (3.8-10.6)
[2021-06-16] MEDS: METOPROLOL TARTRATE 25 MG TAB PO SCH ×3 (11:37→23:39)
[2021-06-16] MEDS: Capecitabine [Xeloda] 500 MG Tablet PO SCH ×2 (11:37→20:52)
[2021-06-16] MEDS: DIGOXIN 125 MCG TAB PO SCH (11:37)
--- NOTE | 2021-06-16 11:45 | PN ---
PROGRESS NOTE FOLLOW-UP NOTE: This is an 89-year-old lady who was admitted to hospital with acute exacerbation of chronic congestive heart failure with pleural effusion, underwent paracentesis and also had atrial fibrillation. Her heart rate is still poorly controlled at 170 to 140 beats per minute, and we are to start her on Multaq. We are waiting on the echo results this morning. Patient denies any chest pain or difficulty in breathing. On exam, she is comfortable at rest. Blood pressure is normal. Heart rate is 120s to 140. There is no jugular venous distention. Chest exam reveals good air entry bilaterally. Heart exam reveals first and second heart sounds, irregular rhythm. Abdomen is soft. Examination of extremities reveals bilateral moderate pitting edema. Foot pulses are intact. I do not have access to labs. She is currently on metoprolol 25 t.i.d., digoxin 0.125 mg daily, and we are going to start her on Multaq. Patient could not tolerate higher dose of metoprolol because of hypotension. Yesterday she in fact received a fluid bolus of 500 mL. ASSESSMENT: 1. Persistent atrial fibrillation with poorly controlled ventricular rate. 2. Pleural effusion, status post thoracentesis. PLAN: Will start the patient on Multaq. Hopefully home over the next 24 to 48 hours. This evaluation of the patient and this dictation are being done at a time when the [employer] is not functioning, and we have incomplete information on the patients at best. MMADELINAL / IJN: [id number] /
--- NOTE | 2021-06-16 12:32 | P.PN ---
Subjective Progress Note Date: 06/16/21 I am resuming care of patient as of 06/16/2021 This is a 89-year-old female patient initially presented to the ER with concerns of worsening shortness of breath. The shortness of breath had been progressing over the past 2 weeks. Patient is maintained on home 2 L nasal cannula. Patient does have a past medical history of hyperlipidemia, hypertension, osteoporosis, history of cancer, over active bladder, vertigo, UTI pleural effusions and lung cancer with pleural catheter placement 11/02/2019. Upon arrival patient was found to have bilateral pleural effusion and A. fib with RVR. Patient did undergo thoracentesis in which they removed 0.7 L on 06/13/2021. Patient has been transitioned to oral anticoagulation with xarelto. On 06/16/2021 patient is currently sitting up in chair comfortably. Family at bedside. 2-D echo was completed per cardiology ordered this a.m. started on multaq per cardiology with continuing of monitoring for the next 24-48 hours. At this time patient reports significant improvement with her shortness of breath from admission. Patient denies chest pain. Patient denies nausea vomiting or diarrhea. Patient denies any urinary burning or frequency Objective - Vital Signs Vital signs: Vital Signs Temp 97.7 F 06/16/21 03:53 Pulse 97 06/16/21 03:53 Resp 18 06/16/21 03:53 BP 125/77 06/16/21 03:53 Pulse Ox 93 L 06/16/21 03:53 Intake & Output 06/15/21 06/16/21 06/16/21 18:59 06:59 18:59 Intake Total 1258 300 Balance 1258 300 Weight 67.7 kg Intake: IV 10 10 Invasive Line 1 10 Invasive Line 2 10 Intake, IV Titration 50 50 Amount cefTRIAXone 1 gm In 50 50 Sodium Chloride 0.9% 50 ml @ 100 mls/hr IVPB Q24HR [facility] Rx#:[id number] Oral [id number] [id number] Other: Voiding Method Toilet Toilet Bedside Commode Bedside Commode # Voids 2 1 1 # Bowel Movements 1 1 - Exam Head normocephalic Neck supple Lungs diminished bilaterally Heart irregular rhythm known atrial fibrillation Abdomen is soft nontender nondistended positive bowel sounds no hepatosplenomegaly Extremities no edema Neuro alert and orientated to 3 - Labs CBC & Chem 7: 06/16/21 08:40 06/16/21 08:40 Labs: Abnormal Lab Results - Last 24 Hours (Table) 06/16/21 06/16/21 Range/Units 08:40 08:40 MCV 101.5 H (80.0-100.0) fL RDW 15.8 H (11.5-15.5) % Lymphocytes # 0.5 L (1.0-4.8) k/uL Potassium 5.3 H (3.5-5.1) mmol/L BUN 18 H (7-17) mg/dL Glucose 100 H (74-99) mg/dL Microbiology - Last 24 Hours (Table) 06/13/21 13:05 Anaerobic Culture - Preliminary Pleural Fluid 06/13/21 13:05 Gram Stain - Preliminary Pleural Fluid Body Fluid Culture - Preliminary Assessment and Plan Assessment: 1. Lung cancer with bilateral pleural effusion status post thoracentesis on 06/13/2021. Pulmonary services are following 2. Acute urinary tract infection with gram-negative bacilli 3. Atrial fibrillation with rapid ventricular response. Patient has been started on anticoagulation xeralto 4. History of hyperlipidemia 5. History of essential hypertension 6. History of vertigo DVT prophylaxis xarelto. GI prophylaxis Cardiology and pulmonary service is following Patient currently maintained on IV Rocephin Cardiac medications adjusted per cardiology Continue to monitor for the next 24-48 hours
--- NOTE | 2021-06-16 14:43 | P.PN ---
Subjective Progress Note Date: 06/16/21 89-year-old female patient hospitalized for worsening shortness of breath. The patient was found to be in atrial fibrillation with RVR. The patient also known to have metastatic adenocarcinoma and this was diagnosed 1.5 year ago and a previous pleural fluid cytology was positive for malignancy/adenocarcinoma. Note that the most recent PET/CT done on 05/10/2021 showed diffuse also has metastases along with a stable hypermetabolic left medial masslike consolidation without any new abnormal metabolic uptake. There was persistent hepatomegaly and enlarged pulmonary arteries suggestive of underlying pulmonary hypertension. The patient during this current admission was found to have a recurrent left- sided pleural effusion. Based on that, interventional radiology was consulted and the patient had an ultrasound-guided thoracentesis for a total of 700 mL of fluid removed from the right lung and the fluid turn machine operator to be a changes a day. 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 The fluid cytology from the right still pending for now. Meanwhile, cardiology was treating this patient nature fibrillation. She was on a Cardizem drip for rate control. She has a DNR/DNI CODE STATUS.. The patient for now is on metoprolol 25 mg by mouth 3 times a day for rate control. She is also on Xarelto. The patient is on 3 L O2 nasal cannula. Her current heart rate is ranging between 90-110 minutes of regular with atrial fibrillation. Blood pressure is under adequate control for now. Echo of the heart showed a preserved LV function. Objective - Vital Signs Vital signs: Vital Signs Temp 98.1 F 06/16/21 12:15 Pulse 112 H 06/16/21 12:15 Resp 18 06/16/21 03:53 BP 91/51 06/16/21 12:15 Pulse Ox 93 L 06/16/21 12:15 Intake & Output 06/15/21 06/16/21 06/16/21 18:59 06:59 18:59 Intake Total 1258 300 Balance 1258 300 Weight 67.7 kg Intake: IV 10 10 Invasive Line 1 10 Invasive Line 2 10 Intake, IV Titration 50 50 Amount cefTRIAXone 1 gm In 50 50 Sodium Chloride 0.9% 50 ml @ 100 mls/hr IVPB Q24HR [facility] Rx#:[id number] Oral [id number] 240 Other: Voiding Method Toilet Toilet Bedside Commode Bedside Commode # Voids 2 1 1 # Bowel Movements 1 1 - Exam No acute distress, oriented 3. HEENT examination is grossly unremarkable. Neck supple. Full range of motion. No adenopathy thyromegaly or neck vein di stention. Cardiovascular examination reveals an irregular rhythm rate. S1-S2 normal. No S3 or S4. No discernible murmur noted. Lungs reveal diminished bilateral breath sounds, right greater than left. Scattered rhonchi are noted. No crackles. Abdomen soft bowel sounds are heard. No masses or tenderness. Extremities are intact. No cyanosis clubbing or edema. Skin is without rash or lesion. Neurologic examination is brief but nonfocal. - Labs CBC & Chem 7: 06/16/21 08:40 06/16/21 08:40 Labs: Abnormal Lab Results - Last 24 Hours (Table) 06/16/21 06/16/21 Range/Units 08:40 08:40 MCV 101.5 H (80.0-100.0) fL RDW 15.8 H (11.5-15.5) % Lymphocytes # 0.5 L (1.0-4.8) k/uL Potassium 5.3 H (3.5-5.1) mmol/L BUN 18 H (7-17) mg/dL Glucose 100 H (74-99) mg/dL Microbiology - Last 24 Hours (Table) 06/13/21 13:05 Anaerobic Culture - Preliminary Pleural Fluid 06/13/21 13:05 Gram Stain - Preliminary Pleural Fluid Body Fluid Culture - Preliminary Assessment and Plan Plan: Acute shortness of breath, multifactorial, in part related to atrial fibrillation with RVR, but also bilateral pleural effusions.. The patient's heart rate is under better control and the patient is currently on metoprolol 25 mg by mouth 3 times a day in addition to long-term anticoagulation. The patient was taken Xarelto on outpatient basis and the patient is currently on oral Xarelto. Echo showed a preserved LV function. Status post right thoracentesis, 06/13/2021, with 710 mL removed. 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 History of hypertension. History of osteoarthritis. History of skin cancer. History of cataracts. Plan Awaiting fluid cytology results on the right-sided pleural effusion Continue metoprolol for rate control Continue Xarelto for long-term and to coagulation There is a concern that the patient went into CHF and secondary right-sided pleural effusion due to her A. fib RVR. The right-sided pleural fluid is a transudate. Awaiting the final cytology. Noted the patient's most recent PET/CT done on 05/10/2021 showed diffuse osseous metastases in addition to a hypermetabolic left medial masslike consolidation without any no areas of abnormal metabolic uptake and the findings were rather stable. The patient did have persistent small to moderate-sized bilateral pleural effusions that increased in size from the most recent CAT scan. As such, it is possible that the patient's cancer is also progressing. We'll be awaiting the final cytology from the right-sided pleural effusion which seems to be a transudate at this point in time. Long-term prognosis poor baseline above-mentioned comorbidities.
[2021-06-16] MEDS: DRONEDARONE 400 MG TAB PO SCH ×2 (14:44→17:23)
[2021-06-16] MEDS: RIVAROXABAN 20 MG TAB PO SCH (17:26)
[2021-06-16] MEDS: ATORVASTATIN 40 MG TAB PO SCH ×2 (20:52→21:02)
[2021-06-17] MEDS: IPRATROPIUM-ALBUTEROL 3 ML NEB INHALATION PRN (04:08)
[2021-06-17] MEDS: DRONEDARONE 400 MG TAB PO SCH ×2 (08:00→17:18)
[2021-06-17] MEDS: FAMOTIDINE 20 MG TAB PO SCH (08:00)
[2021-06-17] MEDS: Capecitabine [Xeloda] 500 MG Tablet PO SCH ×2 (08:00→21:13)
[2021-06-17] MEDS: METOPROLOL TARTRATE 25 MG TAB PO SCH ×2 (08:00→10:02)
[2021-06-17 08:57] LABS: Basophils # (A) 0.1 k/uL (0-0.2); Basophils % (A) 1 %; Eosinophils % (A) 1 %; HCT 41.9 % (34.0-46.0); HGB 13.7 gm/dL (11.4-16.0); Lymphocytes # (A) 0.4 k/uL (1.0-4.8); Lymphocytes % (A) 8 %; MCH 33.1 pg (25.0-35.0); MCHC 32.7 g/dL (31.0-37.0); MCV 101.4 fL (80.0-100.0); Macrocytosis Slight; Mean Platelet Volume 7.9; Monocytes # (A) 0.4 k/uL (0-1.0); Monocytes % (A) 8 %; Neutrophils # (A) 4.2 k/uL (1.3-7.7); Neutrophils % (A) 80 %; Platelet Count 208 k/uL (150-450); RBC 4.13 m/uL (3.80-5.40); RDW 15.1 % (11.5-15.5); WBC 5.3 k/uL (3.8-10.6)
[2021-06-17 09:13] LABS: Calcium 8.3 mg/dL (8.4-10.2); Potassium 4.6 mmol/L (3.5-5.1); Total Bilirubin 0.8 mg/dL (0.2-1.3); Total Protein 5.5 g/dL (6.3-8.2)
[2021-06-17] MEDS: METOPROLOL TARTRATE 12.5 MG TAB PO SCH ×3 (10:02→21:13)
[2021-06-17] MEDS ORDERED: FUROSEMIDE 10 MG/ML 4 ML VIAL IV STA (11:52)
--- NOTE | 2021-06-17 11:53 | P.PN ---
Subjective Progress Note Date: 06/17/21 HISTORY OF PRESENT ILLNESS: This is a 89-year-old female with a past medical history significant for atrial fibrillation, hypertension, hyperlipidemia, and lung cancer. 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 We have been asked to see the patient in consultation for A. fib with RVR. Patient examined at the bedside. Patient presented to the hospital with a chief complaint of shortness of breath. She denies any chest pain or pressure. She denies any palpitations. The patient was found to be in A. fib with RVR. Patient was started on a Cardizem drip which is infusing at 5 mg an hour. The patient was also found to have bilateral pleural effusions. Patient was switched from her Xarelto to an IV heparin infusion pending pulmonary evaluation. * EKG reveals A. fib with RVR * Chest xray findings consistent with patient's history of lung carcinoma, difficult to exclude pneumonia, bilateral effusions * Laboratory data: WBC 6.1. Hemoglobin 13.9. Platelet count 196. Sodium 139. Potassium 3.8. BUN 17. Creatinine 0.8. * Current home cardiac medications include simvastatin 40 mg at night, Xarelto 20 mg daily, and metoprolol titrate Toprol 0.5 mg twice a day * Most recent echocardiogram obtained in December 2019 revealed ejection fraction 50-55%, mild MR, mild TR, mild pulmonary hypertension 06/13/2021 Patient examined this morning at the bedside. Patient denies chest pain or pressure. She reports shortness of breath. No ventral radiology has been consulted for thoracentesis. Telemetry reveals atrial fibrillation with a heart rate in the 80s. 06/17/2021 Patient examined this morning at the bedside. Patient denies chest pain or pr essure. She reports mild shortness of breath. She remains in atrial fibrillation heard in the 120s. She has been started on Multaq yesterday. She remains on oral metoprolol as well. Blood pressures on the softer side today. PHYSICAL EXAM: VITAL SIGNS: Reviewed. GENERAL: Well-developed in no acute distress. HEENT: Head is normocephalic. Pupils are equal, round. Sclerae anicteric. Mucous membranes of the mouth are moist. Neck supple. No JVD or thyromegaly LUNGS: Respirations even and unlabored. Lungs diminished bilaterally. HEART: Irregular rate and rhythm. S1 and S2 heard. ABDOMEN: Soft. Nondistended. Nontender. EXTREMITIES: Normal range of motion. No clubbing or cyanosis. Peripheral pulses intact. Trace lower extremity edema NEUROLOGIC: Awake and alert. Oriented x 3. ASSESSMENT: Shortness of breath History of Lung CA Bilateral pleural effusions, status post thoracentesis Paroxysmal atrial fibrillation with RVR Hypertension Hyperlipidemia PLAN: Continue Xarelto Continue Multaq Decrease metorpolol to 12.5mg TID Monitor blood pressure Continue telemetry monitoring Further recommendations pending patient course Nurse practitioner note has been reviewed by physician. Signing provider agrees with the documented findings, assessment, and plan of care. Objective - Vital Signs Vital signs: Vital Signs Temp 97.3 F L 06/17/21 08:08 Pulse 122 H 06/17/21 08:08 Resp 20 06/17/21 08:08 BP 96/64 06/17/21 08:08 Pulse Ox 95 06/17/21 08:08 Intake & Output 06/16/21 06/17/21 06/17/21 18:59 06:59 18:59 Intake Total 540 250 Balance 540 250 Intake: IV 10 10 Invasive Line 2 10 10 Intake, IV Titration 50 Amount cefTRIAXone 1 gm In 50 Sodium Chloride 0.9% 50 ml @ 100 mls/hr IVPB Q24HR [facility] Rx#:[id number] Oral 480 240 Other: Voiding Method Toilet Toilet Bedside Commode Bedside Commode # Voids 2 1 # Bowel Movements 1 - Labs CBC & Chem 7: 06/17/21 08:15 06/17/21 08:15 Labs: Abnormal Lab Results - Last 24 Hours (Table) 06/17/21 06/17/21 Range/Units 08:15 08:15 MCV 101.4 H (80.0-100.0) fL Lymphocytes # 0.4 L (1.0-4.8) k/uL BUN 18 H (7-17) mg/dL Glucose 136 H (74-99) mg/dL Calcium 8.3 L (8.4-10.2) mg/dL AST 109 H (14-36) U/L ALT 58 H (4-34) U/L Alkaline Phosphatase 140 H (38-126) U/L Total Protein 5.5 L (6.3-8.2) g/dL Albumin 3.0 L (3.5-5.0) g/dL Microbiology - Last 24 Hours (Table) 06/13/21 13:05 Gram Stain - Preliminary Pleural Fluid Body Fluid Culture - Preliminary
[2021-06-17] MEDS: methylPREDNISolone SOD SUCCI 125 MG/2 ML VIAL IV SCH ×3 (12:15→23:15)
--- NOTE | 2021-06-17 12:32 | XR ---
EXAMINATION TYPE: XR chest 1V portable DATE OF EXAM: 06/17/2021 CLINICAL HISTORY: Difficulty breathing progress study. TECHNIQUE: Single AP portable upright view of the chest is obtained. COMPARISON: Chest x-ray from 3 days earlier and older studies. PET/CT May 09, 2021 CT chest Decembe r 2020 FINDINGS: Stable mild cardiomegaly. Persistent left apical opacity could reflect non simple pleural fluid and/or pleural nodular thickening . Persistent diffuse left lung edema and/or infiltrates. Stab le small to tiny right pleural effusion. Increased markings right lung consistent with diffuse edema and/or atypical infiltrates. Sclerotic osseous metastatic disease redemonstrated in the spine. Advanc ed degenerative changes bilateral glenohumeral joints again seen. IMPRESSION: No significant change from most recent chest x-ray. Diffuse bilateral edema and/or infilt rates with small bilateral pleural effusions. Suspect apical left-sided pleural fluid component and/o r pleural-based nodularity. Correlate clinically and with prior thoracentesis results.
--- NOTE | 2021-06-17 14:39 | P.PN ---
Subjective Progress Note Date: 06/17/21 89-year-old female patient hospitalized for worsening shortness of breath. The patient was found to be in atrial fibrillation with RVR. The patient also known to have metastatic adenocarcinoma and this was diagnosed 1.5 year ago and a previous pleural fluid cytology was positive for malignancy/adenocarcinoma. Note that the most recent PET/CT done on 05/10/2021 showed diffuse also has metastases along with a stable hypermetabolic left medial masslike consolidation without any new abnormal metabolic uptake. There was persistent hepatomegaly and enlarged pulmonary arteries suggestive of underlying pulmonary hypertension. The patient during this current admission was found to have a recurrent left- sided pleural effusion. Based on that, interventional radiology was consulted and the patient had an ultrasound-guided thoracentesis for a total of 700 mL of fluid removed from the right lung and the fluid hose turner to be a changes a day. 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 The fluid cytology from the right still pending for now. Meanwhile, cardiology was treating this patient nature fibrillation. She was on a Cardizem drip for rate control. She has a DNR/DNI CODE STATUS.. The patient for now is on metoprolol 25 mg by mouth 3 times a day for rate control. She is also on Xarelto. The patient is on 3 L O2 nasal cannula. Her current heart rate is ranging between 90-110 minutes of regular with atrial fibrillation. Blood pressure is under adequate control for now. Echo of the heart showed a preserved LV function. The patient is seen today June 17 in follow-up on the selective care unit. Currently sitting up in a chair. Awake and alert in no acute distress. Still with some shortness of breath on exertion. Maintaining O2 saturations in the 90s on 3 L/m per nasal cannula. Chest x-ray shows no significant change. There is diffuse bilateral edema/infiltrates with small bilateral effusions. Suspect atypical left-sided pleural fluid component and/or pleural-based nodularity. Still has trace ankle edema. She does have home oxygen. Her ejection fraction was 55-60%. White count 5.8. Hemoglobin 13.7. Platelet count 2. Sodium 138. Potassium 4.6. BUN 18. Creatinine 0.86. Glucose 136. AST 109. ALT 58. Is continued on DuoNeb inhalations, IV Solu-Medrol, antibiotics in the form of ceftriaxone. Anticoagulated with Xarelto. She's been initiated on Multaq per cardiology. Objective - Vital Signs Vital signs: Vital Signs Temp 97.5 F L 06/17/21 12:15 Pulse 106 H 06/17/21 12:15 Resp 20 06/17/21 12:15 BP 106/68 06/17/21 12:15 Pulse Ox 96 06/17/21 12:15 Intake & Output 06/16/21 06/17/21 06/17/21 18:59 06:59 18:59 Intake Total 540 300 Balance 540 300 Intake: IV 10 10 Invasive Line 2 10 10 Intake, IV Titration 50 50 Amount cefTRIAXone 1 gm In 50 50 Sodium Chloride 0.9% 50 ml @ 100 mls/hr IVPB Q24HR [facility] Rx#:[id number] Oral 480 240 Other: Voiding Method Toilet Toilet Bedside Commode Bedside Commode # Voids 2 1 1 # Bowel Movements 1 1 - Exam GENERAL EXAM: Alert, 89-year-old female on 3 L nasal cannula, comfortable in no apparent distress. HEAD: Normocephalic. EYES: Normal reaction of pupils, equal size. NOSE: Clear with pink turbinates. THROAT: No erythema or exudates. NECK: No masses, no JVD. CHEST: No chest wall deformity. LUNGS: Equal air entry with few scattered rhonchi, end expiratory wheeze. CVS: S1 and S2 normal with no audible murmur, regular rhythm. ABDOMEN: No hepatosplenomegaly, normal bowel sounds, no guarding or rigidity. SPINE: No scoliosis or deformity SKIN: No rashes CENTRAL NERVOUS SYSTEM: No focal deficits, tone is normal in all 4 extremities. EXTREMITIES: There is no peripheral edema. No clubbing, no cyanosis. Peripheral pulses are intact. - Labs CBC & Chem 7: 06/17/21 08:15 06/17/21 08:15 Labs: Abnormal Lab Results - Last 24 Hours (Table) 06/17/21 06/17/21 Range/Units 08:15 08:15 MCV 101.4 H (80.0-100.0) fL Lymphocytes # 0.4 L (1.0-4.8) k/uL BUN 18 H (7-17) mg/dL Glucose 136 H (74-99) mg/dL Calcium 8.3 L (8.4-10.2) mg/dL AST 109 H (14-36) U/L ALT 58 H (4-34) U/L Alkaline Phosphatase 140 H (38-126) U/L Total Protein 5.5 L (6.3-8.2) g/dL Albumin 3.0 L (3.5-5.0) g/dL Microbiology - Last 24 Hours (Table) 06/13/21 13:05 Gram Stain - Preliminary Pleural Fluid Body Fluid Culture - Preliminary Assessment and Plan Assessment: Acute shortness of breath, multifactorial, in part related to atrial fibrillation with RVR, but also bilateral pleural effusions.. The patient's heart rate is under better control and the patient is currently on metoprolol 25 mg by mouth 3 times a day in addition to long-term anticoagulation. The patient was taken Xarelto on outpatient basis and the patient is currently on oral Xarelto. Echo showed a preserved LV function. Status post right thoracentesis, 06/13/2021, with 710 mL removed. 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 History of hypertension. History of osteoarthritis. History of skin cancer. History of cataracts. Plan: The patient was seen and evaluated Chest x-ray and labs reviewed Cytology fluid results still pending Continue the current treatment plan We will continue to follow I have personally seen and examined the patient, performed the documentation and the assessment and plan as written. Number of minutes spent on the visit: 10. I have personally seen and examined the patient and reviewed the documentation. I performed a joint evaluation with the nurse practitioner in this evaluation was done more than 20 minutes. I fully agree with the documentation above and the plan of care.. The patient is still having difficulties with breathing. On today's evaluation, she is reporting worsening in her shortness of breath. As mentioned, the right-sided pleural effusion with a transudate. Nevertheless, I'm still interested in the pleural fluid cytology. Meanwhile, repeat chest x- ray will also be ordered for today as the patient is complaining of worsening shortness of breath. She was given a dose of Lasix patient be given also some steroids as the patient was found to be slightly bronchospastic and wheezy on today's evaluation. Long-term prognosis poor as the patient has metastatic adenocarcinoma and she is still on Xeloda.
[2021-06-17 16:41] VITALS: BMI 29.1
[2021-06-17] MEDS: RIVAROXABAN 20 MG TAB PO SCH (17:18)
--- NOTE | 2021-06-17 19:07 | P.PN ---
Subjective Progress Note Date: 06/17/21 I am resuming care of patient as of 06/16/2021 This is a 89-year-old female patient initially presented to the ER with concerns of worsening shortness of breath. The shortness of breath had been progressing over the past 2 weeks. Patient is maintained on home 2 L nasal cannula. Patient does have a past medical history of hyperlipidemia, hypertension, osteoporosis, history of cancer, over active bladder, vertigo, UTI pleural effusions and lung cancer with pleural catheter placement 11/02/2019. Upon arrival patient was found to have bilateral pleural effusion and A. fib with RVR. Patient did undergo thoracentesis in which they removed 0.7 L on 06/13/2021. Patient has been transitioned to oral anticoagulation with xarelto. On 06/16/2021 patient is currently sitting up in chair comfortably. Family at bedside. 2-D echo was completed per cardiology ordered this a.m. started on multaq per cardiology with continuing of monitoring for the next 24-48 hours. At this time patient reports significant improvement with her shortness of breath from admission. Patient denies chest pain. Patient denies nausea vomiting or diarrhea. Patient denies any urinary burning or frequency On 06/17/2021 patient was seen and examined on the telemetry floor she is alert and oriented 3 in no apparent distress she is sitting up in a chair she reports improvement in her shortness of breath, she denies any chest pain, vital exam today reveals a temperature of 97.3 pulse 122 respiration 20 blood pressure 96/64 pulse ox 95% on 3 L nasal cannula, her white blood count is 5.3 hemoglobin 13.7 platelet count 208 sodium 138 potassium 4.6 chloride 107 CO2 26 BUN 18 creatinine 0.86 Objective - Vital Signs Vital signs: Vital Signs Temp 97.3 F L 06/17/21 08:08 Pulse 122 H 06/17/21 08:08 Resp 20 06/17/21 08:08 BP 96/64 06/17/21 08:08 Pulse Ox 95 06/17/21 08:08 Intake & Output 06/16/21 06/17/21 06/17/21 18:59 06:59 18:59 Intake Total 540 250 Balance 540 250 Intake: IV 10 10 Invasive Line 2 10 10 Intake, IV Titration 50 Amount cefTRIAXone 1 gm In 50 Sodium Chloride 0.9% 50 ml @ 100 mls/hr IVPB Q24HR [facility] Rx#:[id number] Oral 480 240 Other: Voiding Method Toilet Toilet Bedside Commode Bedside Commode # Voids 2 1 # Bowel Movements 1 - Exam Head normocephalic Neck supple Lungs diminished bilaterally Heart irregular rhythm known atrial fibrillation Abdomen is soft nontender nondistended positive bowel sounds no hepatosplenomegaly Extremities no edema Neuro alert and orientated to 3 - Labs CBC & Chem 7: 06/17/21 08:15 06/17/21 08:15 Labs: Abnormal Lab Results - Last 24 Hours (Table) 06/17/21 06/17/21 Range/Units 08:15 08:15 MCV 101.4 H (80.0-100.0) fL Lymphocytes # 0.4 L (1.0-4.8) k/uL BUN 18 H (7-17) mg/dL Glucose 136 H (74-99) mg/dL Calcium 8.3 L (8.4-10.2) mg/dL AST 109 H (14-36) U/L ALT 58 H (4-34) U/L Alkaline Phosphatase 140 H (38-126) U/L Total Protein 5.5 L (6.3-8.2) g/dL Albumin 3.0 L (3.5-5.0) g/dL Microbiology - Last 24 Hours (Table) 06/13/21 13:05 Gram Stain - Preliminary Pleural Fluid Body Fluid Culture - Preliminary Assessment and Plan Assessment: 1. Lung cancer with bilateral pleural effusion status post thoracentesis on 06/13/2021. Pulmonary services are following 2. Acute urinary tract infection with gram-negative bacilli 3. Atrial fibrillation with rapid ventricular response. Patient has been started on anticoagulation xeralto, she was also started on Multaq by cardiology 4. History of hyperlipidemia 5. History of essential hypertension 6. History of vertigo DVT prophylaxis xarelto. GI prophylaxis Cardiology and pulmonary service is following Patient currently maintained on IV Rocephin Cardiac medications adjusted per cardiology Continue to monitor for the next 24-48 hours
[2021-06-17 21:06] LABS: Glucose,Whole Blood 160 mg/dL (75-99)
[2021-06-17] MEDS: ATORVASTATIN 40 MG TAB PO SCH (21:13)
[2021-06-17] MEDS: INSULIN ASPART (NovoLOG) 100 UNIT/ML VIAL SQ SCH (21:15)
[2021-06-18 04:00] VITALS: RESP 18
[2021-06-18] MEDS: INSULIN ASPART (NovoLOG) 100 UNIT/ML VIAL SQ SCH ×2 (06:16→11:53)
[2021-06-18 06:21] LABS: Glucose,Whole Blood 169 mg/dL (75-99)
[2021-06-18] MEDS: methylPREDNISolone SOD SUCCI 125 MG/2 ML VIAL IV SCH ×2 (06:37→11:51)
[2021-06-18] MEDS: DRONEDARONE 400 MG TAB PO SCH (06:37)
[2021-06-18] MEDS: Capecitabine [Xeloda] 500 MG Tablet PO SCH (08:56)
[2021-06-18] MEDS: FAMOTIDINE 20 MG TAB PO SCH (08:57)
[2021-06-18] MEDS: METOPROLOL TARTRATE 12.5 MG TAB PO SCH (08:57)
[2021-06-18 08:58] VITALS: BP 99/53; PULSE 133; TEMP 97.8
[2021-06-18 09:24] LABS: Basophils % (A) 0 %; Eosinophils % (A) 0 %; HCT 41.7 % (34.0-46.0); HGB 13.8 gm/dL (11.4-16.0); Lymphocytes # (A) 0.4 k/uL (1.0-4.8); Lymphocytes % (A) 6 %; MCH 33.3 pg (25.0-35.0); MCHC 33.1 g/dL (31.0-37.0); MCV 100.8 fL (80.0-100.0); Macrocytosis Slight; Mean Platelet Volume 7.9; Monocytes # (A) 0.1 k/uL (0-1.0); Monocytes % (A) 2 %; Neutrophils # (A) 5.6 k/uL (1.3-7.7); Neutrophils % (A) 92 %; Platelet Count 242 k/uL (150-450); RBC 4.14 m/uL (3.80-5.40); WBC 6.1 k/uL (3.8-10.6)
[2021-06-18 09:48] LABS: Albumin 3.2 g/dL (3.5-5.0); Calcium 8.4 mg/dL (8.4-10.2); Potassium 4.1 mmol/L (3.5-5.1); Total Bilirubin 0.7 mg/dL (0.2-1.3); Total Protein 5.7 g/dL (6.3-8.2)
[2021-06-18 11:51] LABS: Glucose,Whole Blood 143 mg/dL (75-99)
--- NOTE | 2021-06-18 13:02 | P.DS ---
Providers Date of admission: 06/11/21 17:31 Expected date of discharge: 06/18/21 Attending physician: Gracie Fields Consults: 06/11/21 17:14 Consult Physician Routine Consulting Provider: Rasheed Finney Consult Reason/Comments: respiratory failure, pleural effusion Do you want consulting provider notified?: Already Contacted 06/11/21 17:32 Consult Physician Routine Consulting Provider: Glenn Lincoln Consult Reason/Comments: afib rvr Do you want consulting provider notified?: Yes Primary care physician: [facility] Course: Discharge diagnosis 1. Lung cancer with bilateral pleural effusion status post thoracentesis on 06/13/2021. Pulmonary services are following 2. Acute urinary tract infection with gram-negative bacilli. Patient will be DC'd on Ceftin 3. Atrial fibrillation with rapid ventricular response. Patient has been started on anticoagulation xeralto, she was also started on Multaq by cardiology 4. History of hyperlipidemia 5. History of essential hypertension 6. History of vertigo Hospital course This is a 89-year-old female patient initially presented to the ER with concerns of worsening shortness of breath. The shortness of breath had been progressing over the past 2 weeks. Patient is maintained on home 2 L nasal cannula. Patient does have a past medical history of hyperlipidemia, hypertension, osteoporosis, history of cancer, over active bladder, vertigo, UTI pleural effusions and lung cancer with pleural catheter placement 11/02/2019. Upon arrival patient was found to have bilateral pleural effusion and A. fib with RVR. Patient did undergo thoracentesis in which they removed 0.7 L on 06/13/2021. Patient has been transitioned to oral anticoagulation with xarelto. On 06/16/2021 patient is currently sitting up in chair comfortably. Family at bedside. 2-D echo was completed per cardiology ordered this a.m. started on multaq per cardiology with continuing of monitoring for the next 24-48 hours. At this time patient reports significant improvement with her shortness of breath from admission. Patient denies chest pain. Patient denies nausea vomiting or diarrhea. Patient denies any urinary burning or frequency On 06/17/2021 patient was seen and examined on the telemetry floor she is alert and oriented 3 in no apparent distress she is sitting up in a chair she reports improvement in her shortness of breath, she denies any chest pain, vital exam today reveals a temperature of 97.3 pulse 122 respiration 20 blood pressure 96/64 pulse ox 95% on 3 L nasal cannula, her white blood count is 5.3 hemoglobin 13.7 platelet count 208 sodium 138 potassium 4.6 chloride 107 CO2 26 BUN 18 creatinine 0.86. On 06/18/2021 patient is alert and oriented 3. Per nursing staff patient has been cleared by cardiology services for discharge. Patient will be DC'd on medication will take an increased dose of Lopressor. Also discussed with pulmonary team patient can resume home prednisone dose no need for IV taper. Patient will follow up with pulmonary services outpatient. Patient also to follow-up with hematology services in regards to cancer treatment. Patient is very eager to be DC'd home. At this time patient denies chest pain or shortness of breath. Patient denies nausea vomiting or diarrhea. Patient denies any urinary burning or frequency Patient Condition at Discharge: Stable Plan - Discharge Summary Discharge Rx Participant: No New Discharge Prescriptions: New Cefuroxime Axetil [Ceftin] 500 mg PO BID 5 Days #10 tab Continue Rivaroxaban [Xarelto] 20 mg PO W/SUPPER Albuterol Inhaler [Ventolin Hfa Inhaler] 2 puff INHALATION RT-Q4H PRN PRN Reason: Shortness Of Breath predniSONE 10 mg PO DAILY Capecitabine [Xeloda] 1,000 mg PO DIRECTED Discontinued Metoprolol Tartrate [Lopressor] 12.5 mg PO BID No Action Simvastatin [Zocor] 40 mg PO HS Multivitamins, Thera [Multivitamin (formulary)] 1 tab PO DAILY Pantoprazole [Protonix] 40 mg PO AC-BRKFST #30 tablet. Discharge Medication List Multivitamins, Thera [Multivitamin (formulary)] 1 tab PO DAILY 08/16/14 [History] Simvastatin [Zocor] 40 mg PO HS 08/16/14 [History] Pantoprazole [Protonix] 40 mg PO AC-BRKFST #30 tablet. 12/27/19 [Rx] Albuterol Inhaler [Ventolin Hfa Inhaler] 2 puff INHALATION RT-Q4H PRN 06/11/21 [History] Capecitabine [Xeloda] 1,000 mg PO DIRECTED 06/11/21 [History] Rivaroxaban [Xarelto] 20 mg PO W/SUPPER 06/11/21 [History] predniSONE 10 mg PO DAILY 06/11/21 [History] Cefuroxime Axetil [Ceftin] 500 mg PO BID 5 Days #10 tab 06/18/21 [Rx] Follow up Appointment(s)/Referral(s): [facility] [NON-STAFF] - [facility],[place] [NON-STAFF] - Gracie Fields MD [Primary Care Provider] - 06/27/21 9:45 am Kelton Sandoval MD [STAFF PHYSICIAN] - 06/30/21 1:00 pm Patient Instructions/Handouts: A-fib (Atrial Fibrillation) (DC), Pleural Effusion (DC) Discharge/Stand Alone Forms: Who Do I Call? Discharge Disposition: HOME SELF-CARE
--- NOTE | 2021-06-18 13:35 | P.PN ---
Subjective Progress Note Date: 06/18/21 Principal diagnosis: Shortness of breath 89-year-old female patient hospitalized for worsening shortness of breath. The patient was found to be in atrial fibrillation with RVR. The patient also known to have metastatic adenocarcinoma and this was diagnosed 1.5 year ago and a previous pleural fluid cytology was positive for malignancy/adenocarcinoma. Note that the most recent PET/CT done on 05/10/2021 showed diffuse also has metastases along with a stable hypermetabolic left medial masslike consolidation without any new abnormal metabolic uptake. There was persistent hepatomegaly and enlarged pulmonary arteries suggestive of underlying pulmonary hypertension. The patient during this current admission was found to have a recurrent left- sided pleural effusion. Based on that, interventional radiology was consulted and the patient had an ultrasound-guided thoracentesis for a total of 700 mL of fluid removed from the right lung and the fluid turnstile attendant to be a changes a day. 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 The fluid cytology from the right still pending for now. Meanwhile, cardiology was treating this patient nature fibrillation. She was on a Cardizem drip for rate control. She has a DNR/DNI CODE STATUS.. The patient for now is on metoprolol 25 mg by mouth 3 times a day for rate control. She is also on Xarelto. The patient is on 3 L O2 nasal cannula. Her current heart rate is ranging between 90-110 minutes of regular with atrial fibrillation. Blood pressure is under adequate control for now. Echo of the heart showed a preserved LV function. The patient is seen today June 17 in follow-up on the selective care unit. Currently sitting up in a chair. Awake and alert in no acute distress. Still with some shortness of breath on exertion. Maintaining O2 saturations in the 90s on 3 L/m per nasal cannula. Chest x-ray shows no significant change. There is diffuse bilateral edema/infiltrates with small bilateral effusions. Suspect atypical left-sided pleural fluid component and/or pleural-based nodularity. Still has trace ankle edema. She does have home oxygen. Her ejection fraction was 55-60%. White count 5.8. Hemoglobin 13.7. Platelet count 2. Sodium 138. Potassium 4.6. BUN 18. Creatinine 0.86. Glucose 136. AST 109. ALT 58. Is continued on DuoNeb inhalations, IV Solu-Medrol, antibiotics in the form of ceftriaxone. Anticoagulated with Xarelto. She's been initiated on Multaq per cardiology. On 06/18/2021 patient seen in follow-up on selective care unit, she is ambulating in the room, on 4 L of oxygen with pulse ox is 94%, she is afebrile, heart rate is better controlled, and patient remains in atrial fibrillation, and the heart rate is 108-116 BPM, patient was started on Multaq, and metoprolol at 12.5 mg 3 times daily, cardiology is following. Vital signs have been stable, she is breathing much more comfortably, pleural fluid cytology is still pending, pleural fluid cultures have shown no growth. Patient remains on Rocephin for urinary tract infection related to E. coli. Today's labs have been reviewed, blood cell, 6.1, hemoglobin is 13.8, elects lites and renal profile are unremarkable, liver enzymes are improving. Objective - Vital Signs Vital signs: Vital Signs Temp 97.8 F 06/18/21 08:00 Pulse 133 H 06/18/21 08:00 Resp 18 06/18/21 08:00 BP 99/53 06/18/21 08:00 Pulse Ox 94 L 06/18/21 08:00 Intake & Output 06/17/21 06/18/21 06/18/21 18:59 06:59 18:59 Intake Total 668 240 Balance 668 240 Weight 67.7 kg Intake: IV 20 Invasive Line 2 10 Invasive Line 3 10 Intake, IV Titration 50 Amount cefTRIAXone 1 gm In 50 Sodium Chloride 0.9% 50 ml @ 100 mls/hr IVPB Q24HR [facility] Rx#:[id number] Oral 598 240 Other: Voiding Method Toilet Toilet Bedside Commode Bedside Commode # Voids 1 1 # Bowel Movements 1 - Exam GENERAL EXAM: Alert, very pleasant, 89-year-old white female, ambulate into the bathroom on 4 L of oxygen, tolerating activity well, comfortable in no apparent distress. HEAD: Normocephalic/atraumatic. EYES: Normal reaction of pupils, equal size. Conjunctiva pink, sclera white. NOSE: Clear with pink turbinates. THROAT: No erythema or exudates. NECK: No masses, no JVD, no thyroid enlargement, no adenopathy. CHEST: No chest wall deformity. Symmetrical expansion. LUNGS: Equal air entry with bibasilar crackles CVS: Regular rate and rhythm, normal S1 and S2, no gallops, no murmurs, no rubs ABDOMEN: Soft, nontender. No hepatosplenomegaly, normal bowel sounds, no guarding or rigidity. EXTREMITIES: No clubbing, no edema, no cyanosis, 2+ pulses and upper and lower extremities. MUSCULOSKELETAL: Muscle strength and tone normal. SPINE: No scoliosis or deformity SKIN: No rashes CENTRAL NERVOUS SYSTEM: Alert and oriented -3. No focal deficits, tone is normal in all 4 extremities. PSYCHIATRIC: Alert and oriented -3. Appropriate affect. Intact judgment and insight. - Labs CBC & Chem 7: 06/18/21 09:02 06/18/21 09:02 Labs: Abnormal Lab Results - Last 24 Hours (Table) 06/17/21 06/18/21 06/18/21 Range/Units 20:58 06:15 09:02 MCV 100.8 H (80.0-100.0) fL Lymphocytes # 0.4 L (1.0-4.8) k/uL Sodium (137-145) mmol/L BUN (7-17) mg/dL Glucose (74-99) mg/dL POC Glucose (mg/dL) 160 H 169 H (75-99) mg/dL AST (14-36) U/L ALT (4-34) U/L Alkaline Phosphatase (38-126) U/L Total Protein (6.3-8.2) g/dL Albumin (3.5-5.0) g/dL 06/18/21 06/18/21 Range/Units 09:02 11:49 MCV (80.0-100.0) fL Lymphocytes # (1.0-4.8) k/uL Sodium 136 L (137-145) mmol/L BUN 24 H (7-17) mg/dL Glucose 231 H (74-99) mg/dL POC Glucose (mg/dL) 143 H (75-99) mg/dL AST 74 H (14-36) U/L ALT 45 H (4-34) U/L Alkaline Phosphatase 134 H (38-126) U/L Total Protein 5.7 L (6.3-8.2) g/dL Albumin 3.2 L (3.5-5.0) g/dL Microbiology - Last 24 Hours (Table) 06/13/21 13:05 Anaerobic Culture - Final Pleural Fluid 06/13/21 13:05 Gram Stain - Final Pleural Fluid Body Fluid Culture - Final Assessment and Plan Plan: Assessment: Acute shortness of breath, multifactorial, in part related to atrial fibrillation with RVR, but also bilateral pleural effusions.. The patient's heart rate is under better control and the patient is currently on metoprolol 25 mg by mouth 3 times a day in addition to long-term anticoagulation. The patient was taken Xarelto on outpatient basis and the patient is currently on oral Xare lto. Echo showed a preserved LV function. Status post right thoracentesis, 06/13/2021, with 710 mL removed. 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 History of hypertension. History of osteoarthritis. History of skin cancer. History of cataracts. Plan: Patient is breathing much easier She's tolerating ambulation, She is cleared for discharge from pulmonary perspective Outpatient follow-up with Dr. Sandoval in the office in 7-10 days We'll complete follow-up chest x-ray, and follow-up on the results of the pleural fluid cytology in the office Patient can go back on her maintenance dose of oral prednisone 10 mg daily I have personally seen and examined the patient, performed the documentation and the assessment and plan as written. Number of minutes spent on the visit: [10] I have personally seen and examined the patient and reviewed the documentation. I performed a joint evaluation with the nurse practitioner in this evaluation was done more than 10 minutes. I fully agree with the documentation above and the plan of care. The patient is currently much better. The patient can be discharged home on a prednisone burst taper. Awaiting the pleural fluid cytology. Continue O2 therapy and follow-up in the office. Clinically much improved. Time with Patient: Less than 30
--- NOTE | 2021-06-18 13:47 | P.PN ---
Subjective Progress Note Date: 06/18/21 HISTORY OF PRESENT ILLNESS: This is a 89-year-old female with a past medical history significant for atrial fibrillation, hypertension, hyperlipidemia, and lung cancer. 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 We have been asked to see the patient in consultation for A. fib with RVR. Patient examined at the bedside. Patient presented to the hospital with a chief complaint of shortness of breath. She denies any chest pain or pressure. She denies any palpitations. The patient was found to be in A. fib with RVR. Patient was started on a Cardizem drip which is infusing at 5 mg an hour. The patient was also found to have bilateral pleural effusions. Patient was switched from her Xarelto to an IV heparin infusion pending pulmonary evaluation. * EKG reveals A. fib with RVR * Chest xray findings consistent with patient's history of lung carcinoma, difficult to exclude pneumonia, bilateral effusions * Laboratory data: WBC 6.1. Hemoglobin 13.9. Platelet count 196. Sodium 139. Potassium 3.8. BUN 17. Creatinine 0.8. * Current home cardiac medications include simvastatin 40 mg at night, Xarelto 20 mg daily, and metoprolol titrate Toprol 0.5 mg twice a day * Most recent echocardiogram obtained in December 2019 revealed ejection fraction 50-55%, mild MR, mild TR, mild pulmonary hypertension 06/13/2021 Patient examined this morning at the bedside. Patient denies chest pain or pressure. She reports shortness of breath. No ventral radiology has been consulted for thoracentesis. Telemetry reveals atrial fibrillation with a heart rate in the 80s. 06/17/2021 Patient examined this morning at the bedside. Patient denies chest pain or pr essure. She reports mild shortness of breath. She remains in atrial fibrillation heard in the 120s. She has been started on Multaq yesterday. She remains on oral metoprolol as well. Blood pressures on the softer side today. 06/18/2021 patient examined this morning at the bedside. Patient denies chest pain or pressure. She denies shortness of breath. Telemetry reveals atrial fibrillation with a heart rate between [id number]. Blood pressures remain on the lower side. PHYSICAL EXAM: VITAL SIGNS: Reviewed. GENERAL: Well-developed in no acute distress. HEENT: Head is normocephalic. Pupils are equal, round. Sclerae anicteric. Mucous membranes of the mouth are moist. Neck supple. No JVD or thyromegaly LUNGS: Respirations even and unlabored. Lungs diminished bilaterally. HEART: Irregular rate and rhythm. S1 and S2 heard. ABDOMEN: Soft. Nondistended. Nontender. EXTREMITIES: Normal range of motion. No clubbing or cyanosis. Peripheral pulses intact. Trace lower extremity edema NEUROLOGIC: Awake and alert. Oriented x 3. ASSESSMENT: Shortness of breath History of Lung CA Bilateral pleural effusions, status post thoracentesis Paroxysmal atrial fibrillation with RVR Hypertension Hyperlipidemia PLAN: Continue current cardiac medications. Patient may be discharged home today from a cardiac standpoint. Nurse practitioner note has been reviewed by physician. Signing provider agrees with the documented findings, assessment, and plan of care. Objective - Vital Signs Vital signs: Vital Signs Temp 97.8 F 06/18/21 08:00 Pulse 133 H 06/18/21 08:00 Resp 18 06/18/21 08:00 BP 99/53 06/18/21 08:00 Pulse Ox 94 L 06/18/21 08:00 Intake & Output 06/17/21 06/18/21 06/18/21 18:59 06:59 18:59 Intake Total 668 240 Balance 668 240 Weight 67.7 kg Intake: IV 20 Invasive Line 2 10 Invasive Line 3 10 Intake, IV Titration 50 Amount cefTRIAXone 1 gm In 50 Sodium Chloride 0.9% 50 ml @ 100 mls/hr IVPB Q24HR [facility] Rx#:[id number] Oral 598 240 Other: Voiding Method Toilet Toilet Bedside Commode Bedside Commode # Voids 1 1 # Bowel Movements 1 - Labs CBC & Chem 7: 06/18/21 09:02 06/18/21 09:02 Labs: Abnormal Lab Results - Last 24 Hours (Table) 06/17/21 06/18/21 06/18/21 Range/Units 20:58 06:15 09:02 MCV 100.8 H (80.0-100.0) fL Lymphocytes # 0.4 L (1.0-4.8) k/uL Sodium (137-145) mmol/L BUN (7-17) mg/dL Glucose (74-99) mg/dL POC Glucose (mg/dL) 160 H 169 H (75-99) mg/dL AST (14-36) U/L ALT (4-34) U/L Alkaline Phosphatase (38-126) U/L Total Protein (6.3-8.2) g/dL Albumin (3.5-5.0) g/dL 06/18/21 06/18/21 Range/Units 09:02 11:49 MCV (80.0-100.0) fL Lymphocytes # (1.0-4.8) k/uL Sodium 136 L (137-145) mmol/L BUN 24 H (7-17) mg/dL Glucose 231 H (74-99) mg/dL POC Glucose (mg/dL) 143 H (75-99) mg/dL AST 74 H (14-36) U/L ALT 45 H (4-34) U/L Alkaline Phosphatase 134 H (38-126) U/L Total Protein 5.7 L (6.3-8.2) g/dL Albumin 3.2 L (3.5-5.0) g/dL Microbiology - Last 24 Hours (Table) 06/13/21 13:05 Anaerobic Culture - Final Pleural Fluid 06/13/21 13:05 Gram Stain - Final Pleural Fluid Body Fluid Culture - Final
== END 2021-06-18 14:05 | disposition home or self-care (01) | DRG 180 ==
LOC: EC 15:41 → 3SCARD 17:31
PROVIDERS: ADMIT Internal Medicine; ATTEND Internal Medicine
PROC: 0W993ZX Drainage of Right Pleural Cavity, Percutaneous Approach, Diagnostic (ICD-10-PCS; principal; 2021-06-13)
DX: C34.90 Malignant neoplasm of unspecified part of unspecified bronchus or lung (principal); J96.01 Acute respiratory failure with hypoxia; I48.19 Other persistent atrial fibrillation; J91.0 Malignant pleural effusion; N39.0 Urinary tract infection, site not specified; B96.20 Unspecified Escherichia coli [E. coli] as the cause of diseases classified elsewhere; E78.5 Hyperlipidemia, unspecified; I11.0 Hypertensive heart disease with heart failure; R42 Dizziness and giddiness; I50.9 Heart failure, unspecified; M19.041 Primary osteoarthritis, right hand; I08.1 Rheumatic disorders of both mitral and tricuspid valves; M19.042 Primary osteoarthritis, left hand; M81.0 Age-related osteoporosis without current pathological fracture; N32.81 Overactive bladder; Z20.822 Contact with and (suspected) exposure to COVID-19; Z28.310 Unvaccinated for COVID-19; Z66 Do not resuscitate; Z79.01 Long term (current) use of anticoagulants; Z85.828 Personal history of other malignant neoplasm of skin; Z86.010 Personal history of colon polyps; Z90.710 Acquired absence of both cervix and uterus; Z98.42 Cataract extraction status, left eye; Z98.41 Cataract extraction status, right eye; Z96.1 Presence of intraocular lens; Z96.652 Presence of left artificial knee joint; Z96.619 Presence of unspecified artificial shoulder joint; Z90.49 Acquired absence of other specified parts of digestive tract; Z98.890 Other specified postprocedural states; Z87.09 Personal history of other diseases of the respiratory system
CPT/HCPCS: 32555; 36415; 71045; 76604; 80048; 80053; 81001; 82945; 83605; 83615; 83735; 83880; 84145; 84157; 84484; 85025; 85610; 85730; 87070; 87075; 87077; 87086; 87186; 87205; 87636; 88108; 88305; 88341; 88342; 89050; 93005; 93306; 94640; 96365; 96366; 99291

== ENCOUNTER → 2021-08-14 | Outpatient (CLI) | payer MEDICARE ==
--- NOTE | 2021-08-14 11:17 | MM ---
Reason for Exam: Clinical finding. Last mammogram was performed 10 year(s) and 2 month(s) ago. Indicated Problems: Cancer elsewhere. Patient History: Menarche at age 14. First Full-Term at age 28. Left ovary removed at age 38. Right ovary removed at age 38. Hysterectomy at age 38. Postmenopausal. Patient has history of breast feeding. Physical Findings: Physical Exam Performed Before Images Prior Study Comparison: 04/07/2010 Bilateral Screening Mammogram, [facility]. 06/04/2011 Bilateral Screening Mammogram, [facility]. 06/09/2011 Left Diagnostic Mammogram, [facility]. Tissue Density: The breast tissue is heterogeneously dense. This may lower the sensitivity of mammography. Findings: Analyzed By CAD. Mammogram There is asymmetric breast tissue with increased density on the left compared to the right. The left breast may be slightly larger than the right. Additional compression views and exaggerated lateral view of the left breast were obtained. No persistent suspicious density is internal to the breast. There is skin thickening greater along the medial aspect and through the periareolar region. Clinical correlation for inflammatory breast cancer is recommended.. Technique: Method: Whole Breast Handheld. Findings: The whole breast of the left breast, the axilla of the left breast and the retroareolar of the left breast were scanned. Within the subareolar breast there is a lobular 0.7 x 1.0 x 0.8 cm hypoechoic area. This appears to have some through transmission with internal echoes. Complex cyst is likely within the differential. Lymph node may be present within the left axillary tail. Vascularity is identified adjacent. The lymph node hilum somewhat indistinct. Overall Assessment: Suspicious, BI-RAD 4 Assessment: MG 3D diag mammo w/cad ELIE - Bilateral: Suspicious, BI-RAD 4 - Left. US breast LT - Left: Probably benign, BI-RAD 3. Management: Surgical Consultation of the left breast. Clinical Correlation A clinical breast exam by your physician is recommended on an annual basis and results should be correlated with mammographic findings. Results were given to the patient verbally at the time of exam. Electronically signed and approved by: Baljit Mendez D.O. Radiologis
== END | disposition home or self-care (01) ==
LOC: RADMAMWWP 09:21
PROVIDERS: ATTEND Internal Medicine Hematology & Oncology
DX: Z85.3 Personal history of malignant neoplasm of breast (principal)
CPT/HCPCS: 77066; 76641; G0279; 77062

== ENCOUNTER 2022-01-18 03:35 | Observation (INO) | payer MEDICARE ==
[2022-01-18] MEDS ORDERED: MORPHINE SULFATE 4 MG/ML SYRINGE IV STA (03:45)
--- NOTE | 2022-01-18 03:47 | ED ---
Back Pain HPI - General Chief Complaint: Back Pain/Injury Stated Complaint: Abd Pain Time Seen by Provider: 01/18/22 03:44 Source: patient, RN notes reviewed, old records reviewed Limitations: no limitations - History of Present Illness Initial Comments: This is a 11-year-old female DF for evaluation. Patient woke up with severe pain left-sided abdominal pain left-sided flank pain left-sided chest pain to her back. No prior history of similar pain. Patient states his pain is worse and she's had an the past. Did wake her up from sleep. She does not feel well. Patient concern regarding pain, was concern for heart disease or other strong history of. Patient has no shortness of breath no sweating. MD Complaint: back pain, other (left flankl pain, chest pain) -: days(s) Similar Symptoms Previously: Yes Place: home Radiation: none Severity: moderate Severity scale (1-10): 4 Quality: stabbing Consistency: constant Improves With: none Worsens With: none Context: unknown Associated Symptoms: weakness, chest pain, shortness of breath Treatments Prior to Arrival: other (0) - Related Data Home Medications Medication Instructions Recorded Confirmed Multivitamins, Thera [Multivitamin 1 tab PO DAILY 08/16/14 01/18/22 (formulary)] Simvastatin [Zocor] 40 mg PO DAILY 08/16/14 01/18/22 Albuterol Inhaler [Ventolin Hfa 2 puff INHALATION RT-Q4H PRN 06/11/21 01/18/22 Inhaler] Capecitabine [Xeloda] 1,000 mg PO DIRECTED 06/11/21 01/18/22 Rivaroxaban [Xarelto] 20 mg PO DAILY 06/11/21 01/18/22 predniSONE 10 mg PO DAILY 06/11/21 01/18/22 Furosemide [Lasix] 40 mg PO DAILY 01/18/22 01/18/22 Metoprolol Tartrate [Lopressor] 25 mg PO BID 01/18/22 01/18/22 Previous Rx's Medication Instructions Recorded Pantoprazole [Protonix] 40 mg PO LORAKFSDemario #30 tablet. 12/27/19 HYDROcodone/APAP 7.5-325MG [[place] 1 tab PO Q4H PRN 3 Days #18 tab 01/19/22 7.5-325] Allergies Allergy/AdvReac Type Severity Reaction Status Date / Time No Known Allergies Allergy Verified 01/18/22 11:22 Review of Systems ROS Statement: Those systems with pertinent positive or pertinent negative responses have been documented in the HPI. ROS Other: All systems not noted in ROS Statement are negative. Past Medical History Past Medical History: Cancer, GERD/Reflux, Hyperlipidemia, Hypertension Additional Past Medical History / Comment(s): Arthritis bilateral hands/lower back, overactive bladder, benign colon polyps, skin cancer removals, UTIs, bronchitis, veritgo at times. Pleual effusions. History of Any Multi-Drug Resistant Organisms: None Reported Past Surgical History: Bladder Surgery, Bowel Resection, Hernia Repair, Hystere ctomy, Joint Replacement, Orthopedic Surgery Additional Past Surgical History / Comment(s): 08/21/14 Acromioplasty excision distal clavicle, rotator cuff repair R shoulder, total L knee arthroplasty, colonoscopies/polypectomies and had perforated bowel with colonoscopy-bowel resection, bladder suspension, vemtral incisional hernia repair, skin cancer removed from face, bilateral cataract removals/lens implants. Pleual catheter placement 11/02/19. Past Anesthesia/Blood Transfusion Reactions: Previous Problems w/ Anesthesia Additional Past Anesthesia/Blood Transfusion Reaction / Comment(s): STATES "TOOK A LONG TIME WAKING UP AFTER SURGERY" Past Psychological History: No Psychological Hx Reported Smoking Status: Never smoker Past Alcohol Use History: Occasional Past Drug Use History: None Reported - Past Family History Father Family Medical History: Cancer, Dementia Additional Family Medical History / Comment(s): PROSTATE Mother Family Medical History: Chest Pain / Angina General Exam Limitations: no limitations General appearance: alert, in no apparent distress Head exam: Present: atraumatic, normocephalic, normal inspection Eye exam: Present: normal appearance, PERRL, EOMI. Absent: scleral icterus, conjunctival injection, periorbital swelling ENT exam: Present: normal exam, mucous membranes moist Neck exam: Present: normal inspection. Absent: tenderness, meningismus, lymphadenopathy Respiratory exam: Present: normal lung sounds bilaterally. Absent: respiratory distress, wheezes, rales, rhonchi, stridor Cardiovascular Exam: Present: regular rate, normal rhythm, normal heart sounds. Absent: systolic murmur, diastolic murmur, rubs, gallop, clicks GI/Abdominal exam: Present: soft, normal bowel sounds. Absent: distended, tenderness, guarding, rebound, rigid Extremities exam: Present: normal inspection, full ROM, normal capillary refill. Absent: tenderness, pedal edema, joint swelling, calf tenderness Back exam: Present: normal inspection Neurological exam: Present: alert, oriented X3, CN II-XII intact Psychiatric exam: Present: normal affect, normal mood Skin exam: Present: warm, dry, intact, normal color. Absent: rash Course Vital Signs 01/18/22 01/18/22 01/18/22 03:37 05:06 06:42 Temperature 97.8 F Pulse Rate 75 64 64 Respiratory 18 18 18 Rate Blood Pressure 155/81 148/78 126/73 O2 Sat by Pulse 94 L 100 94 L Oximetry - Reevaluation(s) Reevaluation #1: 01/18/22 Medical record is reviewed Patient symptoms are unchanged here in the ER Patient informed results and questions answered Medical Decision Making - Medical Decision Making 89 female DF for evaluation of chest pain left-sided flank pain back pain. Patient does have effusion left-sided. With this pain is worse than normal she says the past. Patient be admitted for chest pain observation - Lab Data Result diagrams: 01/19/22 07:45 01/19/22 07:45 Lab Results 01/18/22 01/18/22 01/18/22 Range/Units 04:06 04:06 04:06 WBC 6.1 (3.8-10.6) k/uL RBC 3.65 L (3.80-5.40) m/uL Hgb 13.2 (11.4-16.0) gm/dL Hct 37.2 (34.0-46.0) % MCV 101.9 H (80.0-100.0) fL MCH 36.2 H (25.0-35.0) pg MCHC 35.5 (31.0-37.0) g/dL RDW 15.7 H (11.5-15.5) % Plt Count 198 (150-450) k/uL MPV 8.2 Neutrophils % 78 % Lymphocytes % 10 % Monocytes % 9 % Eosinophils % 2 % Basophils % 1 % Neutrophils # 4.7 (1.3-7.7) k/uL Lymphocytes # 0.6 L (1.0-4.8) k/uL Monocytes # 0.6 (0-1.0) k/uL Eosinophils # 0.1 (0-0.7) k/uL Basophils # 0.0 (0-0.2) k/uL Macrocytosis Slight PT 12.1 H (9.0-12.0) sec INR 1.1 (<1.2) APTT 25.4 (22.0-30.0) sec Sodium 137 (137-145) mmol/L Potassium 4.0 (3.5-5.1) mmol/L Chloride 104 (98-107) mmol/L Carbon Dioxide 27 (22-30) mmol/L Anion Gap 6 mmol/L BUN 32 H (7-17) mg/dL Creatinine 1.13 H (0.52-1.04) mg/dL Est GFR (CKD-EPI)AfAm 50 (>60 ml/min/1.73 sqM) Est GFR (CKD-EPI)NonAf 43 (>60 ml/min/1.73 sqM) Glucose 106 H (74-99) mg/dL Calcium 8.5 (8.4-10.2) mg/dL Phosphorus 3.9 (2.5-4.5) mg/dL Magnesium 2.2 (1.6-2.3) mg/dL Total Bilirubin 0.8 (0.2-1.3) mg/dL AST 101 H (14-36) U/L ALT 24 (4-34) U/L Alkaline Phosphatase 80 (38-126) U/L Troponin I (0.000-0.034) ng/mL NT-Pro-B Natriuret Pep pg/mL Total Protein 5.9 L (6.3-8.2) g/dL Albumin 3.9 (3.5-5.0) g/dL 01/18/22 01/18/22 Range/Units 04:06 04:06 WBC (3.8-10.6) k/uL RBC (3.80-5.40) m/uL Hgb (11.4-16.0) gm/dL Hct (34.0-46.0) % MCV (80.0-100.0) fL MCH (25.0-35.0) pg MCHC (31.0-37.0) g/dL RDW (11.5-15.5) % Plt Count (150-450) k/uL MPV Neutrophils % % Lymphocytes % % Monocytes % % Eosinophils % % Basophils % % Neutrophils # (1.3-7.7) k/uL Lymphocytes # (1.0-4.8) k/uL Monocytes # (0-1.0) k/uL Eosinophils # (0-0.7) k/uL Basophils # (0-0.2) k/uL Macrocytosis PT (9.0-12.0) sec INR (<1.2) APTT (22.0-30.0) sec Sodium (137-145) mmol/L Potassium (3.5-5.1) mmol/L Chloride (98-107) mmol/L Carbon Dioxide (22-30) mmol/L Anion Gap mmol/L BUN (7-17) mg/dL Creatinine (0.52-1.04) mg/dL Est GFR (CKD-EPI)AfAm (>60 ml/min/1.73 sqM) Est GFR (CKD-EPI)NonAf (>60 ml/min/1.73 sqM) Glucose (74-99) mg/dL Calcium (8.4-10.2) mg/dL Phosphorus (2.5-4.5) mg/dL Magnesium (1.6-2.3) mg/dL Total Bilirubin (0.2-1.3) mg/dL AST (14-36) U/L ALT (4-34) U/L Alkaline Phosphatase (38-126) U/L Troponin I 0.018 (0.000-0.034) ng/mL NT-Pro-B Natriuret Pep 241 pg/mL Total Protein (6.3-8.2) g/dL Albumin (3.5-5.0) g/dL - EKG Data -: EKG Interpreted by Me (EKG is sinus 60 SD 176 QRS 973 QTC 428) - Radiology Data Radiology results: report reviewed (Chest x-rays positive for pleural effusion), image reviewed Disposition Clinical Impression: Pleural effusion, left, Chest pain, Pulmonary embolism, Adenocarcinoma of unknown primary, Mechanical back pain, Left flank pain Disposition: ADMITTED IP TO THIS [facility] Condition: Good Is patient prescribed a controlled substance at d/c from ED?: No Time of Disposition: 05:20
[2022-01-18 04:17] LABS: Basophils % (A) 1 %; Eosinophils # (A) 0.1 k/uL (0-0.7); Eosinophils % (A) 2 %; HCT 37.2 % (34.0-46.0); HGB 13.2 gm/dL (11.4-16.0); Lymphocytes # (A) 0.6 k/uL (1.0-4.8); Lymphocytes % (A) 10 %; MCH 36.2 pg (25.0-35.0); MCHC 35.5 g/dL (31.0-37.0); MCV 101.9 fL (80.0-100.0); Macrocytosis Slight; Mean Platelet Volume 8.2; Monocytes # (A) 0.6 k/uL (0-1.0); Monocytes % (A) 9 %; Neutrophils # (A) 4.7 k/uL (1.3-7.7); Neutrophils % (A) 78 %; Platelet Count 198 k/uL (150-450); RBC 3.65 m/uL (3.80-5.40); RDW 15.7 % (11.5-15.5); WBC 6.1 k/uL (3.8-10.6)
[2022-01-18 04:27] LABS: Albumin 3.9 g/dL (3.5-5.0); Calcium 8.5 mg/dL (8.4-10.2); Magnesium 2.2 mg/dL (1.6-2.3); Phosphorus 3.9 mg/dL (2.5-4.5); Total Bilirubin 0.8 mg/dL (0.2-1.3); Total Protein 5.9 g/dL (6.3-8.2)
[2022-01-18 04:31] LABS: INR 1.1 (<1.2); Partial Thromboplastin Time 25.4 sec (22.0-30.0); Prothrombin Time 12.1 sec (9.0-12.0)
--- NOTE | 2022-01-18 04:40 | XR ---
EXAMINATION TYPE: XR chest 1V portable DATE OF EXAM: 01/18/2022 COMPARISON: 12/31/2021 HISTORY: Chest pain TECHNIQUE: FINDINGS: Heart is enlarged. There is some pulmonary interstitial edema. There is blunting of the cos tophrenic angles. There is some patchy atelectasis in the lung bases bilaterally. There are chest skylar ds. There is moderate arthritic change in the shoulder joints. IMPRESSION: There is pulmonary interstitial edema and pleural effusions that could be some mild chron ic congestive heart failure and not significantly different than last exam. Patchy atelectasis at the lung bases.
[2022-01-18] MEDS ORDERED: HYDROmorphone 1 MG/ML 1 ML SYRINGE IVP STA (05:07)
[2022-01-18] MEDS ORDERED: PROCHLORPERAZINE INJ 10 MG/2 ML VIAL IVP STA (05:07)
[2022-01-18] MEDS ORDERED: ONDANSETRON 4 MG/2 ML VIAL IVP PRN (05:19)
[2022-01-18] MEDS ORDERED: NALOXONE 0.4 MG/ML 1 ML VIAL IV PRN (05:19)
[2022-01-18] MEDS: SODIUM CHLORIDE 0.9% 1,000 ML IV SCH ×2 (07:00→18:02)
--- NOTE | 2022-01-18 09:09 | P.CRDCN ---
History of Present Illness History of present illness: HISTORY OF PRESENT ILLNESS: This is a 89-year-old female with a past medical history significant for atrial fibrillation, hypertension, hyperlipidemia, and lung cancer. Patient has been h aving sharp chest pain which was getting worse over the last 6 hrs. Woke up at 2am and was much worse so came to ER. She recieved morphine with mild improvement. Dilaudid significantly helped it. Denies any further chest pain. Had an episode similar 3-4 months. No association with SOB, exertion, diaphoresis. Was worse lying in bed. CP Better with walking. REVIEW OF SYSTEMS: At the time of my exam: CONSTITUTIONAL: Denies fever or chills. HEENT: Denies blurred vision, vision changes, or eye pain. Denies hemoptysis CARDIOVASCULAR: +chest pain. Denies orthopnea. Denies PND. Denies palpitations RESPIRATORY: + chronic shortness of breath at baseline. GASTROINTESTINAL: Denies abdominal pain. Denies nausea or vomiting. HEMATOLOGIC: Denies bleeding disorders. GENITOURINARY: Denies any blood in urine. SKIN: Denies pruitis. Denies rash. PHYSICAL EXAM: VITAL SIGNS: Reviewed. GENERAL: Well-developed in no acute distress. HEENT: Head is normocephalic. Pupils are equal, round. Sclerae anicteric. Mucous membranes of the mouth are moist. Neck supple. No JVD or thyromegaly LUNGS: Respirations even and unlabored. Lungs diminished bilaterally. HEART: Irregular rate and rhythm. S1 and S2 heard. ABDOMEN: Soft. Nondistended. Nontender. EXTREMITIES: Normal range of motion. No clubbing or cyanosis. Peripheral pulses intact. Trace lower extremity edema NEUROLOGIC: Awake and alert. Oriented x 3. ASSESSMENT: Atypical chest pain improved with morphine and Dilaudid better with walking and worse with lying flat. Do not suspect cardiac in nature Chronic respiratory failure appears at baseline History of Lung CA Paroxysmal atrial fibrillation currently sinus Hypertension Hyperlipidemia PLAN: Patient's chest pain is atypical. Predominant improved with morphine and Dilaudid. Given age and multiple comorbidities recommend more conservative management and patient agreeable. Check repeat troponin for completeness sake. Recent echo 05/2021 showed preserved EF 55-60% without significant valvular disease with questionable mild pericardial effusion. No need to repeat echo. If repeat troponin normal and patient not having any further chest pain this afternoon, patient may be discharged home with followup with Dr Horowitz in 1 week. Past Medical History Past Medical History: Cancer, GERD/Reflux, Hyperlipidemia, Hypertension Additional Past Medical History / Comment(s): Arthritis bilateral hands/lower b ack, overactive bladder, benign colon polyps, skin cancer removals, UTIs, bronchitis, veritgo at times. Pleual effusions. History of Any Multi-Drug Resistant Organisms: None Reported Past Surgical History: Bladder Surgery, Bowel Resection, Hernia Repair, Hysterectomy, Joint Replacement, Orthopedic Surgery Additional Past Surgical History / Comment(s): 08/21/14 Acromioplasty excision distal clavicle, rotator cuff repair R shoulder, total L knee arthroplasty, colonoscopies/polypectomies and had perforated bowel with colonoscopy-bowel resection, bladder suspension, vemtral incisional hernia repair, skin cancer removed from face, bilateral cataract removals/lens implants. Pleual catheter placement 11/02/19. Past Anesthesia/Blood Transfusion Reactions: Previous Problems w/ Anesthesia Additional Past Anesthesia/Blood Transfusion Reaction / Comment(s): STATES "TOOK A LONG TIME WAKING UP AFTER SURGERY" Past Psychological History: No Psychological Hx Reported Smoking Status: Never smoker Past Alcohol Use History: Occasional Past Drug Use History: None Reported - Past Family History Father Family Medical History: Cancer, Dementia Additional Family Medical History / Comment(s): PROSTATE Mother Family Medical History: Chest Pain / Angina Medications and Allergies Home Medications Medication Instructions Recorded Confirmed Type Multivitamins, Thera [Multivitamin 1 tab PO DAILY 08/16/14 06/11/21 History (formulary)] Simvastatin [Zocor] 40 mg PO HS 08/16/14 06/11/21 History Pantoprazole [Protonix] 40 mg PO AC-BRKFST #30 tablet. 12/27/19 06/11/21 Rx Albuterol Inhaler [Ventolin Hfa 2 puff INHALATION RT-Q4H PRN 06/11/21 06/11/21 History Inhaler] Capecitabine [Xeloda] 1,000 mg PO DIRECTED 06/11/21 06/11/21 History Rivaroxaban [Xarelto] 20 mg PO W/SUPPER 06/11/21 06/11/21 History predniSONE 10 mg PO DAILY 06/11/21 06/11/21 History Dronedarone [Multaq] 400 mg PO AC-BID 30 Days #60 tab 06/18/21 Rx Metoprolol Tartrate [Lopressor] 12.5 mg PO TID 30 Days #90 tab 06/18/21 Rx cefUROXime axetiL [Ceftin] 500 mg PO BID 5 Days #10 tab 06/18/21 Rx Allergies Allergy/AdvReac Type Severity Reaction Status Date / Time No Known Allergies Allergy Verified 01/18/22 03:37 Physical Exam Vitals: Vital Signs Temp Pulse Resp BP Pulse Ox 01/18/22 06:42 64 18 126/73 94 L 01/18/22 05:06 64 18 148/78 100 01/18/22 03:37 97.8 F 75 18 155/81 94 L Intake and Output 01/17/22 01/18/22 01/18/22 22:59 06:59 14:59 Other: Weight 64.41 kg Results 01/18/22 04:06 01/18/22 04:06 Cardiac Enzymes 01/18/22 01/18/22 01/18/22 Range/Units 04:06 04:06 07:21 AST 101 H (14-36) U/L Troponin I 0.018 0.016 (0.000-0.034) ng/mL Coagulation 01/18/22 Range/Units 04:06 PT 12.1 H (9.0-12.0) sec APTT 25.4 (22.0-30.0) sec CBC 01/18/22 Range/Units 04:06 WBC 6.1 (3.8-10.6) k/uL RBC 3.65 L (3.80-5.40) m/uL Hgb 13.2 (11.4-16.0) gm/dL Hct 37.2 (34.0-46.0) % Plt Count 198 (150-450) k/uL Comprehensive Metabolic Panel 01/18/22 Range/Units 04:06 Sodium 137 (137-145) mmol/L Potassium 4.0 (3.5-5.1) mmol/L Chloride 104 (98-107) mmol/L Carbon Dioxide 27 (22-30) mmol/L BUN 32 H (7-17) mg/dL Creatinine 1.13 H (0.52-1.04) mg/dL Glucose 106 H (74-99) mg/dL Calcium 8.5 (8.4-10.2) mg/dL AST 101 H (14-36) U/L ALT 24 (4-34) U/L Alkaline Phosphatase 80 (38-126) U/L Total Protein 5.9 L (6.3-8.2) g/dL Albumin 3.9 (3.5-5.0) g/dL Current Medications Generic Name Dose Route Start Last Admin Trade Name Freq PRN Reason Stop Dose Admin Hydromorphone HCl 1 mg 01/18/22 05:19 Hydromorphone 1 Mg/Ml 1 Ml Syringe IVP Q3HR PRN Severe Pain (Scale 7 to 10) Sodium Chloride 1,000 mls @ 20 mls/hr 01/18/22 05:30 Saline 0.9% IV .Q24H JONATHAN Naloxone HCl 0.2 mg 01/18/22 05:19 Naloxone 0.4 Mg/Ml 1 Ml Vial IV Q2M PRN Opioid Reversal Ondansetron HCl 4 mg 01/18/22 05:19 Ondansetron 4 Mg/2 Ml Vial IVP Q8HR PRN Nausea And Vomiting Intake and Output 01/17/22 01/18/22 01/18/22 22:59 06:59 14:59 Other: Weight 64.41 kg 01/18/22 04:06 01/18/22 04:06
[2022-01-18] MEDS: HYDROmorphone 1 MG/ML 1 ML SYRINGE IVP PRN (13:23)
[2022-01-18] MEDS ORDERED: ALBUTEROL HFA INHALER INHALATION PRN (13:38)
--- NOTE | 2022-01-18 13:38 | P.HPIM ---
History of Present Illness H&P Date: 01/18/22 Elva Gallagher, is 20-year-old female who presented to [facility] emergency room with a chief complaint of sharp pain in the left side of her chest radiating to the back, patient was also having some worsening shortness of breath She was evaluated in the emergency room vital examination on presentation revealed A temperature of 97.8 pulse 75 respiration 18 blood pressure 155/81 p ulse ox 94% on room air Laboratory data revealed A white blood count of 6.1 hemoglobin 13.2 platelet count 198 BUN 32 creatinine 1.13 Testing in the emergency room revealed Chest x-ray done in the emergency room revealed evidence of interstitial edema and pleural effusions, EKG done in the emergency room revealed sinus rhythm with occasional supraventricular premature Patient was admitted to medical floor for further evaluation and treatment Past Medical History Past Medical History: Cancer, GERD/Reflux, Hyperlipidemia, Hypertension Additional Past Medical History / Comment(s): Arthritis bilateral hands/lower back, overactive bladder, benign colon polyps, skin cancer removals, UTIs, bronchitis, veritgo at times. Pleual effusions. History of Any Multi-Drug Resistant Organisms: None Reported Past Surgical History: Bladder Surgery, Bowel Resection, Hernia Repair, Hysterectomy, Joint Replacement, Orthopedic Surgery Additional Past Surgical History / Comment(s): 08/21/14 Acromioplasty excision distal clavicle, rotator cuff repair R shoulder, total L knee arthroplasty, colonoscopies/polypectomies and had perforated bowel with colonoscopy-bowel r esection, bladder suspension, vemtral incisional hernia repair, skin cancer removed from face, bilateral cataract removals/lens implants. Pleual catheter placement 11/02/19. Past Anesthesia/Blood Transfusion Reactions: Previous Problems w/ Anesthesia Additional Past Anesthesia/Blood Transfusion Reaction / Comment(s): STATES "TOOK A LONG TIME WAKING UP AFTER SURGERY" Past Psychological History: No Psychological Hx Reported Additional Psychological History / Comment(s): Pt lives with her in a 3 level home. She is independent. She uses no assistive device or home care. She drives. Smoking Status: Never smoker Past Alcohol Use History: Occasional Past Drug Use History: None Reported - Past Family History Father Family Medical History: Cancer, Dementia Additional Family Medical History / Comment(s): PROSTATE Mother Family Medical History: Chest Pain / Angina Medications and Allergies Home Medications Medication Instructions Recorded Confirmed Type Multivitamins, Thera [Multivitamin 1 tab PO DAILY 08/16/14 01/18/22 History (formulary)] Simvastatin [Zocor] 40 mg PO DAILY 08/16/14 01/18/22 History Pantoprazole [Protonix] 40 mg PO AC-BRKFST #30 tablet. 12/27/19 01/18/22 Rx Albuterol Inhaler [Ventolin Hfa 2 puff INHALATION RT-Q4H PRN 06/11/21 01/18/22 History Inhaler] Capecitabine [Xeloda] 1,000 mg PO DIRECTED 06/11/21 01/18/22 History Rivaroxaban [Xarelto] 20 mg PO DAILY 06/11/21 01/18/22 History predniSONE 10 mg PO DAILY 06/11/21 01/18/22 History Furosemide [Lasix] 40 mg PO DAILY 01/18/22 01/18/22 History Metoprolol Tartrate [Lopressor] 25 mg PO BID 01/18/22 01/18/22 History Allergies Allergy/AdvReac Type Severity Reaction Status Date / Time No Known Allergies Allergy Verified 01/18/22 11:22 Physical Exam Vitals: Vital Signs Temp Pulse Pulse Resp BP BP Pulse Ox 01/18/22 10:03 97.5 F L 66 18 144/79 95 01/18/22 09:40 16 128/78 01/18/22 06:42 64 18 126/73 94 L 01/18/22 05:06 64 18 148/78 100 01/18/22 03:37 97.8 F 75 18 155/81 94 L Intake and Output 01/17/22 01/18/22 01/18/22 22:59 06:59 14:59 Other: Voiding Method Toilet # Voids 1 Weight 64.41 kg 64.41 kg In general patient is alert and oriented x 3 in no distress HEENT head normocephalic and atraumatic Neck is supple no JVD no goiter no lymphadenopathy no carotid bruit Chest examination is clear to auscultation no crackles no wheezing Cardiac exam reveals regular heart sounds S1 and S2 no gallops no murmurs Abdomen is soft nontender no organomegaly with normal bowel sounds Extremity exam reveals no edema no cyanosis or clubbing Neurological examination reveals no gross focal deficits Results CBC & Chem 7: 01/18/22 04:06 01/18/22 04:06 Labs: Abnormal Lab Results - Last 24 Hours (Table) 01/18/22 01/18/22 01/18/22 Range/Units 04:06 04:06 04:06 RBC 3.65 L (3.80-5.40) m/uL MCV 101.9 H (80.0-100.0) fL MCH 36.2 H (25.0-35.0) pg RDW 15.7 H (11.5-15.5) % Lymphocytes # 0.6 L (1.0-4.8) k/uL PT 12.1 H (9.0-12.0) sec BUN 32 H (7-17) mg/dL Creatinine 1.13 H (0.52-1.04) mg/dL Glucose 106 H (74-99) mg/dL AST 101 H (14-36) U/L Total Protein 5.9 L (6.3-8.2) g/dL Thrombosis Risk Factor Assmnt - Choose All That Apply Each Factor Represents 1 point: Obesity (BMI >25), Varicose veins Each Risk Factor Represents 3 Points: Age 75 years or older, History of DVT/PE Other congenital or acquired thrombophilia - If yes, enter type in comment: No Thrombosis Risk Factor Assessment Total Risk Factor Score: 8 Thrombosis Risk Factor Assessment Level: High Risk Assessment and Plan Plan: Left sided chest pain radiating to the back Evidence of pleural effusion 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
[2022-01-18] MEDS ORDERED: CAPECITABINE 500 MG PO SCH (13:45)
[2022-01-18] MEDS ORDERED: RX INFO: IV CONTRAST WAS GIVEN 1 EACH MISC MISCELLANE PRN (14:33)
[2022-01-18] MEDS: RIVAROXABAN 20 MG TAB PO SCH (14:58)
[2022-01-18] MEDS: FUROSEMIDE 40 MG TAB PO SCH (14:58)
[2022-01-18] MEDS: predniSONE 10 MG TAB PO SCH (14:58)
[2022-01-18] MEDS: METOPROLOL TARTRATE 25 MG TAB PO SCH ×2 (14:58→20:38)
--- NOTE | 2022-01-18 15:23 | P.CNPUL ---
History of Present Illness Consult date: 01/18/22 Reason for consult: chest pain History of present illness: This is a 89-year-old female patient with metastatic adenocarcinoma of unknown primary maintain on Xeloda on outpatient basis. The patient malignant pleural effusions and she has been doing relatively stable. She was being followed up by oncology. She presented to the hospital because of sharp pain along the left chest area radiating to her back. This was constant. Not related to breathing. In the emergency, she had a pulse ox of 94% and the rest of the vitals were stable. The patient further was given a blood work that showed a white cell count 6.1 with a hemoglobin 13.3 and a platelet count of 198. BUN is at 32 with a creatinine of 1.1 and sodium level is 137, glucose 106. The patient had negative troponins. ProBNP is not elevated. Chest x-ray is showing increased interstitial markings the left lung special left perihilar and left lower lobe. There is also cardiomegaly and atelectatic change in lung bases. The patient is currently receiving Dilaudid for pain control. She has limited on long-term and coagulation with arousal. As the patient has history of atrial fibrillation. He is also on Lasix 40 mg by mouth daily. No worsening lower extremity edema. In terms of her malignancy, the patient is known to have metastatic adenocarcinoma. The patient was diagnosed approximately 2 years ago and the pleural fluid was positive for malignancy/adenocarcinoma. Her most recent PET/CT that was on 05/10/2021 showed metastatic disease. The patient had new areas of metabolic area of activity along the bilateral hips and various levels of the spine. The patient also had small bilateral pleural effusions and persistent masslike consolidation with mild metabolic activity in the left upper lobe medial segment and the area was measuring 8 x 2.9 cm in size with an SUV of 3.3. The patient was being treated with oral Xeloda. CODE STATUS is DNR/DNI. She also has history of itchy fibrillation, paroxysmal and she has been maintained on IV coagulation with arousal. She has a preserved LV function based on previous echocardiograms. Review of Systems Constitutional: Reports poor appetite, Reports weakness, Reports weight loss Eyes: denies as per HPI, denies blurred vision, denies bulging eye, denies decreased vision, denies diplopia, denies discharge, denies dry eye, denies irritation, denies itching, denies pain, denies photophobia, denies loss of peripheral vision, denies loss of vision, denies tunnel vision/blind spots Ears: deny: decreased hearing, ear discharge, earache, tinnitus Ears, nose, mouth and throat: Reports as per HPI Breasts: absent: as per HPI, change in shape, gynecomastia, masses, nipple discharge, pain, skin changes, swelling Cardiovascular: Reports chest pain, Reports decreased exercise tolerance, Reports dyspnea on exertion Respiratory: Reports dyspnea Gastrointestinal: Reports as per HPI Genitourinary: Reports as per HPI Menstruation: Reports as per HPI Musculoskeletal: Reports as per HPI Musculoskeletal: absent: ankle pain, ankle stiffness, ankle swelling Integumentary: Reports as per HPI Neurological: Reports as per HPI Psychiatric: Reports as per HPI Endocrine: Reports as per HPI Hematologic/Lymphatic: Reports as per HPI Allergic/Immunologic: Reports as per HPI Past Medical History Past Medical History: Cancer, GERD/Reflux, Hyperlipidemia, Hypertension Additional Past Medical History / Comment(s): Arthritis bilateral hands/lower back, overactive bladder, benign colon polyps, skin cancer removals, UTIs, bronchitis, veritgo at times. Pleual effusions. History of Any Multi-Drug Resistant Organisms: None Reported Past Surgical History: Bladder Surgery, Bowel Resection, Hernia Repair, Hysterectomy, Joint Replacement, Orthopedic Surgery Additional Past Surgical History / Comment(s): 08/21/14 Acromioplasty excision distal clavicle, rotator cuff repair R shoulder, total L knee arthroplasty, co lonoscopies/polypectomies and had perforated bowel with colonoscopy-bowel resection, bladder suspension, vemtral incisional hernia repair, skin cancer removed from face, bilateral cataract removals/lens implants. Pleual catheter placement 11/02/19. Past Anesthesia/Blood Transfusion Reactions: Previous Problems w/ Anesthesia Additional Past Anesthesia/Blood Transfusion Reaction / Comment(s): STATES "TOOK A LONG TIME WAKING UP AFTER SURGERY" Past Psychological History: No Psychological Hx Reported Additional Psychological History / Comment(s): Pt lives with her in a 3 level home. She is independent. She uses no assistive device or home care. She drives. Smoking Status: Never smoker Past Alcohol Use History: Occasional Past Drug Use History: None Reported - Past Family History Father Family Medical History: Cancer, Dementia Additional Family Medical History / Comment(s): PROSTATE Mother Family Medical History: Chest Pain / Angina Medications and Allergies Home Medications Medication Instructions Recorded Confirmed Type Multivitamins, Thera [Multivitamin 1 tab PO DAILY 08/16/14 01/18/22 History (formulary)] Simvastatin [Zocor] 40 mg PO DAILY 08/16/14 01/18/22 History Pantoprazole [Protonix] 40 mg PO AC-BRKFST #30 tablet. 12/27/19 01/18/22 Rx Albuterol Inhaler [Ventolin Hfa 2 puff INHALATION RT-Q4H PRN 06/11/21 01/18/22 H istory Inhaler] Capecitabine [Xeloda] 1,000 mg PO DIRECTED 06/11/21 01/18/22 History Rivaroxaban [Xarelto] 20 mg PO DAILY 06/11/21 01/18/22 History predniSONE 10 mg PO DAILY 06/11/21 01/18/22 History Furosemide [Lasix] 40 mg PO DAILY 01/18/22 01/18/22 History Metoprolol Tartrate [Lopressor] 25 mg PO BID 01/18/22 01/18/22 History Allergies Allergy/AdvReac Type Severity Reaction Status Date / Time No Known Allergies Allergy Verified 01/18/22 11:22 Physical Exam Vitals: Vital Signs Temp Pulse Pulse Resp BP BP Pulse Ox 01/18/22 15:00 97.6 F 81 18 119/70 96 01/18/22 10:03 97.5 F L 66 18 144/79 95 01/18/22 09:40 16 128/78 01/18/22 06:42 64 18 126/73 94 L 01/18/22 05:06 64 18 148/78 100 01/18/22 03:37 97.8 F 75 18 155/81 94 L Intake and Output 01/18/22 01/18/22 01/18/22 06:59 14:59 22:59 Other: Voiding Method Toilet # Voids 1 Weight 64.41 kg 64.41 kg GENERAL EXAM: Alert, 89-year-old female on 2 L nasal cannula, comfortable in no apparent distress. HEAD: Normocephalic. EYES: Normal reaction of pupils, equal size. NOSE: Clear with pink turbinates. THROAT: No erythema or exudates. NECK: No masses, no JVD. CHEST: No chest wall deformity. LUNGS: Equal air entry with few scattered rhonchi, end expiratory wheeze., Diminished breath on the left lung base CVS: S1 and S2 normal with no audible murmur, regular rhythm. ABDOMEN: No hepatosplenomegaly, normal bowel sounds, no guarding or rigidity. SPINE: No scoliosis or deformity SKIN: No rashes CENTRAL NERVOUS SYSTEM: No focal deficits, tone is normal in all 4 extremities. EXTREMITIES: There is no peripheral edema. No clubbing, no cyanosis. Peripheral pulses are intact. Results - Laboratory Findings CBC and BMP: 01/18/22 04:06 01/18/22 04:06 PT/INR, D-dimer PT 12.1 sec (9.0-12.0) H 01/18/22 04:06 INR 1.1 (<1.2) 01/18/22 04:06 Abnormal lab findings: Abnormal Labs 01/18/22 01/18/22 01/18/22 04:06 04:06 04:06 RBC 3.65 L MCV 101.9 H MCH 36.2 H RDW 15.7 H Lymphocytes # 0.6 L PT 12.1 H BUN 32 H Creatinine 1.13 H Glucose 106 H AST 101 H Total Protein 5.9 L - Diagnostic Findings Chest x-ray: image reviewed Assessment and Plan Plan: Left sided chest wall pain, consider tumor progression with skeletal metastases. We'll need a CAT scan for evaluation. Pain is noncardiac. No indication for pneumonia pulmonary embolism. Chest x-ray was reviewed Metastatic adenocarcinoma, probably other breast or lung primary. Malignant effusion with skeletal metastases and the patient was admitted on Xeloda on outpatient basis Chronic dyspnea Hypertension Hyperlipidemia Peripheral oximetry fibrillation current rhythm is sinus Osteoarthritis Skin cancer Plan Pain control with Dilaudid Incentive spirometer CAT scan of the chest with contrast Resume all medications We'll follow
[2022-01-19] MEDS: HYDROmorphone 1 MG/ML 1 ML SYRINGE IVP PRN (04:19)
[2022-01-19] MEDS ORDERED: PANTOPRAZOLE 40 MG TABLET PO SCH (07:30)
[2022-01-19] MEDS: RIVAROXABAN 20 MG TAB PO SCH (08:12)
[2022-01-19] MEDS: FUROSEMIDE 40 MG TAB PO SCH (08:12)
[2022-01-19] MEDS: predniSONE 10 MG TAB PO SCH (08:12)
[2022-01-19] MEDS: METOPROLOL TARTRATE 25 MG TAB PO SCH (08:12)
[2022-01-19] MEDS ORDERED: MULTIVITAMINS, THERA 1 EACH TAB PO SCH (09:00)
[2022-01-19] MEDS ORDERED: ATORVASTATIN 20 MG TAB PO SCH (09:00)
--- NOTE | 2022-01-19 09:11 | CT ---
EXAMINATION TYPE: CT chest w con DATE OF EXAM: 01/19/2022 COMPARISON: 02/04/2021, 04/02/2020 HISTORY: history of mass CT DLP: 291.1 mGycm, Automated exposure control for dose reduction was used. CONTRAST: Performed injected with 70 mL of Isovue 300. TECHNIQUE: Axial images were obtained at 5 mm thick sections. Reconstructed images are reviewed on [employer] computer in the coronal plane. FINDINGS: Portion of the thyroid visualized is normal. There are [id number] bilateral pleural effusions greater on the left. Some adjacent compressiv e atelectasis may be present. The area of increased density along the left mediastinal border has extension towards the posterior a spect currently measuring 8.9 x 2.0 cm. At a similar level this measured 10.0 by 1.7 cm previously. S eries 3 image 19. Utilizing similar measurement areas from 2020 this area measures 5.5 x 2.4 cm, seri es 3 image 22. Which may be slightly greater than the 5.0 x 2.4 cm of March 2020. No enlarged mediastinal or hilar adenopathy is evident. The ascending aorta diameter at the level o f the main pulmonary artery is 3.9 cm. The main pulmonary artery diameter at the bifurcation is 3.2 cm. Minimal pericardial effusion may be present. Limited CT sections are obtained through the upper abdomen. Abdomen is essentially unremarkable. IMPRESSIONS: 1. Persistent mass superior left mediastinal border with similar to mildly increased size.
[2022-01-19 10:41] LABS: Basophils # (A) 0.03 X 10*3/uL (0.00-0.10); Basophils % (A) 0.5 %; Eosinophils # (A) 0.04 X 10*3/uL (0.04-0.35); Eosinophils % (A) 0.6 %; HCT 36.6 % (37.2-46.3); HGB 12.1 g/dL (12.0-15.0); Immature Grans, Automated 0.5 %; Lymphocytes # (A) 0.54 X 10*3/uL (0.90-5.00); Lymphocytes % (A) 8.2 %; MCH 35.3 pg (27.0-32.0); MCHC 33.1 g/dL (32.0-37.0); MCV 106.7 fL (80.0-97.0); Mean Platelet Volume 10.4 fL (9.5-12.2); Monocytes # (A) 0.86 X 10*3/uL (0.20-1.00); Monocytes % (A) 13.1 %; NRBC Per 100 WBC 0 /100 WBCS (0.0-0.0); Neutrophils # (A) 5.05 X 10*3/uL (1.80-7.70); Neutrophils % (A) 77.1 %; Platelet Count 183 X 10*3/uL (140-440); RBC 3.43 X 10*6/uL (4.10-5.20); RDW 16.6 % (11.5-14.5); WBC 6.55 X 10*3/uL (4.50-10.00)
--- NOTE | 2022-01-19 10:56 | P.PN ---
Subjective Progress Note Date: 01/19/22 This is a 89-year-old female patient with metastatic adenocarcinoma of unknown primary maintain on Xeloda on outpatient basis. The patient malignant pleural effusions and she has been doing relatively stable. She was being followed up by oncology. She presented to the hospital because of sharp pain along the left chest area radiating to her back. This was constant. Not related to breathing. In the emergency, she had a pulse ox of 94% and the rest of the vitals were stable. The patient further was given a blood work that showed a white cell count 6.1 with a hemoglobin 13.3 and a platelet count of 198. BUN is at 32 with a creatinine of 1.1 and sodium level is 137, glucose 106. The patient had negative troponins. ProBNP is not elevated. Chest x-ray is showing increased interstitial markings the left lung special left perihilar and left lower lobe. There is also cardiomegaly and atelectatic change in lung bases. The patient is currently receiving Dilaudid for pain control. She has limited on long-term and coagulation with arousal. As the patient has history of atrial fibrillation. He is also on Lasix 40 mg by mouth daily. No worsening lower extremity edema. In terms of her malignancy, the patient is known to have metastatic adenocarcinoma. The patient was diagnosed approximately 2 years ago and the pleural fluid was positive for malignancy/adenocarcinoma. Her most recent PET/CT that was on 05/10/2021 showed metastatic disease. The patient had new areas of metabolic area of activity along the bilateral hips and various levels of the spine. The patient also had small bilateral pleural effusions and persistent masslike consolidation with mild metabolic activity in the left upper lobe medial segment and the area was measuring 8 x 2.9 cm in size with an SUV of 3.3. The patient was being treated with oral Xeloda. CODE STATUS is DNR/DNI. She also has history of itchy fibrillation, paroxysmal and she has been maintained on IV coagulation with arousal. She has a preserved LV function based on previous echocardiograms. The patient is seen today in 01/19/2022 in follow-up on the regular medical floor. She is currently sitting up in a chair at the bedside. Awake and alert in no acute distress. Maintaining O2 saturation and 98% on 2 L nasal cannula. Afebrile. Hemodynamically stable. Computed tomography scan of the chest does reveal persistent mass in the superior left mediastinal border with similar to mildly increased size from 10.0 x 1.7-8.9 x 2.0 cm.. There are small to moderate bilateral pleural effusions greater on the left. Some adjacent compressive atelectasis present. She does have a history of metastatic adenocarcinoma. She has most recently been on Xeloda. The left-sided chest discomfort has subsided. White count 6.5. Hemoglobin 12.1. Troponins were negative 3. Dilaudid for pain control. She is continued on prednisone. Xarelto for anticoagulation. Objective - Vital Signs Vital signs: Vital Signs Temp 97.6 F 01/19/22 07:00 Pulse 89 01/19/22 07:00 Resp 16 01/19/22 08:12 BP 115/65 01/19/22 07:00 Pulse Ox 98 01/19/22 07:00 FiO2 Intake & Output 01/18/22 01/19/22 01/19/22 18:59 06:59 18:59 Intake Total 236 Balance 236 Weight 64.41 kg Intake: Oral 236 Other: Voiding Method Toilet Toilet Toilet # Voids 1 5 - Exam GENERAL EXAM: Alert, pleasant 89-year-old female on 2 L nasal cannula, comfortable in no apparent distress. HEAD: Normocephalic. EYES: Normal reaction of pupils, equal size. NOSE: Clear with pink turbinates. THROAT: No erythema or exudates. NECK: No masses, no JVD. CHEST: No chest wall deformity. LUNGS: Equal air entry with few scattered rhonchi, end expiratory wheeze., Diminished breath on the left lung base CVS: S1 and S2 normal with no audible murmur, regular rhythm. ABDOMEN: No hepatosplenomegaly, normal bowel sounds, no guarding or rigidity. SPINE: No scoliosis or deformity SKIN: No rashes CENTRAL NERVOUS SYSTEM: No focal deficits, tone is normal in all 4 extremities. EXTREMITIES: There is no peripheral edema. No clubbing, no cyanosis. Peripheral pulses are intact. - Labs CBC & Chem 7: 01/18/22 04:06 01/18/22 04:06 Assessment and Plan Assessment: Left sided chest wall pain, consider tumor progression with skeletal metastases. Noncardiac with troponins negative 3. Computed tomography scan of the chest revealed mildly increased density in the left mediastinal border extending to the posterior aspect measuring 8.9 x 2.0 cm. Previously measured 10 x 1.7 cm. No enlarged mediastinal or hilar adenopathy noted. No indication for pneumonia pulmonary embolism. Chest x-ray was reviewed Metastatic adenocarcinoma, probably other breast or lung primary. Malignant effusion with skeletal metastases and the patient was continued on Xeloda in the outpatient setting History of recurrent pleural effusion. Previous thoracentesis on the right chest in May 2021 History of previous recurrent left-sided pleural effusion is post thoracentesis 2 in September 2019 and eventual Pleurx catheter placement and subsequent removal Chronic dyspnea Hypertension Hyperlipidemia Paroxysmal atrial fibrillation, current rhythm, is sinus at maintained on Xarelto Osteoarthritis Skin cancer Plan: The patient was seen and evaluated Improved today compared to yesterday as far as her pain is constant Computed tomography scan of the chest, labs and medications reviewed We will consult interventional radiology for possible pigtail placement to the left chest Some of the fluid does appear loculated If symptoms subside may be able to follow the pleural effusions in the outpatient setting We will continue to follow I have personally seen and examined the patient, performed the documentation and the assessment and plan as written. Number of minutes spent on the visit: 10.
[2022-01-19 11:04] LABS: African American GFR (CKD) 65.7 (60.0-200.0); Albumin 3.7 g/dL (3.8-4.9); Albumin/Globulin Ratio 2.47 (1.60-3.17); Anion Gap 11.1 mmol/L (10.00-18.00); BUN/Creat Ratio 20.11 Ratio (12.00-20.00); Blood Urea Nitrogen 18.1 mg/dL (9.0-27.0); Calcium 8.4 mg/dL (8.7-10.3); Carbon Dioxide 28.9 mmol/L (20.0-27.5); Globulin 1.5 g/dL (1.6-3.3); Magnesium 2.2 mg/dL (1.5-2.4); Non-African American GFR(CKD) 56.7 (60.0-200.0); Phosphorus 3.5 mg/dL (2.4-5.1); Potassium 3.6 mmol/L (3.5-5.5); Total Bilirubin 0.6 mg/dL (0.30-1.20); Total Protein 5.2 g/dL (6.2-8.2)
[2022-01-19] MEDS ORDERED: Capecitabine [Xeloda] 500 MG Tablet PO SCH (14:30)
[2022-01-19 15:20] VITALS: BP 107/62; PULSE 78; RESP 18; TEMP 98.2
--- NOTE | 2022-01-19 17:27 | P.DS ---
Providers Date of admission: 01/18/22 05:19 Expected date of discharge: 01/19/22 Attending physician: Gracie Fields Consults: 01/18/22 05:19 Consult Physician Routine Consulting Provider: Clari Paz Consult Reason/Comments: cp Do you want consulting provider notified?: Yes 01/18/22 09:52 Consult Physician Routine Consulting Provider: Kelton Sandoval Consult Reason/Comments: lung ca, pleural effusion Do you want consulting provider notified?: Yes Primary care physician: Gracie Fields [facility] Course: Diagnosis on discharge: Left sided chest pain radiating to the back Evidence of pleural effusion 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 Underlying history of hypertension Underlying history of osteoarthritis Underlying history Off atrial fibrillation with rapid ventricular response Hospital course: Elva Gallagher, is 20-year-old female who presented to [facility] emergency room with a chief complaint of sharp pain in the left side of her chest radiating to the back, patient was also having some worsening shortness of breath She was evaluated in the emergency room vital examination on presentation revealed A temperature of 97.8 pulse 75 respiration 18 blood pressure 155/81 pulse ox 94% on room air Laboratory data revealed A white blood count of 6.1 hemoglobin 13.2 platelet count 198 BUN 32 creatinine 1.13 Testing in the emergency room revealed Chest x-ray done in the emergency room revealed evidence of interstitial edema and pleural effusions, EKG done in the emergency room revealed sinus rhythm with occasional supraventricular premature Patient was admitted to medical floor for further evaluation and treatment On 01/19 2022 patient was seen and examined on the medical floor she is alert and oriented 3 in no apparent distress she is feeling better and denies any chest pain or shortness of breath at this time, initially plan for patient was to stay to tomorrow and have a pigtail catheter placed, however at this time she has changed her mind she stated that she had the catheter 2 years ago and has not needed any thoracentesis in more than 2 years she is not consenting for the pigtail placement at this time she stated that if she has more difficulty with worsening pleural effusion requiring thoracentesis repeatedly she will consent to the pigtail catheter placement. At this time she is requesting to be discharged home, her and son are in the room and agree and was requested go home, at this point will discharge patient to home she will follow-up with pulmonary and oncology as outpatient. Patient Condition at Discharge: Good Plan - Discharge Summary New Discharge Prescriptions: New HYDROcodone/APAP 7.5-325MG [[place] 7.5-325] 1 tab PO Q4H PRN 3 Days #18 tab PRN Reason: Pain Continue Simvastatin [Zocor] 40 mg PO DAILY Multivitamins, Thera [Multivitamin (formulary)] 1 tab PO DAILY Pantoprazole [Protonix] 40 mg PO AC-BRKFST #30 tablet. Rivaroxaban [Xarelto] 20 mg PO DAILY Albuterol Inhaler [Ventolin Hfa Inhaler] 2 puff INHALATION RT-Q4H PRN PRN Reason: Shortness Of Breath predniSONE 10 mg PO DAILY Metoprolol Tartrate [Lopressor] 25 mg PO BID Capecitabine [Xeloda] 1,000 mg PO DIRECTED Furosemide [Lasix] 40 mg PO DAILY Discharge Medication List Multivitamins, Thera [Multivitamin (formulary)] 1 tab PO DAILY 08/16/14 [His tory] Simvastatin [Zocor] 40 mg PO DAILY 08/16/14 [History] Pantoprazole [Protonix] 40 mg PO AC-BRKFST #30 tablet. 12/27/19 [Rx] Albuterol Inhaler [Ventolin Hfa Inhaler] 2 puff INHALATION RT-Q4H PRN 06/11/21 [History] Capecitabine [Xeloda] 1,000 mg PO DIRECTED 06/11/21 [History] Rivaroxaban [Xarelto] 20 mg PO DAILY 06/11/21 [History] predniSONE 10 mg PO DAILY 06/11/21 [History] Furosemide [Lasix] 40 mg PO DAILY 01/18/22 [History] Metoprolol Tartrate [Lopressor] 25 mg PO BID 01/18/22 [History] HYDROcodone/APAP 7.5-325MG [[place] 7.5-325] 1 tab PO Q4H PRN 3 Days #18 tab 01/19/22 [Rx] Follow up Appointment(s)/Referral(s): Gracie Fields MD [Primary Care Provider] - 1-2 days Cheko Horowitz MD [STAFF PHYSICIAN] - 1 Week Activity/Diet/Wound Care/Special Instructions: PLEASE GIVE PT HER HOME MED IN MED ROOM PRIOR TO DISCHARGE...THANK YOU
== END 2022-01-19 18:08 ==
LOC: EC 03:35 → 6NMEDSUR 05:19
PROVIDERS: ADMIT Internal Medicine; ATTEND Internal Medicine
DX: R07.89 Other chest pain (principal); M54.9 Dorsalgia, unspecified; C34.90 Malignant neoplasm of unspecified part of unspecified bronchus or lung; J91.0 Malignant pleural effusion; I26.99 Other pulmonary embolism without acute cor pulmonale; R10.9 Unspecified abdominal pain; K21.9 Gastro-esophageal reflux disease without esophagitis; E78.5 Hyperlipidemia, unspecified; I10 Essential (primary) hypertension; M19.90 Unspecified osteoarthritis, unspecified site; I48.0 Paroxysmal atrial fibrillation; C79.51 Secondary malignant neoplasm of bone; Z85.828 Personal history of other malignant neoplasm of skin; Z87.440 Personal history of urinary (tract) infections; Z79.01 Long term (current) use of anticoagulants; Z79.899 Other long term (current) drug therapy; Z79.52 Long term (current) use of systemic steroids; Z66 Do not resuscitate
CPT/HCPCS: 96361 ×2; 96376 ×2; 96374; 96375; 99285; 36415; 93005; 83880; 80053 ×2; 83735 ×2; 84100 ×2; 84484; 85025 ×2; 85610; 85730; 71045; 71260; G0378 ×2; J2270; J0780; J1170 ×2; J7512 ×2; Q9967

== ENCOUNTER → 2022-02-18 | Outpatient (CLI) | payer MEDICARE ==
--- NOTE | 2022-02-18 16:13 | CT ---
EXAMINATION TYPE: CT abdomen pelvis w con DATE OF EXAM: 02/18/2022 COMPARISON: 05/09/2021 PET/CT INDICATION: F/u ca. pt unsure as to where ca origin is. DLP: 517.50 mGycm, Automated exposure control for dose reduction was used. CONTRAST: 70 mL of Isovue 300. Study performed with Oral Contrast TECHNIQUE: Axial images were obtained from above the diaphragm to the pubic rami in the axial plane a t 5 mm thick sections. Reconstructed images are reviewed on the computer in the coronal plane. FINDINGS: Limited CT sections are obtained the lung bases. There is a small right pleural effusion. Some incre ased lung markings are along the lingula and infrahilar region on the left. These are nonspecific. T his is diminished from comparison.. Small pericardial effusion is present. CT ABDOMEN: Liver: Normal Spleen: Normal Pancreas: Atrophic. No suspicious masses or cysts identified Adrenal glands: The adrenal glands are normal. Gallbladder: Normal Kidneys: No masses are evident. No hydronephrosis is present. There is a 1 cm cortical renal cyst o n the mid right kidney. Small peripelvic cyst appears to be present in the mid left kidney measuring 1.6 cm. Delayed images were obtained through the kidneys, which remain unremarkable. Aorta: Vascular calcification is within the aorta. Inferior vena cava: Normal. CT PELVIS: Loops of bowel within the abdomen and pelvis are normal. There are loops of bowel which are incom pletely distended or lack oral contrast limiting their evaluation. Appendix: Normal as visualized. Urinary bladder: Normal. Genitourinary structures: There is a low-density structure in left adnexa may be a 3.3 cm left ovaria n cyst. Consider additional follow-up with ultrasound. Uterus is not identified. Right ovary is not i dentified. Osseous structures: Multiple lytic areas are present within the sacrum and ilium. There is lytic area s within the lumbar spine. Sclerotic lesions are also present. IMPRESSIONS: 1. Small right pleural effusion. 2. Previous density within the left infrahilar region has diminished in size from comparison. 3. Multiple lytic and sclerotic lesions especially within the pelvis. 4. Enlarged left ovary with what appears to be a cyst measuring 3.3 cm. This could be further evaluat ed with ultrasound
== END | disposition home or self-care (01) ==
LOC: RADCTMAIN 13:52
PROVIDERS: ATTEND Internal Medicine
DX: C25.9 Malignant neoplasm of pancreas, unspecified (principal); C50.919 Malignant neoplasm of unspecified site of unspecified female breast; J91.0 Malignant pleural effusion; N83.312 Acquired atrophy of left ovary; M89.8X8 Other specified disorders of bone, other site; Z71.3 Dietary counseling and surveillance
CPT/HCPCS: 82565; 84520; 74177; 36415; Q9967